=== PATIENT | male | born 1960 ===

== ENCOUNTER 2016-08-09 07:04 | Day surgery (SDC) | payer OTHER ==
[2016-06-26 13:06] VITALS: BMI 19.1
[2016-08-09] MEDS ORDERED: Lactated Ringer's 500 ML IV ONE (07:39)
[2016-08-09 07:44] VITALS: TEMP 96.8
[2016-08-09] MEDS ORDERED: Propofol 10 mg/ml Inj (20 ML) ONE (08:28)
[2016-08-09 09:05] VITALS: BP 118/77; PULSE 72; RESP 14; O2SAT 100
== END 2016-08-09 09:16 | disposition home or self-care (01) ==
LOC: H.ENDO 07:04
PROVIDERS: ATTEND Internal Medicine Gastroenterology
DX: K70.30 Alcoholic cirrhosis of liver without ascites (principal); F10.10 Alcohol abuse, uncomplicated; Z91.19 Patient's noncompliance with other medical treatment and regimen; K74.60 Unspecified cirrhosis of liver; K29.50 Unspecified chronic gastritis without bleeding; I85.10 Secondary esophageal varices without bleeding

== ENCOUNTER 2016-09-11 13:25 | Inpatient (IN) | payer OTHER ==
[2016-09-11 13:25] VITALS: BMI 19.1
[2016-09-11 14:03] LABS: BASO % 0.8 % (0.0-2.0); EOS % 1.3 % (0.0-4.0); HEMATOCRIT 34.8 % (35.0-51.0); LYMPH # 0.2 K/uL (1.0-4.3); LYMPH % 5.8 % (20.0-40.0); MEAN CELL VOLUME 94.8 fl (80.0-94.0); MEAN CORPUSCULAR HGB CONC 33.8 g/dL (33.0-37.0); MONO # 0.5 K/uL (0.0-0.8); MONO % 16.2 % (0.0-10.0); NEUT # 2.6 K/uL (1.8-7.0); NEUT % 75.9 % (50.0-75.0); RED CELL DISTRIBUTION WIDTH 16.3 % (11.5-14.5); WHITE BLOOD COUNT 3.4 K/uL (4.8-10.8)
[2016-09-11 14:10] LABS: ALB/GLOB RATIO 0.9 (1.0-2.1); ALKALINE PHOSPHATASE 129 U/L (38-126); ALT/SGPT 49 U/L (21-72); AST/SGOT 128 U/L (17-59); BILIRUBIN,TOTAL 4.2 mg/dl (0.2-1.3); BLOOD UREA NITROGEN 10 mg/dl (9-20); CALCIUM 9.3 mg/dL (8.4-10.2); CARBON DIOXIDE 19 mmol/L (22-30); CHLORIDE 103 mmol/L (98-107); GFR AFRICAN-AMERICAN > 60; GLUCOSE,RANDOM 101 mg/dL (75-110); LIPASE 416 U/L (23-300); SODIUM 134 mmol/l (132-148); TOTAL PROTEIN 8.6 G/DL (6.3-8.2)
--- NOTE | 2016-09-11 14:44 | ED PDOC ---
HPI: Abdomen Time Seen by Provider: 09/11/16 13:36 Chief Complaint (Nursing): Abdominal Pain Chief Complaint (Provider): Abdominal pain, black stool; states he drank alcohol a few days ago History Per: Patient History/Exam Limitations: no limitations Onset/Duration Of Symptoms: Days Outside of [place] travel?: No Current Symptoms Are (Timing): Still Present Associated Symptoms: Nausea, Loss Of Appetite. denies: Fever, Chills Exacerbating Factors: None Alleviating Factors: None Last Bowel Movement: Today Additional Complaint(s): Pt states he drank a few beers 2 night ago and began having dark stool since this morning. History of GI bleed. Past Medical History Reviewed: Historical Data, Nursing Documentation, Vital Signs Vital Signs: Last Vital Signs Temp 98.4 F 09/11/16 19:02 Pulse 67 09/11/16 19:02 Resp 16 09/11/16 19:02 BP 136/82 09/11/16 19:02 Pulse Ox 95 09/11/16 19:02 - Medical History PMH: Anemia, Anxiety, Depression, Fractures (L ankle sx), Gastritis Denies: HIV, Hypercholesterolemia, Chronic Kidney Disease - Surgical History Surgical History: Endoscopy - Family History Family History: States: Unknown Family Hx - Living Arrangements Living Arrangements: Alone - Social History Current smoker - smoking cessation education provided: Yes Alcohol: Occasional Drugs: Denies - Home Medications Home Medications: Ambulatory Orders Medication Instructions Recorded Polymyxin/Trimethoprim Sulfate 1 drop XX Q6H 10 Days 03/30/14 [Polytrim Ophth Soln] FLUoxetine [Prozac] 1 tab PO DAILY #30 cap 06/27/16 Ferrous Sulfate [Feosol] 1 tab PO BID #30 tab 06/27/16 Propranolol HCl 10 mg pe PO DAILY #30 tablet 06/27/16 Thiamine Mononitrate [Vitamin B-1] 100 mg PO DAILY #30 tablet 06/27/16 - Allergies Allergies/Adverse Reactions: Allergies Allergy/AdvReac Type Severity Reaction Status Date / Time No Known Allergies Allergy Verified 10/20/15 07:46 Review of Systems ROS Statement: Except As Marked, All Systems Reviewed And Found Negative Gastrointestinal: Positive for: Abdominal Pain, Melena Physical Exam - Reviewed Nursing Documentation Reviewed: Yes Vital Signs Reviewed: Yes - Physical Exam Appears: Positive for: Well, Non-toxic, No Acute Distress Head Exam: Positive for: ATRAUMATIC, NORMAL INSPECTION, NORMOCEPHALIC Skin: Positive for: Normal Color, Warm, DRY Eye Exam: Positive for: Normal appearance ENT: Positive for: Normal ENT Inspection Neck: Positive for: Normal, Painless ROM Cardiovascular/Chest: Positive for: Regular Rate, Rhythm Respiratory: Positive for: Normal Breath Sounds. Negative for: Accessory Muscle Use, Respiratory Distress Gastrointestinal/Abdominal: Positive for: Bowel Sounds, Soft, Tenderness ( Epigastric pain ). Negative for: Normal Exam Back: Positive for: Normal Inspection Rectal: Positive for: Normal Exam, Stool Is Heme: ((+)) Extremity: Positive for: Normal ROM Neurologic/Psych: Positive for: Alert, Oriented - Laboratory Results Result Diagrams: 09/11/16 13:50 09/11/16 13:50 - ECG O2 Sat by Pulse Oximetry: 98 Pulse Ox Interpretation: Normal Medical Decision Making Medical Decision Making: Vitals stable, H&H normal Disposition - Clinical Impression Clinical Impression: GI bleed - Patient ED Disposition Is Patient to be Admitted: Yes Counseled Patient/Family Regarding: Studies Performed, Diagnosis - Disposition Disposition Time: 19:30 Condition: GOOD - Pt Status Changed To: Hospital Disposition Of: Observation - Admit Certification Admit to Inpatient:: M/S - POA Present On Arrival: None
[2016-09-11 15:20] LABS: PLATELET COUNT 47 K/uL (130-400)
[2016-09-11 15:56] LABS: RBC URINE 13 /hpf (0-3); URINE BACTERIA RARE (<OCC); URINE BILIRUBIN NEGATIVE (NEGATIVE); URINE BLOOD MODERATE (NEGATIVE); URINE COLOR YELLOW (YELLOW); URINE GLUCOSE (UA) NEG (Normal); URINE KETONE TRACE mg/dL (NEGATIVE); URINE LEUKOCYTE ESTERASE NEG Leu/uL (Negative); URINE PROTEIN NEGATIVE (NEGATIVE); URINE UROBILINOGEN 0.2-1.0 mg/dL (0.2-1.0); WBC URINE < 1 /hpf (0-5)
[2016-09-11 16:47] LABS: EOSINOPHIL 1 % (0-7); NEUTROPHIL 84 % (42-75); TOTAL CELLS COUNTED 100
[2016-09-11 16:48] LABS: LARGE PLATELETS PRESENT
[2016-09-11] MEDS ORDERED: Iohexol 300 100 ML IJ ONE (18:01)
--- NOTE | 2016-09-11 19:17 | CT ---
EXAM: CT Abdomen and Pelvis With Intravenous Contrast CLINICAL HISTORY: 56 years old, male; Pain; Abdominal pain; Other: Rlq; Prior surgery; Surgery date: 6+ months; Surgery type: HX of hernia; Additional info: Elevated lipase, abdominal pain TECHNIQUE: Axial computed tomography images of the abdomen and pelvis with intravenous contrast. This CT exam was performed using one or more of the following dose reduction techniques: automated exposure control, adjustment of the mA and/or kV according to patient size, and/or use of iterative reconstruction technique. Coronal and sagittal reformatted images were created and reviewed. CONTRAST: 90 mL of Prhn801 administered intravenously. EXAM DATE/TIME: 09/11/2016 4:46 PM COMPARISON: CT - ABDOMEN,PELVIS W/WO CONTRAST 05/20/2016 11:25:32 AM FINDINGS: Lower thorax: Heart size is normal. There is a small hiatal hernia. There are paraesophageal varices in the posterior mediastinum. Lung bases are mildly hyperinflated but clear. ABDOMEN: Liver: There is fatty infiltration of the liver.Hepatic contours are nodular. There is prominence of the left and caudate lobes. Gallbladder and bile ducts: unremarkable Pancreas: unremarkable Spleen: Spleen measures approximately 13 cm in length. Adrenals: unremarkable Kidneys and ureters: unremarkable Stomach and bowel: Stomach is empty. Rotation is normal. There are mildly distended small bowel loops in the midabdomen. There is no obstruction. Terminal ileum is unremarkable. Visualized portion of the appendix is unremarkable. Colon is incompletely distended which limits evaluation. There is mild cecal and ascending colon wall thickening Appendix: See stomach and bowel PELVIS: Bladder: unremarkable Reproductive: Seminal vesicles and prostate are unremarkable. ABDOMEN and PELVIS: Intraperitoneal space: There is trace fluid in the right colic gutter. There is no free air Bones/joints: There are degenerative changes in the osseus structures. Soft tissues: unremarkable Vasculature: There are vascular calcifications. There are varices in the upper abdomen and retroperitoneum. There are paraesophageal varices. There continues to be a filling defect/thrombus in the superior mesenteric vein. There is nonocclusive thrombus in the distal splenic and proximal portal vein. There is been decrease in knee amount of thrombus in the main portal vein. Lymph nodes: unremarkable IMPRESSION: Cirrhosis and fatty infiltration of the liver, varices and trace ascites; continued thrombus in the superior mesenteric vein with interval decrease in amount of thrombus in the portal vein; now with small nonocclusive thrombus in the distal splenic vein; mild ileus, no obstruction; possible colitis, no CT findings of appendicitis Additional findings as described above.
--- NOTE | 2016-09-11 20:48 | CP.PCM.HP ---
<Bashir Summers - Last Filed: 09/11/16 21:30> History of Present Illness - History of Present Illness History of Present Illness: 56 yo male with PMHx of gastric and esophageal varices, chronic ETOH abuse, liver cirrhosis, tobacco abuse, depression, and chronic gastritis w/ multiple admissions for UGIB presented to ED for 1 episode of dark tarry stool this morning associated with epigastric discomfort and lightheadedness. Patient states drank 6 beers on Monday. States no alcohol for 2 months prior to that. Patient has hx of previous hospitalization for similar symptoms; has long hx of alcohol abuse. Denies chest pain, dyspnea, headache, blurry vision. Denies cough , runny nose, numbness, tingling. denies recent travel or sick contact. Patient was evaluated in the ER, states lightheadness/epigastric discomfort has resolved , though continues with black tarry stool x 3 since in ED. PMD: [facility] Supervisor Inspection: Dr. Desouza PMHx:Chronic gastritis w/ multiple admissions for UGIB, Liver cirrhosis, gastric and esophageal varices, Chronic ETOH abuse, Tobacco abuse, Depression SHx: Left lower ext ankle surgery; Right inguinal hernia repair Meds: unverified Allergies: none FHx: Father had hx of Colon cancer, etoh abuse, mother had hx of stomach cancer ; both in their 60-70s; brother also had hx of etoh abuse, and of etoh related complications. Sochx: etoh abuse, off and on abstinence; smokes. hx of 30+ pack years, current smoker; denies illicit drug abuse ED Course: Vitals stable. PE notable for epigastric tenderness and hemoccult positive by rectal exam. Protonix 40mg IV H/H 11.7/34.8 CT Abdomen/Pelvis w/ IV contrast IMPRESSION: Cirrhosis and fatty infiltration of the liver, varices and trace ascites; continued thrombus in the superior mesenteric vein with interval decrease in amount of thrombus in the portal vein; now with small nonocclusive thrombus in the distal splenic vein; mild ileus, no obstruction; possible colitis, no CT findings of appendicitis Present on Admission - Present on Admission Any Indicators Present on Admission: No Review of Systems - Review of Systems All systems: reviewed and no additional remarkable complaints except (mentioned in HPI) Past Patient History - Infectious Disease Hx of Infectious Diseases: None - Tetanus Immunizations Tetanus Immunization: Unknown - Past Medical History & Family History Past Medical History?: Yes - Past Social History Alcohol: Occasional Drugs: Denies - CARDIAC Hx Hypercholesterolemia: No - PULMONARY Hx Respiratory Disorders: No - NEUROLOGICAL Hx Neurological Disorder: No - HEENT Hx HEENT Problems: No - RENAL Hx Chronic Kidney Disease: No - ENDOCRINE/METABOLIC Hx Endocrine Disorders: No - HEMATOLOGICAL/ONCOLOGICAL Hx Anemia: Yes Hx Human Immunodeficiency Virus (HIV): No - INTEGUMENTARY Hx Dermatological Problems: No - MUSCULOSKELETAL/RHEUMATOLOGICAL Hx Fractures: Yes (L ankle sx) - GASTROINTESTINAL Hx Gastritis: Yes - GENITOURINARY/GYNECOLOGICAL Hx Genitourinary Disorders: No - PSYCHIATRIC Hx Anxiety: Yes Hx Depression: Yes - SURGICAL HISTORY Hx Surgeries: Yes Hx Herniorrhaphy: Yes Other/Comment: ANKLE SURGERY - ANESTHESIA Hx Anesthesia: Yes Hx Anesthesia Reactions: No Hx Malignant Hyperthermia: No Meds Allergies/Adverse Reactions: Allergies Allergy/AdvReac Type Severity Reaction Status Date / Time No Known Allergies Allergy Verified 10/20/15 07:46 Physical Exam - Constitutional Appears: Well, Non-toxic, No Acute Distress - Head Exam Head Exam: ATRAUMATIC, NORMAL INSPECTION, NORMOCEPHALIC - Eye Exam Eye Exam: EOMI, Normal appearance - ENT Exam ENT Exam: Normal Exam - Neck Exam Neck exam: Positive for: Full Rom, Normal Inspection - Respiratory Exam Respiratory Exam: Clear to Auscultation Bilateral, NORMAL BREATHING PATTERN. absent: Decreased Breath Sounds, Rales, Rhonchi, Wheezes - Cardiovascular Exam Cardiovascular Exam: RRR, +S1, +S2 - GI/Abdominal Exam GI & Abdominal Exam: Normal Bowel Sounds, Soft. absent: Guarding, Rebound, Tenderness - Extremities Exam Extremities exam: Positive for: normal inspection. Negative for: calf tenderness, pedal edema - Neurological Exam Neurological exam: Alert, Oriented x3 - Psychiatric Exam Psychiatric exam: Normal Affect, Normal Mood - Skin Skin Exam: Dry, Intact, Normal Color, Warm Results - Vital Signs Recent Vital Signs: Last Vital Signs Temp 98.4 F 09/11/16 19:02 Pulse 67 09/11/16 19:02 Resp 16 09/11/16 19:02 BP 136/82 09/11/16 19:02 Pulse Ox 98 09/11/16 19:31 - Labs Result Diagrams: 09/11/16 13:50 09/11/16 13:50 Assessment & Plan - Assessment and Plan (Free Text) Assessment: 56 yo male with PMHx of gastric and esophageal varices, chronic ETOH abuse, liver cirrhosis, tobacco abuse, depression, and chronic gastritis w/ multiple admissions for UGIB with melena x 1 day admitted for upper GI bleed. Hemodynamically stable at this time. Plan: 1)Gastrointestinal hemorrhage with melena, likely secondary to esophageal varices and gastritis [secondary to chronic alcohol abuse] -stable -NPO -labs reviewed: H/H ok -Repeat cbc in 6 hrs and AM -GI consulted, Dr Desouza, appreciate recommendations -Started protonix and octreotide IV Drip 2) Alcoholic liver cirrhosis -reviewed ast 128(H)/alt 49 as well as Bilirubin 4.2 -Thrombocytopenia chronic -reviewed hepatitis panel normal limit [2016] -repeat CMP in AM -Unable to record MELD score due to unavailable coag study results 3) Chronic alcohol abuse -CIWAAr score 0 -No signs of withdrawal at this time 4) Depression -hold floxetine till GI recommendations 5) Smoking hx -Consider nicotine patch if elongated stay 6) Prophylactic measures: -DVT: scds [blood thinners, e.g. aspirin, NSAIDs contraindicated given hx of multiple GI bleed] <Annmarie Parra - Last Filed: 09/12/16 11:20> Results - Vital Signs Recent Vital Signs: Last Vital Signs Temp 98.5 F 09/12/16 09:00 Pulse 72 09/12/16 10:26 Resp 18 09/12/16 09:00 BP 121/70 09/12/16 09:00 Pulse Ox 98 09/12/16 09:00 - Labs Result Diagrams: 09/12/16 10:35 09/12/16 10:35 Labs: Laboratory Results - last 24 hr 09/12/16 09/12/16 09/12/16 02:08 05:15 10:35 WBC 2.8 L 2.5 L RBC 3.59 L 3.61 L Hgb 11.5 L 11.6 L Hct 34.2 L 34.7 L MCV 95.3 H 96.1 H MCH 32.2 H 32.2 H MCHC 33.8 33.5 RDW 16.2 H 16.1 H Plt Count 79 L D 48 L D MPV 8.4 Neut % (Auto) 69.8 Lymph % (Auto) 8.1 L [place] % (Auto) 16.6 H Eos % (Auto) 4.5 H Baso % (Auto) 1.0 Neut # 1.8 Lymph # 0.2 L [place] # 0.4 Eos # 0.1 Baso # 0.0 Sodium 133 Potassium 3.8 Chloride 103 Carbon Dioxide 21 L Anion Gap 13 BUN 11 Creatinine 0.5 L Est GFR ( Amer) > 60 Est GFR (Non-Af Amer) > 60 Random Glucose 90 Calcium 8.3 L Total Bilirubin 5.2 H AST 87 H D ALT 46 Alkaline Phosphatase 109 Total Protein 7.8 Albumin 3.5 Globulin 4.3 H Albumin/Globulin Ratio 0.8 L 09/12/16 10:35 WBC RBC Hgb Hct MCV MCH MCHC RDW Plt Count MPV Neut % (Auto) Lymph % (Auto) [place] % (Auto) Eos % (Auto) Baso % (Auto) Neut # Lymph # [place] # Eos # Baso # Sodium 134 Potassium 3.9 Chloride 104 Carbon Dioxide 20 L Anion Gap 14 BUN 11 Creatinine 0.5 L Est GFR ( Amer) > 60 Est GFR (Non-Af Amer) > 60 Random Glucose 101 Calcium 8.4 Total Bilirubin 5.3 H AST 94 H ALT 41 Alkaline Phosphatase 111 Total Protein 7.7 Albumin 3.5 Globulin 4.2 H Albumin/Globulin Ratio 0.8 L Assessment & Plan - Assessment and Plan (Free Text) Assessment: ATTENDING NOTE ATTESTATION PATIENT ADMITTED VIA THE ED. COMPLAINT ABOVE. VITAL SIGNS/LABS STABLE. DISCUSSED WITH RESIDENT. AGREE WITH PLAN.
[2016-09-11] MEDS: Sodium Chloride 0.9% 1,000 ML IV SCH (21:24)
[2016-09-11] MEDS: Pantoprazole 40 MG in Sodium Chloride 0.9% 100 ML IVPB SCH (21:29)
[2016-09-12 02:13] LABS: HEMATOCRIT 34.2 % (35.0-51.0); MEAN CELL VOLUME 95.3 fl (80.0-94.0); MEAN CORPUSCULAR HEMOGLOBIN 32.2 pg (27.0-31.0); MEAN CORPUSCULAR HGB CONC 33.8 g/dL (33.0-37.0); RED CELL DISTRIBUTION WIDTH 16.2 % (11.5-14.5); WHITE BLOOD COUNT 2.8 K/uL (4.8-10.8)
[2016-09-12] MEDS: Pantoprazole 40 MG in Sodium Chloride 0.9% 100 ML IVPB SCH ×5 (02:53→22:18)
[2016-09-12 06:46] LABS: ALB/GLOB RATIO 0.8 (1.0-2.1); ALKALINE PHOSPHATASE 109 U/L (38-126); ALT/SGPT 46 U/L (21-72); AST/SGOT 87 U/L (17-59); BILIRUBIN,TOTAL 5.2 mg/dl (0.2-1.3); BLOOD UREA NITROGEN 11 mg/dl (9-20); CALCIUM 8.3 mg/dL (8.4-10.2); CARBON DIOXIDE 21 mmol/L (22-30); CHLORIDE 103 mmol/L (98-107); GFR AFRICAN-AMERICAN > 60; GLUCOSE,RANDOM 90 mg/dL (75-110); POTASSIUM 3.8 MMOL/L (3.6-5.0); SODIUM 133 mmol/l (132-148); TOTAL PROTEIN 7.8 G/DL (6.3-8.2)
[2016-09-12] MEDS: Sodium Chloride 0.9% 1,000 ML IV SCH ×3 (07:13→22:20)
[2016-09-12 10:43] LABS: EOS # 0.1 K/uL (0.0-0.7); EOS % 4.5 % (0.0-4.0); HEMATOCRIT 34.7 % (35.0-51.0); LYMPH # 0.2 K/uL (1.0-4.3); LYMPH % 8.1 % (20.0-40.0); MEAN CELL VOLUME 96.1 fl (80.0-94.0); MEAN CORPUSCULAR HEMOGLOBIN 32.2 pg (27.0-31.0); MEAN CORPUSCULAR HGB CONC 33.5 g/dL (33.0-37.0); MEAN PLATELET VOLUME 8.4 fl (7.2-11.7); MONO # 0.4 K/uL (0.0-0.8); MONO % 16.6 % (0.0-10.0); NEUT # 1.8 K/uL (1.8-7.0); NEUT % 69.8 % (50.0-75.0); NRBC % 0.1 % (0.0-0.0); RED CELL DISTRIBUTION WIDTH 16.1 % (11.5-14.5); WHITE BLOOD COUNT 2.5 K/uL (4.8-10.8)
[2016-09-12 10:57] LABS: ALB/GLOB RATIO 0.8 (1.0-2.1); ALKALINE PHOSPHATASE 111 U/L (38-126); ALT/SGPT 41 U/L (21-72); AST/SGOT 94 U/L (17-59); BILIRUBIN,TOTAL 5.3 mg/dl (0.2-1.3); BLOOD UREA NITROGEN 11 mg/dl (9-20); CALCIUM 8.4 mg/dL (8.4-10.2); CARBON DIOXIDE 20 mmol/L (22-30); CHLORIDE 104 mmol/L (98-107); GFR AFRICAN-AMERICAN > 60; GLUCOSE,RANDOM 101 mg/dL (75-110); SODIUM 134 mmol/l (132-148); TOTAL PROTEIN 7.7 G/DL (6.3-8.2)
[2016-09-12 10:58] LABS: POTASSIUM 3.9 MMOL/L (3.6-5.0)
--- NOTE | 2016-09-12 11:28 | CP.PCM.CON ---
<Matt Calvin - Last Filed: 09/12/16 16:42> History of Present Illness - History of Present Illness History of Present Illness: PGY4 GI Fellow Consult Note Patient is a 56yo male with PMHx significant for decompensated EtOH cirrhosis with history of esophageal varices, chronic EtOH abuse/dependence (ongoing) who presented to the ED with complaint of melena. Patient admits that he drank 6 beers on Monday. Monday morning he began to have abdominal pain, nausea, dizziness and lightheadedness. This continued in to Monday and he noticed an episode of melena as well which prompted him to come to the ED for evaluation. He had 3-4 more episodes of melena since arrival in the ED. At present, states no BM since he was in the ER. Continues to have mild epigastric discomfort and nausea. PMHx: See HPI PSHx: Left ankle surgery, R inguinal hernia repair FHx: Father - colon cancer; Mother - gastric cancer Social: Chronic EtOH abuse (ongoing), +tobacco use (~30 pack years), denies illicit drug use Endo: Most recent - 08/09/16 - EGD - Grade I esoph. varices, erosive gastropathy 07/2015 - Colonoscopy - diverticulosis, ext/int hemorrhoids Review of Systems - Constitutional Constitutional: Anorexia. absent: Chills, Fever, Weight Loss - EENT Eyes: absent: Change in Vision Nose/Mouth/Throat: absent: Sore Throat - Cardiovascular Cardiovascular: absent: Chest Pain, Dyspnea, Edema - Respiratory Respiratory: absent: Cough, Dyspnea, Excessive Mucous Production - Gastrointestinal Gastrointestinal: Abdominal Pain, Dyspepsia, Melena, Nausea. absent: Constipation, Cramping, Diarrhea, Dysphagia, Heartburn, Hematemesis, Hematochezia, Odynophagia, Vomiting - Genitourinary Genitourinary: absent: Dysuria, Urinary Frequency, Urinary Urgency - Musculoskeletal Musculoskeletal: absent: Back Pain, Neck Pain - Integumentary Integumentary: absent: New Lesions, Rash - Neurological Neurological: absent: Dizziness, Numbness, Focal Weakness - Psychiatric Psychiatric: absent: Anxiety, Depression - Endocrine Endocrine: absent: Polydipsia, Polyphagia, Polyuria - Hematologic/Lymphatic Hematologic: absent: Easy Bleeding, Easy Bruising, Lymphadenopathy Past Patient History - Infectious Disease Hx of Infectious Diseases: None - Tetanus Immunizations Tetanus Immunization: Unknown - Past Medical History & Family History Past Medical History?: Yes - Past Social History Smoking Status: Heavy Smoker > 10 Cigarettes Daily - CARDIAC Hx Cardiac Disorders: Yes (GI prob: Cirrhosis, esophageal varicies) - PULMONARY Hx Respiratory Disorders: No - NEUROLOGICAL Hx Neurological Disorder: No - HEENT Hx HEENT Problems: No - RENAL Hx Chronic Kidney Disease: No - ENDOCRINE/METABOLIC Hx Endocrine Disorders: No - HEMATOLOGICAL/ONCOLOGICAL Hx Blood Disorders: Yes (anemia) Hx AIDS: No Hx Anemia: Yes Hx Cirrhosis: Yes Hx Human Immunodeficiency Virus (HIV): No - INTEGUMENTARY Hx Dermatological Problems: No - MUSCULOSKELETAL/RHEUMATOLOGICAL Hx Musculoskeletal Disorders: Yes (arthritis) Hx Falls: No - GASTROINTESTINAL Hx Gastritis: Yes - GENITOURINARY/GYNECOLOGICAL Hx Genitourinary Disorders: No - PSYCHIATRIC Hx Psychophysiologic Disorder: Yes Hx Depression: Yes Hx Substance Use: No - SURGICAL HISTORY Hx Surgeries: Yes Hx Herniorrhaphy: Yes Other/Comment: ANKLE SURGERY - ANESTHESIA Hx Anesthesia: Yes Hx Anesthesia Reactions: No Hx Malignant Hyperthermia: No Has any member of the family had a problem w/ anesthesia?: No Meds Allergies/Adverse Reactions: Allergies Allergy/AdvReac Type Severity Reaction Status Date / Time No Known Allergies Allergy Verified 10/20/15 07:46 - Medications Medications: Current Medications Sodium Chloride (Sodium Chloride 0.9%) 1,000 mls @ 125 mls/hr IV .Q8H LEROY Last Admin: 09/12/16 07:13 Dose: 125 mls/hr Pantoprazole Sodium 40 mg/ (Sodium Chloride) 100 mls @ 20 mls/hr IVPB Q5H LEROY PRN Reason: 8 MG/HR Last Admin: 09/12/16 07:12 Dose: 20 mls/hr Octreotide Acetate 1,250 mcg/ (Sodium Chloride) 252.5 mls @ 5.05 mls/hr IV .Q24H LEROY; 25 MCG/HR PRN Reason: Protocol Last Admin: 09/11/16 21:24 Dose: 5.05 mls/hr Physical Exam - Constitutional Appears: Non-toxic, No Acute Distress - Eye Exam Eye Exam: EOMI, PERRL - ENT Exam ENT Exam: Mucous Membranes Dry - Respiratory Exam Respiratory Exam: Clear to Auscultation Bilateral. absent: Rales, Rhonchi, Wheezes - Cardiovascular Exam Cardiovascular Exam: RRR, +S1, +S2 - GI/Abdominal Exam GI & Abdominal Exam: Normal Bowel Sounds, Soft, Tenderness (epigastric). absent : Distended, Firm, Guarding, Organomegaly, Rigid - Rectal Exam Rectal Exam: Black Stool. absent: Hemorrhoids - Extremities Exam Extremities exam: Positive for: normal inspection. Negative for: pedal edema - Neurological Exam Neurological exam: Alert, Oriented x3 - Psychiatric Exam Psychiatric exam: Normal Affect, Normal Mood - Skin Skin Exam: Dry, Warm Results - Vital Signs Recent Vital Signs: Last Vital Signs Temp 98.5 F 09/12/16 09:00 Pulse 72 09/12/16 10:26 Resp 18 09/12/16 09:00 BP 121/70 09/12/16 09:00 Pulse Ox 98 09/12/16 09:00 - Labs Result Diagrams: 09/12/16 10:35 09/12/16 10:35 Labs: Laboratory Results - last 24 hr 09/12/16 09/12/16 09/12/16 02:08 05:15 10:35 WBC 2.8 L 2.5 L RBC 3.59 L 3.61 L Hgb 11.5 L 11.6 L Hct 34.2 L 34.7 L MCV 95.3 H 96.1 H MCH 32.2 H 32.2 H MCHC 33.8 33.5 RDW 16.2 H 16.1 H Plt Count 79 L D 48 L D MPV 8.4 Neut % (Auto) 69.8 Lymph % (Auto) 8.1 L [place] % (Auto) 16.6 H Eos % (Auto) 4.5 H Baso % (Auto) 1.0 Neut # 1.8 Lymph # 0.2 L [place] # 0.4 Eos # 0.1 Baso # 0.0 PT INR Sodium 133 Potassium 3.8 Chloride 103 Carbon Dioxide 21 L Anion Gap 13 BUN 11 Creatinine 0.5 L Est GFR ( Amer) > 60 Est GFR (Non-Af Amer) > 60 Random Glucose 90 Calcium 8.3 L Total Bilirubin 5.2 H AST 87 H D ALT 46 Alkaline Phosphatase 109 Total Protein 7.8 Albumin 3.5 Globulin 4.3 H Albumin/Globulin Ratio 0.8 L 09/12/16 09/12/16 10:35 10:35 WBC RBC Hgb Hct MCV MCH MCHC RDW Plt Count MPV Neut % (Auto) Lymph % (Auto) [place] % (Auto) Eos % (Auto) Baso % (Auto) Neut # Lymph # [place] # Eos # Baso # PT 13.8 H INR 1.33 H Sodium 134 Potassium 3.9 Chloride 104 Carbon Dioxide 20 L Anion Gap 14 BUN 11 Creatinine 0.5 L Est GFR ( Amer) > 60 Est GFR (Non-Af Amer) > 60 Random Glucose 101 Calcium 8.4 Total Bilirubin 5.3 H AST 94 H ALT 41 Alkaline Phosphatase 111 Total Protein 7.7 Albumin 3.5 Globulin 4.2 H Albumin/Globulin Ratio 0.8 L Assessment & Plan - Assessment and Plan (Free Text) Assessment: Patient is a 56yo male with PMHx significant for decompensated EtOH cirrhosis with history of esophageal varices, chronic EtOH abuse/dependence (ongoing) who presented to the ED with complaint of melena. -Acute blood loss anemia -Melena -EtOH abuse, recent use -Decompensated EtOH cirrhosis with h/o esophageal varices -Pancytopenia 2/2 bone marrow suppression from EtOH abuse Plan: -Patient has been on protonix and octreotide gtt since admission -Liquid diet last night, has been NPO past midnight last night -Plan for EGD this afternoon *MELD-Na: 20 - Date & Time Date: 09/12/16 Time: 12:42 <Jeevan Desouza MD - Last Filed: 09/12/16 19:47> Meds - Medications Medications: Current Medications Sodium Chloride (Sodium Chloride 0.9%) 1,000 mls @ 125 mls/hr IV .Q8H LEROY Last Admin: 09/12/16 17:17 Dose: 125 mls/hr Pantoprazole Sodium 40 mg/ (Sodium Chloride) 100 mls @ 20 mls/hr IVPB Q5H LEROY PRN Reason: 8 MG/HR Last Admin: 09/12/16 17:18 Dose: 20 mls/hr Octreotide Acetate 1,250 mcg/ (Sodium Chloride) 252.5 mls @ 5.05 mls/hr IV .Q24H LEROY; 25 MCG/HR PRN Reason: Protocol Last Admin: 09/11/16 21:24 Dose: 5.05 mls/hr Results - Vital Signs Recent Vital Signs: Last Vital Signs Temp 98.4 F 09/12/16 19:33 Pulse 68 09/12/16 19:33 Resp 20 09/12/16 19:33 BP 118/70 09/12/16 19:33 Pulse Ox 97 09/12/16 19:33 - Labs Result Diagrams: 09/12/16 10:35 09/12/16 10:35 Labs: Laboratory Results - last 24 hr 09/12/16 09/12/16 09/12/16 02:08 05:15 05:57 WBC 2.8 L RBC 3.59 L Hgb 11.5 L Hct 34.2 L MCV 95.3 H MCH 32.2 H MCHC 33.8 RDW 16.2 H Plt Count 79 L D MPV Neut % (Auto) Lymph % (Auto) [place] % (Auto) Eos % (Auto) Baso % (Auto) Neut # Lymph # [place] # Eos # Baso # PT INR Sodium 133 Potassium 3.8 Chloride 103 Carbon Dioxide 21 L Anion Gap 13 BUN 11 Creatinine 0.5 L Est GFR ( Amer) > 60 Est GFR (Non-Af Amer) > 60 POC Glucose (mg/dL) 87 Random Glucose 90 Calcium 8.3 L Total Bilirubin 5.2 H AST 87 H D ALT 46 Alkaline Phosphatase 109 Total Protein 7.8 Albumin 3.5 Globulin 4.3 H Albumin/Globulin Ratio 0.8 L 09/12/16 09/12/16 09/12/16 10:35 10:35 10:35 WBC 2.5 L RBC 3.61 L Hgb 11.6 L Hct 34.7 L MCV 96.1 H MCH 32.2 H MCHC 33.5 RDW 16.1 H Plt Count 48 L D MPV 8.4 Neut % (Auto) 69.8 Lymph % (Auto) 8.1 L [place] % (Auto) 16.6 H Eos % (Auto) 4.5 H Baso % (Auto) 1.0 Neut # 1.8 Lymph # 0.2 L [place] # 0.4 Eos # 0.1 Baso # 0.0 PT 13.8 H INR 1.33 H Sodium 134 Potassium 3.9 Chloride 104 Carbon Dioxide 20 L Anion Gap 14 BUN 11 Creatinine 0.5 L Est GFR ( Amer) > 60 Est GFR (Non-Af Amer) > 60 POC Glucose (mg/dL) Random Glucose 101 Calcium 8.4 Total Bilirubin 5.3 H AST 94 H ALT 41 Alkaline Phosphatase 111 Total Protein 7.7 Albumin 3.5 Globulin 4.2 H Albumin/Globulin Ratio 0.8 L Attending/Attestation - Attestation I have personally seen and examined this patient.: Yes I have fully participated in the care of the patient.: Yes I have reviewed all pertinent clinical information: Yes Notes (Text): 09/12/16 19:44 Patient seen with GI fellow. This is a 56yo male with PMHx significant for decompensated EtOH cirrhosis with history of esophageal varices, chronic EtOH abuse/dependence (ongoing) who presented to the ED with complaint of melena s/p EGD showing PHG and grade A varices. MELD 20. Last EGD last month with similar findings. Patient continues to drink alcohol daily with case of beer. Discontinue octreotide and PPI drip and start regular low salt diet. Can be discharged with outpatient follow up. Not a transplant candidate due to active alcohol abuse
--- NOTE | 2016-09-12 12:55 | CP.PCM.PN ---
Subjective - Date & Time of Evaluation Date of Evaluation: 09/12/16 Time of Evaluation: 09:45 - Subjective Subjective: 56 y/o M admitted for Upper GI bleeding seen at bedside in not acute distress, denies dizziness, abd pain, palpitations, vision changes, CP or SOB. PAtient is on NPO, was evaluated by GI and is scheduled for EGD later today. Objective - Vital Signs/Intake and Output Vital Signs (last 24 hours): Temp Pulse Resp BP Pulse Ox 98.4 F 59 L 18 128/73 99 09/12/16 12:23 09/12/16 12:23 09/12/16 12:23 09/12/16 12:23 09/12/16 12:23 - Medications Medications: Current Medications Sodium Chloride (Sodium Chloride 0.9%) 1,000 mls @ 125 mls/hr IV .Q8H LEROY Last Admin: 09/12/16 07:13 Dose: 125 mls/hr Pantoprazole Sodium 40 mg/ (Sodium Chloride) 100 mls @ 20 mls/hr IVPB Q5H LEROY PRN Reason: 8 MG/HR Last Admin: 09/12/16 12:40 Dose: 20 mls/hr Octreotide Acetate 1,250 mcg/ (Sodium Chloride) 252.5 mls @ 5.05 mls/hr IV .Q24H LEROY; 25 MCG/HR PRN Reason: Protocol Last Admin: 09/11/16 21:24 Dose: 5.05 mls/hr - Labs Labs: 09/12/16 10:35 09/12/16 10:35 PT 13.8 SECONDS (9.6-11.2) H 09/12/16 10:35 INR 1.33 (0.92-1.08) H 09/12/16 10:35 - Constitutional Appears: Non-toxic, No Acute Distress - Head Exam Head Exam: NORMAL INSPECTION - Eye Exam Eye Exam: PERRL - ENT Exam ENT Exam: Mucous Membranes Moist - Respiratory Exam Respiratory Exam: Clear to Ausculation Bilateral, NORMAL BREATHING PATTERN - Cardiovascular Exam Cardiovascular Exam: REGULAR RHYTHM, +S1, +S2. absent: Gallop - GI/Abdominal Exam GI & Abdominal Exam: Soft, Normal Bowel Sounds. absent: Distended, Tenderness - Extremities Exam Extremities Exam: Normal Capillary Refill. absent: Calf Tenderness, Tenderness - Neurological Exam Neurological Exam: Alert, Awake, Oriented x3 - Psychiatric Exam Psychiatric exam: Normal Affect, Normal Mood Assessment and Plan - Assessment and Plan (Free Text) Assessment: 56 yo male with PMHx of gastric and esophageal varices, chronic ETOH abuse, liver cirrhosis, admitted for melena 1)GI bleeding likely secondary to esophageal varices and gastritis [secondary to chronic alcohol abuse] -stable -NPO -labs reviewed: H/H -GI consulted, Dr Desouza. For EGD today -Cont protonix and octreotide IV Drip 2) Alcoholic liver cirrhosis -Pancytopenia -reviewed ast 94(H)/alt 41 -reviewed hepatitis panel normal limit [2016] -MELD-Na 20 3) Pancytopenia -Most likely due to liver disease -Anemia could be due to blood loss -F/U EGD 4) Smoking hx -Consider nicotine patch if elongated stay 5) Prophylactic measures: -DVT: scds for now
[2016-09-12] MEDS ORDERED: Lactated Ringer's 500 ML IV ONE (12:57)
[2016-09-12] MEDS ORDERED: Propofol 10 mg/ml Inj (20 ML) ONE (14:13)
[2016-09-13] MEDS: Pantoprazole 40 MG in Sodium Chloride 0.9% 100 ML IVPB SCH ×2 (02:40→09:32)
[2016-09-13 04:47] VITALS: TEMP 98.1
[2016-09-13] MEDS: Sodium Chloride 0.9% 1,000 ML IV SCH (06:08)
[2016-09-13 06:20] LABS: HEMATOCRIT 32.4 % (35.0-51.0); MEAN CELL VOLUME 97.5 fl (80.0-94.0); MEAN CORPUSCULAR HEMOGLOBIN 32.2 pg (27.0-31.0); RED CELL DISTRIBUTION WIDTH 16.3 % (11.5-14.5); WHITE BLOOD COUNT 2.8 K/uL (4.8-10.8)
[2016-09-13 06:47] LABS: ALB/GLOB RATIO 0.8 (1.0-2.1); ALKALINE PHOSPHATASE 93 U/L (38-126); ALT/SGPT 44 U/L (21-72); AST/SGOT 93 U/L (17-59); BLOOD UREA NITROGEN 8 mg/dl (9-20); CALCIUM 8.1 mg/dL (8.4-10.2); CARBON DIOXIDE 22 mmol/L (22-30); CHLORIDE 105 mmol/L (98-107); GFR AFRICAN-AMERICAN > 60; GLUCOSE,RANDOM 161 mg/dL (75-110); POTASSIUM 3.5 MMOL/L (3.6-5.0); SODIUM 137 mmol/l (132-148); TOTAL PROTEIN 7.3 G/DL (6.3-8.2)
[2016-09-13 08:04] VITALS: BP 118/72; PULSE 63; RESP 18
[2016-09-13] MEDS ORDERED: Potassium Chloride 20 mEq ER Tab PO ONE (09:00)
--- NOTE | 2016-09-13 09:02 | CP.PCM.DIS ---
Provider - Provider Date of Admission: 09/11/16 19:21 Attending physician: Annmarie Parra MD Consults: GI Dr Desouza Time Spent in preparation of Discharge (in minutes): 35 Diagnosis - Discharge Diagnosis (1) GI bleed Status: Acute Comment: Resolved. EGD no active bleeding (2) Pancytopenia Status: Chronic Comment: Due to liver cirrhosis. Stable (3) Alcohol abuse Status: Chronic (4) Liver cirrhosis, alcoholic Status: Chronic Comment: Stable. Portal hypertension Hospital Course - Lab Results Lab Results: Most Recent Lab Values WBC 2.8 K/uL (4.8-10.8) L 09/13/16 05:15 RBC 3.32 Mil/uL (4.40-5.90) L 09/13/16 05:15 Hgb 10.7 g/dL (12.0-18.0) L 09/13/16 05:15 Hct 32.4 % (35.0-51.0) L 09/13/16 05:15 MCV 97.5 fl (80.0-94.0) H 09/13/16 05:15 MCH 32.2 pg (27.0-31.0) H 09/13/16 05:15 MCHC 33.0 g/dL (33.0-37.0) 09/13/16 05:15 RDW 16.3 % (11.5-14.5) H 09/13/16 05:15 Plt Count 47 K/uL (130-400) L 09/13/16 05:15 MPV 8.4 fl (7.2-11.7) 09/12/16 10:35 Neut % (Auto) 69.8 % (50.0-75.0) 09/12/16 10:35 Lymph % (Auto) 8.1 % (20.0-40.0) L 09/12/16 10:35 [place] % (Auto) 16.6 % (0.0-10.0) H 09/12/16 10:35 Eos % (Auto) 4.5 % (0.0-4.0) H 09/12/16 10:35 Baso % (Auto) 1.0 % (0.0-2.0) 09/12/16 10:35 Neut # 1.8 K/uL (1.8-7.0) 09/12/16 10:35 Lymph # 0.2 K/uL (1.0-4.3) L 09/12/16 10:35 [place] # 0.4 K/uL (0.0-0.8) 09/12/16 10:35 Eos # 0.1 K/uL (0.0-0.7) 09/12/16 10:35 Baso # 0.0 K/uL (0.0-0.2) 09/12/16 10:35 Neutrophils % (Manual) 84 % (42-75) H 09/11/16 13:50 Lymphocytes % (Manual) 5 % (20-50) L 09/11/16 13:50 Monocytes % (Manual) 10 % (0-10) 09/11/16 13:50 Eosinophils % (Manual) 1 % (0-7) 09/11/16 13:50 Platelet Estimate Markedly decreased (NORMAL) L 09/11/16 13:50 Large Platelets Present 09/11/16 13:50 Poikilocytosis (manual Slight 09/11/16 13:50 Anisocytosis (manual) Slight 09/11/16 13:50 Ovalocytes Slight 09/11/16 13:50 PT 13.8 SECONDS (9.6-11.2) H 09/12/16 10:35 INR 1.33 (0.92-1.08) H 09/12/16 10:35 Sodium 137 mmol/l (132-148) 09/13/16 05:15 Potassium 3.5 MMOL/L (3.6-5.0) L 09/13/16 05:15 Chloride 105 mmol/L (98-107) 09/13/16 05:15 Carbon Dioxide 22 mmol/L (22-30) 09/13/16 05:15 Anion Gap 14 (10-20) 09/13/16 05:15 BUN 8 mg/dl (9-20) L 09/13/16 05:15 Creatinine 0.6 mg/dL (0.8-1.5) L 09/13/16 05:15 Est GFR ( Amer) > 60 09/13/16 05:15 Est GFR (Non-Af Amer) > 60 09/13/16 05:15 POC Glucose (mg/dL) 87 mg/dL (65-110) 09/12/16 05:57 Random Glucose 161 mg/dL (75-110) H 09/13/16 05:15 Calcium 8.1 mg/dL (8.4-10.2) L 09/13/16 05:15 Total Bilirubin 4.0 mg/dl (0.2-1.3) H 09/13/16 05:15 AST 93 U/L (17-59) H 09/13/16 05:15 ALT 44 U/L (21-72) 09/13/16 05:15 Alkaline Phosphatase 93 U/L (38-126) 09/13/16 05:15 Total Protein 7.3 G/DL (6.3-8.2) 09/13/16 05:15 Albumin 3.2 g/dL (3.5-5.0) L 09/13/16 05:15 Globulin 4.1 gm/dL (2.2-3.9) H 09/13/16 05:15 Albumin/Globulin Ratio 0.8 (1.0-2.1) L 09/13/16 05:15 Lipase 416 U/L (23-300) H 09/11/16 13:50 Urine Color Yellow (YELLOW) 09/11/16 15:49 Urine Clarity Clear (Clear) 09/11/16 15:49 Urine pH 8.0 (5.0-8.0) 09/11/16 15:49 Ur Specific [place] 1.009 (1.003-1.030) 09/11/16 15:49 Urine Protein Negative mg/dL (NEGATIVE) 09/11/16 15:49 Urine Glucose (UA) Neg mg/dL (Normal) 09/11/16 15:49 Urine Ketones Trace mg/dL (NEGATIVE) 09/11/16 15:49 Urine Blood Moderate (NEGATIVE) 09/11/16 15:49 Urine Nitrate Negative (NEGATIVE) 09/11/16 15:49 Urine Bilirubin Negative (NEGATIVE) 09/11/16 15:49 Urine Urobilinogen 0.2-1.0 mg/dL (0.2-1.0) 09/11/16 15:49 Ur Leukocyte Esterase Neg [place]ron/uL (Negative) 09/11/16 15:49 Urine RBC (Auto) 13 /hpf (0-3) H 09/11/16 15:49 Urine Microscopic WBC < 1 /hpf (0-5) 09/11/16 15:49 Urine Bacteria Rare (<OCC) 09/11/16 15:49 Blood Type O POSITIVE 09/11/16 14:00 Antibody Screen Negative 09/11/16 14:00 Crossmatch IS Only See Detail 09/11/16 14:00 BBK History Checked Patient has bt 09/11/16 14:00 - Hospital Course Hospital Course: 56 y/o M with PMhx of liver cirrhosis, ETOH abuse presented to ED after multiple episodes of melena. He admitted heavy drinking the night before. Patient H&H was stable when admitted to hosp and no new episodes of GI bleeding were reported. He underwent EGD yesterday that showed no active bleeding, esophageal candidiasis, Grade 1 esophageal varices and portal hypertensive gastropathy. He was started on liquid diet last night and tolerated well. Today diet was advance to regular and if cont tolerating patient is being DC home and f/u as outpatient as per GI recs. Discharge meds FLUoxetine [Prozac] 1 tab PO DAILY Ferrous Sulfate [Feosol] 1 tab PO daily Propranolol HCl 10 mg pe PO DAILY Thiamine Mononitrate [Vitamin B-1] 100 mg PO DAILY Pantoprazole 40mg daily Discharge Exam - Head Exam Head Exam: NORMAL INSPECTION - Eye Exam Eye Exam: PERRL - ENT Exam ENT Exam: Mucous Membranes Moist - Respiratory Exam Respiratory Exam: Clear to PA & Lateral, NORMAL BREATHING PATTERN, UNREMARKABLE - Cardiovascular Exam Cardiovascular Exam: REGULAR RHYTHM, +S1, +S2. absent: Gallop - GI/Abdominal Exam GI & Abdominal Exam: Normal Bowel Sounds, Unremarkable. absent: Distended, Tenderness - Extremities Exam Extremities exam: normal capillary refill, pedal pulses present - Neurological Exam Neurological exam: Alert, Normal Gait, Oriented x3 - Psychiatric Exam Psychiatric exam: Normal Affect, Normal Mood - Skin Skin Exam: Normal Color, Warm Discharge Plan - Discharge Medications Prescriptions: Ferrous Gluconate 324 mg PO DAILY #30 tablet Pantoprazole Sodium [Protonix] 40 mg PO DAILY #30 ect - Follow Up Plan Condition: STABLE Disposition: HOME/ ROUTINE Additional Instructions: F/U with PMD and with GI as outpatient. If GI bleeding, dizziness, palpitations or any other concerns return to ED encouraged to stop ETOH
[2016-09-13 10:42] VITALS: O2SAT 98
== END 2016-09-13 11:10 | disposition home or self-care (01) | DRG 202 ==
LOC: H.ER 13:25 → H.ERHOLD 19:21 → H.TEL 21:46
PROVIDERS: ADMIT Emergency Medicine; ATTEND Emergency Medicine
PROC: 0DB28ZX Excision of Middle Esophagus, Via Natural or Artificial Opening Endoscopic, Diagnostic (ICD-10-PCS; 2016-09-12)
PROC: 0DB38ZX Excision of Lower Esophagus, Via Natural or Artificial Opening Endoscopic, Diagnostic (ICD-10-PCS; 2016-09-12)
PROC: 0DB48ZX Excision of Esophagogastric Junction, Via Natural or Artificial Opening Endoscopic, Diagnostic (ICD-10-PCS; 2016-09-12)
PROC: 0DB98ZX Excision of Duodenum, Via Natural or Artificial Opening Endoscopic, Diagnostic (ICD-10-PCS; principal; 2016-09-12 14:30)
DX: K70.30 Alcoholic cirrhosis of liver without ascites (principal); D61.818 Other pancytopenia; K29.20 Alcoholic gastritis without bleeding; I85.10 Secondary esophageal varices without bleeding; K76.6 Portal hypertension; D69.59 Other secondary thrombocytopenia; D62 Acute posthemorrhagic anemia; K92.1 Melena; F10.20 Alcohol dependence, uncomplicated; K31.89 Other diseases of stomach and duodenum; I86.4 Gastric varices; F41.9 Anxiety disorder, unspecified; F32.9 Major depressive disorder, single episode, unspecified; M19.90 Unspecified osteoarthritis, unspecified site; F17.210 Nicotine dependence, cigarettes, uncomplicated

== ENCOUNTER 2016-10-22 09:06 | Observation (INO) | payer OTHER ==
[2016-10-22 09:06] VITALS: BMI 19.1
--- NOTE | 2016-10-22 09:28 | ED PDOC ---
HPI:Nausea, Vomiting, Diarrhea Time Seen by Provider: 10/22/16 09:21 Chief Complaint (Nursing): GI Problem Chief Complaint (Provider): Vomiting History Per: Patient History/Exam Limitations: no limitations Onset/Duration Of Symptoms: Hrs (x2), Intermittent Episodes (x2 episodes) Current Symptoms Are (Timing): Intermittent Episodes Context: Other (Alcohol) Quality Of Discomfort: denies: "Pain" Associated Symptoms: Other (dizziness, SOB, melena). denies: Chest Pain Additional Complaint(s): 56 year old male presents to ED with melena and hematemesis and has a past medical history of GI bleed, HTN, and alcohol abuse. Patient notes x2 episodes of hematemesis in the last 2 hours and admits to drinking excessively yesterday. (+) SOB, and dizziness, (-) chest pain or abdominal pain. Confirms taking Percocet for arm pain. PCP: Clinic Past Medical History Reviewed: Historical Data, Nursing Documentation, Vital Signs Vital Signs: Last Vital Signs Temp 97 F L 10/22/16 09:08 Pulse 83 10/22/16 09:08 Resp 16 10/22/16 09:08 BP 121/78 10/22/16 09:08 Pulse Ox 98 10/22/16 09:08 - Medical History PMH: Anemia, Anxiety, Depression, Fractures (L ankle sx), Gastritis, HTN Denies: HIV, Hypercholesterolemia, Chronic Kidney Disease Other PMH: GI bleed - Surgical History Surgical History: Endoscopy - Family History Family History: States: Unknown Family Hx - Social History Alcohol: > 2 Drinks/Day - Home Medications Home Medications: Ambulatory Orders Medication Instructions Recorded FLUoxetine [Prozac] 1 tab PO DAILY #30 cap 06/27/16 Propranolol HCl 10 mg pe PO DAILY #30 tablet 06/27/16 Thiamine Mononitrate [Vitamin B-1] 100 mg PO DAILY #30 tablet 06/27/16 Ferrous Gluconate 324 mg PO DAILY #30 tablet 09/13/16 Pantoprazole Sodium [Protonix] 40 mg PO DAILY #30 ect 09/13/16 - Allergies Allergies/Adverse Reactions: Allergies Allergy/AdvReac Type Severity Reaction Status Date / Time No Known Allergies Allergy Verified 10/20/15 07:46 Review of Systems ROS Statement: Except As Marked, All Systems Reviewed And Found Negative Cardiovascular: Negative for: Chest Pain Respiratory: Positive for: Shortness of Breath Gastrointestinal: Positive for: Melena, Hematochezia. Negative for: Abdominal Pain Neurological: Positive for: Dizziness Physical Exam - Reviewed Nursing Documentation Reviewed: Yes Vital Signs Reviewed: Yes - Physical Exam Appears: Positive for: Non-toxic, No Acute Distress Head Exam: Positive for: ATRAUMATIC Skin: Positive for: Normal Color, Warm, Dry Eye Exam: Positive for: Normal appearance ENT: Positive for: Normal ENT Inspection Neck: Positive for: Normal Cardiovascular/Chest: Positive for: Regular Rate, Rhythm. Negative for: Murmur Respiratory: Positive for: Normal Breath Sounds. Negative for: Respiratory Distress Gastrointestinal/Abdominal: Positive for: Normal Exam, Soft. Negative for: Tenderness Back: Positive for: Normal Inspection Rectal: Positive for: Rectal Tone Is: (intact: brown) Extremity: Positive for: Normal ROM. Negative for: Deformity Neurologic/Psych: Positive for: Alert, Oriented. Negative for: Motor/Sensory Deficits - Laboratory Results Result Diagrams: 10/22/16 09:45 10/22/16 09:45 Interpretation Of Abn Labs: 91 platelets; etoh - ECG ECG: Positive for: Interpreted By Me, Viewed By Me ECG Rhythm: Positive for: Normal QRS, Sinus Rhythm, Nonspecific Changes O2 Sat by Pulse Oximetry: 98 (RA) Pulse Ox Interpretation: Normal - Progress ED Course And Treament: 1113: Stable. GI bleed and low platelets. Will need admit. 1130: Spoke with [facility] resident Andriy. Will admit. - Critical Care Total Time (In Min): 30 Documented Critical Care: Time excludes all time spent performint seperately billable procedures Medical Decision Making Medical Decision Makin Initial impression: GI bleed Initial plan: * ABO/RH type * T&S * EKG * EtOH serum * Labs * Trop I * PTT/PT * NS IV * Protonix Inj IVPB * Protonic Inj 80mg IVP * Occult Blood, stool * Re-eval Scribe Attestation: Documented by Laila Pozo acting as a scribe for Abdirahman Lopez MD. Scribe Attestation: All medical record entries made by the Scribe were at my direction and personally dictated by me. I have reviewed the chart and agree that the record accurately reflects my personal performance of the history, physical exam, medical decision making, and the department course for this patient. I have also personally directed, reviewed, and agree with the discharge instructions and disposition. Disposition - Clinical Impression Clinical Impression: Thrombocytopenia, Upper GI bleeding - Patient ED Disposition Is Patient to be Admitted: Yes Counseled Patient/Family Regarding: Studies Performed, Diagnosis - Disposition Disposition Time: 11:14 Condition: FAIR - Pt Status Changed To: Hospital Disposition Of: Observation - POA Present On Arrival: None
[2016-10-22] MEDS ORDERED: Sodium Chloride 0.9% 1,000 ML IV STA (09:32)
[2016-10-22] MEDS ORDERED: Pantoprazole 40 MG in Sodium Chloride 0.9% 100 ML IVPB SCH (09:45)
[2016-10-22 10:14] LABS: BASO % 1.7 % (0.0-2.0); EOS # 0.1 K/uL (0.0-0.7); EOS % 4.4 % (0.0-4.0); HEMOGLOBIN 12.4 g/dL (12.0-18.0); LYMPH # 0.3 K/uL (1.0-4.3); MEAN CELL VOLUME 95.2 fl (80.0-94.0); MEAN CORPUSCULAR HEMOGLOBIN 31.7 pg (27.0-31.0); MEAN CORPUSCULAR HGB CONC 33.3 g/dL (33.0-37.0); MEAN PLATELET VOLUME 8.4 fl (7.2-11.7); MONO # 0.5 K/uL (0.0-0.8); MONO % 18.9 % (0.0-10.0); NEUT # 1.6 K/uL (1.8-7.0); NRBC % 0.3 % (0.0-0.0); RBC 3.93 Mil/uL (4.40-5.90); RED CELL DISTRIBUTION WIDTH 16.4 % (11.5-14.5); WHITE BLOOD COUNT 2.5 K/uL (4.8-10.8)
[2016-10-22 10:15] LABS: ALB/GLOB RATIO 0.9 (1.0-2.1); ALBUMIN 3.8 g/dL (3.5-5.0); ALT/SGPT 59 U/L (21-72); AST/SGOT 126 U/L (17-59); BLOOD UREA NITROGEN 12 mg/dl (9-20); CALCIUM 8.8 mg/dL (8.4-10.2); GFR AFRICAN-AMERICAN > 60; GFR NON-AFRICAN AMERICAN > 60
[2016-10-22 10:54] LABS: INR 1.3 (0.9-1.2); PROTHROMBIN TIME 14.5 Seconds (9.8-13.1)
[2016-10-22] MEDS: Sodium Chloride 0.9% 1,000 ML IV SCH (21:35)
[2016-10-23 00:23] LABS: HEMOGLOBIN 12.4 g/dL (12.0-18.0); MEAN CELL VOLUME 96.6 fl (80.0-94.0); MEAN CORPUSCULAR HEMOGLOBIN 31.9 pg (27.0-31.0); MEAN CORPUSCULAR HGB CONC 33.1 g/dL (33.0-37.0); RBC 3.87 Mil/uL (4.40-5.90); RED CELL DISTRIBUTION WIDTH 16.6 % (11.5-14.5); WHITE BLOOD COUNT 3.6 K/uL (4.8-10.8)
--- NOTE | 2016-10-23 07:59 | CP.PCM.CON ---
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 Patient admits that he drank 6 beers on Monday during a fishing trip. He returned home and had some musculoskeletal pains so took a Percocet in the AM yesterday. He had two dark black stool and then became nauseated, vomiting once with dark black emesis with some fresh red blood. Since arrival he has not been nauseated or had any further hematemesis. Continues to have melena, twice more since arrival but claims stool becoming more brown. Denies any dizziness, lightheadedness, weakness, fever, chills, abdominal pain. PMHx: See HPI PSHx: Left ankle surgery, R inguinal hernia repair FHx: Father - colon cancer; Mother - gastric cancer Social: Chronic EtOH abuse (ongoing), +tobacco use (~30 pack years), denies illicit drug use Endo: Most recent - 09/12/16 - EGD - Grade I esoph. varices, portal hypertensive gastropathy 07/2015 - Colonoscopy - diverticulosis, ext/int hemorrhoids Review of Systems - Constitutional Constitutional: absent: Anorexia, Chills, Fever, Weight Loss - EENT Eyes: absent: Change in Vision Nose/Mouth/Throat: absent: Sore Throat - Cardiovascular Cardiovascular: absent: Chest Pain, Dyspnea, Edema - Respiratory Respiratory: absent: Cough, Dyspnea, Excessive Mucous Production - Gastrointestinal Gastrointestinal: Hematemesis, Loose Stools, Melena, Nausea, Vomiting. absent: Abdominal Pain, Bloating, Constipation, Cramping, Diarrhea, Dyspepsia, Dysphagia , Heartburn, Hematochezia - Genitourinary Genitourinary: absent: Dysuria, Urinary Frequency, Urinary Urgency - Musculoskeletal Musculoskeletal: absent: Back Pain, Neck Pain - Integumentary Integumentary: absent: New Lesions, Rash - Neurological Neurological: absent: Dizziness, Numbness, Focal Weakness - Psychiatric Psychiatric: absent: Anxiety, Depression - Endocrine Endocrine: absent: Polydipsia, Polyphagia, Polyuria - Hematologic/Lymphatic Hematologic: absent: Easy Bleeding, Easy Bruising, Lymphadenopathy Past Patient History - Infectious Disease Hx of Infectious Diseases: None - Tetanus Immunizations Tetanus Immunization: Unknown - Past Medical History & Family History Past Medical History?: Yes - Past Social History Alcohol: > 2 Drinks/Day - CARDIAC Hx Hypercholesterolemia: No Hx Hypertension: Yes - PULMONARY Hx Respiratory Disorders: No - NEUROLOGICAL Hx Neurological Disorder: No - HEENT Hx HEENT Problems: No - RENAL Hx Chronic Kidney Disease: No - ENDOCRINE/METABOLIC Hx Endocrine Disorders: No - HEMATOLOGICAL/ONCOLOGICAL Hx Anemia: Yes Hx Human Immunodeficiency Virus (HIV): No - INTEGUMENTARY Hx Dermatological Problems: No - MUSCULOSKELETAL/RHEUMATOLOGICAL Hx Fractures: Yes (L ankle sx) - GASTROINTESTINAL Hx Gastritis: Yes - GENITOURINARY/GYNECOLOGICAL Hx Genitourinary Disorders: No - PSYCHIATRIC Hx Anxiety: Yes Hx Depression: Yes - SURGICAL HISTORY Hx Surgeries: Yes Hx Herniorrhaphy: Yes Other/Comment: ANKLE SURGERY - ANESTHESIA Hx Anesthesia: Yes Hx Anesthesia Reactions: No Hx Malignant Hyperthermia: No Meds Allergies/Adverse Reactions: Allergies Allergy/AdvReac Type Severity Reaction Status Date / Time No Known Allergies Allergy Verified 10/20/15 07:46 - Medications Medications: Current Medications Sodium Chloride (Sodium Chloride 0.9%) 1,000 mls @ 100 mls/hr IV .Q10H [facility] Stop: 10/23/16 21:29 Last Admin: 10/22/16 21:35 Dose: 100 mls/hr Ondansetron HCl (Zofran Inj) 4 mg IVP Q4 PRN PRN Reason: Nausea/Vomiting Pantoprazole Sodium (Protonix Inj) 40 mg IVP BID [facility] Last Admin: 10/22/16 21:35 Dose: 40 mg Physical Exam - Constitutional Appears: Non-toxic, No Acute Distress - Eye Exam Eye Exam: EOMI, PERRL - ENT Exam ENT Exam: Mucous Membranes Moist - Respiratory Exam Respiratory Exam: Clear to Auscultation Bilateral. absent: Rales, Rhonchi, Wheezes - Cardiovascular Exam Cardiovascular Exam: RRR, +S1, +S2 - GI/Abdominal Exam GI & Abdominal Exam: Normal Bowel Sounds, Soft. absent: Distended, Firm, Guarding, Hernia, Organomegaly, Rigid, Tenderness - Rectal Exam Rectal Exam: Black Stool. absent: Bloody Stool - Extremities Exam Extremities exam: Positive for: normal inspection. Negative for: pedal edema - Neurological Exam Neurological exam: Alert, Oriented x3 - Psychiatric Exam Psychiatric exam: Normal Affect, Normal Mood - Skin Skin Exam: Dry, Warm Results - Vital Signs Recent Vital Signs: Last Vital Signs Temp 98.5 F 10/23/16 04:53 Pulse 78 10/23/16 04:53 Resp 20 10/23/16 04:53 BP 118/66 10/23/16 04:53 Pulse Ox 98 10/23/16 04:53 - Labs Result Diagrams: 10/23/16 06:30 10/22/16 09:45 Labs: Laboratory Results - last 24 hr 10/23/16 00:10 WBC 3.6 L RBC 3.87 L Hgb 12.4 Hct 37.4 MCV 96.6 H MCH 31.9 H MCHC 33.1 RDW 16.6 H Plt Count 88 L Assessment & Plan - Assessment and Plan (Free Text) Assessment: Patient is a 56yo male with PMHx significant for decompensated EtOH cirrhosis with history of esophageal varices, chronic EtOH abuse/dependence (ongoing) who presented to the ED with complaint of melena. 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 *MELD-Na: 13 *MDF: 23.5, steroid therapy not indicated - Date & Time Date: 10/23/16 Time: 07:30 <Pedro Mendez - Last Filed: 10/23/16 10:01> Meds - Medications Medications: Current Medications Sodium Chloride (Sodium Chloride 0.9%) 1,000 mls @ 100 mls/hr IV .Q10H LEROY Stop: 10/23/16 21:29 Last Admin: 10/23/16 08:49 Dose: 100 mls/hr Ondansetron HCl (Zofran Inj) 4 mg IVP Q4 PRN PRN Reason: Nausea/Vomiting Pantoprazole Sodium (Protonix Ec Tab) 40 mg PO ACB LEROY Last Admin: 10/23/16 08:51 Dose: 40 mg Results - Vital Signs Recent Vital Signs: Last Vital Signs Temp 98.3 F 10/23/16 08:00 Pulse 72 10/23/16 08:00 Resp 18 10/23/16 08:00 BP 120/70 10/23/16 08:00 Pulse Ox 97 10/23/16 08:00 - Labs Result Diagrams: 10/23/16 06:30 10/22/16 09:45 Labs: Laboratory Results - last 24 hr 10/23/16 10/23/16 00:10 06:30 WBC 3.6 L 3.2 L RBC 3.87 L 3.76 L Hgb 12.4 12.1 Hct 37.4 35.7 MCV 96.6 H 94.9 H MCH 31.9 H 32.1 H MCHC 33.1 33.8 RDW 16.6 H 16.2 H Plt Count 88 L 84 L Attending/Attestation - Attestation I have personally seen and examined this patient.: Yes I have fully participated in the care of the patient.: Yes I have reviewed all pertinent clinical information: Yes Notes (Text): 10/23/16 09:57 56 year old male with h/o Etoh cirrhosis c/b esophageal varices who presented with hematemesis. 1. Alcoholic cirrhosis 2. Esophageal varices 3. Portal hypertensive gastropathy Plan: -patient is hemodynamically stable without any further hematemesis since admission -three consecutive CBCs demonstrate a stable hemoglobin within the normal range above 12 -he has had multiple upper endoscopies, including recently in July and August, which showed small esophageal varices and portal hypertensive gastropathy -he has no other acute complications of liver disease like ascites or encephalopathy -he is still using alcohol -recommend liquid diet and advance as tolerated to regular -reocmmend protonix 40 mg daily -no endoscopy indicated at this time -will sign off
[2016-10-23] MEDS ORDERED: Pantoprazole 40 MG in Sodium Chloride 0.9% 100 ML IVPB SCH (08:15)
[2016-10-23 08:23] LABS: HEMOGLOBIN 12.1 g/dL (12.0-18.0); MEAN CELL VOLUME 94.9 fl (80.0-94.0); MEAN CORPUSCULAR HEMOGLOBIN 32.1 pg (27.0-31.0); MEAN CORPUSCULAR HGB CONC 33.8 g/dL (33.0-37.0); RBC 3.76 Mil/uL (4.40-5.90); RED CELL DISTRIBUTION WIDTH 16.2 % (11.5-14.5); WHITE BLOOD COUNT 3.2 K/uL (4.8-10.8)
[2016-10-23] MEDS: Sodium Chloride 0.9% 1,000 ML IV SCH (08:49)
[2016-10-23] MEDS ORDERED: Pantoprazole 40 mg EC Tab PO SCH (09:00)
[2016-10-23 10:30] LABS: HEMOGLOBIN 11.9 g/dL (12.0-18.0); MEAN CELL VOLUME 96.4 fl (80.0-94.0); MEAN CORPUSCULAR HEMOGLOBIN 32.1 pg (27.0-31.0); MEAN CORPUSCULAR HGB CONC 33.3 g/dL (33.0-37.0); RBC 3.71 Mil/uL (4.40-5.90); RED CELL DISTRIBUTION WIDTH 16.5 % (11.5-14.5); WHITE BLOOD COUNT 2.8 K/uL (4.8-10.8)
[2016-10-23 10:46] LABS: ALB/GLOB RATIO 0.8 (1.0-2.1); ALBUMIN 3.4 g/dL (3.5-5.0); ALT/SGPT 53 U/L (21-72); AST/SGOT 88 U/L (17-59); BLOOD UREA NITROGEN 10 mg/dl (9-20); CALCIUM 8.3 mg/dL (8.4-10.2); GFR AFRICAN-AMERICAN > 60; GFR NON-AFRICAN AMERICAN > 60
--- NOTE | 2016-10-23 15:01 | CP.PCM.DIS ---
Provider - Provider Date of Admission: 10/22/16 11:29 Attending physician: Lazaro Sandhu MD Consults: GI, Dr Mendez Time Spent in preparation of Discharge (in minutes): 30 Diagnosis - Discharge Diagnosis (1) Acute upper GI bleed Status: Resolved Priority: High (2) Thrombocytopenia Status: Chronic (3) Alcohol abuse Status: Chronic Hospital Course - Lab Results Lab Results: Most Recent Lab Values WBC 2.8 K/uL (4.8-10.8) L 10/23/16 09:30 RBC 3.71 Mil/uL (4.40-5.90) L 10/23/16 09:30 Hgb 11.9 g/dL (12.0-18.0) L 10/23/16 09:30 Hct 35.8 % (35.0-51.0) 10/23/16 09:30 MCV 96.4 fl (80.0-94.0) H 10/23/16 09:30 MCH 32.1 pg (27.0-31.0) H 10/23/16 09:30 MCHC 33.3 g/dL (33.0-37.0) 10/23/16 09:30 RDW 16.5 % (11.5-14.5) H 10/23/16 09:30 Plt Count 79 K/uL (130-400) L 10/23/16 09:30 MPV 8.4 fl (7.2-11.7) 10/22/16 09:45 Neut % (Auto) 65.0 % (50.0-75.0) 10/22/16 09:45 Lymph % (Auto) 10.0 % (20.0-40.0) L 10/22/16 09:45 Reynolds % (Auto) 18.9 % (0.0-10.0) H 10/22/16 09:45 Eos % (Auto) 4.4 % (0.0-4.0) H 10/22/16 09:45 Baso % (Auto) 1.7 % (0.0-2.0) 10/22/16 09:45 Neut # 1.6 K/uL (1.8-7.0) L 10/22/16 09:45 Lymph # 0.3 K/uL (1.0-4.3) L 10/22/16 09:45 Reynolds # 0.5 K/uL (0.0-0.8) 10/22/16 09:45 Eos # 0.1 K/uL (0.0-0.7) 10/22/16 09:45 Baso # 0.0 K/uL (0.0-0.2) 10/22/16 09:45 PT 14.5 Seconds (9.8-13.1) H 10/22/16 09:45 INR 1.3 (0.9-1.2) H 10/22/16 09:45 APTT 34.0 Seconds (25.6-37.1) 10/22/16 09:45 Sodium 137 mmol/l (132-148) 10/23/16 09:30 Potassium 3.7 MMOL/L (3.6-5.0) 10/23/16 09:30 Chloride 107 mmol/L (98-107) 10/23/16 09:30 Carbon Dioxide 18 mmol/L (22-30) L 10/23/16 09:30 Anion Gap 16 (10-20) 10/23/16 09:30 BUN 10 mg/dl (9-20) 10/23/16 09:30 Creatinine 0.6 mg/dL (0.8-1.5) L 10/23/16 09:30 Est GFR ( Amer) > 60 10/23/16 09:30 Est GFR (Non-Af Amer) > 60 10/23/16 09:30 Random Glucose 146 mg/dL (75-110) H 10/23/16 09:30 Calcium 8.3 mg/dL (8.4-10.2) L 10/23/16 09:30 Total Bilirubin 4.1 mg/dl (0.2-1.3) H 10/23/16 09:30 AST 88 U/L (17-59) H D 10/23/16 09:30 ALT 53 U/L (21-72) 10/23/16 09:30 Alkaline Phosphatase 108 U/L (38-126) 10/23/16 09:30 Troponin I < 0.0120 ng/mL (0.00-0.120) 10/22/16 09:45 Total Protein 7.6 G/DL (6.3-8.2) 10/23/16 09:30 Albumin 3.4 g/dL (3.5-5.0) L 10/23/16 09:30 Globulin 4.2 gm/dL (2.2-3.9) H 10/23/16 09:30 Albumin/Globulin Ratio 0.8 (1.0-2.1) L 10/23/16 09:30 Stool Occult Blood Positive (NEGATIVE) H 10/22/16 09:45 Alcohol, Quantitative 90 mg/dl (0-10) H 10/22/16 09:45 Blood Type O POSITIVE 10/22/16 09:45 Antibody Screen Negative 10/22/16 09:45 BBK History Checked Patient has bt 10/22/16 09:45 - Hospital Course Hospital Course: 56 y/o M with PMH including HTN, Chronic ETOH abuse, recurrent GI bleed (s/p endoscopy on 09/12/16 revealing grade I esophageal varices) presented to ED with 2 episodes of coffee ground emesis and 1 episode of black stool. Prior to admission, patient had been binge drinking 6 12-ounce cans of beer which may have aggravated his symptoms. During admission patient was monitored closely and GI was consulted. He had no further episodes of emesis and his stool began to normalize. His hgb remained stable and he tolerated advancing of his diet. Patient was cleared for discharge with plan to follow up with GI and [facility]. Discharge Exam - Head Exam Head Exam: ATRAUMATIC - Eye Exam Eye Exam: EOMI, PERRL - ENT Exam ENT Exam: Mucous Membranes Moist, Normal Oropharynx - Respiratory Exam Respiratory Exam: Clear to PA & Lateral, NORMAL BREATHING PATTERN. absent: Rhonchi, Wheezes, Respiratory Distress - Cardiovascular Exam Cardiovascular Exam: REGULAR RHYTHM, RRR, +S1, +S2 - GI/Abdominal Exam GI & Abdominal Exam: Normal Bowel Sounds, Soft. absent: Distended, Guarding, Rebound, Tenderness - Extremities Exam Extremities exam: normal capillary refill Additional comments: No calf tenderness or pedal edema. - Neurological Exam Neurological exam: Alert, Oriented x3 - Psychiatric Exam Psychiatric exam: Normal Affect, Normal Mood - Skin Skin Exam: Dry, Normal Color, Warm Discharge Plan - Follow Up Plan Condition: FAIR Disposition: HOME/ ROUTINE Instructions: Gastrointestinal Bleeding (DC), Thrombocytopenia (DC) Additional Instructions: Follow up with PCP and GI after discharge Patient counselled extensively on avoidance of ETOH and patient understands risks of continued use Resume home medications ER precautions given Referrals: Deo GAONA,MD Jeevan [Medical Doctor] -
[2016-10-23 15:30] VITALS: BP 125/72; PULSE 69; RESP 20; TEMP 99; O2SAT 98
== END 2016-10-23 16:23 | disposition home or self-care (01) ==
LOC: H.ER 09:06 → H.ERHOLD 11:29 → H.TEL 20:41
PROVIDERS: ADMIT Family Medicine Geriatric Medicine; ATTEND Family Medicine Geriatric Medicine
DX: K92.0 Hematemesis (principal); K70.30 Alcoholic cirrhosis of liver without ascites; K76.6 Portal hypertension; I85.00 Esophageal varices without bleeding; F10.20 Alcohol dependence, uncomplicated; K31.89 Other diseases of stomach and duodenum; D69.6 Thrombocytopenia, unspecified; I10 Essential (primary) hypertension; Y90.4 Blood alcohol level of 80-99 mg/100 ml; Z72.0 Tobacco use

== ENCOUNTER 2017-01-04 15:45 | Inpatient (IN) | payer OTHER ==
[2017-01-04 15:45] VITALS: BMI 19.1
[2017-01-04] MEDS ORDERED: Multivitamin (MVI) 10 ML, Thiamine 100 MG, Folic Acid 1 MG in Sodium Chloride 0.9% 1,00... IV ONE ×2 (16:09→18:59)
--- NOTE | 2017-01-04 16:19 | ED PDOC ---
HPI: Chest Pain Time Seen by Provider: 01/04/17 15:51 Chief Complaint (Nursing): Chest Pain Chief Complaint (Provider): chest pain History Per: Patient History/Exam Limitations: intoxication Onset/Duration Of Symptoms: Sudden Onset (30 minutes prior to arrival) Current Symptoms Are (Timing): Still Present Quality: Sharp (LEFT sided) Associated Symptoms: denies: Dyspnea, Syncope Exacerbating Factors: Movement Additional Complaint(s): Sudden onset LEFT sided sp while having shouting argument with his . Admits that he has been drinking today, and has not taken any of his medications for the last 4 days. Also reports black colored stool since this morning, 4 episodes, "sticky" black stool. H/o alcoholism, liver cirrhosis, and GI bleed. PMD [facility] [place] Past Medical History Vital Signs: Last Vital Signs Temp 98.0 F 01/04/17 15:47 Pulse 97 H 01/04/17 15:47 Resp 16 01/04/17 15:47 BP 130/75 01/04/17 15:47 Pulse Ox 99 01/04/17 16:25 - Medical History PMH: Anemia, Anxiety, Depression, Fractures (L ankle sx), Gastritis, HTN Denies: HIV, Hypercholesterolemia, Chronic Kidney Disease - Surgical History Surgical History: Endoscopy - Family History Family History: States: Unknown Family Hx - Home Medications Home Medications: Ambulatory Orders Medication Instructions Recorded FLUoxetine [Prozac] 1 tab PO DAILY #30 cap 06/27/16 Propranolol HCl 10 mg pe PO DAILY #30 tablet 06/27/16 Thiamine Mononitrate [Vitamin B-1] 100 mg PO DAILY #30 tablet 06/27/16 Ferrous Gluconate 324 mg PO DAILY #30 tablet 09/13/16 Pantoprazole Sodium [Protonix] 40 mg PO DAILY #30 ect 09/13/16 Folic Acid 1 mg PO 10/22/16 Spironolactone 25 mg PO DAILY 10/22/16 - Allergies Allergies/Adverse Reactions: Allergies Allergy/AdvReac Type Severity Reaction Status Date / Time No Known Allergies Allergy Verified 10/20/15 07:46 Review of Systems ROS Statement: Except As Marked, All Systems Reviewed And Found Negative (and as per HPI, but may be unreliable due to intoxication) Constitutional: Positive for: Weakness, Malaise Cardiovascular: Positive for: Chest Pain, Light Headedness Gastrointestinal: Positive for: Nausea, Abdominal Pain, Melena Neurological: Positive for: Dizziness Physical Exam - Reviewed Nursing Documentation Reviewed: Yes Vital Signs Reviewed: Yes - Physical Exam Appears: Positive for: In Acute Distress (appears chronically ill) Head Exam: Positive for: ATRAUMATIC, NORMOCEPHALIC Skin: Positive for: Warm, Dry Eye Exam: Positive for: PERRL ENT: Positive for: Pharynx Is (clear), Other (dry muc memb) Neck: Positive for: Painless ROM, Supple Cardiovascular/Chest: Positive for: Regular Rate, Rhythm, Chest Non Tender. Negative for: Murmur Respiratory: Positive for: Normal Breath Sounds. Negative for: Wheezing Gastrointestinal/Abdominal: Positive for: Soft, Tenderness. Negative for: Mass , Distended, Guarding, Rebound Rectal: Positive for: Rectal Tone Is: (normal). Negative for: Hemorrhoids Extremity: Positive for: Normal ROM, Other (poor muscle bulk). Negative for: Deformity Lymphatic: Negative for: Adenopathy Neurologic/Psych: Positive for: Other (slurred speech). Negative for: Motor/ Sensory Deficits - Laboratory Results Result Diagrams: 01/04/17 16:30 01/04/17 17:59 Interpretation Of Abn Labs: Leukopenia, norm trop - ECG ECG: Positive for: Interpreted By Me ECG Rhythm: Positive for: Normal QRS, Normal ST Segment, Sinus Rhythm O2 Sat by Pulse Oximetry: 99 Pulse Ox Interpretation: Normal Medical Decision Making Medical Decision Making: Pt needs hospitalization for chest pain with cardiac risk factors, and possible GI bleed. DODIE Cross FP resident Disposition - Clinical Impression Clinical Impression: Chest pain, GI bleed, Alcohol abuse - Disposition Disposition Time: 18:00 Condition: GUARDED - Pt Status Changed To: Hospital Disposition Of: Observation - POA Present On Arrival: Falls Or Trauma (risk)
[2017-01-04 17:13] LABS: BASO # 0.1 K/uL (0.0-0.2); BASO % 2.2 % (0.0-2.0); EOS # 0.1 K/uL (0.0-0.7); EOS % 3.4 % (0.0-4.0); HEMATOCRIT 36.7 % (35.0-51.0); LYMPH # 0.5 K/uL (1.0-4.3); LYMPH % 17.4 % (20.0-40.0); MEAN CELL VOLUME 95.5 fl (80.0-94.0); MEAN CORPUSCULAR HEMOGLOBIN 31.9 pg (27.0-31.0); MEAN CORPUSCULAR HGB CONC 33.3 g/dL (33.0-37.0); MEAN PLATELET VOLUME 8.1 fl (7.2-11.7); MONO # 0.5 K/uL (0.0-0.8); MONO % 19.7 % (0.0-10.0); NEUT # 1.5 K/uL (1.8-7.0); NEUT % 57.3 % (50.0-75.0); NRBC % 0.3 % (0.0-0.0); RED CELL DISTRIBUTION WIDTH 17.2 % (11.5-14.5); WHITE BLOOD COUNT 2.7 K/uL (4.8-10.8)
[2017-01-04 17:19] LABS: ALB/GLOB RATIO 0.9 (1.0-2.1); ALCOHOL SERUM 287 mg/dl (0-10); ALKALINE PHOSPHATASE 119 U/L (38-126); ALT/SGPT 35 U/L (21-72); AST/SGOT 84 U/L (17-59); BLOOD UREA NITROGEN 8 mg/dl (9-20); CALCIUM 8.9 mg/dL (8.4-10.2); CARBON DIOXIDE 21 mmol/L (22-30); CHLORIDE 110 mmol/L (98-107); GFR AFRICAN-AMERICAN > 60; GLUCOSE,RANDOM 93 mg/dL (75-110); LIPASE 387 U/L (23-300); MAGNESIUM 1.8 MG/DL (1.6-2.3); SODIUM 146 mmol/l (132-148); TOTAL PROTEIN 8.3 G/DL (6.3-8.2)
[2017-01-04 18:04] LABS: PARTIAL THROMBOPLASTIN TIME 37.7 Seconds (25.6-37.1)
--- NOTE | 2017-01-04 19:28 | CP.PCM.HP ---
History of Present Illness - History of Present Illness History of Present Illness: CC/HPI: Pt. seen in the E.D. Pt. here today for evaluation of chest pain. Chest pain began shortly before arrival to the E.D. Pt. states chest pain is left sided, pressure like, non-radiating, and not triggered by exertion. Pt. does state he was in a verbal argument with his when chest pain started. Pt. at this time also states chest pain has resolved. Pt. denies any drug use but does admit to drinking 6 to 8 beers daily for past three days. Pt. also states has not been taking any of his medications for past three days. Furthermore, Pt. goes on to state he had one episode of "black colored" bowel movement this morning. Pt. denies any hemoptysis, hematemesis, or hematochezia. ROS: Pt. denies any headache, fall, injury, trauma, abdominal pain, nausea, vomiting, diarrhea, fever, chills, or limb pain. PMHx: Liver cirrhosis secondary to ETOH abuse, Chronic gastritis, Esophageal varices Grade A, Portal Hypertensive Gastropathy, Portal Hypertension, Depression, Anxiety, Chronic anemia, Hx of Recurrent GI bleeds, Radial Head Fx, Rectal varices PSHx: Left Foot Orthopedic repair of Fx FMHx: Not contributory ScHx: TOB-social, ETOH-6 to 8 beers daily, DRUGS- none Allergies: NKDA Home Meds: Medication Instructions Recorded FLUoxetine [Prozac] 10mg PO DAILY #30 cap 06/27/16 Propranolol HCl 10 mg PO DAILY #30 tablet 06/27/16 Thiamine Mononitrate [Vitamin B-1] 100 mg PO DAILY #30 tablet 06/27/16 Ferrous Gluconate 324 mg PO DAILY #30 tablet 09/13/16 Pantoprazole Sodium [Protonix] 40 mg PO DAILY #30 ect 09/13/16 Folic Acid 1 mg PO 10/22/16 Spironolactone 25 mg PO DAILY 10/22/16 PMD: DR. Kurtz at [facility] E.D. Course 1- ETOH level 2- CMP, CBC, Troponin 3- EKG, CXR 4- Urine Dip 5- FOBT 4- I.V. Fluids Banana Bag x 1 Liter Present on Admission - Present on Admission Any Indicators Present on Admission: No History of DVT/PE: No History of Uncontrolled Diabetes: No Urinary Catheter: No Decubitus Ulcer Present: No Review of Systems - Review of Systems Review of Systems: See HPI Past Patient History - Infectious Disease Hx of Infectious Diseases: None - Tetanus Immunizations Tetanus Immunization: Unknown - Past Medical History & Family History Past Medical History?: Yes - Past Social History Smoking Status: Light Smoker < 10 Cigarettes Daily - CARDIAC Hx Hypercholesterolemia: No Hx Hypertension: Yes - PULMONARY Hx Respiratory Disorders: No - NEUROLOGICAL Hx Neurological Disorder: No - HEENT Hx HEENT Problems: No - RENAL Hx Chronic Kidney Disease: No - ENDOCRINE/METABOLIC Hx Endocrine Disorders: No - HEMATOLOGICAL/ONCOLOGICAL Hx Anemia: Yes Hx Human Immunodeficiency Virus (HIV): No - INTEGUMENTARY Hx Dermatological Problems: No - MUSCULOSKELETAL/RHEUMATOLOGICAL Hx Fractures: Yes (L ankle sx) - GASTROINTESTINAL Hx Gastritis: Yes - GENITOURINARY/GYNECOLOGICAL Hx Genitourinary Disorders: No - PSYCHIATRIC Hx Anxiety: Yes Hx Depression: Yes Hx Substance Use: No - SURGICAL HISTORY Hx Surgeries: Yes Hx Herniorrhaphy: Yes Other/Comment: ANKLE SURGERY - ANESTHESIA Hx Anesthesia: Yes Hx Anesthesia Reactions: No Hx Malignant Hyperthermia: No Meds Allergies/Adverse Reactions: Allergies Allergy/AdvReac Type Severity Reaction Status Date / Time No Known Allergies Allergy Verified 10/20/15 07:46 Physical Exam - Constitutional Appears: Non-toxic, No Acute Distress - Head Exam Head Exam: ATRAUMATIC, NORMOCEPHALIC - Eye Exam Eye Exam: Normal appearance. absent: Scleral icterus - ENT Exam ENT Exam: Mucous Membranes Dry - Neck Exam Neck exam: Positive for: Full Rom - Respiratory Exam Respiratory Exam: Clear to Auscultation Bilateral, NORMAL BREATHING PATTERN - Cardiovascular Exam Cardiovascular Exam: RRR, +S1, +S2 - GI/Abdominal Exam GI & Abdominal Exam: Soft. absent: Tenderness Results - Vital Signs Recent Vital Signs: Last Vital Signs Temp 98.0 F 01/04/17 15:47 Pulse 97 H 01/04/17 15:47 Resp 16 01/04/17 15:47 BP 130/75 01/04/17 15:47 Pulse Ox 99 01/04/17 16:25 - Labs Result Diagrams: 01/04/17 16:30 01/04/17 17:59 Assessment & Plan - Assessment and Plan (Free Text) Assessment: 56 y.o. male admitted for acute chest pain and acute ETOH intoxication Acute chest pain of unclear etiology given patient's multiple co-morbid conditions cardiac causes must be excluded 1- Troponin x 1 negative will trend Troponins 2- EKG no acute changes appreciated 3- CXR no acute pathology noted 4- Will admit to Telemetry Acute ETOH intoxication- 287 CIWA score 0 1- I.V. hydration with Banana bag 2- Librium 25mg Q8 3- Ativan PRN 4- Aspiration and Fall precautions in place 5- NPO Hx of of Melena on admission- given pt. with Alcohol Cirrhosis, Portal HTN, and Esophageal varices Upper GI bleed must be excluded 1- FOBT performed by lab- Negative - Will repeat FOBT 2- H/H stable- 12.2/36.7 3- Hemodynamically stable 4- NPO 5- Protonix 40mg IVP 6- I.V. hydration Lactate ringers @ 250cc/hr after Banana bag 7- Type and Screen ordered 8- Repeat CBC in the a.m. Elevated Lipase- due to acute ETOH intoxication 1- Aggressive I.V. fluid hydration with LR at 250 cc/hr 2- Repeat Lipase 3- NPO Liver Cirrhosis secondary to ETOH abuse 1- MELD score of 25 2- Will resume home medication 3- Resume Spironolactone 25mg Esophageal varieces 1- Resume Spironolactone 25mg 2- Resume Propranolol 10mg DVT prophylaxis 1- SCD 2- Given patient has thrombocytopenia (98) secondary to chronic ETOH abuse Diet 1- NPO for now Depression- No suicide or homocide ideation 1- Resume Prozac 10mg daily
[2017-01-04] MEDS ORDERED: Lactated Ringer's 1,000 ML IV SCH (21:15)
[2017-01-05 07:10] LABS: HEMATOCRIT 34.8 % (35.0-51.0); MEAN CELL VOLUME 95.9 fl (80.0-94.0); MEAN CORPUSCULAR HEMOGLOBIN 31.9 pg (27.0-31.0); MEAN CORPUSCULAR HGB CONC 33.3 g/dL (33.0-37.0); RED CELL DISTRIBUTION WIDTH 17.5 % (11.5-14.5); WHITE BLOOD COUNT 2.3 K/uL (4.8-10.8)
[2017-01-05 07:28] LABS: ALB/GLOB RATIO 0.8 (1.0-2.1); ALKALINE PHOSPHATASE 99 U/L (38-126); ALT/SGPT 33 U/L (21-72); AST/SGOT 73 U/L (17-59); BILIRUBIN,TOTAL 1.9 mg/dl (0.2-1.3); BLOOD UREA NITROGEN 5 mg/dl (9-20); CALCIUM 7.9 mg/dL (8.4-10.2); CARBON DIOXIDE 18 mmol/L (22-30); CHLORIDE 112 mmol/L (98-107); GFR AFRICAN-AMERICAN > 60; GLUCOSE,RANDOM 75 mg/dL (75-110); LIPASE 268 U/L (23-300); POTASSIUM 3.7 MMOL/L (3.6-5.0); SODIUM 144 mmol/l (132-148); TOTAL PROTEIN 7.5 G/DL (6.3-8.2)
--- NOTE | 2017-01-05 08:29 | CARD ---
APPROVED REPORT EKG Measurement Heart [id number] DC [id number] <Conclusion> Normal sinus rhythm Normal ECG
[2017-01-05] MEDS ORDERED: PROPRANOLOL HCL PO SCH (09:00)
[2017-01-05] MEDS ORDERED: THIAMINE MONONITRATE 100 MG PO SCH (09:00)
--- NOTE | 2017-01-05 09:54 | RAD ---
HISTORY: chest pain COMPARISON: 11/30/2015 FINDINGS: LUNGS: No active pulmonary disease. PLEURA: No significant pleural effusion identified, no pneumothorax apparent. CARDIOVASCULAR: Normal. OSSEOUS STRUCTURES: No significant abnormalities. VISUALIZED UPPER ABDOMEN: Normal. OTHER FINDINGS: None. IMPRESSION: No active disease.
--- NOTE | 2017-01-05 15:01 | CP.PCM.PN ---
Subjective - Date & Time of Evaluation Date of Evaluation: 01/05/17 Time of Evaluation: 07:30 - Subjective Subjective: 56 y/o M examined at bedside. Pt reports feeling well, NO chest pain present and NO acute events overnight. Pt denies headache, dizziness, tremors, anxiety, SOB, abdominal pain, urinary complaints, rash or peripheral edema. Objective - Vital Signs/Intake and Output Vital Signs (last 24 hours): Temp Pulse Resp BP Pulse Ox 98.6 F 68 18 129/73 95 01/05/17 11:54 01/05/17 11:54 01/05/17 11:54 01/05/17 11:54 01/05/17 11:54 - Medications Medications: Current Medications Chlordiazepoxide (Librium) 25 mg PO Q6 [facility] Folic Acid (Folic Acid) 1 mg PO DAILY [facility] Last Admin: 01/05/17 09:12 Dose: 1 mg Lorazepam (Ativan) 2 mg IVP Q6 PRN PRN Reason: Agitation Pantoprazole Sodium (Protonix Inj) 40 mg IVP DAILY [facility] Last Admin: 01/05/17 09:12 Dose: 40 mg Propranolol HCl (Inderal) 10 mg PO DAILY [facility] Last Admin: 01/05/17 09:12 Dose: 10 mg Spironolactone (Aldactone) 25 mg PO DAILY [facility] Last Admin: 01/05/17 09:12 Dose: 25 mg Thiamine HCl (Vitamin B1 Tab) 100 mg PO DAILY [facility] Last Admin: 01/05/17 09:12 Dose: 100 mg - Labs Labs: 01/05/17 06:00 01/05/17 06:00 PT 14.0 Seconds (9.8-13.1) H 01/04/17 17:45 INR 1.4 (0.9-1.2) H 01/04/17 17:45 APTT 37.7 Seconds (25.6-37.1) H 01/04/17 17:45 - Constitutional Appears: Well, Non-toxic, No Acute Distress - Head Exam Head Exam: NORMAL INSPECTION - Eye Exam Eye Exam: EOMI, Normal appearance - ENT Exam ENT Exam: Mucous Membranes Moist - Neck Exam Neck Exam: Full ROM - Respiratory Exam Respiratory Exam: Clear to Ausculation Bilateral, NORMAL BREATHING PATTERN - Cardiovascular Exam Cardiovascular Exam: REGULAR RHYTHM, +S1, +S2 - GI/Abdominal Exam GI & Abdominal Exam: Soft, Normal Bowel Sounds. absent: Distended, Guarding, Rigid, Tenderness, Rebound Assessment and Plan - Assessment and Plan (Free Text) Assessment: 56 y.o. male with a PMHx of alcoholic liver disease admitted for acute chest pain and acute ETOH intoxication. Plan: 1. Acute chest pain. - Anxiety related possible due to discussion w/ . - Troponin x 3 negative - EKG and CXR-unremarkable. - no acute pathology noted - f/u pt's symptoms. 2. Acute ETOH intoxication. - Serum Alcohol 287-yesterday. - Pt under evaluation for possible Delirium tremens. - Lipase trending down from 387 (high) to 268 (WNL). - Librium 25mg Q8 - Ativan PRN - Aspiration and Fall precautions in place - Diet advanced to regular diet. - f/u BMP. 3. Hx of of Melena. - FOBT - Negative (yesterday) - H/H stable- 12.2/36.7 - Hemodynamically stable - Diet advanced to regular diet. - Protonix 40mg IVP - f/u repeated FOBT. 4. Liver Cirrhosis secondary to ETOH abuse - MELD score of 13. - resume home medication - Spironolactone 25mg - f/u BMP. 5. Esophageal varices - Resume Spironolactone 25mg - Resume Propranolol 10mg 6. DVT prophylaxis - SCD - Heparin AVOIDED due to thrombocytopenia.
[2017-01-06 06:26] LABS: BLOOD UREA NITROGEN 8 mg/dl (9-20); CALCIUM 8.4 mg/dL (8.4-10.2); CARBON DIOXIDE 23 mmol/L (22-30); CHLORIDE 104 mmol/L (98-107); GFR AFRICAN-AMERICAN > 60; GLUCOSE,RANDOM 85 mg/dL (75-110); POTASSIUM 3.2 MMOL/L (3.6-5.0); SODIUM 137 mmol/l (132-148)
[2017-01-06] MEDS: Potassium CL 10mEq/100ml 100 ML IVPB SCH ×2 (10:13→12:21)
--- NOTE | 2017-01-06 11:40 | CP.PCM.PN ---
Subjective - Date & Time of Evaluation Date of Evaluation: 01/06/17 Time of Evaluation: 08:15 - Subjective Subjective: 56 y/o M examined at bedside. Pt reports feeling well with NO acute overnight event. Pt eating well, with good appetite. Pt reports stools have transitioned from soft, dark brown/black to soft, dark yellow since yesterday. Pt had a vomiting episode today that was attributed right arm pain after IV fluid infusion. Vomit was blood tinged. Pt denies fever, headache, tremors, CP, SOB, abdominal pain or urinary complaints. Objective - Vital Signs/Intake and Output Vital Signs (last 24 hours): Temp Pulse Resp BP Pulse Ox 98.2 F 68 20 106/65 95 01/06/17 08:24 01/06/17 08:42 01/06/17 08:24 01/06/17 08:42 01/06/17 08:24 - Medications Medications: Current Medications Chlordiazepoxide (Librium) 10 mg PO Q8 [facility] Folic Acid (Folic Acid) 1 mg PO DAILY [facility] Last Admin: 01/06/17 08:42 Dose: 1 mg Lorazepam (Ativan) 2 mg IVP Q6 PRN PRN Reason: Agitation Pantoprazole Sodium (Protonix Inj) 40 mg IVP DAILY [facility] Last Admin: 01/06/17 08:43 Dose: 40 mg Propranolol HCl (Inderal) 10 mg PO DAILY [facility] Last Admin: 01/06/17 08:42 Dose: 10 mg Spironolactone (Aldactone) 25 mg PO DAILY [facility] Last Admin: 01/06/17 08:42 Dose: 25 mg Thiamine HCl (Vitamin B1 Tab) 100 mg PO DAILY [facility] Last Admin: 01/06/17 08:43 Dose: 100 mg - Labs Labs: 01/06/17 05:25 PT 14.0 Seconds (9.8-13.1) H 01/04/17 17:45 INR 1.4 (0.9-1.2) H 01/04/17 17:45 APTT 37.7 Seconds (25.6-37.1) H 01/04/17 17:45 - Constitutional Appears: Well, Non-toxic, No Acute Distress - Head Exam Head Exam: NORMAL INSPECTION - Eye Exam Eye Exam: EOMI - ENT Exam ENT Exam: Mucous Membranes Moist - Neck Exam Neck Exam: Full ROM - Respiratory Exam Respiratory Exam: Clear to Ausculation Bilateral, NORMAL BREATHING PATTERN - Cardiovascular Exam Cardiovascular Exam: REGULAR RHYTHM, +S1, +S2 - GI/Abdominal Exam GI & Abdominal Exam: Soft, Normal Bowel Sounds. absent: Distended, Guarding, Tenderness Assessment and Plan - Assessment and Plan (Free Text) Assessment: 56 y.o. male with a PMHx of chronic alcoholic liver disease admitted for acute chest pain and acute ETOH intoxication. Plan: 1. Acute ETOH intoxication. - Serum Alcohol 287-2 days ago at ER. - Pt had 1 blood tinged emesis episode. Will evaluate progression. - Pt under evaluation for possible Delirium tremens. - Librium will taper down, from 25mg Q8H to 10mg Q8H. - Lipase trend down from 387 (high) to 268 (WNL). - Ativan PRN - Aspiration and Fall precautions in place - Pt tolerating PO regular diet. - f/u CBC, BMP and bilirubin studies. 2. Hypokalemia - K+ 3.2 LOW today. - Potassium Chloride 10mEq/100mL IVP given-2 bags. - f/u BMP. 3. Hx of of Melena. Acute Melena ruled out. - Bowel movement are dark yellow in color now. - FOBT - Negative (on 01/04/17) - H/H stable- 11.6/36.8 - Hemodynamically stable - Tolerating PO regular diet. - Protonix 40mg IVP - f/u repeated FOBT. 4. Acute chest pain on 01/04/17 at ER. - Anxiety related possible due to discussion w/ . - Troponin x 3 negative - EKG and CXR-unremarkable. - no acute pathology noted - f/u pt's symptoms. 5. Liver Cirrhosis secondary to ETOH abuse - MELD score of 13. - CBC's with pancytopenia due to chronic alcoholism. - resume home medication - Spironolactone 25mg - f/u CBC and BMP. 6. Esophageal varices - Spironolactone 25mg - Propranolol 10mg 7. DVT prophylaxis - SCD - Heparin AVOIDED due to thrombocytopenia.
--- NOTE | 2017-01-06 12:10 | PQF GENQUE ---
Dr. Worrell, 2 (two) queries as follows: (1) GI Bleeding ruled in or GI Bleeding ruled out? (2) If GI Bleeding is ruled in: etiology if known or please document etiology unknown H and P: Hx of of Melena on admission- given pt. with Alcohol Cirrhosis, Portal HTN, and Esophageal varices Upper GI bleed must be excluded 1- FOBT performed by lab- Negative - Will repeat FOBT 2- H/H stable- 12.2/36.7 3- Hemodynamically stable 4- NPO 5- Protonix 40mg IVP 6- I.V. hydration Lactate ringers @ 250cc/hr after Banana bag 7- Type and Screen ordered 8- Repeat CBC in the a.m. 01/05 Progress note:: Hx of of Melena. - FOBT - Negative (yesterday) - H/H stable - 12.2/36.7 - Hemodynamically stable - Diet advanced to regular diet. - Protonix 40mg IVP - f/u repeated FOBT. This form is a permanent part of the medical record Clarification of your documentation is requested to better reflect the severity of illness and intensity of treatment of your patient. Indicators present [] Specify: [] [] Specify: [] [] Specify: [] [] Specify: [] Location in the medical record that reflects the above clinical findings: [] Treatment Provided: [] PHYSICIAN'S RESPONSE Based on your medical judgment of the clinical indicators outlined above please clarify the following: [] Practitioner response [] If unable to determine, please check the box, sign and date. Present On Admission (POA) Indicator: [] Present at the time of admission [] Not present at the time of admission [] Clinically Undetermined In responding to this query, please exercise your independent professional judgment. The fact that a question is asked does not imply that any particular answer is desired or expected. Thank you for your clarification on this documentation. If you have any questions please call. * Thank you, Juliette Manzo RN BSN ext. #[phone]: Paola [email or web address]
[2017-01-06 15:01] LABS: HEMATOCRIT 37.6 % (35.0-51.0); MEAN CELL VOLUME 96.1 fl (80.0-94.0); MEAN CORPUSCULAR HGB CONC 33.3 g/dL (33.0-37.0); RED CELL DISTRIBUTION WIDTH 17.7 % (11.5-14.5)
[2017-01-06 15:22] LABS: BILIRUBIN,TOTAL 2.9 mg/dl (0.2-1.3); BLOOD UREA NITROGEN 8 mg/dl (9-20); CALCIUM 8.9 mg/dL (8.4-10.2); CARBON DIOXIDE 21 mmol/L (22-30); CHLORIDE 106 mmol/L (98-107); GFR AFRICAN-AMERICAN > 60; GLUCOSE,RANDOM 90 mg/dL (75-110); POTASSIUM 4.2 MMOL/L (3.6-5.0); SODIUM 137 mmol/l (132-148)
[2017-01-07] VITALS: RESP 20
[2017-01-07 08:15] VITALS: O2SAT 95
[2017-01-07 11:50] VITALS: BP 101/68; PULSE 64; TEMP 97.8
--- NOTE | 2017-01-07 14:27 | CP.PCM.DIS ---
Provider - Provider Date of Admission: 01/05/17 16:01 Attending physician: Tiffanie Worrell MD Time Spent in preparation of Discharge (in minutes): 20 Diagnosis - Discharge Diagnosis (1) Hypokalemia Status: Acute (2) Alcohol abuse Status: Chronic (3) Liver cirrhosis, alcoholic Status: Chronic Hospital Course - Lab Results Lab Results: Most Recent Lab Values WBC 3.0 K/uL (4.8-10.8) L 01/06/17 14:54 RBC 3.91 Mil/uL (4.40-5.90) L 01/06/17 14:54 Hgb 12.5 g/dL (12.0-18.0) 01/06/17 14:54 Hct 37.6 % (35.0-51.0) 01/06/17 14:54 MCV 96.1 fl (80.0-94.0) H 01/06/17 14:54 MCH 32.0 pg (27.0-31.0) H 01/06/17 14:54 MCHC 33.3 g/dL (33.0-37.0) 01/06/17 14:54 RDW 17.7 % (11.5-14.5) H 01/06/17 14:54 Plt Count 87 K/uL (130-400) L 01/06/17 14:54 MPV 8.1 fl (7.2-11.7) 01/04/17 16:30 Neut % (Auto) 57.3 % (50.0-75.0) 01/04/17 16:30 Lymph % (Auto) 17.4 % (20.0-40.0) L 01/04/17 16:30 [place] % (Auto) 19.7 % (0.0-10.0) H 01/04/17 16:30 Eos % (Auto) 3.4 % (0.0-4.0) 01/04/17 16:30 Baso % (Auto) 2.2 % (0.0-2.0) H 01/04/17 16:30 Neut # 1.5 K/uL (1.8-7.0) L 01/04/17 16:30 Lymph # 0.5 K/uL (1.0-4.3) L 01/04/17 16:30 [place] # 0.5 K/uL (0.0-0.8) 01/04/17 16:30 Eos # 0.1 K/uL (0.0-0.7) 01/04/17 16:30 Baso # 0.1 K/uL (0.0-0.2) 01/04/17 16:30 PT 14.0 Seconds (9.8-13.1) H 01/04/17 17:45 INR 1.4 (0.9-1.2) H 01/04/17 17:45 APTT 37.7 Seconds (25.6-37.1) H 01/04/17 17:45 Sodium 137 mmol/l (132-148) 01/06/17 14:54 Potassium 4.2 MMOL/L (3.6-5.0) 01/06/17 14:54 Chloride 106 mmol/L (98-107) 01/06/17 14:54 Carbon Dioxide 21 mmol/L (22-30) L 01/06/17 14:54 Anion Gap 14 (10-20) 01/06/17 14:54 BUN 8 mg/dl (9-20) L 01/06/17 14:54 Creatinine 0.6 mg/dL (0.8-1.5) L 01/06/17 14:54 Est GFR ( Amer) > 60 01/06/17 14:54 Est GFR (Non-Af Amer) > 60 01/06/17 14:54 POC Glucose (mg/dL) 88 mg/dL (65-110) 01/04/17 17:01 Random Glucose 90 mg/dL (75-110) 01/06/17 14:54 Lactic Acid 1.9 MMOL/L (0.7-2.1) 01/05/17 10:23 Calcium 8.9 mg/dL (8.4-10.2) 01/06/17 14:54 Phosphorus 3.0 mg/dl (2.5-4.5) 01/04/17 17:59 Magnesium 1.8 MG/DL (1.6-2.3) 01/04/17 17:59 Total Bilirubin 2.9 mg/dl (0.2-1.3) H 01/06/17 14:54 Direct Bilirubin 0.9 mg/ml (0.0-0.4) H 01/06/17 14:54 AST 73 U/L (17-59) H 01/05/17 06:00 ALT 33 U/L (21-72) 01/05/17 06:00 Alkaline Phosphatase 99 U/L (38-126) 01/05/17 06:00 Ammonia 17 umo/L (16-60) D 01/04/17 17:30 Troponin I < 0.0120 ng/mL (0.00-0.120) 01/05/17 09:05 Total Protein 7.5 G/DL (6.3-8.2) 01/05/17 06:00 Albumin 3.3 g/dL (3.5-5.0) L 01/05/17 06:00 Globulin 4.2 gm/dL (2.2-3.9) H 01/05/17 06:00 Albumin/Globulin Ratio 0.8 (1.0-2.1) L 01/05/17 06:00 Lipase 268 U/L (23-300) 01/05/17 06:00 Stool Occult Blood Negative (NEGATIVE) 01/06/17 14:54 Alcohol, Quantitative 287 mg/dl (0-10) H 01/04/17 17:59 Blood Type O POSITIVE 01/04/17 16:30 Antibody Screen Negative 01/04/17 16:30 BBK History Checked Patient has bt 01/04/17 16:30 - Hospital Course Hospital Course: 56yo M with PMHx Liver cirrhosis secondary to ETOH abuse, Chronic gastritis, Esophageal varices Grade A, Portal Hypertensive Gastropathy, Portal Hypertension , Depression, Anxiety, Chronic anemia, Hx of Recurrent GI bleeds, Radial Head Fx , Rectal varices admitted for acute alcohol intoxication. EtOH 287, pt placed on librium/ativan for EtOH withdrawal. Last CIWA score 0. Pt had IV K+ for hypokalemia and had 1x vomiting which resolved. Pt discharged with librium 10mg IBD x3 days, follow up with PCP and get referral for GI outpatient FU. Has not followed with GI outpt for cirrchosis or varices. Will c/w home meds. Discharge Exam - Head Exam Head Exam: ATRAUMATIC, NORMAL INSPECTION - Eye Exam Eye Exam: EOMI, Normal appearance - ENT Exam ENT Exam: Mucous Membranes Moist - Neck Exam Neck exam: Full Rom, Normal Inspection - Respiratory Exam Respiratory Exam: Clear to PA & Lateral, NORMAL BREATHING PATTERN - Cardiovascular Exam Cardiovascular Exam: REGULAR RHYTHM. absent: Systolic Murmur - GI/Abdominal Exam GI & Abdominal Exam: Normal Bowel Sounds, Soft - Extremities Exam Extremities exam: full ROM, normal inspection - Back Exam Back exam: NORMAL INSPECTION - Neurological Exam Neurological exam: Alert, Oriented x3 Additional comments: no tremor. gait WNL, no imbalance - Skin Skin Exam: Dry, Warm Discharge Plan - Discharge Medications Prescriptions: chlordiazePOXIDE [Chlordiazepoxide HCl] 10 mg PO BID #6 cap - Follow Up Plan Condition: GUARDED Disposition: HOME/ ROUTINE Instructions: Alcohol Intoxication (DC) Additional Instructions: Will need to follow up with clinic and will need referral for GI Referrals: [facility] [place] [Outside]
== END 2017-01-07 14:30 | disposition home or self-care (01) | DRG 750 ==
LOC: H.ER 15:45 → H.ERHOLD 18:16 → H.TEL 01-05 01:58 → OBSVTOIN 01-05 16:01
PROVIDERS: ADMIT Family Medicine Geriatric Medicine; ATTEND Family Medicine Geriatric Medicine
DX: F10.220 Alcohol dependence with intoxication, uncomplicated (principal); K70.30 Alcoholic cirrhosis of liver without ascites; E87.6 Hypokalemia; D69.59 Other secondary thrombocytopenia; F10.230 Alcohol dependence with withdrawal, uncomplicated; I85.10 Secondary esophageal varices without bleeding; K76.6 Portal hypertension; F32.9 Major depressive disorder, single episode, unspecified; K31.89 Other diseases of stomach and duodenum; K29.50 Unspecified chronic gastritis without bleeding; F41.9 Anxiety disorder, unspecified; D64.9 Anemia, unspecified; R07.9 Chest pain, unspecified; Y90.8 Blood alcohol level of 240 mg/100 ml or more

== ENCOUNTER 2017-02-21 12:24 | Inpatient (IN) | payer OTHER ==
[2017-02-21 12:25] VITALS: BMI 19.1
[2017-02-21] MEDS ORDERED: Sodium Chloride 0.9% 1,000 ML IV STA ×3 (12:42→16:48)
--- NOTE | 2017-02-21 13:23 | ED PDOC ---
HPI: Abdomen Time Seen by Provider: 02/21/17 12:41 Chief Complaint (Nursing): GI Problem Chief Complaint (Provider): vomiting blood, dark stools History Per: Patient History/Exam Limitations: no limitations Onset/Duration Of Symptoms: Days (1) Outside of [place] travel?: No Current Symptoms Are (Timing): Intermittent Episodes Context: Other (etoh) Severity: Moderate Location Of Pain/Discomfort: Epigastric Quality Of Discomfort: Burning Associated Symptoms: Vomiting, Loss Of Appetite. denies: Fever, Chills, Urinary Symptoms Exacerbating Factors: Other (etoh) Alleviating Factors: None Last Bowel Movement: Today Additional History Per: Prior Records Additional Complaint(s): 56yo male hx etoh cirrhosis/ varicies/ gastritis in past now represents with 3 episodes of gross hematemesis associated with black stools and dizziness. C/o mild epigastric pain. Denies syncope, fever, chest pain or SOB. Admits to drinking etoh last night. Past Medical History Reviewed: Historical Data, Nursing Documentation, Vital Signs Vital Signs: Last Vital Signs Temp 97 F L 02/21/17 12:27 Pulse 90 02/21/17 12:27 Resp 18 02/21/17 12:27 BP 140/91 H 02/21/17 12:27 Pulse Ox 98 02/21/17 16:40 - Medical History PMH: Anemia, Anxiety, Depression, Fractures (L ankle sx), Gastritis, HTN Denies: HIV, Hypercholesterolemia, Chronic Kidney Disease - Surgical History Surgical History: Endoscopy - Family History Family History: States: Unknown Family Hx - Home Medications Home Medications: Ambulatory Orders Medication Instructions Recorded FLUoxetine [Prozac] 1 tab PO DAILY #30 cap 06/27/16 Propranolol HCl 10 mg pe PO DAILY #30 tablet 06/27/16 Thiamine Mononitrate [Vitamin B-1] 100 mg PO DAILY #30 tablet 06/27/16 Ferrous Gluconate 324 mg PO DAILY #30 tablet 09/13/16 Pantoprazole Sodium [Protonix] 40 mg PO DAILY #30 ect 09/13/16 Folic Acid 1 mg PO 10/22/16 Spironolactone 25 mg PO DAILY 10/22/16 chlordiazePOXIDE [Chlordiazepoxide 10 mg PO BID #6 cap 01/07/17 HCl] - Allergies Allergies/Adverse Reactions: Allergies Allergy/AdvReac Type Severity Reaction Status Date / Time No Known Allergies Allergy Verified 02/21/17 12:27 Review of Systems ROS Statement: Except As Marked, All Systems Reviewed And Found Negative Constitutional: Negative for: Fever, Sweats ENT: Negative for: Ear Pain Cardiovascular: Negative for: Chest Pain, Palpitations Respiratory: Negative for: Cough, Shortness of Breath Gastrointestinal: Positive for: Nausea, Vomiting, Abdominal Pain, Melena, Hematemesis Skin: Negative for: Rash, Lesions Neurological: Negative for: Weakness, Numbness Psych: Negative for: Anxiety Physical Exam - Reviewed Nursing Documentation Reviewed: Yes Vital Signs Reviewed: Yes - Physical Exam Appears: Positive for: Well, Non-toxic, No Acute Distress Head Exam: Positive for: ATRAUMATIC, NORMAL INSPECTION, NORMOCEPHALIC Skin: Positive for: Normal Color, Warm, Pallor (mild). Negative for: Diaphoresis, Jaundice, Mottled Eye Exam: Positive for: EOMI, Normal appearance, PERRL ENT: Positive for: Normal ENT Inspection Neck: Positive for: Normal, Painless ROM Cardiovascular/Chest: Positive for: Regular Rate, Rhythm Respiratory: Positive for: CNT, Normal Breath Sounds Gastrointestinal/Abdominal: Positive for: Bowel Sounds, Soft, Tenderness (mild epigastric tenderness). Negative for: Guarding Back: Positive for: Normal Inspection Extremity: Positive for: Normal ROM Neurologic/Psych: Positive for: Alert, Oriented. Negative for: Motor/Sensory Deficits - Laboratory Results Result Diagrams: 02/21/17 13:30 02/21/17 13:30 - ECG ECG: Positive for: Interpreted By Me ECG Rhythm: Positive for: Sinus Rhythm, ST/T Changes Interpretation Of ECG: similar to EKG from 11/07 but +changes from 01/08 O2 Sat by Pulse Oximetry: 98 Pulse Ox Interpretation: Normal Medical Decision Making Medical Decision Making: workup for acute GI bleed initiated given hx varicies, etoh abuse, prior GI bleed. Home meds reviewed include propranolol/ PPI/ spironolactone/ folate. Unclear compliance. labs reviewed, Hgb 10.2, slightly lower than prior; Plt 80 Per lab guiac + etoh 26 Tbili 2.7 Lipase normal Mixer Foam Rubber normal CXR no acute infiltrate on my review Protonix and zofran, 2L IVF initiated Admit to service tele. d/w Dr Deo GUADARRAMA, recommends starting octreotide drip given prior hx varicies. Dosing confirmed w pharmacy. 425p- patient had episode gross hematemesis. Protonix dripped ordered. Dr Desouza repaged, crossmatch 2unit PRBC, no NGT for now. Disposition - Clinical Impression Clinical Impression: Alcohol abuse, Upper GI bleeding - Patient ED Disposition Is Patient to be Admitted: Yes Counseled Patient/Family Regarding: Studies Performed, Diagnosis, Need For Followup - Disposition Disposition Time: 13:55 Condition: FAIR - Pt Status Changed To: Hospital Disposition Of: Observation - POA Present On Arrival: None
[2017-02-21 13:52] LABS: BASO % 1.3 % (0.0-2.0); EOS % 1.2 % (0.0-4.0); HEMATOCRIT 32.1 % (35.0-51.0); LYMPH # 0.3 K/uL (1.0-4.3); LYMPH % 9.7 % (20.0-40.0); MEAN CELL VOLUME 91.6 fl (80.0-94.0); MEAN CORPUSCULAR HEMOGLOBIN 30.4 pg (27.0-31.0); MEAN CORPUSCULAR HGB CONC 33.2 g/dL (33.0-37.0); MEAN PLATELET VOLUME 8.5 fl (7.2-11.7); MONO # 0.5 K/uL (0.0-0.8); MONO % 17.8 % (0.0-10.0); NEUT # 2.2 K/uL (1.8-7.0); NRBC % 0.2 % (0.0-0.0); PLATELET COUNT 80 K/uL (130-400); WHITE BLOOD COUNT 3.1 K/uL (4.8-10.8)
[2017-02-21 13:53] LABS: ALB/GLOB RATIO 0.8 (1.0-2.1); ALCOHOL SERUM 26 mg/dl (0-10); ALKALINE PHOSPHATASE 145 U/L (38-126); ALT/SGPT 49 U/L (21-72); AST/SGOT 115 U/L (17-59); BILIRUBIN,TOTAL 2.7 mg/dl (0.2-1.3); BLOOD UREA NITROGEN 12 mg/dl (9-20); CALCIUM 8.7 mg/dL (8.4-10.2); CARBON DIOXIDE 20 mmol/L (22-30); CHLORIDE 106 mmol/L (98-107); GFR AFRICAN-AMERICAN > 60; GLUCOSE,RANDOM 110 mg/dL (75-110); LIPASE 193 U/L (23-300); POTASSIUM 3.7 MMOL/L (3.6-5.0); SODIUM 140 mmol/l (132-148); TOTAL PROTEIN 8.1 G/DL (6.3-8.2)
[2017-02-21 14:17] LABS: PARTIAL THROMBOPLASTIN TIME 37.7 Seconds (25.6-37.1)
--- NOTE | 2017-02-21 14:45 | CP.PCM.HP ---
History of Present Illness - History of Present Illness History of Present Illness: 56 y/o male with PMHx of chronic gastritis, Liver cirrhosis, non-bleeding gastric and esophageal varices, chronic EtOH abuse, tobacco abuse, depression presents to ED complaining of three bloody vomiting episode accompanied by dark stools this morning. Patient states that he has been admitted to the hospital multiple times for similar situation. Patient reports that he was fine yesterday and reported of having 3-4 beers last night. Patient states that he was fine until this morning when he woke up early feeling nauseous and had to vomit. Patient states that each times he had blood in his vomit. Patient also reports that he had 3 bowel movements this morning and each time he had dark colored stools. Patient states that he has been feeling little short of breath and his heart has been racing since the morning. Patient reports of having chills since the morning. Patient denies of any recent fever, chest pain, or headache. Patient denies of any other complains at this time. PMHx:Chronic gastritis w/ multiple admissions for UGIB, Liver cirrhosis, gastric and esophageal varices, Chronic ETOH abuse, Tobacco abuse, Depression PSHx: Left lower ext ankle surgery; Right inguinal hernia repair Allergies: N.K.D.A SHx: EtOH abuse, off and on abstinence; smokes 8-10 cigarettes a day x 30+ pack years, current smoker; denies illicit drug abuse FHx: Father had hx of Colon cancer, EtOH abuse, mother had hx of stomach cancer ; both in their 60-70s; brother also had hx of EtOH abuse, and of EtOH related complications. Present on Admission - Present on Admission Any Indicators Present on Admission: No Review of Systems - Constitutional Constitutional: As Per HPI Past Patient History - Infectious Disease Hx of Infectious Diseases: None - Tetanus Immunizations Tetanus Immunization: Unknown - Past Medical History & Family History Past Medical History?: Yes - Past Social History Smoking Status: Light Smoker < 10 Cigarettes Daily Cigar Use: Yes Drugs: Denies - CARDIAC Hx Hypercholesterolemia: No Hx Hypertension: Yes - PULMONARY Hx Respiratory Disorders: No - NEUROLOGICAL Hx Neurological Disorder: No - HEENT Hx HEENT Problems: No - RENAL Hx Chronic Kidney Disease: No - ENDOCRINE/METABOLIC Hx Endocrine Disorders: No - HEMATOLOGICAL/ONCOLOGICAL Hx Anemia: Yes Hx Cirrhosis: Yes Hx Human Immunodeficiency Virus (HIV): No - INTEGUMENTARY Hx Dermatological Problems: No - MUSCULOSKELETAL/RHEUMATOLOGICAL Hx Fractures: Yes (L ankle sx) - GASTROINTESTINAL Hx Gastritis: Yes Hx Nausea: Yes Hx Vomiting: Yes - GENITOURINARY/GYNECOLOGICAL Hx Genitourinary Disorders: No - PSYCHIATRIC Hx Anxiety: Yes Hx Depression: Yes Hx Substance Use: Yes - SURGICAL HISTORY Hx Surgeries: Yes Hx Herniorrhaphy: Yes Other/Comment: ANKLE SURGERY - ANESTHESIA Hx Anesthesia: Yes Hx Anesthesia Reactions: No Hx Malignant Hyperthermia: No Meds Allergies/Adverse Reactions: Allergies Allergy/AdvReac Type Severity Reaction Status Date / Time No Known Allergies Allergy Verified 02/21/17 12:27 Physical Exam - Constitutional Appears: Well, Non-toxic, No Acute Distress - Head Exam Head Exam: ATRAUMATIC - Eye Exam Eye Exam: Normal appearance - ENT Exam ENT Exam: Mucous Membranes Moist - Neck Exam Neck exam: Positive for: Full Rom, Normal Inspection - Respiratory Exam Respiratory Exam: Clear to Auscultation Bilateral, NORMAL BREATHING PATTERN. absent: Rales, Rhonchi, Wheezes, Stridor - Cardiovascular Exam Cardiovascular Exam: Tachycardia, REGULAR RHYTHM, +S1, +S2. absent: Diastolic murmur, Irregular Rhythm, Systolic Murmur - GI/Abdominal Exam GI & Abdominal Exam: Normal Bowel Sounds, Soft, Tenderness Additional comments: tenderness present on palpation in epigastric region - Rectal Exam Rectal Exam: Deferred - Extremities Exam Extremities exam: Positive for: full ROM, normal capillary refill, normal inspection, pedal pulses present. Negative for: calf tenderness, joint swelling , pedal edema, tenderness - Back Exam Back exam: FULL ROM, NORMAL INSPECTION. absent: tenderness, vertebral tenderness - Neurological Exam Neurological exam: Alert, Oriented x3 - Psychiatric Exam Psychiatric exam: Normal Affect, Normal Mood - Skin Skin Exam: Dry, Intact, Normal Color, Warm Results - Vital Signs Recent Vital Signs: Last Vital Signs Temp 97 F L 02/21/17 12:27 Pulse 90 02/21/17 12:27 Resp 18 02/21/17 12:27 BP 140/91 H 02/21/17 12:27 Pulse Ox 98 02/21/17 13:31 - Labs Result Diagrams: 02/21/17 13:30 02/21/17 13:30 Labs: Laboratory Results - last 24 hr 02/21/17 02/21/17 02/21/17 13:30 13:30 13:30 WBC 3.1 L RBC 3.51 L Hgb 10.7 L Hct 32.1 L MCV 91.6 D MCH 30.4 MCHC 33.2 RDW 17.0 H Plt Count 80 L MPV 8.5 Neut % (Auto) 70.0 Lymph % (Auto) 9.7 L [place] % (Auto) 17.8 H Eos % (Auto) 1.2 Baso % (Auto) 1.3 Neut # 2.2 Lymph # 0.3 L [place] # 0.5 Eos # 0.0 Baso # 0.0 PT 16.6 H INR 1.1 APTT 37.7 H Sodium 140 Potassium 3.7 Chloride 106 Carbon Dioxide 20 L Anion Gap 18 BUN 12 Creatinine 0.5 L Est GFR ( Amer) > 60 Est GFR (Non-Af Amer) > 60 Random Glucose 110 Calcium 8.7 Total Bilirubin 2.7 H AST 115 H D ALT 49 Alkaline Phosphatase 145 H D Total Protein 8.1 Albumin 3.6 Globulin 4.4 H Albumin/Globulin Ratio 0.8 L Lipase 193 Alcohol, Quantitative 26 H Assessment & Plan - Assessment and Plan (Free Text) Assessment: 56 y/o male with PMHx of chronic gastritis, Liver cirrhosis, non-bleeding gastric and esophageal varices, chronic EtOH abuse, tobacco abuse, depression admitted for UGIB Plan: 1). Gastrointestinal hemorrhage with melena, secondary to esophageal varices and gastritis - secondary to chronic EtOH abuse - Keep NPO - Labs reviewed: H&H ok CBC am ordered - Zofran prn for nausea, vomiting - Started protonix 40 mg PO QD - c/w spironolactone and propranolol - Endoscopy (08/08) Impression: Grade 1 esophageal varices. Chronic gastritis. Normal duodenal bulb and 2nd part of the duodenum. - GI consult Dr. Desouza, input appreciated 2). Chronic Anemia - Reviewed labs - c/w ferrous gluconate PO QD - F/u CBC in am 3). Chronic EtOH abuse - CIW AAr Score: 7 - Librium 50 mg PO Q8 - c/w folic acid, thiamine 4). Alcoholic liver cirrhosis - Reviewed AST/ALT: 115/49 elevated - Hepatitis panel reviewed (10/07): normal - Repeat hepatitis panel 5). Depression - c/w floxetine 30 mg PO 6). DVT PPx - SCDs - Blood thinners contraindicated with GI bleed 7). Smoking Hx - Nicotin patch 14 mg/day - Date & Time Date: 02/21/17 Time: 15:59
--- NOTE | 2017-02-21 14:49 | RAD ---
HISTORY: Shortness of breath COMPARISON: No prior. FINDINGS: LUNGS: The lungs are well inflated and clear. PLEURA: No significant pleural effusion identified, no pneumothorax apparent. CARDIOVASCULAR: Normal. OSSEOUS STRUCTURES: No significant abnormalities. VISUALIZED UPPER ABDOMEN: Normal. OTHER FINDINGS: None. IMPRESSION: No active pulmonary disease.
[2017-02-21] MEDS ORDERED: Octreotide 500 mcg/ml Inj IV STA (14:54)
[2017-02-21 15:02] LABS: NEUTROPHIL 68 % (42-75); NUCLEATED RED BLOOD CELL 1 % (0-0); TOTAL CELLS COUNTED 100
[2017-02-21] MEDS ORDERED: PROPRANOLOL HCL PO SCH (16:15)
[2017-02-21] MEDS ORDERED: THIAMINE MONONITRATE 100 MG PO SCH (16:15)
[2017-02-21] MEDS ORDERED: FERROUS GLUCONATE 324 MG PO SCH (16:15)
[2017-02-21] MEDS: Pantoprazole 40 MG in Sodium Chloride 0.9% 100 ML IVPB SCH ×2 (17:54→21:39)
--- NOTE | 2017-02-21 17:58 | CP.PCM.CON ---
<Jenny Purcell - Last Filed: 02/21/17 18:50> History of Present Illness - History of Present Illness History of Present Illness: GI Fellow PGY4 Consult Note This is a 56 y/o male with PMHx of chronic gastritis, Liver cirrhosis, non- bleeding gastric and esophageal varices, chronic EtOH abuse, tobacco abuse, depression who presents to ED complaining of three bloody vomiting episode accompanied by dark stools this morning. Patient reports that he was fine yesterday and had 3-4 beers last night. He woke up early feeling nauseous and had to vomit and noticed bright red blood in emesis. He had dark colored stools. Patient states he felt short of breath and palpitations. Patient denies of any recent fever, chest pain, or headache. Patient was witnessed to have hematemesis and melena in the ER. Endoscopy (08/08) Impression: Grade 1 esophageal varices. Chronic gastritis. Normal duodenal bulb and 2nd part of the duodenum. In December Hgb 11.6-12.5 and today is 10.7, hemodynamically stable at this time. Last drink was yesterday. On rectal exam brown stool no melena or hematochezia. ROS: A 12pt ROS was negative except as above PMHx:As stated in HPI PSHx: Left lower ext ankle surgery; Right inguinal hernia repair SHx: EtOH abuse; smokes 8-10 cigarettes a day x 30+ pack years, denies illicit drug abuse FHx: Father had hx of Colon cancer, EtOH abuse, mother had hx of stomach cancer ; brother also had hx of EtOH abuse, and of EtOH related complications Past Patient History - Infectious Disease Hx of Infectious Diseases: None - Tetanus Immunizations Tetanus Immunization: Unknown - Past Medical History & Family History Past Medical History?: Yes - Past Social History Smoking Status: Light Smoker < 10 Cigarettes Daily Cigar Use: Yes Drugs: Denies - CARDIAC Hx Hypercholesterolemia: No Hx Hypertension: Yes - PULMONARY Hx Respiratory Disorders: No - NEUROLOGICAL Hx Neurological Disorder: No - HEENT Hx HEENT Problems: No - RENAL Hx Chronic Kidney Disease: No - ENDOCRINE/METABOLIC Hx Endocrine Disorders: No - HEMATOLOGICAL/ONCOLOGICAL Hx Anemia: Yes Hx Human Immunodeficiency Virus (HIV): No - INTEGUMENTARY Hx Dermatological Problems: No - MUSCULOSKELETAL/RHEUMATOLOGICAL Hx Fractures: Yes (L ankle sx) - GASTROINTESTINAL Hx Gastritis: Yes - GENITOURINARY/GYNECOLOGICAL Hx Genitourinary Disorders: No - PSYCHIATRIC Hx Anxiety: Yes Hx Depression: Yes - SURGICAL HISTORY Hx Surgeries: Yes Hx Herniorrhaphy: Yes Other/Comment: ANKLE SURGERY - ANESTHESIA Hx Anesthesia: Yes Hx Anesthesia Reactions: No Hx Malignant Hyperthermia: No Meds Allergies/Adverse Reactions: Allergies Allergy/AdvReac Type Severity Reaction Status Date / Time No Known Allergies Allergy Verified 02/21/17 12:27 - Medications Medications: Current Medications Chlordiazepoxide (Librium) 50 mg PO Q8 [facility] Ferrous Gluconate (Fergon) 324 mg PO DAILY [facility] Fluoxetine HCl (Prozac) 10 mg PO DAILY [facility] Folic Acid (Folic Acid) 1 mg PO DAILY [facility] Octreotide Acetate 1,250 mcg/ (Sodium Chloride) 252.5 mls @ 5.05 mls/hr IV .Q24H [facility]; 25 MCG/HR PRN Reason: Protocol Last Admin: 02/21/17 16:22 Dose: 5.05 mls/hr Ceftriaxone Sodium (Rocephin Iv 1 Gm Duplex) 50 mls @ 50 mls/hr IVPB DAILY [facility] PRN Reason: Protocol Pantoprazole Sodium 40 mg/ (Sodium Chloride) 100 mls @ 20 mls/hr IVPB Q5H [facility] PRN Reason: 8 MG/HR Sodium Chloride (Sodium Chloride 0.9%) 1,000 mls @ 110 mls/hr IV .Q9H6M [facility] Stop: 02/22/17 16:29 Sodium Chloride (Sodium Chloride 0.9%) 1,000 mls @ 150 mls/hr IV .Q6H40M [facility] Stop: 02/21/17 23:27 Nicotine (Nicoderm Cq) 1 patch TD DAILY [facility] Ondansetron HCl (Zofran Tab) 4 mg PO Q6 PRN PRN Reason: Nausea/Vomiting Propranolol HCl (Inderal) 10 mg PO DAILY [facility] Spironolactone (Aldactone) 25 mg PO BID [facility] Thiamine HCl (Vitamin B1 Tab) 100 mg PO DAILY [facility] Physical Exam - Constitutional Appears: Non-toxic, No Acute Distress, Cachectic - Head Exam Head Exam: ATRAUMATIC, NORMAL INSPECTION, NORMOCEPHALIC - Eye Exam Eye Exam: EOMI, Normal appearance, PERRL Pupil Exam: PERRL - ENT Exam ENT Exam: Mucous Membranes Moist, Normal Exam - Neck Exam Neck exam: Positive for: Normal Inspection - Respiratory Exam Respiratory Exam: Clear to Auscultation Bilateral, NORMAL BREATHING PATTERN - Cardiovascular Exam Cardiovascular Exam: RRR, +S1, +S2 - GI/Abdominal Exam GI & Abdominal Exam: Normal Bowel Sounds. absent: Distended, Organomegaly, Tenderness - Rectal Exam Rectal Exam: NORMAL INSPECTION Additional comments: brown stool - Extremities Exam Extremities exam: Positive for: full ROM, normal inspection. Negative for: pedal edema - Back Exam Back exam: NORMAL INSPECTION - Neurological Exam Neurological exam: Alert, Oriented x3 - Psychiatric Exam Psychiatric exam: Normal Affect, Normal Mood - Skin Skin Exam: Dry, Intact, Normal Color, Warm Results - Vital Signs Recent Vital Signs: Last Vital Signs Temp 97 F L 02/21/17 12:27 Pulse 90 02/21/17 12:27 Resp 18 02/21/17 12:27 BP 140/91 H 02/21/17 12:27 Pulse Ox 98 02/21/17 17:00 - Labs Result Diagrams: 02/21/17 13:30 02/21/17 13:30 Labs: Laboratory Results - last 24 hr 02/21/17 02/21/17 02/21/17 13:30 13:30 13:30 WBC 3.1 L RBC 3.51 L Hgb 10.7 L Hct 32.1 L MCV 91.6 D MCH 30.4 MCHC 33.2 RDW 17.0 H Plt Count 80 L MPV 8.5 Neut % (Auto) 70.0 Lymph % (Auto) 9.7 L Norton % (Auto) 17.8 H Eos % (Auto) 1.2 Baso % (Auto) 1.3 Neut # 2.2 Lymph # 0.3 L Norton # 0.5 Eos # 0.0 Baso # 0.0 Neutrophils % (Manual) 68 Lymphocytes % (Manual) 11 L Monocytes % (Manual) 21 H Nucleated RBC % 1 H Platelet Estimate Decreased L Hypochromasia (manual) Slight Anisocytosis (manual) Slight PT 16.6 H INR 1.1 APTT 37.7 H Sodium 140 Potassium 3.7 Chloride 106 Carbon Dioxide 20 L Anion Gap 18 BUN 12 Creatinine 0.5 L Est GFR ( Amer) > 60 Est GFR (Non-Af Amer) > 60 Random Glucose 110 Calcium 8.7 Total Bilirubin 2.7 H AST 115 H D ALT 49 Alkaline Phosphatase 145 H D Troponin I Total Protein 8.1 Albumin 3.6 Globulin 4.4 H Albumin/Globulin Ratio 0.8 L Lipase 193 Alcohol, Quantitative 26 H 02/21/17 14:06 WBC RBC Hgb Hct MCV MCH MCHC RDW Plt Count MPV Neut % (Auto) Lymph % (Auto) Norton % (Auto) Eos % (Auto) Baso % (Auto) Neut # Lymph # Norton # Eos # Baso # Neutrophils % (Manual) Lymphocytes % (Manual) Monocytes % (Manual) Nucleated RBC % Platelet Estimate Hypochromasia (manual) Anisocytosis (manual) PT INR APTT Sodium Potassium Chloride Carbon Dioxide Anion Gap BUN Creatinine Est GFR ( Amer) Est GFR (Non-Af Amer) Random Glucose Calcium Total Bilirubin AST ALT Alkaline Phosphatase Troponin I < 0.0120 Total Protein Albumin Globulin Albumin/Globulin Ratio Lipase Alcohol, Quantitative Assessment & Plan - Assessment and Plan (Free Text) Assessment: This is a 56yM with hx of cirhosis and alcohol abus epresenting with hematemesis and melena for one day. 1. Upper GI Bleed 2. Anemia 3. Cirrhosis 4. Etoh abuse 5. Hx of gastritis and esophageal varices 6. Transaminitis Plan: -Continue supportive care -Ordered IV Octreotide drip -Ordered IV PPI Drip -NPO -Monitor LFTs, likely from chronic ETOH -Continue IV Rocephin 1G Daily -Contine propanolol, aldactone -Monitor H/H and transfuse if Hgb<7 or hemodynamically unstable -Concern about variceal bleed so avoid aggressive blood transfusion -Rectal exam negative for melena or hematochezia no active hematemesis -Will plan for EGD tomorrow am 02/22/17 <Jeevan Desouza MD - Last Filed: 02/22/17 10:41> Meds - Medications Medications: Current Medications Chlordiazepoxide (Librium) 50 mg PO Q8 [facility] Last Admin: 02/22/17 09:00 Dose: Not Given Ferrous Gluconate (Fergon) 324 mg PO DAILY [facility] Last Admin: 02/22/17 09:00 Dose: Not Given Fluoxetine HCl (Prozac) 10 mg PO DAILY [facility] Last Admin: 02/22/17 09:00 Dose: Not Given Folic Acid (Folic Acid) 1 mg PO DAILY [facility] Last Admin: 02/22/17 09:00 Dose: Not Given Octreotide Acetate 1,250 mcg/ (Sodium Chloride) 252.5 mls @ 5.05 mls/hr IV .Q24H [facility]; 25 MCG/HR PRN Reason: Protocol Last Admin: 02/21/17 16:22 Dose: 5.05 mls/hr Ceftriaxone Sodium (Rocephin Iv 1 Gm Duplex) 50 mls @ 50 mls/hr IVPB DAILY [facility] PRN Reason: Protocol Last Admin: 02/22/17 10:24 Dose: 50 mls/hr Sodium Chloride (Sodium Chloride 0.9%) 1,000 mls @ 110 mls/hr IV .Q9H6M [facility] Stop: 02/22/17 16:29 Last Admin: 02/22/17 02:43 Dose: 110 mls/hr Nicotine (Nicoderm Cq) 1 patch TD DAILY [facility] Last Admin: 02/22/17 09:56 Dose: 1 patch Ondansetron HCl (Zofran Tab) 4 mg PO Q6 PRN PRN Reason: Nausea/Vomiting Pantoprazole Sodium (Protonix Inj) 40 mg IVP DAILY [facility] Propranolol HCl (Inderal) 10 mg PO DAILY [facility] Last Admin: 02/22/17 09:00 Dose: Not Given Spironolactone (Aldactone) 25 mg PO BID [facility] Last Admin: 02/22/17 09:00 Dose: Not Given Thiamine HCl (Vitamin B1 Tab) 100 mg PO DAILY [facility] Last Admin: 02/22/17 09:00 Dose: Not Given Results - Vital Signs Recent Vital Signs: Last Vital Signs Temp 97.3 F L 02/22/17 09:50 Pulse 68 02/22/17 09:50 Resp 20 02/22/17 09:50 BP 96/63 L 02/22/17 09:50 Pulse Ox 96 02/22/17 09:50 - Labs Result Diagrams: 02/22/17 05:15 02/22/17 05:15 Labs: Laboratory Results - last 24 hr 02/21/17 02/21/17 02/21/17 13:30 13:30 13:30 WBC 3.1 L RBC 3.51 L Hgb 10.7 L Hct 32.1 L MCV 91.6 D MCH 30.4 MCHC 33.2 RDW 17.0 H Plt Count 80 L MPV 8.5 Neut % (Auto) 70.0 Lymph % (Auto) 9.7 L Norton % (Auto) 17.8 H Eos % (Auto) 1.2 Baso % (Auto) 1.3 Neut # 2.2 Lymph # 0.3 L Norton # 0.5 Eos # 0.0 Baso # 0.0 Neutrophils % (Manual) 68 Lymphocytes % (Manual) 11 L Monocytes % (Manual) 21 H Nucleated RBC % 1 H Platelet Estimate Decreased L Hypochromasia (manual) Slight Anisocytosis (manual) Slight PT 16.6 H INR 1.1 APTT 37.7 H Sodium 140 Potassium 3.7 Chloride 106 Carbon Dioxide 20 L Anion Gap 18 BUN 12 Creatinine 0.5 L Est GFR ( Amer) > 60 Est GFR (Non-Af Amer) > 60 Random Glucose 110 Calcium 8.7 Total Bilirubin 2.7 H AST 115 H D ALT 49 Alkaline Phosphatase 145 H D Troponin I Total Protein 8.1 Albumin 3.6 Globulin 4.4 H Albumin/Globulin Ratio 0.8 L Lipase 193 Alcohol, Quantitative 26 H Blood Type Antibody Screen Crossmatch BBK History Checked 02/21/17 02/21/17 02/21/17 14:06 17:57 20:48 WBC 3.9 L RBC 3.08 L Hgb 9.4 L Hct 28.7 L MCV 93.1 MCH 30.6 MCHC 32.9 L RDW 17.5 H Plt Count 63 L MPV Neut % (Auto) Lymph % (Auto) Norton % (Auto) Eos % (Auto) Baso % (Auto) Neut # Lymph # Norton # Eos # Baso # Neutrophils % (Manual) Lymphocytes % (Manual) Monocytes % (Manual) Nucleated RBC % Platelet Estimate Hypochromasia (manual) Anisocytosis (manual) PT INR APTT Sodium Potassium Chloride Carbon Dioxide Anion Gap BUN Creatinine Est GFR ( Amer) Est GFR (Non-Af Amer) Random Glucose Calcium Total Bilirubin AST ALT Alkaline Phosphatase Troponin I < 0.0120 Total Protein Albumin Globulin Albumin/Globulin Ratio Lipase Alcohol, Quantitative Blood Type O POSITIVE Antibody Screen Negative Crossmatch See Detail BBK History Checked Patient has bt 02/22/17 02/22/17 05:15 05:15 WBC 2.3 L RBC 2.71 L Hgb 8.2 L Hct 25.2 L MCV 93.0 MCH 30.3 MCHC 32.6 L RDW 17.4 H Plt Count 47 L MPV Neut % (Auto) Lymph % (Auto) Norton % (Auto) Eos % (Auto) Baso % (Auto) Neut # Lymph # Norton # Eos # Baso # Neutrophils % (Manual) Lymphocytes % (Manual) Monocytes % (Manual) Nucleated RBC % Platelet Estimate Hypochromasia (manual) Anisocytosis (manual) PT INR APTT Sodium 141 Potassium 3.7 Chloride 110 H Carbon Dioxide 22 Anion Gap 13 BUN 14 Creatinine 0.6 L Est GFR ( Amer) > 60 Est GFR (Non-Af Amer) > 60 Random Glucose 93 Calcium 7.5 L Total Bilirubin AST ALT Alkaline Phosphatase Troponin I Total Protein Albumin Globulin Albumin/Globulin Ratio Lipase Alcohol, Quantitative Blood Type Antibody Screen Crossmatch BBK History Checked Attending/Attestation - Attestation I have personally seen and examined this patient.: Yes I have fully participated in the care of the patient.: Yes I have reviewed all pertinent clinical information: Yes Notes (Text): 02/22/17 10:37 Late entry- Patient was seen last night in with GI fellow. This is a 56 yr old M with history of alcohol cirrhosis and with current alcohol abuse admitted with complain of hematemesis and melena for one day. Last EGD showed grade A varices not banded. His cirrhosis is complicated by portal HTN and thrombocytopenia. Will start octreotide gtt and plan on doing EGD in am. Will need antibiotics to complete total of 7 day course. Monitor Hb/Hct. Monitor daily cbc, LFT and INR. NPO. Keep Hct above 21. Will follow closely with you
[2017-02-21 20:57] LABS: HEMATOCRIT 28.7 % (35.0-51.0); MEAN CELL VOLUME 93.1 fl (80.0-94.0); MEAN CORPUSCULAR HEMOGLOBIN 30.6 pg (27.0-31.0); MEAN CORPUSCULAR HGB CONC 32.9 g/dL (33.0-37.0); RED CELL DISTRIBUTION WIDTH 17.5 % (11.5-14.5); WHITE BLOOD COUNT 3.9 K/uL (4.8-10.8)
[2017-02-21] MEDS: cefTRIAXone IV 1 gm in Dextros 50 ML IVPB SCH (21:34)
[2017-02-21] MEDS: Sodium Chloride 0.9% 1,000 ML IV SCH (21:37)
[2017-02-21] MEDS ORDERED: Influenza Vaccine 18yr & older 0.5 ML/45 MCG SYR IM ONE (21:46)
[2017-02-22] MEDS: Pantoprazole 40 MG in Sodium Chloride 0.9% 100 ML IVPB SCH ×2 (02:42→09:53)
[2017-02-22] MEDS: Sodium Chloride 0.9% 1,000 ML IV SCH ×2 (02:43→12:56)
[2017-02-22 05:54] LABS: HEMATOCRIT 25.2 % (35.0-51.0); MEAN CORPUSCULAR HEMOGLOBIN 30.3 pg (27.0-31.0); MEAN CORPUSCULAR HGB CONC 32.6 g/dL (33.0-37.0); RED CELL DISTRIBUTION WIDTH 17.4 % (11.5-14.5); WHITE BLOOD COUNT 2.3 K/uL (4.8-10.8)
[2017-02-22 06:06] LABS: BLOOD UREA NITROGEN 14 mg/dl (9-20); CALCIUM 7.5 mg/dL (8.4-10.2); CARBON DIOXIDE 22 mmol/L (22-30); CHLORIDE 110 mmol/L (98-107); GFR AFRICAN-AMERICAN > 60; GLUCOSE,RANDOM 93 mg/dL (75-110); POTASSIUM 3.7 MMOL/L (3.6-5.0); SODIUM 141 mmol/l (132-148)
[2017-02-22] MEDS ORDERED: Sodium Chloride 0.9% 1,000 ML IV ONE ×2 (08:15→08:20)
[2017-02-22] MEDS ORDERED: Midazolam 2 MG/2 ML VIAL ONE (08:25)
[2017-02-22] MEDS ORDERED: Propofol 10 mg/ml Inj (20 ML) ONE (08:26)
--- NOTE | 2017-02-22 08:44 | CP.PCM.PN ---
Subjective - Date & Time of Evaluation Date of Evaluation: 02/22/17 Time of Evaluation: 08:31 - Subjective Subjective: Family Medicine Progress note- Dr. Worrell 56 y/o male with PMHx of chronic gastritis, Liver cirrhosis, non-bleeding gastric and esophageal varices, chronic EtOH abuse, tobacco abuse, depression seen at bedside for upper GI bleed. Patient reports having no episodes of vomiting or bowel movements since on floors. Reports having an a bowel movement while was in the ED yesterday that was dark in color and soft. Patient reports having chills last night. Denies fever, nausea, sob, chest pains. Patient denies dizziness. Patient voided once without incident. Patient is seen being picked up by transport to get a EGD at the time of the visit. Objective - Vital Signs/Intake and Output Vital Signs (last 24 hours): Temp Pulse Resp BP Pulse Ox 97.3 F L 71 11 L 108/74 97 02/22/17 08:25 02/22/17 08:25 02/22/17 08:25 02/22/17 08:25 02/22/17 08:25 Intake and Output: 02/22/17 02/22/17 06:59 18:59 Intake Total 1685 Output Total 1800 Balance -115 - Medications Medications: Current Medications Chlordiazepoxide (Librium) 50 mg PO Q8 [facility] Last Admin: 02/22/17 00:57 Dose: Not Given Ferrous Gluconate (Fergon) 324 mg PO DAILY [facility] Fluoxetine HCl (Prozac) 10 mg PO DAILY [facility] Last Admin: 02/21/17 21:29 Dose: 10 mg Folic Acid (Folic Acid) 1 mg PO DAILY [facility] Last Admin: 02/21/17 21:29 Dose: 1 mg Octreotide Acetate 1,250 mcg/ (Sodium Chloride) 252.5 mls @ 5.05 mls/hr IV .Q24H [facility]; 25 MCG/HR PRN Reason: Protocol Last Admin: 02/21/17 16:22 Dose: 5.05 mls/hr Ceftriaxone Sodium (Rocephin Iv 1 Gm Duplex) 50 mls @ 50 mls/hr IVPB DAILY [facility] PRN Reason: Protocol Last Admin: 02/21/17 21:34 Dose: 50 mls/hr Pantoprazole Sodium 40 mg/ (Sodium Chloride) 100 mls @ 20 mls/hr IVPB Q5H [facility] PRN Reason: 8 MG/HR Last Admin: 02/22/17 02:42 Dose: 20 mls/hr Sodium Chloride (Sodium Chloride 0.9%) 1,000 mls @ 110 mls/hr IV .Q9H6M [facility] Stop: 02/22/17 16:29 Last Admin: 02/22/17 02:43 Dose: 110 mls/hr Nicotine (Nicoderm Cq) 1 patch TD DAILY [facility] Last Admin: 02/21/17 21:29 Dose: 1 patch Ondansetron HCl (Zofran Tab) 4 mg PO Q6 PRN PRN Reason: Nausea/Vomiting Propranolol HCl (Inderal) 10 mg PO DAILY [facility] Spironolactone (Aldactone) 25 mg PO BID [facility] Last Admin: 02/21/17 21:28 Dose: 25 mg Thiamine HCl (Vitamin B1 Tab) 100 mg PO DAILY [facility] - Labs Labs: 02/22/17 05:15 02/22/17 05:15 PT 16.6 Seconds (9.8-13.1) H 02/21/17 13:30 INR 1.1 (0.9-1.2) 02/21/17 13:30 APTT 37.7 Seconds (25.6-37.1) H 02/21/17 13:30 - Constitutional Appears: Well, Toxic, No Acute Distress - Head Exam Head Exam: ATRAUMATIC - Eye Exam Eye Exam: Normal appearance - ENT Exam ENT Exam: Mucous Membranes Moist - Neck Exam Neck Exam: Full ROM, Normal Inspection - Respiratory Exam Respiratory Exam: Clear to Ausculation Bilateral, NORMAL BREATHING PATTERN - Cardiovascular Exam Cardiovascular Exam: REGULAR RHYTHM - GI/Abdominal Exam GI & Abdominal Exam: Soft, Tenderness Additional comments: Pain with palpation of the right upper quadrant and the lower quadrant - Rectal Exam Rectal Exam: Deferred - Extremities Exam Additional comments: No calf pain elicited with calf squeeze and palpation bilaterally. - Neurological Exam Neurological Exam: Alert, Awake - Psychiatric Exam Psychiatric exam: Normal Affect, Normal Mood - Skin Skin Exam: Dry, Intact, Normal Color, Warm Assessment and Plan - Assessment and Plan (Free Text) Assessment: 56 year old male with PMHx of chronic gastritis, Liver cirrhosis, non-bleeding gastric and esophageal varices, chronic EtOH abuse, tobacco abuse, depression seen at bedside for UGIB and melana Plan: 1). Gastrointestinal hemorrhage with melena, secondary to esophageal varices and gastritis - secondary to chronic EtOH abuse - Labs reviewed: H/H: 8.2/25.2, trending down - Will continue to monitor H/H, per GI, will transfuse if Hgb <7 or hemodynamically unstable - Zofran prn for nausea, vomiting - c/w protonix 40 mg PO QD - c/w spironolactone and propranolol - Endoscopy (08/08) Impression: Grade 1 esophageal varices. Chronic gastritis. Normal duodenal bulb and 2nd part of the duodenum. - GI, Dr. Desouza on board. EGD today- awaiting results - Continue IV Rocephin 1G Daily per GI 2). Chronic Anemia - Reviewed labs - c/w ferrous gluconate PO QD - F/u CBC in am 3). Chronic EtOH abuse - CIW AAr Score: 7 - Librium 50 mg PO Q8 - c/w folic acid, thiamine 4). Alcoholic liver cirrhosis - Reviewed AST/ALT: 115/49 elevated - Hepatitis panel reviewed (10/07): normal - Repeat hepatitis panel 5). Depression - c/w fluoxetine 10mg PO 6). DVT PPx - SCDs - Blood thinners contraindicated with GI bleed 7). Smoking Hx - c/w Nicotin patch 14 mg/day
[2017-02-22] MEDS ORDERED: Pantoprazole 40 mg EC Tab PO SCH (09:00)
[2017-02-22] MEDS: cefTRIAXone IV 1 gm in Dextros 50 ML IVPB SCH (10:24)
--- NOTE | 2017-02-22 12:59 | CARD ---
APPROVED REPORT EKG Measurement Heart [id number] <Conclusion> Normal sinus rhythm ST & T wave abnormality, consider anterior ischemia Prolonged QT Abnormal ECG
[2017-02-23 00:02] VITALS: RESP 18
[2017-02-23] MEDS ORDERED: Sodium Chloride 0.9% 1,000 ML IV SCH (00:15)
[2017-02-23 06:03] LABS: BASO % 1.3 % (0.0-2.0); EOS # 0.1 K/uL (0.0-0.7); HEMATOCRIT 24.4 % (35.0-51.0); LYMPH # 0.2 K/uL (1.0-4.3); LYMPH % 9.3 % (20.0-40.0); MEAN CELL VOLUME 92.6 fl (80.0-94.0); MEAN CORPUSCULAR HEMOGLOBIN 30.5 pg (27.0-31.0); MEAN CORPUSCULAR HGB CONC 32.9 g/dL (33.0-37.0); MEAN PLATELET VOLUME 8.4 fl (7.2-11.7); MONO # 0.4 K/uL (0.0-0.8); MONO % 19.2 % (0.0-10.0); NEUT # 1.4 K/uL (1.8-7.0); NEUT % 66.2 % (50.0-75.0); NRBC % 0.2 % (0.0-0.0); RED CELL DISTRIBUTION WIDTH 17.8 % (11.5-14.5); WHITE BLOOD COUNT 2.1 K/uL (4.8-10.8)
[2017-02-23 06:12] LABS: ALB/GLOB RATIO 0.7 (1.0-2.1); ALKALINE PHOSPHATASE 108 U/L (38-126); ALT/SGPT 40 U/L (21-72); AST/SGOT 70 U/L (17-59); BILIRUBIN,TOTAL 2.8 mg/dl (0.2-1.3); BLOOD UREA NITROGEN 9 mg/dl (9-20); CALCIUM 7.3 mg/dL (8.4-10.2); CARBON DIOXIDE 23 mmol/L (22-30); CHLORIDE 104 mmol/L (98-107); GFR AFRICAN-AMERICAN > 60; GLUCOSE,RANDOM 97 mg/dL (75-110); POTASSIUM 3.2 MMOL/L (3.6-5.0); SODIUM 137 mmol/l (132-148); TOTAL PROTEIN 6.5 G/DL (6.3-8.2)
--- NOTE | 2017-02-23 07:38 | CP.PCM.PN ---
Subjective - Date & Time of Evaluation Date of Evaluation: 02/23/17 Time of Evaluation: 07:38 - Subjective Subjective: Family Medicine Progress note- Dr. Worrell 56 y/o male with PMHx of chronic gastritis, liver cirrhosis, non-bleeding gastric and esophageal varices, chronic EtOH abuse, tobacco abuse, and depression seen at bedside 1 s/p esophagogastroduodenoscopy by Dr Desouza. Patient is seen resting comfortably in bed, AA0x3, and in NAD. Patient reports that he is in no pain. He reports feeling better today compared to yesterday. Reports sleeping all day yesterday since the EGD procedure. Since the procedure , he has only drank orange juice. Currently on liquid diet. He hasn't eaten this morning yet. Reports feeling hungry. Able walk to the bathroom to void without any problems. He denies n/v/sob/cp or f. Denies trembles. Objective - Vital Signs/Intake and Output Vital Signs (last 24 hours): Temp Pulse Resp BP Pulse Ox 98.5 F 82 18 108/67 95 02/23/17 05:20 02/23/17 05:20 02/23/17 05:20 02/23/17 05:20 02/23/17 05:20 Intake and Output: 02/23/17 02/23/17 06:59 18:59 Intake Total 1000 Output Total 900 Balance 100 - Medications Medications: Current Medications Chlordiazepoxide (Librium) 50 mg PO Q8 [facility] Last Admin: 02/23/17 00:50 Dose: 50 mg Ferrous Gluconate (Fergon) 324 mg PO DAILY [facility] Last Admin: 02/22/17 09:00 Dose: Not Given Fluoxetine HCl (Prozac) 10 mg PO DAILY [facility] Last Admin: 02/22/17 09:00 Dose: Not Given Folic Acid (Folic Acid) 1 mg PO DAILY [facility] Last Admin: 02/22/17 09:00 Dose: Not Given Octreotide Acetate 1,250 mcg/ (Sodium Chloride) 252.5 mls @ 5.05 mls/hr IV .Q24H [facility]; 25 MCG/HR PRN Reason: Protocol Last Admin: 02/22/17 16:39 Dose: 5.05 mls/hr Ceftriaxone Sodium (Rocephin Iv 1 Gm Duplex) 50 mls @ 50 mls/hr IVPB DAILY [facility] PRN Reason: Protocol Last Admin: 02/22/17 10:24 Dose: 50 mls/hr Sodium Chloride (Sodium Chloride 0.9%) 1,000 mls @ 100 mls/hr IV .Q10H [facility] Stop: 02/24/17 00:15 Last Admin: 02/23/17 00:51 Dose: 100 mls/hr Nicotine (Nicoderm Cq) 1 patch TD DAILY [facility] Last Admin: 02/22/17 09:56 Dose: 1 patch Ondansetron HCl (Zofran Tab) 4 mg PO Q6 PRN PRN Reason: Nausea/Vomiting Pantoprazole Sodium (Protonix Inj) 40 mg IVP DAILY [facility] Propranolol HCl (Inderal) 10 mg PO DAILY [facility] Spironolactone (Aldactone) 25 mg PO BID [facility] Last Admin: 02/22/17 16:40 Dose: 25 mg Thiamine HCl (Vitamin B1 Tab) 100 mg PO DAILY [facility] Last Admin: 02/22/17 09:00 Dose: Not Given - Labs Labs: 02/23/17 05:30 02/23/17 05:30 PT 16.6 Seconds (9.8-13.1) H 02/21/17 13:30 INR 1.1 (0.9-1.2) 02/21/17 13:30 APTT 37.7 Seconds (25.6-37.1) H 02/21/17 13:30 - Constitutional Appears: Well, Non-toxic, No Acute Distress - Head Exam Head Exam: ATRAUMATIC, NORMAL INSPECTION - Eye Exam Eye Exam: Normal appearance - ENT Exam ENT Exam: Mucous Membranes Moist - Neck Exam Neck Exam: Full ROM - Respiratory Exam Respiratory Exam: Clear to Ausculation Bilateral, NORMAL BREATHING PATTERN - Cardiovascular Exam Cardiovascular Exam: REGULAR RHYTHM - GI/Abdominal Exam GI & Abdominal Exam: Soft, Tenderness Additional comments: Pain elicited with palpation of the right lower and upper quadrant. - Extremities Exam Additional comments: No pain elicited upon palpation with calf - Neurological Exam Neurological Exam: Alert, Awake, Oriented x3 - Psychiatric Exam Psychiatric exam: Normal Affect, Normal Mood - Skin Skin Exam: Normal Color Assessment and Plan - Assessment and Plan (Free Text) Assessment: 56 year old male with PMHx of chronic gastritis, Liver cirrhosis, non-bleeding gastric and esophageal varices, chronic EtOH abuse, tobacco abuse, depression seen at bedside for UGIB and melana Plan: 1). Gastrointestinal hemorrhage with melena, secondary to esophageal varices and gastritis - secondary to chronic EtOH abuse - Labs reviewed: H/H: 8.0/24.4 (8.2/25.2 on 02/22/17) - H/H stable - New H/H ordered- awaiting results. Per GI, will transfuse if Hgb <7 or hemodynamically unstable - Zofran prn for nausea, vomiting - Discontinued IV Octreotide drip - c/w protonix 40 mg PO QD - c/w spironolactone and propranolol - Endoscopy (08/08) Impression: Grade 1 esophageal varices. Chronic gastritis. Normal duodenal bulb and 2nd part of the duodenum. - Endoscopy performed yesterday (02/22/17)- Findings "Grade II varices were found in the middle third of the esophagus and in the lower third of the esophagus 37 cm from the incisors. These had stigmata of recent bleeding. The varices had red abdulaziz signs. Four bands were successful placed with complete eradication, resulting in deflation of varices. There was no bleeding at the end of the procedure." - S/P 1 unit of platelet after endoscopy. - Educated on alcohol cessation; advised on AAA - Continue IV Rocephin 1G Daily; Per GI can change to Cipro 500 mg BID PO prior to discharge for total of 7 days - Tolerate liquid diet well. Will advance to Regular low sodium diet - Scheduled appointment with [facility] with Dr. Kurtz on 03/03/17 at 1:20PM - Will give pt Rx CBC, BMP prior to discharged. To be obtain day prior to [facility] appointment. - Will make an appointment with GI. - MELD score=11 2). Chronic Anemia - Reviewed labs - c/w ferrous gluconate PO QD - Will give Rx ferrous sulfate prior discharge 3). Chronic EtOH abuse - CIW AAr Score: 7 - Librium 50 mg PO Q8 - c/w folic acid, thiamine 4). Alcoholic liver cirrhosis - Reviewed AST/ALT: 70/40 today (115/49 elevated on 02/21/17) - Hepatitis panel reviewed (10/07): normal - Hepatitis panel reviewed (02/22/17): normal 5). Depression - c/w Fluoxetine 10mg PO 6). DVT PPx - SCDs - Anticoagulation contraindicated with GI bleed 7). Smoking Hx - c/w Nicotin patch 14 mg/day 8) Hypokalemia - Potassium 3.2 today (02/23/17) - Given Potassium chloride 20meq PO once
--- NOTE | 2017-02-23 08:06 | CP.PCM.PN ---
<Jenny Purcell - Last Filed: 02/23/17 12:50> Subjective - Date & Time of Evaluation Date of Evaluation: 02/23/17 Time of Evaluation: 07:15 - Subjective Subjective: GI Fellow PGY4 Progress Note Pt seen and evaluated at bedside, pt doing well with no complaints of hematemesis or hematochezia/melena. Tolerating clears will like to eat. Denies chest pain, vomiting or nausea. ROS: A 12pt ROS was negative except above. Objective - Vital Signs/Intake and Output Vital Signs (last 24 hours): Temp Pulse Resp BP Pulse Ox 98.5 F 82 18 108/67 95 02/23/17 05:20 02/23/17 05:20 02/23/17 05:20 02/23/17 05:20 02/23/17 05:20 Intake and Output: 02/23/17 02/23/17 06:59 18:59 Intake Total 1000 Output Total 900 Balance 100 - Medications Medications: Current Medications Chlordiazepoxide (Librium) 50 mg PO Q8 [facility] Last Admin: 02/23/17 00:50 Dose: 50 mg Ferrous Gluconate (Fergon) 324 mg PO DAILY [facility] Last Admin: 02/22/17 09:00 Dose: Not Given Fluoxetine HCl (Prozac) 10 mg PO DAILY [facility] Last Admin: 02/22/17 09:00 Dose: Not Given Folic Acid (Folic Acid) 1 mg PO DAILY [facility] Last Admin: 02/22/17 09:00 Dose: Not Given Octreotide Acetate 1,250 mcg/ (Sodium Chloride) 252.5 mls @ 5.05 mls/hr IV .Q24H [facility]; 25 MCG/HR PRN Reason: Protocol Last Admin: 02/22/17 16:39 Dose: 5.05 mls/hr Ceftriaxone Sodium (Rocephin Iv 1 Gm Duplex) 50 mls @ 50 mls/hr IVPB DAILY [facility] PRN Reason: Protocol Last Admin: 02/22/17 10:24 Dose: 50 mls/hr Sodium Chloride (Sodium Chloride 0.9%) 1,000 mls @ 100 mls/hr IV .Q10H [facility] Stop: 02/24/17 00:15 Last Admin: 02/23/17 00:51 Dose: 100 mls/hr Nicotine (Nicoderm Cq) 1 patch TD DAILY [facility] Last Admin: 02/22/17 09:56 Dose: 1 patch Ondansetron HCl (Zofran Tab) 4 mg PO Q6 PRN PRN Reason: Nausea/Vomiting Pantoprazole Sodium (Protonix Inj) 40 mg IVP DAILY [facility] Propranolol HCl (Inderal) 10 mg PO DAILY [facility] Spironolactone (Aldactone) 25 mg PO BID [facility] Last Admin: 02/22/17 16:40 Dose: 25 mg Thiamine HCl (Vitamin B1 Tab) 100 mg PO DAILY [facility] Last Admin: 02/22/17 09:00 Dose: Not Given - Labs Labs: 02/23/17 05:30 02/23/17 05:30 PT 16.6 Seconds (9.8-13.1) H 02/21/17 13:30 INR 1.1 (0.9-1.2) 02/21/17 13:30 APTT 37.7 Seconds (25.6-37.1) H 02/21/17 13:30 - Constitutional Appears: Non-toxic, No Acute Distress, Cachectic - Head Exam Head Exam: ATRAUMATIC, NORMAL INSPECTION, NORMOCEPHALIC - Eye Exam Eye Exam: EOMI, Normal appearance, PERRL - ENT Exam ENT Exam: Mucous Membranes Moist, Normal Exam - Neck Exam Neck Exam: Full ROM, Normal Inspection - Respiratory Exam Respiratory Exam: Clear to Ausculation Bilateral, NORMAL BREATHING PATTERN - Cardiovascular Exam Cardiovascular Exam: REGULAR RHYTHM, RRR, +S1, +S2 - GI/Abdominal Exam GI & Abdominal Exam: Soft, Normal Bowel Sounds. absent: Tenderness, Organomegaly - Rectal Exam Rectal Exam: Deferred - Extremities Exam Extremities Exam: Full ROM, Normal Inspection. absent: Pedal Edema - Back Exam Back Exam: NORMAL INSPECTION - Neurological Exam Neurological Exam: Alert, Awake, Oriented x3 - Psychiatric Exam Psychiatric exam: Normal Affect, Normal Mood - Skin Skin Exam: Dry, Intact, Normal Color, Warm Assessment and Plan - Assessment and Plan (Free Text) Assessment: This is a 56yM with hx of cirhosis and alcohol abuse presenting with hematemesis and melena for one day. 1. Upper GI Bleed 2. Anemia 3. Cirrhosis 4. Etoh abuse 5. Hx of gastritis and esophageal varices 6. Transaminitis Plan: -Continue supportive care -Can discontinue IV Octreotide drip today, its been 72hrs -Can change to po PPI daily -Clear liquid diet advance to regular low sodium diet today -s/p EGD with variceal banding and red jose armando sign -H/H stable at this time -s/p1U platelets -Continue IV Rocephin 1G Daily, can change to cipro 500mg bid po prior to discharge for total 7 days -Continue propanolol, aldactone -Alcohol cessation advised -Will continue to follow closely <Jeevan Desouza MD - Last Filed: 02/23/17 15:21> Objective - Vital Signs/Intake and Output Vital Signs (last 24 hours): Temp Pulse Resp BP Pulse Ox 98.2 F 53 L 18 149/82 98 02/23/17 11:49 02/23/17 11:49 02/23/17 11:49 02/23/17 11:49 02/23/17 11:49 Intake and Output: 02/23/17 02/23/17 06:59 18:59 Intake Total 1000 Output Total 900 Balance 100 - Medications Medications: Current Medications Chlordiazepoxide (Librium) 50 mg PO Q8 [facility] Last Admin: 02/23/17 08:28 Dose: 50 mg Ferrous Gluconate (Fergon) 324 mg PO DAILY [facility] Last Admin: 02/23/17 08:26 Dose: 324 mg Fluoxetine HCl (Prozac) 10 mg PO DAILY [facility] Last Admin: 02/23/17 08:26 Dose: 10 mg Folic Acid (Folic Acid) 1 mg PO DAILY [facility] Last Admin: 02/23/17 08:26 Dose: 1 mg Ceftriaxone Sodium (Rocephin Iv 1 Gm Duplex) 50 mls @ 50 mls/hr IVPB DAILY [facility] PRN Reason: Protocol Last Admin: 02/23/17 08:24 Dose: 50 mls/hr Nicotine (Nicoderm Cq) 1 patch TD DAILY [facility] Last Admin: 02/23/17 08:25 Dose: 1 patch Ondansetron HCl (Zofran Tab) 4 mg PO Q6 PRN PRN Reason: Nausea/Vomiting Pantoprazole Sodium (Protonix Ec Tab) 40 mg PO DAILY [facility] Propranolol HCl (Inderal) 10 mg PO DAILY [facility] Last Admin: 02/23/17 08:25 Dose: 10 mg Spironolactone (Aldactone) 25 mg PO BID [facility] Last Admin: 02/23/17 08:25 Dose: 25 mg Thiamine HCl (Vitamin B1 Tab) 100 mg PO DAILY [facility] Last Admin: 02/23/17 08:26 Dose: 100 mg - Labs Labs: 02/23/17 12:20 02/23/17 05:30 PT 16.6 Seconds (9.8-13.1) H 02/21/17 13:30 INR 1.1 (0.9-1.2) 02/21/17 13:30 APTT 37.7 Seconds (25.6-37.1) H 02/21/17 13:30 Attending/Attestation - Attestation I have personally seen and examined this patient.: Yes I have fully participated in the care of the patient.: Yes I have reviewed all pertinent clinical information, including history, physical exam and plan: Yes Notes (Text): 02/23/17 15:18 Patient seen with GI fellow. This is a 56 yr old M with history of cirrhosis and alcohol abuse presenting with hematemesis and melena for one day in setting of active alcohol abuse. s/p urgent EGD revealing Grade B varices in mid and distal esophagus s/p 4 bands. Continue antibiotics to complete 7 day course and start B lucero. Alcohol cessation. Low salt diet. s/p 1 unit platelets.
[2017-02-23] MEDS: cefTRIAXone IV 1 gm in Dextros 50 ML IVPB SCH (08:24)
[2017-02-23 08:27] VITALS: O2SAT 98
[2017-02-23] MEDS ORDERED: Potassium Chloride 20 mEq/15 ml LIQ UD PO ONE (09:51)
[2017-02-23 11:50] VITALS: BP 149/82; PULSE 53; TEMP 98.2
[2017-02-23 12:54] LABS: HEMATOCRIT 24.9 % (35.0-51.0)
--- NOTE | 2017-02-23 13:24 | CP.PCM.DIS ---
Provider - Provider Date of Admission: 02/22/17 15:18 Attending physician: Tiffanie Worrell MD Time Spent in preparation of Discharge (in minutes): 30 Diagnosis - Discharge Diagnosis (1) Chronic anemia Status: Chronic (2) Gastrointestinal hemorrhage with melena Status: Resolved (3) Liver cirrhosis, alcoholic Status: Chronic Hospital Course - Lab Results Lab Results: Most Recent Lab Values WBC 2.1 K/uL (4.8-10.8) L 02/23/17 05:30 RBC 2.63 Mil/uL (4.40-5.90) L 02/23/17 05:30 Hgb 8.1 g/dL (12.0-18.0) L 02/23/17 12:20 Hct 24.9 % (35.0-51.0) L 02/23/17 12:20 MCV 92.6 fl (80.0-94.0) 02/23/17 05:30 MCH 30.5 pg (27.0-31.0) 02/23/17 05:30 MCHC 32.9 g/dL (33.0-37.0) L 02/23/17 05:30 RDW 17.8 % (11.5-14.5) H 02/23/17 05:30 Plt Count 54 K/uL (130-400) L 02/23/17 05:30 MPV 8.4 fl (7.2-11.7) 02/23/17 05:30 Neut % (Auto) 66.2 % (50.0-75.0) 02/23/17 05:30 Lymph % (Auto) 9.3 % (20.0-40.0) L 02/23/17 05:30 [place] % (Auto) 19.2 % (0.0-10.0) H 02/23/17 05:30 Eos % (Auto) 4.0 % (0.0-4.0) 02/23/17 05:30 Baso % (Auto) 1.3 % (0.0-2.0) 02/23/17 05:30 Neut # 1.4 K/uL (1.8-7.0) L 02/23/17 05:30 Lymph # 0.2 K/uL (1.0-4.3) L 02/23/17 05:30 [place] # 0.4 K/uL (0.0-0.8) 02/23/17 05:30 Eos # 0.1 K/uL (0.0-0.7) 02/23/17 05:30 Baso # 0.0 K/uL (0.0-0.2) 02/23/17 05:30 Neutrophils % (Manual) 68 % (42-75) 02/21/17 13:30 Lymphocytes % (Manual) 11 % (20-50) L 02/21/17 13:30 Monocytes % (Manual) 21 % (0-10) H 02/21/17 13:30 Nucleated RBC % 1 % (0-0) H 02/21/17 13:30 Platelet Estimate Decreased (NORMAL) L 02/21/17 13:30 Hypochromasia (manual) Slight 02/21/17 13:30 Anisocytosis (manual) Slight 02/21/17 13:30 PT 16.6 Seconds (9.8-13.1) H 02/21/17 13:30 INR 1.1 (0.9-1.2) 02/21/17 13:30 APTT 37.7 Seconds (25.6-37.1) H 02/21/17 13:30 Sodium 137 mmol/l (132-148) 02/23/17 05:30 Potassium 3.2 MMOL/L (3.6-5.0) L 02/23/17 05:30 Chloride 104 mmol/L (98-107) 02/23/17 05:30 Carbon Dioxide 23 mmol/L (22-30) 02/23/17 05:30 Anion Gap 13 (10-20) 02/23/17 05:30 BUN 9 mg/dl (9-20) 02/23/17 05:30 Creatinine 0.6 mg/dL (0.8-1.5) L 02/23/17 05:30 Est GFR ( Amer) > 60 02/23/17 05:30 Est GFR (Non-Af Amer) > 60 02/23/17 05:30 POC Glucose (mg/dL) 100 mg/dL (65-110) 02/21/17 13:27 Random Glucose 97 mg/dL (75-110) 02/23/17 05:30 Calcium 7.3 mg/dL (8.4-10.2) L 02/23/17 05:30 Total Bilirubin 2.8 mg/dl (0.2-1.3) H 02/23/17 05:30 AST 70 U/L (17-59) H D 02/23/17 05:30 ALT 40 U/L (21-72) 02/23/17 05:30 Alkaline Phosphatase 108 U/L (38-126) 02/23/17 05:30 Ammonia 72 umo/L (16-60) H D 02/23/17 05:40 Troponin I < 0.0120 ng/mL (0.00-0.120) 02/21/17 14:06 Total Protein 6.5 G/DL (6.3-8.2) 02/23/17 05:30 Albumin 2.6 g/dL (3.5-5.0) L D 02/23/17 05:30 Globulin 3.8 gm/dL (2.2-3.9) 02/23/17 05:30 Albumin/Globulin Ratio 0.7 (1.0-2.1) L 02/23/17 05:30 Lipase 193 U/L (23-300) 02/21/17 13:30 Alpha Fetoprotein 3.4 IU/mL (0.0-7.22) 02/23/17 05:40 Stool Occult Blood Positive (NEGATIVE) H 02/21/17 13:50 Alcohol, Quantitative 26 mg/dl (0-10) H 02/21/17 13:30 Hepatitis A IgM Ab Negative (NEGATIVE) 02/22/17 05:15 Hep Bs Antigen Negative (NEGATIVE) 02/22/17 05:15 Hep B Core IgM Ab Negative (NEGATIVE) 02/22/17 05:15 Hepatitis C Antibody Negative (NEGATIVE) 02/22/17 05:15 Blood Type O POSITIVE 02/21/17 17:57 Antibody Screen Negative 02/21/17 17:57 Crossmatch See Detail 02/21/17 17:57 BBK History Checked Patient has bt 02/21/17 17:57 - Hospital Course Hospital Course: Family Medicine Discharge Note -Dr. Worrell 56 y/o male with PMHx of chronic gastritis, Liver cirrhosis, non-bleeding gastric and esophageal varices, chronic EtOH abuse, tobacco abuse, depression admitted for upper GI bleed. During admission, patient underwent EGD, where Grade II varices found in middle third of esophagus and lower third esophagus, stigmata of recent bleeding. Four bands were placed with no bleeding at the end of procedure with improvement of symptoms. No other cause of bleeding noted during hospital stay. Decision made to be discharge home and will followup in [facility] clinic. Will followup with GI Dr. Desouza Discharge Exam - Head Exam Head Exam: ATRAUMATIC, NORMAL INSPECTION - Eye Exam Eye Exam: Normal appearance - ENT Exam ENT Exam: Mucous Membranes Moist - Neck Exam Neck exam: Full Rom - Respiratory Exam Respiratory Exam: NORMAL BREATHING PATTERN - Cardiovascular Exam Cardiovascular Exam: REGULAR RHYTHM - GI/Abdominal Exam GI & Abdominal Exam: Soft, Tenderness Additional comments: Pain elicited with palpation of right lower and upper quadrant, which has decreased - Extremities Exam Extremities exam: normal capillary refill, normal inspection Additional comments: No pain with palpation or squeeze of calves bilaterally. - Neurological Exam Neurological exam: Alert, Oriented x3 - Psychiatric Exam Psychiatric exam: Normal Affect, Normal Mood - Skin Skin Exam: Intact, Normal Color, Warm Discharge Plan - Follow Up Plan Condition: FAIR Disposition: HOME/ ROUTINE Instructions: Gastrointestinal Bleeding (DC), Cirrhosis (DC) Additional Instructions: Provider - Provider Date of Admission: 02/22/17 15:18 Attending physician: Tiffanie Worrell MD Time Spent in preparation of Discharge (in minutes): 30 Diagnosis - Discharge Diagnosis (1) Chronic anemia Status: Chronic (2) Gastrointestinal hemorrhage with melena Status: Resolved (3) Liver cirrhosis, alcoholic Status: Chronic Hospital Course - Lab Results Lab Results: Most Recent Lab Values WBC 2.1 K/uL (4.8-10.8) L 02/23/17 05:30 RBC 2.63 Mil/uL (4.40-5.90) L 02/23/17 05:30 Hgb 8.1 g/dL (12.0-18.0) L 02/23/17 12:20 Hct 24.9 % (35.0-51.0) L 02/23/17 12:20 MCV 92.6 fl (80.0-94.0) 02/23/17 05:30 MCH 30.5 pg (27.0-31.0) 02/23/17 05:30 MCHC 32.9 g/dL (33.0-37.0) L 02/23/17 05:30 RDW 17.8 % (11.5-14.5) H 02/23/17 05:30 Plt Count 54 K/uL (130-400) L 02/23/17 05:30 MPV 8.4 fl (7.2-11.7) 02/23/17 05:30 Neut % (Auto) 66.2 % (50.0-75.0) 02/23/17 05:30 Lymph % (Auto) 9.3 % (20.0-40.0) L 02/23/17 05:30 [place] % (Auto) 19.2 % (0.0-10.0) H 02/23/17 05:30 Eos % (Auto) 4.0 % (0.0-4.0) 02/23/17 05:30 Baso % (Auto) 1.3 % (0.0-2.0) 02/23/17 05:30 Neut # 1.4 K/uL (1.8-7.0) L 02/23/17 05:30 Lymph # 0.2 K/uL (1.0-4.3) L 02/23/17 05:30 [place] # 0.4 K/uL (0.0-0.8) 02/23/17 05:30 Eos # 0.1 K/uL (0.0-0.7) 02/23/17 05:30 Baso # 0.0 K/uL (0.0-0.2) 02/23/17 05:30 Neutrophils % (Manual) 68 % (42-75) 02/21/17 13:30 Lymphocytes % (Manual) 11 % (20-50) L 02/21/17 13:30 Monocytes % (Manual) 21 % (0-10) H 02/21/17 13:30 Nucleated RBC % 1 % (0-0) H 02/21/17 13:30 Platelet Estimate Decreased (NORMAL) L 02/21/17 13:30 Hypochromasia (manual) Slight 02/21/17 13:30 Anisocytosis (manual) Slight 02/21/17 13:30 PT 16.6 Seconds (9.8-13.1) H 02/21/17 13:30 INR 1.1 (0.9-1.2) 02/21/17 13:30 APTT 37.7 Seconds (25.6-37.1) H 02/21/17 13:30 Sodium 137 mmol/l (132-148) 02/23/17 05:30 Potassium 3.2 MMOL/L (3.6-5.0) L 02/23/17 05:30 Chloride 104 mmol/L (98-107) 02/23/17 05:30 Carbon Dioxide 23 mmol/L (22-30) 02/23/17 05:30 Anion Gap 13 (10-20) 02/23/17 05:30 BUN 9 mg/dl (9-20) 02/23/17 05:30 Creatinine 0.6 mg/dL (0.8-1.5) L 02/23/17 05:30 Est GFR ( Amer) > 60 02/23/17 05:30 Est GFR (Non-Af Amer) > 60 02/23/17 05:30 POC Glucose (mg/dL) 100 mg/dL (65-110) 02/21/17 13:27 Random Glucose 97 mg/dL (75-110) 02/23/17 05:30 Calcium 7.3 mg/dL (8.4-10.2) L 02/23/17 05:30 Total Bilirubin 2.8 mg/dl (0.2-1.3) H 02/23/17 05:30 AST 70 U/L (17-59) H D 02/23/17 05:30 ALT 40 U/L (21-72) 02/23/17 05:30 Alkaline Phosphatase 108 U/L (38-126) 02/23/17 05:30 Ammonia 72 umo/L (16-60) H D 02/23/17 05:40 Troponin I < 0.0120 ng/mL (0.00-0.120) 02/21/17 14:06 Total Protein 6.5 G/DL (6.3-8.2) 02/23/17 05:30 Albumin 2.6 g/dL (3.5-5.0) L D 02/23/17 05:30 Globulin 3.8 gm/dL (2.2-3.9) 02/23/17 05:30 Albumin/Globulin Ratio 0.7 (1.0-2.1) L 02/23/17 05:30 Lipase 193 U/L (23-300) 02/21/17 13:30 Alpha Fetoprotein 3.4 IU/mL (0.0-7.22) 02/23/17 05:40 Stool Occult Blood Positive (NEGATIVE) H 02/21/17 13:50 Alcohol, Quantitative 26 mg/dl (0-10) H 02/21/17 13:30 Hepatitis A IgM Ab Negative (NEGATIVE) 02/22/17 05:15 Hep Bs Antigen Negative (NEGATIVE) 02/22/17 05:15 Hep B Core IgM Ab Negative (NEGATIVE) 02/22/17 05:15 Hepatitis C Antibody Negative (NEGATIVE) 02/22/17 05:15 Blood Type O POSITIVE 02/21/17 17:57 Antibody Screen Negative 02/21/17 17:57 Crossmatch See Detail 02/21/17 17:57 BBK History Checked Patient has bt 02/21/17 17:57 - Hospital Course Hospital Course: Family Medicine Discharge Note -Dr. Worrell 56 y/o male with PMHx of chronic gastritis, Liver cirrhosis, non-bleeding gastric and esophageal varices, chronic EtOH abuse, tobacco abuse, depression admitted for upper GI bleed. During admission, patient underwent EGD, where Grade II varices found in middle third of esophagus and lower third esophagus, stigmata of recent bleeding. Four bands were placed with no bleeding at the end of procedure with improvement of symptoms. No other cause of bleeding noted during hospital stay. Decision made to be discharge home and will followup in [facility] clinic. Will followup with GI Dr. Desouza Discharge Exam - Head Exam Head Exam: ATRAUMATIC, NORMAL INSPECTION - Eye Exam Eye Exam: Normal appearance - ENT Exam ENT Exam: Mucous Membranes Moist - Neck Exam Neck exam: Full Rom - Respiratory Exam Respiratory Exam: NORMAL BREATHING PATTERN - Cardiovascular Exam Cardiovascular Exam: REGULAR RHYTHM - GI/Abdominal Exam GI & Abdominal Exam: Soft, Tenderness Additional comments: Pain elicited with palpation of right lower and upper quadrant, which has decreased - Extremities Exam Extremities exam: normal capillary refill, normal inspection Additional comments: No pain with palpation or squeeze of calves bilaterally. - Neurological Exam Neurological exam: Alert, Oriented x3 - Psychiatric Exam Psychiatric exam: Normal Affect, Normal Mood - Skin Skin Exam: Intact, Normal Color, Warm Discharge Plan - Follow Up Plan Condition: FAIR Disposition: HOME/ ROUTINE Instructions: Gastrointestinal Bleeding (DC), Cirrhosis (DC) Followup in [facility] 03/03/17 at 1:20PM with Dr. Kurtz Follow up with Dr. Desouza. Office will call pt for an appointment. Rx CBC and BMP to be done prior to [facility] appt w/ Dr. Kurtz Rx Ferrous Sulfate 325 mg Tab PO BID Medication reconsolidated. Meds List: Ferrous Sulfate 325 mg Tab PO BID Fluoxetine 10mg Cap 1 tab PO daily Thiamine Mononitrate 100 mg tab PO daily Pantoprazole Sodium 40 mg tab PO daily Folic Acid 1mg tab PO daily Spironolactone 25mg tab PO BID Propranolol 10mg PO BID
[2017-02-24] MEDS ORDERED: Pantoprazole 40 mg EC Tab PO SCH (09:00)
== END 2017-02-23 15:15 | disposition home or self-care (01) | DRG 170 ==
LOC: H.ER 12:24 → H.ERHOLD 14:00 → H.TEL 18:14 → OBSVTOIN 02-22 15:18
PROVIDERS: ADMIT Family Medicine Geriatric Medicine; ATTEND Family Medicine Geriatric Medicine
PROC: 3E0234Z Introduction of Serum, Toxoid and Vaccine into Muscle, Percutaneous Approach (ICD-10-PCS; 2017-02-22)
PROC: 06L38CZ Occlusion of Esophageal Vein with Extraluminal Device, Via Natural or Artificial Opening Endoscopic (ICD-10-PCS; principal; 2017-02-22 08:00)
DX: K92.0 Hematemesis (principal); K70.30 Alcoholic cirrhosis of liver without ascites; D69.6 Thrombocytopenia, unspecified; E87.6 Hypokalemia; I85.00 Esophageal varices without bleeding; I86.4 Gastric varices; K92.1 Melena; K76.6 Portal hypertension; D64.9 Anemia, unspecified; K29.50 Unspecified chronic gastritis without bleeding; F10.10 Alcohol abuse, uncomplicated; I10 Essential (primary) hypertension; Y90.1 Blood alcohol level of 20-39 mg/100 ml; F41.9 Anxiety disorder, unspecified; F32.9 Major depressive disorder, single episode, unspecified; Z23 Encounter for immunization; F17.210 Nicotine dependence, cigarettes, uncomplicated

== ENCOUNTER 2017-05-01 23:25 | Inpatient (IN) | payer OTHER ==
[2017-05-01 23:27] VITALS: BMI 19.1
[2017-05-02] MEDS ORDERED: Sodium Chloride 0.9% 1,000 ML IV STA ×2 (00:43→05:11)
[2017-05-02 01:09] LABS: BASO # 0.1 K/uL (0.0-0.2); BASO % 1.3 % (0.0-2.0); EOS # 0.3 K/uL (0.0-0.7); EOS % 6.1 % (0.0-4.0); HEMOGLOBIN 11.6 g/dL (12.0-18.0); LYMPH # 0.5 K/uL (1.0-4.3); LYMPH % 9.4 % (20.0-40.0); MEAN CELL VOLUME 87.8 fl (80.0-94.0); MEAN CORPUSCULAR HEMOGLOBIN 27.6 pg (27.0-31.0); MEAN CORPUSCULAR HGB CONC 31.4 g/dL (33.0-37.0); MEAN PLATELET VOLUME 8.5 fl (7.2-11.7); MONO % 17.8 % (0.0-10.0); NEUT # 3.6 K/uL (1.8-7.0); NEUT % 65.4 % (50.0-75.0); NRBC % 0.1 % (0.0-0.0); PLATELET COUNT 140 K/uL (130-400); RBC 4.19 Mil/uL (4.40-5.90); RED CELL DISTRIBUTION WIDTH 20.3 % (11.5-14.5); WHITE BLOOD COUNT 5.5 K/uL (4.8-10.8)
[2017-05-02 01:20] LABS: ALBUMIN 3.6 g/dL (3.5-5.0); ALT/SGPT 34 U/L (21-72); AST/SGOT 60 U/L (17-59); BLOOD UREA NITROGEN 14 mg/dl (9-20); CALCIUM 9.4 mg/dL (8.4-10.2); GFR AFRICAN-AMERICAN > 60; GFR NON-AFRICAN AMERICAN > 60
--- NOTE | 2017-05-02 01:20 | ED PDOC ---
HPI: Abdomen Time Seen by Provider: 05/01/17 23:25 Chief Complaint (Nursing): Abdominal Pain Chief Complaint (Provider): Abdominal Pain History Per: Patient History/Exam Limitations: no limitations Onset/Duration Of Symptoms: Days (x 1) Current Symptoms Are (Timing): Still Present Associated Symptoms: Vomiting, Diarrhea Additional Complaint(s): David Spicer is a 56 year old with a past medical history of chronic anemia, gastritis, GI bleeds, liver cirrhosis secondary to alcoholism, and depression, who presents complaining of abdominal pain for 1 day. Patient states he drank alcohol last night at 8PM. Today he developed abdominal pain and vomiting, with coffee-ground emesis. Also reports diarrhea all day, which has become darker in color. Denies any associated fever or chills. Independent Video Producer: Dr. Desouza Past Medical History Reviewed: Historical Data, Nursing Documentation, Vital Signs Vital Signs: Last Vital Signs Temp 98.4 F 05/03/17 00:07 Pulse 73 05/03/17 00:07 Resp 16 05/03/17 00:07 BP 118/70 05/03/17 00:07 Pulse Ox 95 05/03/17 04:15 - Medical History PMH: Anemia, Anxiety, Depression, Fractures (L ankle sx), Gastritis, HTN Denies: HIV, Hypercholesterolemia, Chronic Kidney Disease Other PMH: GI bleeds, liver cirrhosis secondary to alcoholism - Surgical History Surgical History: Endoscopy Other surgeries: Leg surgery - Family History Family History: States: Unknown Family Hx - Social History Current smoker - smoking cessation education provided: Yes Alcohol: > 2 Drinks/Day Drugs: Denies - Home Medications Home Medications: Ambulatory Orders Medication Instructions Recorded FLUoxetine [Prozac] 1 tab PO DAILY #30 cap 06/27/16 Thiamine Mononitrate [Vitamin B-1] 100 mg PO DAILY #30 tablet 06/27/16 Pantoprazole Sodium [Protonix] 40 mg PO DAILY #30 ect 09/13/16 Folic Acid 1 mg PO DAILY 10/22/16 Ferrous Sulfate [Feosol] 325 mg PO BID 02/21/17 Propranolol [Inderal] 10 mg PO BID 02/21/17 Spironolactone [Aldactone] 25 mg PO BID 02/21/17 Ciprofloxacin [Cipro] 500 mg PO Q12H #10 tab 02/23/17 - Allergies Allergies/Adverse Reactions: Allergies Allergy/AdvReac Type Severity Reaction Status Date / Time No Known Allergies Allergy Verified 02/21/17 12:27 Review of Systems ROS Statement: Except As Marked, All Systems Reviewed And Found Negative Constitutional: Negative for: Fever, Chills Gastrointestinal: Positive for: Vomiting (w/ coffee ground emesis), Abdominal Pain, Diarrhea, Melena Physical Exam - Reviewed Nursing Documentation Reviewed: Yes Vital Signs Reviewed: Yes - Physical Exam Appears: Positive for: Non-toxic (but appears cachectic and thin, actively vomiting in the ER) Head Exam: Positive for: ATRAUMATIC, NORMAL INSPECTION, NORMOCEPHALIC Skin: Positive for: Normal Color, Warm, Dry Eye Exam: Positive for: EOMI, Normal appearance, PERRL Neck: Positive for: Normal, Painless ROM Cardiovascular/Chest: Positive for: Regular Rate, Rhythm. Negative for: Murmur Respiratory: Positive for: Normal Breath Sounds. Negative for: Accessory Muscle Use, Respiratory Distress Gastrointestinal/Abdominal: Positive for: Normal Exam, Soft, Other (coffee ground emesis noted). Negative for: Tenderness, Guarding, Rebound Back: Positive for: Normal Inspection. Negative for: Vertebral Tenderness Extremity: Positive for: Normal ROM. Negative for: Pedal Edema, Deformity Neurologic/Psych: Positive for: Alert, Oriented (x3) - Laboratory Results Result Diagrams: 05/02/17 08:15 05/02/17 08:15 - ECG O2 Sat by Pulse Oximetry: 95 (RA) Pulse Ox Interpretation: Normal Medical Decision Making Medical Decision Making: Initial Impression: Vomiting and diarrhea, r/o GI bleed Time: 00:43 Initial Plan: --Blood type and screen --CMP --CBC w/ differential --PTT --Prothrombin time --Urine culture --Urinalysis --NS IV 1000 ml at 999 mls/hr --Pepcid 20 mg IV --Protonix 40 mg IV --Zofran 4 mg IV --Reevaluation Time: 4:17 Family practice resident paged. Patient will be admitted inpatient for GI bleed, under the service of Dr. Preston Peacock. Scribe Attestation: Documented by Rosalva Crawley, acting as a scribe for Eliel Whelan MD Provider Scribe Attestation: All medical record entries made by the Scribe were at my direction and personally dictated by me. I have reviewed the chart and agree that the record accurately reflects my personal performance of the history, physical exam, medical decision making, and the department course for this patient. I have also personally directed, reviewed, and agree with the discharge instructions and disposition. Disposition - Clinical Impression Clinical Impression: Abdominal discomfort, Gastrointestinal hemorrhage - Patient ED Disposition Is Patient to be Admitted: Yes - Disposition Disposition: Transfer of Care (admitted) Disposition Time: 04:00 Condition: STABLE - Pt Status Changed To: Hospital Disposition Of: Inpatient - Admit Certification Admit to Inpatient:: After my assessment, the patient will require hospitalization for at least two midnights. This is because of the severity of symptoms shown, intensity of services needed, and/or the medical risk in this patient being treated as an outpatient.
[2017-05-02 01:22] LABS: INR 1.4 (0.9-1.2); PARTIAL THROMBOPLASTIN TIME 34.5 Seconds (25.6-37.1); PROTHROMBIN TIME 15.5 Seconds (9.8-13.1)
[2017-05-02 01:24] LABS: ALB/GLOB RATIO 0.7 (1.0-2.1)
[2017-05-02 02:12] LABS: SQUAMOUS EPITHIAL < 1 /hpf (0-5); URINE BACTERIA RARE (<OCC); URINE BILIRUBIN NEGATIVE (NEGATIVE); URINE BLOOD MODERATE (NEGATIVE); URINE CLARITY SLIGHTY-CLOUDY (Clear); URINE COLOR YELLOW (YELLOW); URINE GLUCOSE (UA) NEG (Normal); URINE HYALINE CAST 0-2 /hpf (0-2); URINE LEUKOCYTE ESTERASE NEG Leu/uL (Negative); URINE NITRATE NEGATIVE (NEGATIVE); URINE PROTEIN 30 mg/dL (NEGATIVE); URINE UROBILINOGEN 0.2-1.0 mg/dL (0.2-1.0)
[2017-05-02 02:37] LABS: BANDS 1 % (0-2); TOTAL CELLS COUNTED 100
[2017-05-02 02:38] LABS: BASOPHIL 0 % (0-2); EOSINOPHIL 2 % (0-7); LYMPHOCYTE 9 % (20-50); MONOCYTE 12 % (0-10); NEUTROPHIL 66 % (42-75)
[2017-05-02 02:39] LABS: PLATELET ESTIMATE NORMAL (NORMAL)
--- NOTE | 2017-05-02 05:06 | CP.PCM.HP ---
History of Present Illness - History of Present Illness History of Present Illness: CC: Abdominal pain HPI: 56 y/o man with pmh of chronic gastritis, liver cirrhosis, non-bleeding gastric and esophageal varices, chronic EtOH abuse, tobacco abuse, and depression presents to ED complaining abdominal pain. Patient reports epigastric pain that started 2-3 days ago while he was carrying groceries, but pain was worse this morning. The pain is burning and pressure-like in nature, localized, and intermittent. Pain is worsened when trying to take anything PO. Patient reports nausea and x1 episode of coffee ground emesis upon arrival to the ED. Patient also reports >10 episodes of watery, black, diarrhea. Patient reports that he is not supposed to consume alcohol but did so last night at 20: 00 due to shakes. Patient also reports drinking >6 beers on . Patient states that he has been admitted to the hospital multiple times for similar situation. Patient denies of any recent fever, headache, chest pain, or dysuria. ED course: vitals: 70 bpm, 84/62 mm Hg, resp 16, O2 95% RA Blood type and screen: O positive CMP: 138/3.6, 105/20, 14/0.6, glucose 94, AST 60, ALT 34, alk phos 119, T. bili 2.1 CBC w/ differential: 5.5>11.6/36.8<140 PTT: 34.5 Prothrombin time: 15.5 INR: 1.4 Urine culture: pending Urinalysis: yellow, moderate blood, neg glucose, ketones, nitrate, leukocyte esterase NS IV 1000 ml at 999 mls/hr Pepcid 20 mg IV Protonix 40 mg IV Zofran 4 mg IV Allergies: N.K.D.A PMHx: Chronic gastritis w/ multiple admissions for UGIB, Liver cirrhosis, gastric and esophageal varices, Chronic ETOH abuse, Tobacco abuse, Depression PMD: [facility] meds: iron sulfate 325 mg PO BID, prozac 10 mg PO daily, folic acid 1 mg PO daily, protonix 40 mg PO daily, propranolol 10 mg PO BID, spironolactone 25 mg pO BID, thiamine 100 mg PO daily PSHx: Left lower ext ankle surgery; Right inguinal hernia repair 2014 Fam: Father had hx of Colon cancer, EtOH abuse, mother had hx of stomach cancer ; both in their 60-70s; brother also had hx of EtOH abuse, and of EtOH related complications. SOC: EtOH abuse, off and on abstinence; smokes 8-10 cigarettes a day x 30+ pack years, current smoker; denies illicit drug abuse ROS: 12 points assessed and negative unless otherwise reported in HPI Present on Admission - Present on Admission Any Indicators Present on Admission: No History of DVT/PE: No History of Uncontrolled Diabetes: No Urinary Catheter: No Decubitus Ulcer Present: No Review of Systems - Review of Systems All systems: reviewed and no additional remarkable complaints except - Constitutional Constitutional: absent: Chills, Fever, Headache - EENT Eyes: absent: Change in Vision - Cardiovascular Cardiovascular: absent: Chest Pain, Dyspnea, Palpitations, Pedal Edema - Respiratory Respiratory: absent: Dyspnea, Hemoptysis, Wheezing - Gastrointestinal Gastrointestinal: Abdominal Pain, Coffee Ground Emesis, Diarrhea, Heartburn, Nausea, Vomiting - Genitourinary Genitourinary: absent: Dysuria - Integumentary Integumentary: absent: Rash - Neurological Neurological: absent: Dizziness, Headaches Past Patient History - Infectious Disease Hx of Infectious Diseases: None - Tetanus Immunizations Tetanus Immunization: Unknown - Past Medical History & Family History Past Medical History?: Yes - Past Social History Alcohol: > 2 Drinks/Day Drugs: Denies - CARDIAC Hx Hypercholesterolemia: No Hx Hypertension: Yes - PULMONARY Hx Respiratory Disorders: No - NEUROLOGICAL Hx Neurological Disorder: No - HEENT Hx HEENT Problems: No - RENAL Hx Chronic Kidney Disease: No - ENDOCRINE/METABOLIC Hx Endocrine Disorders: No - HEMATOLOGICAL/ONCOLOGICAL Hx Anemia: Yes Hx Human Immunodeficiency Virus (HIV): No - INTEGUMENTARY Hx Dermatological Problems: No - MUSCULOSKELETAL/RHEUMATOLOGICAL Hx Fractures: Yes (L ankle sx) - GASTROINTESTINAL Hx Gastritis: Yes - GENITOURINARY/GYNECOLOGICAL Hx Genitourinary Disorders: No - PSYCHIATRIC Hx Anxiety: Yes Hx Depression: Yes - SURGICAL HISTORY Hx Surgeries: Yes Hx Herniorrhaphy: Yes Other/Comment: ANKLE SURGERY - ANESTHESIA Hx Anesthesia: Yes Hx Anesthesia Reactions: No Hx Malignant Hyperthermia: No Meds Allergies/Adverse Reactions: Allergies Allergy/AdvReac Type Severity Reaction Status Date / Time No Known Allergies Allergy Verified 02/21/17 12:27 Physical Exam - Constitutional Appears: No Acute Distress, Cachectic - Head Exam Head Exam: ATRAUMATIC, NORMAL INSPECTION, NORMOCEPHALIC - Eye Exam Eye Exam: Normal appearance - ENT Exam ENT Exam: Mucous Membranes Dry - Neck Exam Neck exam: Positive for: Full Rom, Normal Inspection. Negative for: Tenderness - Respiratory Exam Respiratory Exam: Clear to Auscultation Bilateral, NORMAL BREATHING PATTERN. absent: Rales, Rhonchi, Wheezes, Respiratory Distress - Cardiovascular Exam Cardiovascular Exam: REGULAR RHYTHM. absent: Tachycardia - GI/Abdominal Exam GI & Abdominal Exam: Normal Bowel Sounds, Organomegaly (liver palpable ), Soft, Tenderness (epigastric tenderness). absent: Distended, Mass, Rebound, Rigid - Extremities Exam Extremities exam: Positive for: normal inspection. Negative for: calf tenderness, pedal edema, tenderness - Back Exam Back exam: NORMAL INSPECTION. absent: CVA tenderness (L), CVA tenderness (R) - Neurological Exam Neurological exam: Alert, Oriented x3 - Skin Skin Exam: Dry, Intact, Normal Color Results - Vital Signs Recent Vital Signs: Last Vital Signs Temp Pulse 70 05/02/17 00:06 Resp 16 05/02/17 00:06 BP 84/62 L 05/02/17 00:06 Pulse Ox 95 05/02/17 04:22 - Labs Result Diagrams: 05/02/17 00:55 05/02/17 00:55 Labs: Laboratory Results - last 24 hr 05/02/17 05/02/17 05/02/17 00:47 00:55 00:55 WBC 5.5 RBC 4.19 L Hgb 11.6 L D Hct 36.8 MCV 87.8 D MCH 27.6 MCHC 31.4 L RDW 20.3 H Plt Count 140 MPV 8.5 Neut % (Auto) 65.4 Lymph % (Auto) 9.4 L [place] % (Auto) 17.8 H Eos % (Auto) 6.1 H Baso % (Auto) 1.3 Neut # 3.6 Lymph # 0.5 L [place] # 1.0 H Eos # 0.3 Baso # 0.1 Neutrophils % (Manual) 66 Band Neutrophils % 1 Lymphocytes % (Manual) 9 L Monocytes % (Manual) 12 H Eosinophils % (Manual) 2 Basophils % (Manual) 0 Platelet Estimate Normal PT INR APTT Sodium 138 Potassium 3.6 Chloride 105 Carbon Dioxide 20 L Anion Gap 17 BUN 14 Creatinine 0.6 L Est GFR ( Amer) > 60 Est GFR (Non-Af Amer) > 60 Random Glucose 94 Calcium 9.4 Total Bilirubin 2.1 H AST 60 H ALT 34 Alkaline Phosphatase 119 Total Protein 8.3 H Albumin 3.6 Globulin 4.8 H Albumin/Globulin Ratio 0.7 L Urine Color Urine Clarity Urine pH Ur Specific [place] Urine Protein Urine Glucose (UA) Urine Ketones Urine Blood Urine Nitrate Urine Bilirubin Urine Urobilinogen Ur Leukocyte Esterase Urine RBC (Auto) Urine Microscopic WBC Ur Squamous Epith Cells Urine Bacteria Hyaline Casts Alcohol, Quantitative Blood Type O POSITIVE Antibody Screen Negative BBK History Checked Patient has bt 05/02/17 05/02/17 05/02/17 00:55 01:35 04:20 WBC RBC Hgb Hct MCV MCH MCHC RDW Plt Count MPV Neut % (Auto) Lymph % (Auto) [place] % (Auto) Eos % (Auto) Baso % (Auto) Neut # Lymph # [place] # Eos # Baso # Neutrophils % (Manual) Band Neutrophils % Lymphocytes % (Manual) Monocytes % (Manual) Eosinophils % (Manual) Basophils % (Manual) Platelet Estimate PT 15.5 H INR 1.4 H APTT 34.5 Sodium Potassium Chloride Carbon Dioxide Anion Gap BUN Creatinine Est GFR ( Amer) Est GFR (Non-Af Amer) Random Glucose Calcium Total Bilirubin AST ALT Alkaline Phosphatase Total Protein Albumin Globulin Albumin/Globulin Ratio Urine Color Yellow Urine Clarity Slighty-cloudy Urine pH 7.0 Ur Specific [place] 1.017 Urine Protein 30 Urine Glucose (UA) Neg Urine Ketones Negative Urine Blood Moderate Urine Nitrate Negative Urine Bilirubin Negative Urine Urobilinogen 0.2-1.0 Ur Leukocyte Esterase Neg Urine RBC (Auto) 24 H Urine Microscopic WBC 1 Ur Squamous Epith Cells < 1 Urine Bacteria Rare Hyaline Casts 0-2 Alcohol, Quantitative < 10 Blood Type Antibody Screen BBK History Checked Assessment & Plan - Assessment and Plan (Free Text) Assessment: 56 y/o man with pmh of chronic gastritis, liver cirrhosis, non-bleeding gastric and esophageal varices, chronic EtOH abuse, tobacco abuse, and depression presents to ED complaining of abdominal pain. Plan: Epigastric pain - 2/2 chronic gastritis and upper GI bleed - keep NPO - protonix 40 mg IV daily - zofran 4 mg IV Q6h prn - IVF NS @ 125 mL/hr Gastrointestinal hemorrhage with melena, secondary to esophageal varices and gastritis - secondary to chronic EtOH abuse - Keep NPO - H/H: 11.6/36.8 - Zofran prn for nausea, vomiting - protonix 40 mg IV daily - Endoscopy (02/22/2017) Impression: Grade 2 esophageal varices, completely eradicated, portal hypertensive gastropathy, duodenal erosions w/o bleeding - GI consulted, Dr. Desouza, contacted by ED Chronic Anemia - Reviewed previous labs Chronic EtOH abuse - drank despite counseling abstinence - alcohol level 05/02/2017: <10 Alcoholic liver cirrhosis - AST/ALT: 60/34 - SBP prophylaxis, ceftriaxone 1 gm IV daily - Hep A, B, C negative Depression - on fluoxetine 10 mg PO daily Prophylactic measures - SCDs - Blood thinners contraindicated with GI bleed
[2017-05-02] MEDS ORDERED: Chlorhexidine Gluconate 1 APPL/PKT TP ONE (07:03)
--- NOTE | 2017-05-02 07:46 | CP.PCM.CON ---
<Karlie Motta - Last Filed: 05/02/17 08:18> History of Present Illness - History of Present Illness History of Present Illness: PGY4 Initial Consult Note David Spicer is a 56 y/o male with PMHx of chronic gastritis, Liver cirrhosis, non-bleeding gastric and esophageal varices, chronic EtOH abuse, tobacco abuse, depression who presents to ED complaining of dark watery stools x6 and abd pain. Pt reports again starting to drink ETOH on New years. He reports drinking >6 beers. He notes that yesterday he again had 3-4 beers and a few glasses of egg nog. Then he proceeded to have chills and diaphoresis. he reports 6-7 watery BM with black fecal matter. He also had some abd pain at this tie. He states that it was located in the epigastric area, but rated it a 5 out of 10. Upon arrival to the ER, he supposedly had x1 episode of coffee-ground emesis. He was given IV protonix in the ER. His initial vitals and hgb were stable and at baseline. Overnight he no longer had any episodes of emesis or diarrhea. Patient denies of any recent fever, chest pain, or headache. He was admitted in Nov for upper GI bleed, s/p x4 esophageal bands. Denies any recent travel or abx use. NPO since yesterday. ROS: A 12pt ROS was negative except as above PMHx:As stated in HPI PSHx: Left lower ext ankle surgery; Right inguinal hernia repair SHx: EtOH abuse; smokes 8-10 cigarettes a day x 30+ pack years, denies illicit drug abuse FHx: Father had hx of Colon cancer, EtOH abuse, mother had hx of stomach cancer ; brother also had hx of EtOH abuse, and of EtOH related complications Endoscopy Hx: GD 02/2017: grade 2 varices with red whale sign s/p x4 esophageal variceal bands, Endoscopy (08/08) Impression: Grade 1 esophageal varices. Chronic gastritis. Normal duodenal bulb and 2nd part of the duodenum. Past Patient History - Infectious Disease Hx of Infectious Diseases: None - Tetanus Immunizations Tetanus Immunization: Unknown - Past Medical History & Family History Past Medical History?: Yes - Past Social History Alcohol: > 2 Drinks/Day Drugs: Denies - CARDIAC Hx Hypercholesterolemia: No Hx Hypertension: Yes - PULMONARY Hx Respiratory Disorders: No - NEUROLOGICAL Hx Neurological Disorder: No - HEENT Hx HEENT Problems: No - RENAL Hx Chronic Kidney Disease: No - ENDOCRINE/METABOLIC Hx Endocrine Disorders: No - HEMATOLOGICAL/ONCOLOGICAL Hx Anemia: Yes Hx Human Immunodeficiency Virus (HIV): No - INTEGUMENTARY Hx Dermatological Problems: No - MUSCULOSKELETAL/RHEUMATOLOGICAL Hx Fractures: Yes (L ankle sx) - GASTROINTESTINAL Hx Gastritis: Yes - GENITOURINARY/GYNECOLOGICAL Hx Genitourinary Disorders: No - PSYCHIATRIC Hx Anxiety: Yes Hx Depression: Yes - SURGICAL HISTORY Hx Surgeries: Yes Hx Herniorrhaphy: Yes Other/Comment: ANKLE SURGERY - ANESTHESIA Hx Anesthesia: Yes Hx Anesthesia Reactions: No Hx Malignant Hyperthermia: No Meds Allergies/Adverse Reactions: Allergies Allergy/AdvReac Type Severity Reaction Status Date / Time No Known Allergies Allergy Verified 02/21/17 12:27 - Medications Medications: Current Medications Ceftriaxone Sodium 1 gm/ (Sodium Chloride) 100 mls @ 100 mls/hr IVPB DAILY LEROY PRN Reason: Protocol Ondansetron HCl (Zofran Inj) 4 mg IVP Q6 PRN PRN Reason: Nausea/Vomiting Pantoprazole Sodium (Protonix Inj) 40 mg IVP DAILY LEROY Physical Exam - Constitutional Appears: Well, No Acute Distress - Head Exam Head Exam: ATRAUMATIC, NORMOCEPHALIC - Eye Exam Eye Exam: Normal appearance - ENT Exam ENT Exam: Mucous Membranes Moist - Neck Exam Neck exam: Positive for: Normal Inspection - Respiratory Exam Respiratory Exam: Clear to Auscultation Bilateral, NORMAL BREATHING PATTERN. absent: Rales, Rhonchi, Wheezes, Respiratory Distress - Cardiovascular Exam Cardiovascular Exam: REGULAR RHYTHM, +S1, +S2 - GI/Abdominal Exam GI & Abdominal Exam: Normal Bowel Sounds, Soft. absent: Guarding, Organomegaly , Rebound, Rigid, Tenderness - Extremities Exam Extremities exam: Negative for: joint swelling - Neurological Exam Neurological exam: Alert, Oriented x3 - Psychiatric Exam Psychiatric exam: Normal Affect, Normal Mood - Skin Skin Exam: Dry, Intact, Normal Color, Warm Results - Vital Signs Recent Vital Signs: Last Vital Signs Temp 98.1 F 05/02/17 07:06 Pulse 64 05/02/17 07:06 Resp 18 05/02/17 07:06 BP 102/56 L 05/02/17 07:06 Pulse Ox 98 05/02/17 07:06 - Labs Result Diagrams: 05/02/17 00:55 05/02/17 00:55 Labs: Laboratory Results - last 24 hr 05/02/17 05/02/17 05/02/17 00:47 00:55 00:55 WBC 5.5 RBC 4.19 L Hgb 11.6 L D Hct 36.8 MCV 87.8 D MCH 27.6 MCHC 31.4 L RDW 20.3 H Plt Count 140 MPV 8.5 Neut % (Auto) 65.4 Lymph % (Auto) 9.4 L [place] % (Auto) 17.8 H Eos % (Auto) 6.1 H Baso % (Auto) 1.3 Neut # 3.6 Lymph # 0.5 L [place] # 1.0 H Eos # 0.3 Baso # 0.1 Neutrophils % (Manual) 66 Band Neutrophils % 1 Lymphocytes % (Manual) 9 L Monocytes % (Manual) 12 H Eosinophils % (Manual) 2 Basophils % (Manual) 0 Platelet Estimate Normal PT INR APTT Sodium 138 Potassium 3.6 Chloride 105 Carbon Dioxide 20 L Anion Gap 17 BUN 14 Creatinine 0.6 L Est GFR ( Amer) > 60 Est GFR (Non-Af Amer) > 60 Random Glucose 94 Calcium 9.4 Total Bilirubin 2.1 H AST 60 H ALT 34 Alkaline Phosphatase 119 Total Protein 8.3 H Albumin 3.6 Globulin 4.8 H Albumin/Globulin Ratio 0.7 L Urine Color Urine Clarity Urine pH Ur Specific [place] Urine Protein Urine Glucose (UA) Urine Ketones Urine Blood Urine Nitrate Urine Bilirubin Urine Urobilinogen Ur Leukocyte Esterase Urine RBC (Auto) Urine Microscopic WBC Ur Squamous Epith Cells Urine Bacteria Hyaline Casts Alcohol, Quantitative Blood Type O POSITIVE Antibody Screen Negative BBK History Checked Patient has bt 05/02/17 05/02/17 05/02/17 00:55 01:35 04:20 WBC RBC Hgb Hct MCV MCH MCHC RDW Plt Count MPV Neut % (Auto) Lymph % (Auto) [place] % (Auto) Eos % (Auto) Baso % (Auto) Neut # Lymph # [place] # Eos # Baso # Neutrophils % (Manual) Band Neutrophils % Lymphocytes % (Manual) Monocytes % (Manual) Eosinophils % (Manual) Basophils % (Manual) Platelet Estimate PT 15.5 H INR 1.4 H APTT 34.5 Sodium Potassium Chloride Carbon Dioxide Anion Gap BUN Creatinine Est GFR ( Amer) Est GFR (Non-Af Amer) Random Glucose Calcium Total Bilirubin AST ALT Alkaline Phosphatase Total Protein Albumin Globulin Albumin/Globulin Ratio Urine Color Yellow Urine Clarity Slighty-cloudy Urine pH 7.0 Ur Specific [place] 1.017 Urine Protein 30 Urine Glucose (UA) Neg Urine Ketones Negative Urine Blood Moderate Urine Nitrate Negative Urine Bilirubin Negative Urine Urobilinogen 0.2-1.0 Ur Leukocyte Esterase Neg Urine RBC (Auto) 24 H Urine Microscopic WBC 1 Ur Squamous Epith Cells < 1 Urine Bacteria Rare Hyaline Casts 0-2 Alcohol, Quantitative < 10 Blood Type Antibody Screen BBK History Checked Assessment & Plan - Assessment and Plan (Free Text) Assessment: This is a 56yM with hx of cirhosis and alcohol abus epresenting with supposed coffee-ground emesis and melena. 1. Coffee-ground emesis 2. Melena? 3. Cirrhosis 4. Etoh abuse 5. Hx of gastritis and esophageal varices 6. Transaminitis Plan: -Continue supportive care -continue protonix 40mg IV -NPO -Monitor LFTs, likely from chronic ETOH -Continue IV Rocephin 1G Daily -will restart propanolol -Monitor H/H and transfuse if Hgb<7 or hemodynamically unstable -Will take for EGD today -Rectal exam negative for melena or hematochezia no active hematemesis D/W Dr. Desouza <Deo GAONA,[facility] - Last Filed: 05/02/17 14:13> Meds - Medications Medications: Current Medications Ceftriaxone Sodium 1 gm/ (Sodium Chloride) 100 mls @ 100 mls/hr IVPB DAILY LEROY PRN Reason: Protocol Last Admin: 05/02/17 11:35 Dose: 100 mls/hr Sodium Chloride (Sodium Chloride 0.9%) 1,000 mls @ 100 mls/hr IV .Q10H [facility] Stop: 05/03/17 07:53 Last Admin: 05/02/17 11:34 Dose: 100 mls/hr Ondansetron HCl (Zofran Inj) 4 mg IVP Q6 PRN PRN Reason: Nausea/Vomiting Pantoprazole Sodium (Protonix Inj) 40 mg IVP DAILY [facility] Last Admin: 05/02/17 11:36 Dose: 40 mg Results - Vital Signs Recent Vital Signs: Last Vital Signs Temp 97.9 F 05/02/17 13:57 Pulse 64 05/02/17 13:57 Resp 13 05/02/17 13:57 BP 96/59 L 05/02/17 13:57 Pulse Ox 96 05/02/17 13:57 - Labs Result Diagrams: 05/02/17 08:15 05/02/17 08:15 Labs: Laboratory Results - last 24 hr 05/02/17 05/02/17 05/02/17 00:47 00:55 00:55 WBC 5.5 RBC 4.19 L Hgb 11.6 L D Hct 36.8 MCV 87.8 D MCH 27.6 MCHC 31.4 L RDW 20.3 H Plt Count 140 MPV 8.5 Neut % (Auto) 65.4 Lymph % (Auto) 9.4 L [place] % (Auto) 17.8 H Eos % (Auto) 6.1 H Baso % (Auto) 1.3 Neut # 3.6 Lymph # 0.5 L [place] # 1.0 H Eos # 0.3 Baso # 0.1 Neutrophils % (Manual) 66 Band Neutrophils % 1 Lymphocytes % (Manual) 9 L Monocytes % (Manual) 12 H Eosinophils % (Manual) 2 Basophils % (Manual) 0 Platelet Estimate Normal PT INR APTT Sodium 138 Potassium 3.6 Chloride 105 Carbon Dioxide 20 L Anion Gap 17 BUN 14 Creatinine 0.6 L Est GFR ( Amer) > 60 Est GFR (Non-Af Amer) > 60 Random Glucose 94 Calcium 9.4 Total Bilirubin 2.1 H AST 60 H ALT 34 Alkaline Phosphatase 119 Total Protein 8.3 H Albumin 3.6 Globulin 4.8 H Albumin/Globulin Ratio 0.7 L Urine Color Urine Clarity Urine pH Ur Specific [place] Urine Protein Urine Glucose (UA) Urine Ketones Urine Blood Urine Nitrate Urine Bilirubin Urine Urobilinogen Ur Leukocyte Esterase Urine RBC (Auto) Urine Microscopic WBC Ur Squamous Epith Cells Urine Bacteria Hyaline Casts Alcohol, Quantitative Blood Type O POSITIVE Antibody Screen Negative Crossmatch See Detail BBK History Checked Patient has bt 05/02/17 05/02/17 05/02/17 00:55 01:35 04:20 WBC RBC Hgb Hct MCV MCH MCHC RDW Plt Count MPV Neut % (Auto) Lymph % (Auto) [place] % (Auto) Eos % (Auto) Baso % (Auto) Neut # Lymph # [place] # Eos # Baso # Neutrophils % (Manual) Band Neutrophils % Lymphocytes % (Manual) Monocytes % (Manual) Eosinophils % (Manual) Basophils % (Manual) Platelet Estimate PT 15.5 H INR 1.4 H APTT 34.5 Sodium Potassium Chloride Carbon Dioxide Anion Gap BUN Creatinine Est GFR ( Amer) Est GFR (Non-Af Amer) Random Glucose Calcium Total Bilirubin AST ALT Alkaline Phosphatase Total Protein Albumin Globulin Albumin/Globulin Ratio Urine Color Yellow Urine Clarity Slighty-cloudy Urine pH 7.0 Ur Specific [place] 1.017 Urine Protein 30 Urine Glucose (UA) Neg Urine Ketones Negative Urine Blood Moderate Urine Nitrate Negative Urine Bilirubin Negative Urine Urobilinogen 0.2-1.0 Ur Leukocyte Esterase Neg Urine RBC (Auto) 24 H Urine Microscopic WBC 1 Ur Squamous Epith Cells < 1 Urine Bacteria Rare Hyaline Casts 0-2 Alcohol, Quantitative < 10 Blood Type Antibody Screen Crossmatch BBK History Checked 05/02/17 05/02/17 05/02/17 08:15 08:15 08:15 WBC 3.6 L RBC 3.48 L Hgb 9.8 L Hct 30.3 L MCV 87.1 MCH 28.1 MCHC 32.3 L RDW 20.2 H Plt Count 99 L D MPV Neut % (Auto) Lymph % (Auto) [place] % (Auto) Eos % (Auto) Baso % (Auto) Neut # Lymph # [place] # Eos # Baso # Neutrophils % (Manual) Band Neutrophils % Lymphocytes % (Manual) Monocytes % (Manual) Eosinophils % (Manual) Basophils % (Manual) Platelet Estimate PT 16.0 H INR 1.4 H APTT 38.3 H Sodium 138 Potassium 3.7 Chloride 111 H Carbon Dioxide 18 L Anion Gap 13 BUN 12 Creatinine 0.6 L Est GFR ( Amer) > 60 Est GFR (Non-Af Amer) > 60 Random Glucose 83 Calcium 8.3 L Total Bilirubin 2.1 H AST 48 ALT 39 Alkaline Phosphatase 90 Total Protein 6.9 Albumin 2.7 L D Globulin 4.2 H Albumin/Globulin Ratio 0.6 L Urine Color Urine Clarity Urine pH Ur Specific [place] Urine Protein Urine Glucose (UA) Urine Ketones Urine Blood Urine Nitrate Urine Bilirubin Urine Urobilinogen Ur Leukocyte Esterase Urine RBC (Auto) Urine Microscopic WBC Ur Squamous Epith Cells Urine Bacteria Hyaline Casts Alcohol, Quantitative Blood Type Antibody Screen Crossmatch BBK History Checked Attending/Attestation - Attestation I have personally seen and examined this patient.: Yes I have fully participated in the care of the patient.: Yes I have reviewed all pertinent clinical information: Yes Notes (Text): 05/02/17 14:02 Patient seen with GI fellow. This is a 56 yr old M with history of cirrhosis and alcohol abuse presenting with hematemesis and melena for one day in setting of active alcohol abuse. Last EGD in 03/10 revealed Grade B varices in mid and distal esophagus s/p 4 bands. Will keep on Iv antibiotics and plan for urgent EGd today. Continue antibiotics to complete 7 day course and start B lucero. Alcohol cessation. H/Hct q 12 hours. Platelets and INR adequate for EGD. No product transfusion required. NPO.
[2017-05-02 08:42] LABS: HEMOGLOBIN 9.8 g/dL (12.0-18.0); MEAN CELL VOLUME 87.1 fl (80.0-94.0); MEAN CORPUSCULAR HEMOGLOBIN 28.1 pg (27.0-31.0); MEAN CORPUSCULAR HGB CONC 32.3 g/dL (33.0-37.0); RBC 3.48 Mil/uL (4.40-5.90); RED CELL DISTRIBUTION WIDTH 20.2 % (11.5-14.5); WHITE BLOOD COUNT 3.6 K/uL (4.8-10.8)
[2017-05-02 08:54] LABS: ALB/GLOB RATIO 0.6 (1.0-2.1); ALBUMIN 2.7 g/dL (3.5-5.0); AST/SGOT 48 U/L (17-59); BLOOD UREA NITROGEN 12 mg/dl (9-20); CALCIUM 8.3 mg/dL (8.4-10.2); GFR AFRICAN-AMERICAN > 60; GFR NON-AFRICAN AMERICAN > 60
[2017-05-02 08:55] LABS: ALT/SGPT 39 U/L (21-72); INR 1.4 (0.9-1.2); PARTIAL THROMBOPLASTIN TIME 38.3 Seconds (25.6-37.1)
[2017-05-02] MEDS: Sodium Chloride 0.9% 1,000 ML IV SCH (11:34)
[2017-05-02] MEDS ORDERED: Lactated Ringer's 1,000 ML IV ONE (13:56)
[2017-05-02] MEDS ORDERED: Etomidate 20 mg/10ml Inj IV ONE (14:31)
[2017-05-02] MEDS ORDERED: Propofol 10 mg/ml Inj (20 ML) ONE (14:31)
[2017-05-03] MEDS: Sodium Chloride 0.9% 1,000 ML IV SCH (04:30)
[2017-05-03 05:26] VITALS: RESP 18
[2017-05-03 05:52] LABS: HEMOGLOBIN 10.2 g/dL (12.0-18.0); MEAN CELL VOLUME 88.4 fl (80.0-94.0); MEAN CORPUSCULAR HEMOGLOBIN 27.8 pg (27.0-31.0); MEAN CORPUSCULAR HGB CONC 31.5 g/dL (33.0-37.0); RBC 3.66 Mil/uL (4.40-5.90); RED CELL DISTRIBUTION WIDTH 20.2 % (11.5-14.5); WHITE BLOOD COUNT 3.7 K/uL (4.8-10.8)
[2017-05-03 06:14] LABS: ALB/GLOB RATIO 0.7 (1.0-2.1); ALBUMIN 2.9 g/dL (3.5-5.0); ALT/SGPT 35 U/L (21-72); AST/SGOT 48 U/L (17-59); BLOOD UREA NITROGEN 11 mg/dl (9-20); CALCIUM 8.3 mg/dL (8.4-10.2); GFR AFRICAN-AMERICAN > 60; GFR NON-AFRICAN AMERICAN > 60
[2017-05-03 06:46] LABS: INR 1.4 (0.9-1.2); PROTHROMBIN TIME 15.5 Seconds (9.8-13.1)
--- NOTE | 2017-05-03 09:17 | CP.PCM.DIS ---
Provider - Provider Date of Admission: 05/02/17 04:18 Attending physician: Tiffanie Worrell MD Time Spent in preparation of Discharge (in minutes): 20 Hospital Course - Lab Results Lab Results: Most Recent Lab Values WBC 3.7 K/uL (4.8-10.8) L 05/03/17 04:15 RBC 3.66 Mil/uL (4.40-5.90) L 05/03/17 04:15 Hgb 10.2 g/dL (12.0-18.0) L 05/03/17 04:15 Hct 32.3 % (35.0-51.0) L 05/03/17 04:15 MCV 88.4 fl (80.0-94.0) 05/03/17 04:15 MCH 27.8 pg (27.0-31.0) 05/03/17 04:15 MCHC 31.5 g/dL (33.0-37.0) L 05/03/17 04:15 RDW 20.2 % (11.5-14.5) H 05/03/17 04:15 Plt Count 109 K/uL (130-400) L 05/03/17 04:15 MPV 8.5 fl (7.2-11.7) 05/02/17 00:55 Neut % (Auto) 65.4 % (50.0-75.0) 05/02/17 00:55 Lymph % (Auto) 9.4 % (20.0-40.0) L 05/02/17 00:55 [place] % (Auto) 17.8 % (0.0-10.0) H 05/02/17 00:55 Eos % (Auto) 6.1 % (0.0-4.0) H 05/02/17 00:55 Baso % (Auto) 1.3 % (0.0-2.0) 05/02/17 00:55 Neut # 3.6 K/uL (1.8-7.0) 05/02/17 00:55 Lymph # 0.5 K/uL (1.0-4.3) L 05/02/17 00:55 [place] # 1.0 K/uL (0.0-0.8) H 05/02/17 00:55 Eos # 0.3 K/uL (0.0-0.7) 05/02/17 00:55 Baso # 0.1 K/uL (0.0-0.2) 05/02/17 00:55 Neutrophils % (Manual) 66 % (42-75) 05/02/17 00:55 Band Neutrophils % 1 % (0-2) 05/02/17 00:55 Lymphocytes % (Manual) 9 % (20-50) L 05/02/17 00:55 Monocytes % (Manual) 12 % (0-10) H 05/02/17 00:55 Eosinophils % (Manual) 2 % (0-7) 05/02/17 00:55 Basophils % (Manual) 0 % (0-2) 05/02/17 00:55 Platelet Estimate Normal (NORMAL) 05/02/17 00:55 PT 15.5 Seconds (9.8-13.1) H 05/03/17 04:15 INR 1.4 (0.9-1.2) H 05/03/17 04:15 APTT 35.0 Seconds (25.6-37.1) 05/03/17 04:15 Sodium 141 mmol/l (132-148) 05/03/17 04:15 Potassium 4.0 MMOL/L (3.6-5.0) 05/03/17 04:15 Chloride 110 mmol/L (98-107) H 05/03/17 04:15 Carbon Dioxide 22 mmol/L (22-30) 05/03/17 04:15 Anion Gap 13 (10-20) 05/03/17 04:15 BUN 11 mg/dl (9-20) 05/03/17 04:15 Creatinine 0.7 mg/dl (0.8-1.5) L 05/03/17 04:15 Est GFR ( Amer) > 60 05/03/17 04:15 Est GFR (Non-Af Amer) > 60 05/03/17 04:15 Random Glucose 88 mg/dL (75-110) 05/03/17 04:15 Calcium 8.3 mg/dL (8.4-10.2) L 05/03/17 04:15 Total Bilirubin 1.5 mg/dl (0.2-1.3) H 05/03/17 04:15 AST 48 U/L (17-59) 05/03/17 04:15 ALT 35 U/L (21-72) 05/03/17 04:15 Alkaline Phosphatase 102 U/L (38-126) 05/03/17 04:15 Ammonia 63 umo/L (16-60) H 05/03/17 04:15 Total Protein 7.2 G/DL (6.3-8.2) 05/03/17 04:15 Albumin 2.9 g/dL (3.5-5.0) L 05/03/17 04:15 Globulin 4.3 gm/dL (2.2-3.9) H 05/03/17 04:15 Albumin/Globulin Ratio 0.7 (1.0-2.1) L 05/03/17 04:15 Urine Color Yellow (YELLOW) 05/02/17 01:35 Urine Clarity Slighty-cloudy (Clear) 05/02/17 01:35 Urine pH 7.0 (5.0-8.0) 05/02/17 01:35 Ur Specific [place] 1.017 (1.003-1.030) 05/02/17 01:35 Urine Protein 30 mg/dL (NEGATIVE) 05/02/17 01:35 Urine Glucose (UA) Neg mg/dL (Normal) 05/02/17 01:35 Urine Ketones Negative mg/dL (NEGATIVE) 05/02/17 01:35 Urine Blood Moderate (NEGATIVE) 05/02/17 01:35 Urine Nitrate Negative (NEGATIVE) 05/02/17 01:35 Urine Bilirubin Negative (NEGATIVE) 05/02/17 01:35 Urine Urobilinogen 0.2-1.0 mg/dL (0.2-1.0) 05/02/17 01:35 Ur Leukocyte Esterase Neg Aron/uL (Negative) 05/02/17 01:35 Urine RBC (Auto) 24 /hpf (0-3) H 05/02/17 01:35 Urine Microscopic WBC 1 /hpf (0-5) 05/02/17 01:35 Ur Squamous Epith Cells < 1 /hpf (0-5) 05/02/17 01:35 Urine Bacteria Rare (<OCC) 05/02/17 01:35 Hyaline Casts 0-2 /hpf (0-2) 05/02/17 01:35 Alcohol, Quantitative < 10 mg/dl (0-10) 05/02/17 04:20 Blood Type O POSITIVE 05/02/17 00:47 Antibody Screen Negative 05/02/17 00:47 Crossmatch See Detail 05/02/17 00:47 BBK History Checked Patient has bt 05/02/17 00:47 - Hospital Course Hospital Course: 56 YO Male with PMH of chronic gastritis, liver cirrhosis, non-bleeding gastric and esophageal varices x4 banding, chronic EtOH abuse, tobacco abuse, and depression is admitted to [facility] for GI bleeding. GI was consulted, EGD was done, sig for grade A esophititis, grade I esophageal varices. Pt is currently hemodynamically stable, afebrile and tolerating PO diet. Will d/c home with rx ciprofloxacin 500mg BID x 7 days, d/c propranolol due to bradycardia and hypotension, follow up in [facility] 05/10/17 @ 9:[address] Gardner and with Dr. Desouza on 05/05/16. Discharge Exam - Head Exam Head Exam: ATRAUMATIC, NORMAL INSPECTION, NORMOCEPHALIC - Eye Exam Eye Exam: EOMI, Normal appearance - ENT Exam ENT Exam: Mucous Membranes Moist - Neck Exam Neck exam: Full Rom - Respiratory Exam Respiratory Exam: Clear to PA & Lateral, NORMAL BREATHING PATTERN - Cardiovascular Exam Cardiovascular Exam: +S1, +S2. absent: Systolic Murmur - Extremities Exam Extremities exam: full ROM, normal inspection - Back Exam Back exam: NORMAL INSPECTION - Neurological Exam Neurological exam: Alert, Oriented x3 - Psychiatric Exam Psychiatric exam: Normal Affect, Normal Mood - Skin Skin Exam: Dry, Intact, Normal Color, Warm Discharge Plan - Discharge Medications Prescriptions: Ciprofloxacin [Cipro] 500 mg PO Q12H 7 Days #14 tab - Follow Up Plan Condition: STABLE Disposition: HOME/ ROUTINE Patient education suggested?: Yes Instructions: Gastrointestinal Bleeding (DC) Additional Instructions: Follow up in [facility] 05/10/17 @ 9:[address] Gardner Follow up with Dr. Desouza on 05/05/16 Continue ciprofloxacin 500mg BID x 7 days Referrals: Deo GAONA,MD Jeevan [Medical Doctor] -
--- NOTE | 2017-05-03 11:12 | CP.PCM.PN ---
<Karlie Motta - Last Filed: 05/03/17 11:12> Subjective - Date & Time of Evaluation Date of Evaluation: 05/03/17 Time of Evaluation: 09:30 - Subjective Subjective: PGY4 GI follow-up Pt seen and examined bedside Denies any abd pain tolerating diet No BM in a few days Denies any nausea and vomiting ROS: 10 point ROS conducted, neg other than above Objective - Vital Signs/Intake and Output Vital Signs (last 24 hours): Temp Pulse Resp BP Pulse Ox 98.4 F 70 18 103/52 L 96 05/03/17 07:43 05/03/17 09:00 05/03/17 07:43 05/03/17 07:43 05/03/17 07:43 - Medications Medications: Current Medications Ceftriaxone Sodium 1 gm/ (Sodium Chloride) 100 mls @ 100 mls/hr IVPB DAILY [facility] PRN Reason: Protocol Last Admin: 05/03/17 10:18 Dose: 100 mls/hr Ondansetron HCl (Zofran Inj) 4 mg IVP Q6 PRN PRN Reason: Nausea/Vomiting Pantoprazole Sodium (Protonix Inj) 40 mg IVP DAILY [facility] Last Admin: 05/03/17 08:43 Dose: 40 mg - Labs Labs: 05/03/17 04:15 05/03/17 04:15 PT 15.5 Seconds (9.8-13.1) H 05/03/17 04:15 INR 1.4 (0.9-1.2) H 05/03/17 04:15 APTT 35.0 Seconds (25.6-37.1) 05/03/17 04:15 - Constitutional Appears: Well, No Acute Distress - Head Exam Head Exam: ATRAUMATIC, NORMOCEPHALIC - Eye Exam Eye Exam: Normal appearance - ENT Exam ENT Exam: Mucous Membranes Moist - Respiratory Exam Respiratory Exam: Clear to Ausculation Bilateral, NORMAL BREATHING PATTERN. absent: Rales, Rhonchi, Wheezes, Respiratory Distress - Cardiovascular Exam Cardiovascular Exam: REGULAR RHYTHM, +S1, +S2 - GI/Abdominal Exam GI & Abdominal Exam: Soft, Normal Bowel Sounds. absent: Guarding, Rigid, Tenderness - Rectal Exam Rectal Exam: NORMAL INSPECTION - Extremities Exam Extremities Exam: absent: Joint Swelling, Pedal Edema - Neurological Exam Neurological Exam: Alert, Awake, Oriented x3 - Psychiatric Exam Psychiatric exam: Normal Affect, Normal Mood - Skin Skin Exam: Dry, Intact, Normal Color, Warm Assessment and Plan - Assessment and Plan (Free Text) Assessment: This is a 56yM with hx of cirhosis and alcohol abus epresenting with supposed coffee-ground emesis and melena. POD #1 EGD, gastritis, no evidence of bleeding ; Grade 1 varices, Grade A distal esophagus Cirrhosis Etoh abuse Hx of gastritis and esophageal varices Transaminitis Plan: -Continue supportive care -tolerating diet -can be discharged from GI standpoint -restart BB -Monitor H/H and transfuse if Hgb<7 or hemodynamically unstable -avoid alcohol -f/u Dr. Desouza as an oupt D/W Dr. Desouza <Pedro Mendez - Last Filed: 05/03/17 12:45> Objective - Vital Signs/Intake and Output Vital Signs (last 24 hours): Temp Pulse Resp BP Pulse Ox 98.0 F 73 18 98/47 L 97 05/03/17 12:00 05/03/17 12:00 05/03/17 12:00 05/03/17 12:00 05/03/17 12:00 - Labs Labs: 05/03/17 04:15 05/03/17 04:15 PT 15.5 Seconds (9.8-13.1) H 05/03/17 04:15 INR 1.4 (0.9-1.2) H 05/03/17 04:15 APTT 35.0 Seconds (25.6-37.1) 05/03/17 04:15 Attending/Attestation - Attestation I have personally seen and examined this patient.: Yes I have fully participated in the care of the patient.: Yes I have reviewed all pertinent clinical information, including history, physical exam and plan: Yes Notes (Text): 05/03/17 12:43 56 year old male with h/o Alcohol cirrhosis admitted with coffee ground emesis, found to have G1 varices and esophagitis. 1. Alcoholic cirrhosis 2. Esophageal varices 3. Erosive esophagitis Plan: -no bleeding, hgb stable -s/p egd yesterday, erosive esophagitis noted -etoh abstinence advised -propranolol for prophylaxis of variceal bleeding -continue ppi for espohagitis -ok for discharge -diet as tolerated -follow up [facility] outpatient
[2017-05-03 12:10] VITALS: BP 98/47; PULSE 73; TEMP 98; O2SAT 97
== END 2017-05-03 12:26 | disposition home or self-care (01) | DRG 202 ==
LOC: H.ER 23:25 → H.ERHOLD 05-02 04:17 → UNDOADMIN 05-02 04:17 → H.ERHOLD 05-02 04:18 → H.TEL 05-02 07:00
PROVIDERS: ADMIT Family Medicine Geriatric Medicine; ATTEND Family Medicine Geriatric Medicine
PROC: 0DJ08ZZ Inspection of Upper Intestinal Tract, Via Natural or Artificial Opening Endoscopic (ICD-10-PCS; principal; 2017-05-02 17:45)
DX: K70.30 Alcoholic cirrhosis of liver without ascites (principal); I95.9 Hypotension, unspecified; K20.9 Esophagitis, unspecified; I85.10 Secondary esophageal varices without bleeding; D64.9 Anemia, unspecified; K29.50 Unspecified chronic gastritis without bleeding; I10 Essential (primary) hypertension; F32.9 Major depressive disorder, single episode, unspecified; F41.9 Anxiety disorder, unspecified; F17.210 Nicotine dependence, cigarettes, uncomplicated; R74.0 Nonspecific elevation of levels of transaminase and lactic acid dehydrogenase [LDH]; R00.1 Bradycardia, unspecified; I86.4 Gastric varices

== ENCOUNTER 2017-05-29 20:26 | Observation (INO) | payer OTHER ==
[2017-05-29 20:26] VITALS: BMI 19.1
[2017-05-29] MEDS ORDERED: Sodium Chloride 0.9% 1,000 ML IV STA (21:43)
--- NOTE | 2017-05-29 21:57 | ED PDOC ---
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 Reports that he was already on his way to ED because of black colored stool. Patient started drinking yesterday because of super bowl and continued drinking today. Also complains of abdominal pain and swelling. Denies fever, chills or any further medical complaints. Past Medical History Reviewed: Historical Data, Nursing Documentation, Vital Signs Vital Signs: Last Vital Signs Temp 99.2 F 05/30/17 08:00 Pulse 80 05/30/17 11:04 Resp 18 05/30/17 08:00 BP 118/70 05/30/17 11:04 Pulse Ox 98 05/30/17 08:00 - Medical History PMH: Anemia, Anxiety, Depression, Fractures (L ankle sx), Gastritis, HTN Denies: HIV, Hypercholesterolemia, Chronic Kidney Disease - Surgical History Surgical History: Endoscopy - Family History Family History: States: Unknown Family Hx - Social History Current smoker - smoking cessation education provided: Yes (light smoker < 10 cigarettes daily) Alcohol: Social Drugs: Denies - Home Medications Home Medications: Ambulatory Orders Medication Instructions Recorded Thiamine Mononitrate [Vitamin B-1] 100 mg PO DAILY #30 tablet 06/27/16 Folic Acid 1 mg PO DAILY 10/22/16 Ferrous Sulfate [Feosol] 325 mg PO BID 02/21/17 Spironolactone [Aldactone] 25 mg PO BID 02/21/17 Albuterol HFA [Ventolin HFA 90 1 inh INH Q8 PRN 05/29/17 mcg/actuation (8 g)] Lansoprazole [Prevacid] 15 mg PO DAILY 05/29/17 Propranolol HCl [Propranolol HCl] 10 mg PO BID 05/29/17 - Allergies Allergies/Adverse Reactions: Allergies Allergy/AdvReac Type Severity Reaction Status Date / Time No Known Allergies Allergy Verified 05/29/17 21:38 Review of Systems ROS Statement: Except As Marked, All Systems Reviewed And Found Negative (As per HPI, otherwise negative) Constitutional: Negative for: Fever, Chills Gastrointestinal: Positive for: Vomiting (Patient is vomiting blood), Melena Physical Exam - Reviewed Nursing Documentation Reviewed: Yes Vital Signs Reviewed: Yes - Physical Exam Appears: Positive for: Uncomfortable, In Acute Distress Head Exam: Positive for: ATRAUMATIC, NORMOCEPHALIC Skin: Positive for: Warm, Dry, Pallor Eye Exam: Positive for: EOMI, PERRL ENT: Positive for: Pharynx Is (clear), Other (tacky mucus membranes) Neck: Positive for: Painless ROM, Supple Cardiovascular/Chest: Positive for: Regular Rate, Rhythm, Chest Non Tender. Negative for: Murmur Respiratory: Positive for: Normal Breath Sounds. Negative for: Respiratory Distress Gastrointestinal/Abdominal: Positive for: Soft, Tenderness (epigastric). Negative for: Mass, Distended, Guarding Back: Positive for: Normal Inspection. 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 Negative for: Deformity Lymphatic: Negative for: Adenopathy Neurologic/Psych: Positive for: Alert. Negative for: Motor/Sensory Deficits - Laboratory Results Result Diagrams: 05/29/17 22:10 05/29/17 22:10 - ECG ECG Rhythm: Positive for: Normal ST Segment, Sinus Rhythm O2 Sat by Pulse Oximetry: 96 (RA) Pulse Ox Interpretation: Normal - Critical Care Total Time (In Min): 30 Documented Critical Care: Time excludes all time spent performint seperately billable procedures Medical Decision Making Medical Decision Making: Time: 21:44 Initial Impression: GI Bleed Plan: Type and screen EKG Alcohol serum Ammonia CMP Drug Screen, urine Lactic acid, plasma Lipase Magnesium Phosphorous Urine dipstick CBC w/ differential Partial thromboplastin time Prothrombin time Chest x-ray Sodium chloride 1L IV Ondansetron 8mg IV Pantoprazole 40mg IVP IV insertion (saline lock) Labs demonstrate mild anemia and hyperammonemia. Needs hospitalization for GI bleed with known esophageal varices and liver cirrhosis. DODIE Polanco FP resident Discussed case with GI fellow who recommends IV infusion of Protonix and Octreotide. Scribe Attestation: Documented by Celena Motta acting as a scribe for Terrie Kc MD. Scribe Attestation: All medical record entries made by the Scribe were at my direction and personally dictated by me. I have reviewed the chart and agree that the record accurately reflects my personal performance of the history, physical exam, medical decision making, and the department course for this patient. I have also personally directed, reviewed, and agree with the discharge instructions and disposition. Disposition - Clinical Impression Clinical Impression: GI bleed, Anemia, Liver cirrhosis, alcoholic, Alcohol abuse Counseled Patient/Family Regarding: Studies Performed, Diagnosis - Disposition Disposition Time: 22:30 Condition: GUARDED - Pt Status Changed To: Hospital Disposition Of: Inpatient - Admit Certification Admit to Inpatient:: After my assessment, the patient will require hospitalization for at least two midnights. This is because of the severity of symptoms shown, intensity of services needed, and/or the medical risk in this patient being treated as an outpatient. - POA Present On Arrival: None
[2017-05-29 22:22] LABS: BASO % 1.5 % (0.0-2.0); EOS # 0.3 K/uL (0.0-0.7); EOS % 7.8 % (0.0-4.0); HEMOGLOBIN 11.2 g/dL (12.0-18.0); LYMPH # 0.4 K/uL (1.0-4.3); LYMPH % 13.7 % (20.0-40.0); MEAN CELL VOLUME 89.1 fl (80.0-94.0); MEAN CORPUSCULAR HEMOGLOBIN 29.7 pg (27.0-31.0); MEAN CORPUSCULAR HGB CONC 33.3 g/dL (33.0-37.0); MEAN PLATELET VOLUME 8.2 fl (7.2-11.7); MONO # 0.6 K/uL (0.0-0.8); MONO % 18.5 % (0.0-10.0); NEUT # 1.9 K/uL (1.8-7.0); NEUT % 58.5 % (50.0-75.0); NRBC % 0.1 % (0.0-0.0); RBC 3.79 Mil/uL (4.40-5.90); RED CELL DISTRIBUTION WIDTH 20.2 % (11.5-14.5); WHITE BLOOD COUNT 3.2 K/uL (4.8-10.8)
[2017-05-29 22:32] LABS: ALB/GLOB RATIO 0.7 (1.0-2.1); ALBUMIN 3.2 g/dL (3.5-5.0); ALT/SGPT 36 U/L (21-72); AST/SGOT 62 U/L (17-59); BLOOD UREA NITROGEN 13 mg/dl (9-20); CALCIUM 8.7 mg/dL (8.4-10.2); GFR AFRICAN-AMERICAN > 60; GFR NON-AFRICAN AMERICAN > 60; LIPASE 293 U/L (23-300); MAGNESIUM 1.6 MG/DL (1.6-2.3)
[2017-05-29 22:46] LABS: INR 1.3 (0.9-1.2); PARTIAL THROMBOPLASTIN TIME 36.8 Seconds (25.6-37.1)
[2017-05-29] MEDS ORDERED: Potassium CL 10 MEQ/50 ML 50 ML IVPB ONE (22:54)
[2017-05-29] MEDS ORDERED: Potassium CL 10 MEQ/50 ML 50 ML ONE (23:42)
[2017-05-30] MEDS: Pantoprazole 40 MG in Sodium Chloride 0.9% 100 ML IVPB SCH ×2 (01:02→04:20)
--- NOTE | 2017-05-30 01:03 | CP.PCM.HP ---
History of Present Illness - History of Present Illness History of Present Illness: 56 yo ,m, PMhx/o chronic gastritis, liver cirrhosis, non-bleeding gastric and esophageal varices, chronic EtOH abuse, tobacco abuse, and depression presents to ED c/o 2 black stool BM today in the morning associated with 1 bloddy vomiting small amount prior to come to ED. He reports that he started drinking beer yesterday because of super bowl and continued drinking today but stopped after he saw black stool. He denies abdominal pain, fever, chest pain, SOB, nausea. PMD: [facility] last seen 05/10/17 Dr Gardner Allergies: N.K.D.A PMHx: Chronic gastritis w/ multiple admissions for UGIB, Liver cirrhosis, gastric and esophageal varices, Chronic ETOH abuse, Tobacco abuse, Depression PMD: [facility] meds: iron sulfate 325 mg PO BID, prozac 10 mg PO daily, folic acid 1 mg PO daily, protonix 40 mg PO daily, spironolactone 25 mg pO BID, thiamine 100 mg PO daily PSHx: Left lower ext ankle surgery; Right inguinal hernia repair 2014 Fam: Father had hx of Colon cancer, EtOH abuse, mother had hx of stomach cancer ; both in their 60-70s; brother also had hx of EtOH abuse, and of EtOH related complications. SOC: EtOH abuse, off and on abstinence; smokes 8-10 cigarettes a day x 30+ pack years, current smoker; denies illicit drug abuse Ed Course VS: Normal Labs: CBC: 3.2>11.2<133 CMP: K 3.3 AST: 62 Ammonia: 89. FOBT:Positive, ETOH: 116 Imaging: CXR: normal. pendong final report Meds: NS 1 l, Protonix, Octreotide, KCL 10meq x2, Present on Admission - Present on Admission Any Indicators Present on Admission: No History of DVT/PE: No History of Uncontrolled Diabetes: No Review of Systems - Cardiovascular Cardiovascular: As Per HPI - Respiratory Respiratory: As Per HPI - Gastrointestinal Gastrointestinal: Melena, Vomiting - Musculoskeletal Musculoskeletal: As Per HPI - Neurological Neurological: As Per HPI Past Patient History - Infectious Disease Hx of Infectious Diseases: None - Tetanus Immunizations Tetanus Immunization: Unknown - Past Medical History & Family History Past Medical History?: Yes - Past Social History Alcohol: Social Drugs: Denies - CARDIAC Hx Hypercholesterolemia: No Hx Hypertension: Yes - PULMONARY Hx Respiratory Disorders: No - NEUROLOGICAL Hx Neurological Disorder: No - HEENT Hx HEENT Problems: No - RENAL Hx Chronic Kidney Disease: No - ENDOCRINE/METABOLIC Hx Endocrine Disorders: No - HEMATOLOGICAL/ONCOLOGICAL Hx Anemia: Yes Hx Human Immunodeficiency Virus (HIV): No - INTEGUMENTARY Hx Dermatological Problems: No - MUSCULOSKELETAL/RHEUMATOLOGICAL Hx Fractures: Yes (L ankle sx) - GASTROINTESTINAL Hx Gastritis: Yes - GENITOURINARY/GYNECOLOGICAL Hx Genitourinary Disorders: No - PSYCHIATRIC Hx Anxiety: Yes Hx Depression: Yes - SURGICAL HISTORY Hx Surgeries: Yes Hx Herniorrhaphy: Yes Other/Comment: ANKLE SURGERY - ANESTHESIA Hx Anesthesia: Yes Hx Anesthesia Reactions: No Hx Malignant Hyperthermia: No Meds Allergies/Adverse Reactions: Allergies Allergy/AdvReac Type Severity Reaction Status Date / Time No Known Allergies Allergy Verified 05/29/17 21:38 Physical Exam - Constitutional Appears: No Acute Distress - Head Exam Head Exam: ATRAUMATIC, NORMOCEPHALIC - ENT Exam ENT Exam: Mucous Membranes Moist - Neck Exam Neck exam: Positive for: Normal Inspection - Respiratory Exam Respiratory Exam: Clear to Auscultation Bilateral. absent: Rales, Rhonchi, Wheezes - Cardiovascular Exam Cardiovascular Exam: REGULAR RHYTHM, +S1, +S2 - GI/Abdominal Exam GI & Abdominal Exam: Normal Bowel Sounds, Soft. absent: Guarding, Tenderness - Extremities Exam Extremities exam: Positive for: normal inspection. Negative for: pedal edema - Neurological Exam Neurological exam: Alert, Oriented x3 - Psychiatric Exam Psychiatric exam: Normal Affect, Normal Mood - Skin Skin Exam: Intact Results - Vital Signs Recent Vital Signs: Last Vital Signs Temp 98.8 F 05/30/17 00:58 Pulse 89 05/30/17 00:58 Resp 16 05/30/17 00:58 BP 111/70 05/30/17 00:58 Pulse Ox 94 L 05/30/17 00:58 - Labs Result Diagrams: 05/29/17 22:10 05/29/17 22:10 Labs: Laboratory Results - last 24 hr 05/29/17 05/29/17 05/29/17 21:44 22:10 22:10 WBC RBC Hgb Hct MCV MCH MCHC RDW Plt Count MPV Neut % (Auto) Lymph % (Auto) [place] % (Auto) Eos % (Auto) Baso % (Auto) Neut # (Auto) Lymph # (Auto) [place] # (Auto) Eos # (Auto) Baso # (Auto) PT INR APTT Sodium 142 Potassium 3.3 L Chloride 108 H Carbon Dioxide 22 Anion Gap 15 BUN 13 Creatinine 0.5 L Est GFR ( Amer) > 60 Est GFR (Non-Af Amer) > 60 Random Glucose 90 Lactic Acid Calcium 8.7 Phosphorus 2.9 Magnesium 1.6 Total Bilirubin 1.4 H AST 62 H D ALT 36 Alkaline Phosphatase 95 Ammonia 89 H* D Total Protein 7.7 Albumin 3.2 L Globulin 4.4 H Albumin/Globulin Ratio 0.7 L Lipase 293 Stool Occult Blood Alcohol, Quantitative 116 H Blood Type O POSITIVE Antibody Screen Negative BBK History Checked Patient has bt 05/29/17 05/29/17 05/29/17 22:10 22:10 22:10 WBC 3.2 L RBC 3.79 L Hgb 11.2 L Hct 33.7 L MCV 89.1 MCH 29.7 MCHC 33.3 RDW 20.2 H Plt Count 133 MPV 8.2 Neut % (Auto) 58.5 Lymph % (Auto) 13.7 L [place] % (Auto) 18.5 H Eos % (Auto) 7.8 H Baso % (Auto) 1.5 Neut # (Auto) 1.9 Lymph # (Auto) 0.4 L [place] # (Auto) 0.6 Eos # (Auto) 0.3 Baso # (Auto) 0.0 PT 15.0 H INR 1.3 H APTT 36.8 Sodium Potassium Chloride Carbon Dioxide Anion Gap BUN Creatinine Est GFR ( Amer) Est GFR (Non-Af Amer) Random Glucose Lactic Acid 2.1 Calcium Phosphorus Magnesium Total Bilirubin AST ALT Alkaline Phosphatase Ammonia Total Protein Albumin Globulin Albumin/Globulin Ratio Lipase Stool Occult Blood Alcohol, Quantitative Blood Type Antibody Screen BBK History Checked 05/29/17 22:46 WBC RBC Hgb Hct MCV MCH MCHC RDW Plt Count MPV Neut % (Auto) Lymph % (Auto) [place] % (Auto) Eos % (Auto) Baso % (Auto) Neut # (Auto) Lymph # (Auto) [place] # (Auto) Eos # (Auto) Baso # (Auto) PT INR APTT Sodium Potassium Chloride Carbon Dioxide Anion Gap BUN Creatinine Est GFR ( Amer) Est GFR (Non-Af Amer) Random Glucose Lactic Acid Calcium Phosphorus Magnesium Total Bilirubin AST ALT Alkaline Phosphatase Ammonia Total Protein Albumin Globulin Albumin/Globulin Ratio Lipase Stool Occult Blood Positive H Alcohol, Quantitative Blood Type Antibody Screen BBK History Checked Assessment & Plan - Assessment and Plan (Free Text) Plan: 56 yo ,m, PMhx/o chronic gastritis, liver cirrhosis, non-bleeding gastric and esophageal varices, chronic EtOH abuse, tobacco abuse, and depression admitted for upper GI bleeding assessment/Plan 1) Upper GI bleeding -secondary to gastric and esophageal varices bleeding or alcoholic gastritis - Endoscopy (02/22/2017) Impression: Grade 2 esophageal varices, completely eradicated, portal hypertensive gastropathy, duodenal erosions w/o bleeding -NPO -s/P NS 1 l Ed -Fluids 110 ml/h NS -Protonix, Octreotide -GI Consult suggested: GI fellow consulted by ED attending who recommends IV infusion of Protonix and Octreotide.will see patient in the morning 2) Liver cirrhosis -secondary to ETOH abuse - SBP prophylaxis, ceftriaxone 1 gm IV daily - Hep A, B, C negative 3) ETOH abuse -restarted drinking 4) DVT Prophylaxis -SCD
[2017-05-30] MEDS ORDERED: Sodium Chloride 0.9% 1,000 ML IV SCH (01:15)
[2017-05-30 06:05] LABS: BARBITURATES, UR NEGATIVE (NEGATIVE); BENZODIAZEPINES, UR NEGATIVE (NEGATIVE); OPIATES, UR NEGATIVE (NEGATIVE); PHENCYCLIDINE, UR NEGATIVE (NEGATIVE)
[2017-05-30 08:58] VITALS: BP 118/70; PULSE 80; TEMP 99.2
--- NOTE | 2017-05-30 08:59 | CP.PCM.PN ---
Subjective - Date & Time of Evaluation Date of Evaluation: 05/30/17 Time of Evaluation: 08:05 Objective - Vital Signs/Intake and Output Vital Signs (last 24 hours): Temp Pulse Resp BP Pulse Ox 98.2 F 87 18 122/75 96 05/30/17 05:20 05/30/17 05:20 05/30/17 05:20 05/30/17 05:20 05/30/17 05:20 - Medications Medications: Current Medications Acetaminophen (Tylenol 325mg Tab) 650 mg PO Q6 PRN PRN Reason: Pain, moderate (4-7) Pantoprazole Sodium 40 mg/ (Sodium Chloride) 100 mls @ 20 mls/hr IVPB Q5H LEROY PRN Reason: 8 MG/HR Last Admin: 05/30/17 04:20 Dose: 20 mls/hr Octreotide Acetate 1,250 mcg/ (Sodium Chloride) 252.5 mls @ 10.1 mls/hr IV .Q24H LEROY; 50 MCG/HR PRN Reason: Protocol Last Admin: 05/30/17 00:01 Dose: 10.1 mls/hr Sodium Chloride (Sodium Chloride 0.9%) 1,000 mls @ 110 mls/hr IV .Q9H6M LEROY Last Admin: 05/30/17 02:00 Dose: 110 mls/hr Ceftriaxone Sodium 1 gm/ (Sodium Chloride) 100 mls @ 100 mls/hr IVPB DAILY LEROY PRN Reason: Protocol - Labs Labs: 05/29/17 22:10 05/29/17 22:10 PT 15.0 Seconds (9.8-13.1) H 05/29/17 22:10 INR 1.3 (0.9-1.2) H 05/29/17 22:10 APTT 36.8 Seconds (25.6-37.1) 05/29/17 22:10
--- NOTE | 2017-05-30 11:25 | RAD ---
HISTORY: GI bleed COMPARISON: 02/21/2017 FINDINGS: LUNGS: No active pulmonary disease. PLEURA: No significant pleural effusion identified, no pneumothorax apparent. CARDIOVASCULAR: No radiographic findings to suggest acute or significant cardiovascular disease. OSSEOUS STRUCTURES: No significant abnormalities. VISUALIZED UPPER ABDOMEN: Normal. OTHER FINDINGS: None. IMPRESSION: No active disease. No significant interval change compared to the prior examination(s).
--- NOTE | 2017-05-30 13:09 | CP.PCM.CON ---
History of Present Illness - History of Present Illness History of Present Illness: 56 yr old M with PMH of chronic gastritis, liver cirrhosis, non-bleeding gastric and esophageal varices, chronic EtOH abuse, tobacco abuse, and depression presents to ED c/o 2 black stool BM today in the morning associated with 1 bloddy vomiting small amount prior to come to ED. He reports that he started drinking beer yesterday because of super bowl and continued drinking today but stopped after he saw black stool. He denies abdominal pain, fever, chest pain, SOB, nausea. Past Patient History - Infectious Disease Hx of Infectious Diseases: None - Tetanus Immunizations Tetanus Immunization: Unknown - Past Medical History & Family History Past Medical History?: Yes - Past Social History Alcohol: Social Drugs: Denies - CARDIAC Hx Hypercholesterolemia: No Hx Hypertension: Yes - PULMONARY Hx Respiratory Disorders: No - NEUROLOGICAL Hx Neurological Disorder: No - HEENT Hx HEENT Problems: No - RENAL Hx Chronic Kidney Disease: No - ENDOCRINE/METABOLIC Hx Endocrine Disorders: No - HEMATOLOGICAL/ONCOLOGICAL Hx Anemia: Yes Hx Human Immunodeficiency Virus (HIV): No - INTEGUMENTARY Hx Dermatological Problems: No - MUSCULOSKELETAL/RHEUMATOLOGICAL Hx Fractures: Yes (L ankle sx) - GASTROINTESTINAL Hx Gastritis: Yes - GENITOURINARY/GYNECOLOGICAL Hx Genitourinary Disorders: No - PSYCHIATRIC Hx Anxiety: Yes Hx Depression: Yes - SURGICAL HISTORY Hx Surgeries: Yes Hx Herniorrhaphy: Yes Other/Comment: ANKLE SURGERY - ANESTHESIA Hx Anesthesia: Yes Hx Anesthesia Reactions: No Hx Malignant Hyperthermia: No Meds Allergies/Adverse Reactions: Allergies Allergy/AdvReac Type Severity Reaction Status Date / Time No Known Allergies Allergy Verified 05/29/17 21:38 - Medications Medications: Current Medications Acetaminophen (Tylenol 325mg Tab) 650 mg PO Q6 PRN PRN Reason: Pain, moderate (4-7) Ferrous Sulfate (Feosol) 325 mg PO BID [facility] Last Admin: 05/30/17 11:04 Dose: 325 mg Folic Acid (Folic Acid) 1 mg PO DAILY [facility] Last Admin: 05/30/17 11:04 Dose: 1 mg Propranolol HCl (Inderal) 10 mg PO BID@0900,2100 [facility] Last Admin: 05/30/17 11:04 Dose: 10 mg Thiamine HCl (Vitamin B1 Tab) 100 mg PO DAILY [facility] Last Admin: 05/30/17 11:04 Dose: 100 mg Physical Exam - Respiratory Exam Respiratory Exam: Clear to Auscultation Bilateral, NORMAL BREATHING PATTERN - Cardiovascular Exam Cardiovascular Exam: REGULAR RHYTHM, RRR, +S1, +S2 - GI/Abdominal Exam GI & Abdominal Exam: Normal Bowel Sounds, Soft - Neurological Exam Neurological exam: Alert, Oriented x3 - Psychiatric Exam Psychiatric exam: Normal Affect, Normal Mood Results - Vital Signs Recent Vital Signs: Last Vital Signs Temp 99.2 F 05/30/17 08:00 Pulse 80 05/30/17 11:04 Resp 18 05/30/17 08:00 BP 118/70 05/30/17 11:04 Pulse Ox 98 05/30/17 08:00 - Labs Result Diagrams: 05/29/17 22:10 05/29/17 22:10 Labs: Laboratory Results - last 24 hr 05/29/17 05/29/17 05/29/17 21:44 22:10 22:10 WBC RBC Hgb Hct MCV MCH MCHC RDW Plt Count MPV Neut % (Auto) Lymph % (Auto) [place] % (Auto) Eos % (Auto) Baso % (Auto) Neut # (Auto) Lymph # (Auto) [place] # (Auto) Eos # (Auto) Baso # (Auto) PT INR APTT Sodium 142 Potassium 3.3 L Chloride 108 H Carbon Dioxide 22 Anion Gap 15 BUN 13 Creatinine 0.5 L Est GFR ( Amer) > 60 Est GFR (Non-Af Amer) > 60 Random Glucose 90 Lactic Acid Calcium 8.7 Phosphorus 2.9 Magnesium 1.6 Total Bilirubin 1.4 H AST 62 H D ALT 36 Alkaline Phosphatase 95 Ammonia 89 H* D Total Protein 7.7 Albumin 3.2 L Globulin 4.4 H Albumin/Globulin Ratio 0.7 L Lipase 293 Stool Occult Blood Urine Opiates Screen Urine Methadone Screen Ur Barbiturates Screen Ur Phencyclidine Scrn Ur Amphetamines Screen U Benzodiazepines Scrn U Oth Cocaine Metabols U Cannabinoids Screen Alcohol, Quantitative 116 H Blood Type O POSITIVE Antibody Screen Negative BBK History Checked Patient has bt 05/29/17 05/29/17 05/29/17 22:10 22:10 22:10 WBC 3.2 L RBC 3.79 L Hgb 11.2 L Hct 33.7 L MCV 89.1 MCH 29.7 MCHC 33.3 RDW 20.2 H Plt Count 133 MPV 8.2 Neut % (Auto) 58.5 Lymph % (Auto) 13.7 L [place] % (Auto) 18.5 H Eos % (Auto) 7.8 H Baso % (Auto) 1.5 Neut # (Auto) 1.9 Lymph # (Auto) 0.4 L [place] # (Auto) 0.6 Eos # (Auto) 0.3 Baso # (Auto) 0.0 PT 15.0 H INR 1.3 H APTT 36.8 Sodium Potassium Chloride Carbon Dioxide Anion Gap BUN Creatinine Est GFR ( Amer) Est GFR (Non-Af Amer) Random Glucose Lactic Acid 2.1 Calcium Phosphorus Magnesium Total Bilirubin AST ALT Alkaline Phosphatase Ammonia Total Protein Albumin Globulin Albumin/Globulin Ratio Lipase Stool Occult Blood Urine Opiates Screen Urine Methadone Screen Ur Barbiturates Screen Ur Phencyclidine Scrn Ur Amphetamines Screen U Benzodiazepines Scrn U Oth Cocaine Metabols U Cannabinoids Screen Alcohol, Quantitative Blood Type Antibody Screen BBK History Checked 05/29/17 05/30/17 22:46 02:47 WBC RBC Hgb Hct MCV MCH MCHC RDW Plt Count MPV Neut % (Auto) Lymph % (Auto) [place] % (Auto) Eos % (Auto) Baso % (Auto) Neut # (Auto) Lymph # (Auto) [place] # (Auto) Eos # (Auto) Baso # (Auto) PT INR APTT Sodium Potassium Chloride Carbon Dioxide Anion Gap BUN Creatinine Est GFR ( Amer) Est GFR (Non-Af Amer) Random Glucose Lactic Acid Calcium Phosphorus Magnesium Total Bilirubin AST ALT Alkaline Phosphatase Ammonia Total Protein Albumin Globulin Albumin/Globulin Ratio Lipase Stool Occult Blood Positive H Urine Opiates Screen Negative Urine Methadone Screen Negative Ur Barbiturates Screen Negative Ur Phencyclidine Scrn Negative Ur Amphetamines Screen Negative U Benzodiazepines Scrn Negative U Oth Cocaine Metabols Negative U Cannabinoids Screen Negative Alcohol, Quantitative Blood Type Antibody Screen BBK History Checked Assessment & Plan - Assessment and Plan (Free Text) Assessment: This is a 56 year old male with h/o Alcohol cirrhosis admitted with alleged history of black stool on iron supplement with last EGD in Apr 2017 found to have G1 varices and esophagitis. He is still abusing alcohol without detox. He has not kept outpatient appointments. Dark stool likely due to iron supplement. My rectal exam this morning showed brown stool. Hemodynamically stable. Hb better than baseline. Can get regular diet and discharged to home. Alcohol cessation counselling done. Continue PPI for esophagitis and B lucero for EV prophylaxis. Discussed with primary team
[2017-05-30 13:16] VITALS: O2SAT 96
--- NOTE | 2017-05-30 13:33 | CP.PCM.DIS ---
Provider - Provider Date of Admission: 05/29/17 22:55 Attending physician: Tiffanie Worrell MD Time Spent in preparation of Discharge (in minutes): 15 Diagnosis - Discharge Diagnosis (1) GI bleed Status: Resolved Hospital Course - Lab Results Lab Results: Most Recent Lab Values WBC 3.2 K/uL (4.8-10.8) L 05/29/17 22:10 RBC 3.79 Mil/uL (4.40-5.90) L 05/29/17 22:10 Hgb 11.2 g/dL (12.0-18.0) L 05/29/17 22:10 Hct 33.7 % (35.0-51.0) L 05/29/17 22:10 MCV 89.1 fl (80.0-94.0) 05/29/17 22:10 MCH 29.7 pg (27.0-31.0) 05/29/17 22:10 MCHC 33.3 g/dL (33.0-37.0) 05/29/17 22:10 RDW 20.2 % (11.5-14.5) H 05/29/17 22:10 Plt Count 133 K/uL (130-400) 05/29/17 22:10 MPV 8.2 fl (7.2-11.7) 05/29/17 22:10 Neut % (Auto) 58.5 % (50.0-75.0) 05/29/17 22:10 Lymph % (Auto) 13.7 % (20.0-40.0) L 05/29/17 22:10 [place] % (Auto) 18.5 % (0.0-10.0) H 05/29/17 22:10 Eos % (Auto) 7.8 % (0.0-4.0) H 05/29/17 22:10 Baso % (Auto) 1.5 % (0.0-2.0) 05/29/17 22:10 Neut # (Auto) 1.9 K/uL (1.8-7.0) 05/29/17 22:10 Lymph # (Auto) 0.4 K/uL (1.0-4.3) L 05/29/17 22:10 [place] # (Auto) 0.6 K/uL (0.0-0.8) 05/29/17 22:10 Eos # (Auto) 0.3 K/uL (0.0-0.7) 05/29/17 22:10 Baso # (Auto) 0.0 K/uL (0.0-0.2) 05/29/17 22:10 PT 15.0 Seconds (9.8-13.1) H 05/29/17 22:10 INR 1.3 (0.9-1.2) H 05/29/17 22:10 APTT 36.8 Seconds (25.6-37.1) 05/29/17 22:10 Sodium 142 mmol/l (132-148) 05/29/17 22:10 Potassium 3.3 MMOL/L (3.6-5.0) L 05/29/17 22:10 Chloride 108 mmol/L (98-107) H 05/29/17 22:10 Carbon Dioxide 22 mmol/L (22-30) 05/29/17 22:10 Anion Gap 15 (10-20) 05/29/17 22:10 BUN 13 mg/dl (9-20) 05/29/17 22:10 Creatinine 0.5 mg/dl (0.8-1.5) L 05/29/17 22:10 Est GFR ( Amer) > 60 05/29/17 22:10 Est GFR (Non-Af Amer) > 60 05/29/17 22:10 Random Glucose 90 mg/dL (75-110) 05/29/17 22:10 Lactic Acid 2.1 MMOL/L (0.7-2.1) 05/29/17 22:10 Calcium 8.7 mg/dL (8.4-10.2) 05/29/17 22:10 Phosphorus 2.9 mg/dl (2.5-4.5) 05/29/17 22:10 Magnesium 1.6 MG/DL (1.6-2.3) 05/29/17 22:10 Total Bilirubin 1.4 mg/dl (0.2-1.3) H 05/29/17 22:10 AST 62 U/L (17-59) H D 05/29/17 22:10 ALT 36 U/L (21-72) 05/29/17 22:10 Alkaline Phosphatase 95 U/L (38-126) 05/29/17 22:10 Ammonia 89 umo/L (16-60) H* D 05/29/17 22:10 Total Protein 7.7 G/DL (6.3-8.2) 05/29/17 22:10 Albumin 3.2 g/dL (3.5-5.0) L 05/29/17 22:10 Globulin 4.4 gm/dL (2.2-3.9) H 05/29/17 22:10 Albumin/Globulin Ratio 0.7 (1.0-2.1) L 05/29/17 22:10 Lipase 293 U/L (23-300) 05/29/17 22:10 Stool Occult Blood Positive (NEGATIVE) H 05/29/17 22:46 Urine Opiates Screen Negative (NEGATIVE) 05/30/17 02:47 Urine Methadone Screen Negative (NEGATIVE) 05/30/17 02:47 Ur Barbiturates Screen Negative (NEGATIVE) 05/30/17 02:47 Ur Phencyclidine Scrn Negative (NEGATIVE) 05/30/17 02:47 Ur Amphetamines Screen Negative (NEGATIVE) 05/30/17 02:47 U Benzodiazepines Scrn Negative (NEGATIVE) 05/30/17 02:47 U Oth Cocaine Metabols Negative (NEGATIVE) 05/30/17 02:47 U Cannabinoids Screen Negative (NEGATIVE) 05/30/17 02:47 Alcohol, Quantitative 116 mg/dl (0-10) H 05/29/17 22:10 Blood Type O POSITIVE 05/29/17 21:44 Antibody Screen Negative 05/29/17 21:44 BBK History Checked Patient has bt 05/29/17 21:44 - Hospital Course Hospital Course: The patient 56 y/o man w/ pmh of chronic gastritis, liver cirrhosis, non- bleeding gastric and esophageal varices, chronic EtOH abuse, tobacco abuse, and depression presents to ED c/o 2 black stool BM today in the morning associated with 1 bloody vomiting small amount prior to come to ED. The patient had vitals signs WNL, CBC showing chronic anemia, CMP showing hypokalemia, ammonia 89, ETOH 116, CXR WNL, EKG shows no acute changes. Patient given IVF NS 1L, IV protonix, IV Octroetide, IV KCl 10 meq x2. Patient was seen and examined later in the morning. Patient reports no nausea or vomiting. Patient was seen by GI consult, had rectal exam that showed normal brown stool w/ no blood. Patient given meal for PO challenge and tolerated. Patient counseled for alcohol cessation. Patient has been seen, examined, and deemed medically fit for discharge home. Patient to follow up w/ PMD. Discharge Exam - Head Exam Head Exam: ATRAUMATIC, NORMAL INSPECTION, NORMOCEPHALIC - Eye Exam Eye Exam: Normal appearance - ENT Exam ENT Exam: Mucous Membranes Moist - Respiratory Exam Respiratory Exam: Clear to PA & Lateral. absent: Decreased Breath Sounds, Rales , Rhonchi, Wheezes, Respiratory Distress - Cardiovascular Exam Cardiovascular Exam: REGULAR RHYTHM. absent: Tachycardia - GI/Abdominal Exam GI & Abdominal Exam: Normal Bowel Sounds, Soft. absent: Distended, Guarding, Rebound, Tenderness - Extremities Exam Extremities exam: normal inspection - Neurological Exam Neurological exam: Alert, Oriented x3 - Skin Skin Exam: Dry, Intact, Warm Discharge Plan - Follow Up Plan Condition: STABLE Disposition: HOME/ ROUTINE Patient education suggested?: Yes Instructions: Gastrointestinal Bleeding (DC), Gastrointestinal Bleeding (GEN), Rectal Bleeding (DC), Rectal Bleeding (GEN) Referrals: [facility] [Outside]
[2017-05-30 13:39] VITALS: RESP 15
--- NOTE | 2017-05-30 17:08 | CARD ---
APPROVED REPORT EKG Measurement Heart [id number] <Conclusion> Normal sinus rhythm Possible Left atrial enlargement Low voltage QRS Prolonged QT Abnormal ECG
== END 2017-05-30 16:04 | disposition home or self-care (01) ==
LOC: H.ER 20:26 → H.ERHOLD 22:55 → H.TEL 05-30 01:46
PROVIDERS: ADMIT Family Medicine Geriatric Medicine; ATTEND Family Medicine Geriatric Medicine
DX: K92.2 Gastrointestinal hemorrhage, unspecified (principal); K70.30 Alcoholic cirrhosis of liver without ascites; K76.6 Portal hypertension; F32.9 Major depressive disorder, single episode, unspecified; F41.9 Anxiety disorder, unspecified; I10 Essential (primary) hypertension; F17.210 Nicotine dependence, cigarettes, uncomplicated; E72.20 Disorder of urea cycle metabolism, unspecified; K20.9 Esophagitis, unspecified; K29.50 Unspecified chronic gastritis without bleeding; I86.4 Gastric varices; I85.00 Esophageal varices without bleeding; E87.6 Hypokalemia; F10.10 Alcohol abuse, uncomplicated; K31.89 Other diseases of stomach and duodenum; K26.9 Duodenal ulcer, unspecified as acute or chronic, without hemorrhage or perforation; D64.9 Anemia, unspecified
CPT/HCPCS: 71045; 80053; 80320; 80324; 80345; 80346; 80349; 80353; 80358; 80361; 82140; 83605; 83690; 83735; 83992; 84100; 85025; 85610; 85730; 86850; 86900; 93005; 96361; 96365; 96366; 96368; 96375; 96376; 99284; C9113; G0328; G0378; J2354; J2405; J3480; J7040

== ENCOUNTER 2017-06-26 01:58 | Emergency (ER) | payer OTHER ==
[2017-06-26 01:58] VITALS: BMI 19.1
[2017-06-26 02:12] VITALS: BP 115/68; PULSE 98; RESP 16; TEMP 97.6; O2SAT 96
[2017-06-26] MEDS ORDERED: Sodium Chloride 0.9% 1,000 ML IV STA (02:31)
[2017-06-26 03:27] LABS: BASO % 0.4 % (0.0-2.0); EOS % 0.2 % (0.0-4.0); HEMOGLOBIN 10.3 g/dL (12.0-18.0); LYMPH # 0.3 K/uL (1.0-4.3); LYMPH % 6.1 % (20.0-40.0); MEAN CELL VOLUME 92.4 fl (80.0-94.0); MEAN CORPUSCULAR HEMOGLOBIN 31.3 pg (27.0-31.0); MEAN CORPUSCULAR HGB CONC 33.9 g/dL (33.0-37.0); MEAN PLATELET VOLUME 8.3 fl (7.2-11.7); MONO % 20.1 % (0.0-10.0); NEUT # 3.7 K/uL (1.8-7.0); NEUT % 73.2 % (50.0-75.0); NRBC % 0.2 % (0.0-0.0); PLATELET COUNT 99 K/uL (130-400); RED CELL DISTRIBUTION WIDTH 18.6 % (11.5-14.5)
[2017-06-26 03:42] LABS: ALB/GLOB RATIO 0.8 (1.0-2.1); ALBUMIN 3.3 g/dL (3.5-5.0); ALT/SGPT 31 U/L (21-72); AST/SGOT 61 U/L (17-59); BLOOD UREA NITROGEN 14 mg/dl (9-20); CALCIUM 8.9 mg/dL (8.4-10.2); GFR AFRICAN-AMERICAN > 60; GFR NON-AFRICAN AMERICAN > 60; LIPASE 104 U/L (23-300)
--- NOTE | 2017-06-26 04:19 | ED PDOC ---
HPI: Abdomen Time Seen by Provider: 06/26/17 02:16 Chief Complaint (Nursing): Abdominal Pain Chief Complaint (Provider): Abdominal Pain History Per: Patient History/Exam Limitations: no limitations Onset/Duration Of Symptoms: Days (x1) Current Symptoms Are (Timing): Still Present Location Of Pain/Discomfort: Epigastric Associated Symptoms: Vomiting. denies: Fever, Chills, Diarrhea, Constipation, Urinary Symptoms Additional Complaint(s): 56 year old male presents to ED with complaints of abdominal pain x1 day and has a past medical history of EtOH abuse, cirrhosis, GI bleed, and chronic gastritis. Describes pain as burning and localizes it to the epigastric region. (+) vomiting x5-6 episodes (non-bloody, non-bilious). (-) fever, chills, urinary symptoms, diarrhea, or constipation. Patient notes dark stools but reports he takes iron supplements. PCP: [facility] Past Medical History Reviewed: Historical Data, Nursing Documentation, Vital Signs Vital Signs: Last Vital Signs Temp 97.6 F 06/26/17 02:08 Pulse 98 H 06/26/17 02:08 Resp 16 06/26/17 02:08 BP 115/68 06/26/17 02:08 Pulse Ox 96 06/26/17 05:55 - Medical History PMH: Anemia, Anxiety, Depression, Fractures (L ankle sx), Gastritis, HTN Denies: HIV, Hypercholesterolemia, Chronic Kidney Disease - Surgical History Surgical History: Endoscopy - Family History Family History: States: Unknown Family Hx - Social History Alcohol: > 2 Drinks/Day - Home Medications Home Medications: Ambulatory Orders Medication Instructions Recorded Thiamine Mononitrate [Vitamin B-1] 100 mg PO DAILY #30 tablet 06/27/16 Folic Acid 1 mg PO DAILY 10/22/16 Ferrous Sulfate [Feosol] 325 mg PO BID 02/21/17 Spironolactone [Aldactone] 25 mg PO BID 02/21/17 Albuterol HFA [Ventolin HFA 90 1 inh INH Q8 PRN 05/29/17 mcg/actuation (8 g)] Lansoprazole [Prevacid] 15 mg PO DAILY 05/29/17 Propranolol HCl 10 mg PO BID 05/29/17 Lansoprazole [Prevacid 24Hr] 15 mg PO DAILY #30 capsule. 06/26/17 - Allergies Allergies/Adverse Reactions: Allergies Allergy/AdvReac Type Severity Reaction Status Date / Time No Known Allergies Allergy Verified 05/29/17 21:38 Review of Systems ROS Statement: Except As Marked, All Systems Reviewed And Found Negative Constitutional: Negative for: Fever, Chills Gastrointestinal: Positive for: Vomiting, Abdominal Pain, Melena. Negative for : Diarrhea, Constipation Genitourinary Male: Negative for: Dysuria, Frequency, Incontinence, Hematuria Physical Exam - Reviewed Nursing Documentation Reviewed: Yes Vital Signs Reviewed: Yes - Physical Exam Appears: Positive for: Non-toxic, No Acute Distress Skin: Positive for: Normal Color, Warm, DRY Eye Exam: Positive for: Normal appearance, EOMI ENT: Positive for: Normal ENT Inspection Neck: Positive for: Normal Cardiovascular/Chest: Positive for: Regular Rate, Rhythm. Negative for: Murmur Respiratory: Positive for: Normal Breath Sounds. Negative for: Respiratory Distress Gastrointestinal/Abdominal: Positive for: Soft, Tenderness (epigastric TTP). Negative for: Normal Exam Extremity: Positive for: Normal ROM. Negative for: Deformity Neurologic/Psych: Positive for: Alert, Oriented. Negative for: Motor/Sensory Deficits - Laboratory Results Result Diagrams: 06/26/17 03:15 06/26/17 03:15 - ECG O2 Sat by Pulse Oximetry: 96 (RA) Pulse Ox Interpretation: Normal Medical Decision Making Medical Decision Makin Initial impression: alcoholic gastritis Initial plan: * EtOH Serum * Labs * UDrug screen * Labs * NS IV * Protonix Inj 40mg IVP * Zofran Inj 4mg IVP * UA * Re-eval 0553 Upon re-evaluation patient is feeling much better and is able to tolerate PO. Patient will be discharged home. Return precautions discussed with patient. Advised to stop drinking alcohol. Scribe Attestation: Documented by Laila Pozo acting as a scribe for Maciej Bhagat MD. DO Scribe Attestation: All medical record entries made by the Scribe were at my direction and personally dictated by me. I have reviewed the chart and agree that the record accurately reflects my personal performance of the history, physical exam, medical decision making, and the department course for this patient. I have also personally directed, reviewed, and agree with the discharge instructions and disposition. Disposition - Clinical Impression Clinical Impression: Alcohol abuse, Alcoholic gastritis - Disposition Referrals: Elidia Urbina MD [Primary Care Provider] - Disposition: Routine/Home Disposition Time: 05:53 Condition: STABLE Prescriptions: Lansoprazole [Prevacid 24Hr] 15 mg PO DAILY #30 capsule. Instructions: Gastritis, Alcohol Abuse and Alcoholism (DC) Forms: [facility] (Finnish)
[2017-06-26 05:01] LABS: BANDS 3 % (0-2); BASOPHIL 3 % (0-2); LYMPHOCYTE 8 % (20-50); MONOCYTE 14 % (0-10); NEUTROPHIL 72 % (42-75); TOTAL CELLS COUNTED 100
[2017-06-26 05:02] LABS: PLATELET ESTIMATE DECREASED (NORMAL)
[2017-06-26 05:03] LABS: ANISOCYTOSIS SLIGHT; HYPOCHROMIC SLIGHT
== END 2017-06-26 06:57 | disposition home or self-care (01) ==
LOC: H.ER 01:58
DX: K29.20 Alcoholic gastritis without bleeding (principal); F10.10 Alcohol abuse, uncomplicated; Y90.4 Blood alcohol level of 80-99 mg/100 ml
CPT/HCPCS: 80053; 80320; 83690; 85025; 96374; 96375; 99282; C9113; J2405; J7040

== ENCOUNTER 2017-08-16 20:31 | Inpatient (IN) | payer OTHER ==
[2017-08-16 20:31] VITALS: BMI 19.1
[2017-08-16] MEDS ORDERED: Sodium Chloride 0.9% 1,000 ML IV STA (20:57)
--- NOTE | 2017-08-16 21:17 | ED PDOC ---
HPI: Abdomen Time Seen by Provider: 08/16/17 20:46 Chief Complaint (Nursing): GI Problem Chief Complaint (Provider): Vomiting blood History Per: Patient History/Exam Limitations: no limitations Additional Complaint(s): Pt states he drank 2 beers today and then had one episode of bloody vomiting and one episode of black stool, associated with epigastric pain. Denies fever, CP, SOB, dysuria, hematuria. Past Medical History Reviewed: Nursing Documentation, Vital Signs Vital Signs: Last Vital Signs Temp 97.8 F 08/21/17 07:43 Pulse 69 08/21/17 08:28 Resp 19 08/21/17 07:43 BP 114/74 08/21/17 08:28 Pulse Ox 100 08/22/17 12:07 - Medical History PMH: Anemia, Anxiety, Depression, Fractures (L ankle sx), Gastritis, HTN Denies: HIV, Hypercholesterolemia, Chronic Kidney Disease - Surgical History Surgical History: Endoscopy - Family History Family History: States: Unknown Family Hx - Home Medications Home Medications: Ambulatory Orders Medication Instructions Recorded Spironolactone [Aldactone] 25 mg PO DAILY 08/16/17 Carvedilol [Coreg] 3.125 mg PO Q12 #60 tab 08/21/17 Ciprofloxacin [Cipro] 500 mg PO BID #6 tab 08/21/17 FLUoxetine [Prozac] 10 mg PO DAILY #30 cap 08/21/17 Ferrous Sulfate [Feosol] 325 mg PO DAILY #30 tab 08/21/17 Metronidazole [Flagyl] 500 mg PO BID 7 Days #14 tablet 08/21/17 Mv-Min/Folic/Vit K/Lycop/Coq10 1 cap PO DAILY #30 capsule 08/21/17 [Daily Multivitamin Capsule] Temazepam [Restoril] 30 mg PO HS #30 capsule 08/21/17 Thiamine HCl [B-1] 100 mg PO DAILY #30 tablet 08/21/17 - Allergies Allergies/Adverse Reactions: Allergies Allergy/AdvReac Type Severity Reaction Status Date / Time No Known Allergies Allergy Verified 05/29/17 21:38 Review of Systems Constitutional: Negative for: Fever, Chills Cardiovascular: Negative for: Chest Pain, Palpitations Respiratory: Negative for: Cough, Shortness of Breath Gastrointestinal: Positive for: Nausea, Vomiting, Abdominal Pain, Melena, Hematemesis. Negative for: Diarrhea Genitourinary Male: Negative for: Dysuria, Hematuria Skin: Negative for: Rash, Lesions Neurological: Negative for: Headache, Dizziness Physical Exam - Reviewed Nursing Documentation Reviewed: Yes Vital Signs Reviewed: Yes - Physical Exam Appears: Positive for: Well, No Acute Distress Skin: Positive for: Normal Color, Warm, Dry Eye Exam: Positive for: Normal appearance, EOMI, PERRL Cardiovascular/Chest: Positive for: Regular Rate, Rhythm Respiratory: Positive for: Normal Breath Sounds Gastrointestinal/Abdominal: Positive for: Bowel Sounds, Soft, Tenderness ( Epigastric). Negative for: Guarding, Rebound Rectal: Positive for: Stool Is Heme: (Pending). Negative for: Black Stool, Blood Streaked Stool, Tenderness Extremity: Positive for: Normal ROM Neurologic/Psych: Positive for: Alert, Oriented - Laboratory Results Result Diagrams: 08/21/17 05:50 08/21/17 05:50 - ECG O2 Sat by Pulse Oximetry: 100 Pulse Ox Interpretation: Normal Medical Decision Making Medical Decision Makin yo male with hematemesis and black stool s/p alcohol use. - labs - EKG - CXR - Protonix - IVF - Zofran 22:[address] Pang (GI fellow). Disposition - Clinical Impression Clinical Impression: GI bleed - Patient ED Disposition Is Patient to be Admitted: Yes - Disposition Disposition Time: 22:57 Condition: STABLE - Pt Status Changed To: Hospital Disposition Of: Inpatient - Admit Certification Admit to Inpatient:: After my assessment, the patient will require hospitalization for at least two midnights. This is because of the severity of symptoms shown, intensity of services needed, and/or the medical risk in this patient being treated as an outpatient. - POA Present On Arrival: None
[2017-08-16 21:29] LABS: ALB/GLOB RATIO 0.7 (1.0-2.1); ALBUMIN 3.1 g/dL (3.5-5.0); CALCIUM 8.3 mg/dL (8.4-10.2); GFR AFRICAN-AMERICAN > 60; GFR NON-AFRICAN AMERICAN > 60
[2017-08-16 21:34] LABS: ALT/SGPT 48 U/L (21-72); AST/SGOT 133 U/L (17-59); BLOOD UREA NITROGEN 11 mg/dl (9-20)
[2017-08-16 21:35] LABS: BASO % 1.8 % (0.0-2.0); EOS # 0.1 K/uL (0.0-0.7); EOS % 4.7 % (0.0-4.0); HEMOGLOBIN 8.9 g/dL (12.0-18.0); LYMPH # 0.4 K/uL (1.0-4.3); LYMPH % 13.9 % (20.0-40.0); MEAN CELL VOLUME 84.2 fl (80.0-94.0); MEAN CORPUSCULAR HEMOGLOBIN 26.8 pg (27.0-31.0); MEAN CORPUSCULAR HGB CONC 31.8 g/dL (33.0-37.0); MEAN PLATELET VOLUME 8.4 fl (7.2-11.7); MONO # 0.5 K/uL (0.0-0.8); MONO % 18.5 % (0.0-10.0); NEUT # 1.6 K/uL (1.8-7.0); NEUT % 61.1 % (50.0-75.0); NRBC % 0.2 % (0.0-0.0); RBC 3.33 Mil/uL (4.40-5.90); RED CELL DISTRIBUTION WIDTH 18.5 % (11.5-14.5); WHITE BLOOD COUNT 2.6 K/uL (4.8-10.8)
[2017-08-16 21:50] LABS: INR 1.5 (0.9-1.2); PROTHROMBIN TIME 16.8 Seconds (9.8-13.1)
[2017-08-16] MEDS ORDERED: Multivitamin (MVI) 10 ML, Thiamine 100 MG, Folic Acid 1 MG in Sodium Chloride 0.9% 1,00... IV ONE (22:30)
[2017-08-16] MEDS ORDERED: Sodium Chloride 0.9% 1,000 ML IV SCH (23:45)
--- NOTE | 2017-08-17 | CP.PCM.HP ---
Addendum entered and electronically signed by Gerber Whipple MD 08/17/17 11:45: Pt seen and examined at bedside this AM. Reports recent hematochezia. H/H: at 14:00 GI: Binh: MELD 16, protonix, octreotide, rocephin, H/H, NPO, LFT, Thiamine and Folate; EGD planned for tomorrow 08/18/2017 Transfer to M/S. Consider BB for future: nonbleeding varices. Original Note: History of Present Illness - History of Present Illness History of Present Illness: 57 yo ,m, PMhx/o chronic gastritis, liver cirrhosis, non-bleeding gastric and esophageal varices, chronic EtOH abuse, tobacco abuse, and depression presents to ED c/o epigastric abdominal pain started at noon 12 pm after he drunk 2 beers , intermittent, not radiated, associated with nausea, 2 bloody vomiting ( last vomiting in Ed) and 1 episode of melena. He denies using drugs , fever, chest pain, SOB, cough, diarrhea, dysuria, rash, abd trauma, fall. Patient reports feeling with lightheadedness for several days. On evaluation in ED patient AAO x 3, asymptomatic but noticed with low BP: 99/64 , manual 100/60, no tachycardia, afebrile. Iv fluids given. Last BP before transfer to telemetry 102/60 by nurse PMD: [facility] last seen 05/10/17 Dr Gardner Allergies: N.K.D.A PMHx: Chronic gastritis w/ multiple admissions for UGIB, Liver cirrhosis, gastric and esophageal varices, Chronic ETOH abuse, Tobacco abuse, Depression meds: By ECW. folic acid 1 mg PO daily, protonix 40 mg PO daily, spironolactone 25 mg pO BID, PSHx: Left lower ext ankle surgery; Right inguinal hernia repair 2014 Fam: Father had hx of Colon cancer, EtOH abuse, mother had hx of stomach cancer ; both in their 60-70s; brother also had hx of EtOH abuse, and of EtOH related complications. SOC: EtOH abuse, off and on abstinence; smokes 8-10 cigarettes a day x 30+ pack years, current smoker; denies illicit drug abuse ED Course VS: normal except BP: 94/56 PE: Abd: TD to palpation epigastrium, no guarding, no rebound td. Labs: CBC: 2.6>8.9<80 INR: 1.5 CMP: Goran 1.8 AST: 133 ALT: 48 albumin: 3/1 Guaiac:positive ETOH: 207 Imaging: EKG: NSR. T wave neg V1-V3 asymetric same like EKG .asymptomatic Meds: Banana Bag. IF fluids 2 L, Pantoprazol 40 mg IV , Zofran 4m IV Case discussed with Dr. Pang (GI fellow). Present on Admission - Present on Admission Any Indicators Present on Admission: No History of DVT/PE: No History of Uncontrolled Diabetes: No Urinary Catheter: No Decubitus Ulcer Present: No Review of Systems - Review of Systems All systems: reviewed and no additional remarkable complaints except - Cardiovascular Cardiovascular: As Per HPI - Respiratory Respiratory: As Per HPI - Gastrointestinal Gastrointestinal: Heartburn, Hematemesis, Melena, Vomiting Past Patient History - Infectious Disease Hx of Infectious Diseases: None - Tetanus Immunizations Tetanus Immunization: Unknown - Past Medical History & Family History Past Medical History?: Yes - Past Social History Smoking Status: Light Smoker < 10 Cigarettes Daily - CARDIAC Hx Hypercholesterolemia: No Hx Hypertension: Yes - PULMONARY Hx Respiratory Disorders: No - NEUROLOGICAL Hx Neurological Disorder: No - HEENT Hx HEENT Problems: No - RENAL Hx Chronic Kidney Disease: No - ENDOCRINE/METABOLIC Hx Endocrine Disorders: No - HEMATOLOGICAL/ONCOLOGICAL Hx Anemia: Yes Hx Human Immunodeficiency Virus (HIV): No - INTEGUMENTARY Hx Dermatological Problems: No - MUSCULOSKELETAL/RHEUMATOLOGICAL Hx Fractures: Yes (L ankle sx) - GASTROINTESTINAL Hx Gastritis: Yes - GENITOURINARY/GYNECOLOGICAL Hx Genitourinary Disorders: No - PSYCHIATRIC Hx Anxiety: Yes Hx Depression: Yes - SURGICAL HISTORY Hx Surgeries: Yes Hx Herniorrhaphy: Yes Other/Comment: ANKLE SURGERY - ANESTHESIA Hx Anesthesia: Yes Hx Anesthesia Reactions: No Hx Malignant Hyperthermia: No Meds Allergies/Adverse Reactions: Allergies Allergy/AdvReac Type Severity Reaction Status Date / Time No Known Allergies Allergy Verified 05/29/17 21:38 Results - Vital Signs Recent Vital Signs: Last Vital Signs Temp 98.5 F 08/16/17 20:37 Pulse 86 08/16/17 23:27 Resp 18 08/16/17 23:27 BP 99/64 L 08/16/17 23:27 Pulse Ox 99 08/16/17 23:27 - Labs Result Diagrams: 08/16/17 21:09 08/16/17 21:09 Labs: Laboratory Results - last 24 hr 08/16/17 08/16/17 08/16/17 21:09 21:09 21:09 WBC 2.6 L RBC 3.33 L Hgb 8.9 L Hct 28.0 L MCV 84.2 D MCH 26.8 L MCHC 31.8 L RDW 18.5 H Plt Count 80 L MPV 8.4 Neut % (Auto) 61.1 Lymph % (Auto) 13.9 L Jack % (Auto) 18.5 H Eos % (Auto) 4.7 H Baso % (Auto) 1.8 Neut # (Auto) 1.6 L Lymph # (Auto) 0.4 L Jack # (Auto) 0.5 Eos # (Auto) 0.1 Baso # (Auto) 0.0 PT INR APTT Sodium 144 Potassium 4.6 Chloride 110 H Carbon Dioxide 18 L Anion Gap 21 H BUN 11 Creatinine 0.5 L Est GFR ( Amer) > 60 Est GFR (Non-Af Amer) > 60 Random Glucose 109 Calcium 8.3 L Total Bilirubin 1.8 H AST 133 H D ALT 48 Alkaline Phosphatase 97 Total Protein 7.6 Albumin 3.1 L Globulin 4.5 H Albumin/Globulin Ratio 0.7 L Stool Occult Blood Positive H Alcohol, Quantitative 207 H Blood Type Antibody Screen BBK History Checked 08/16/17 08/16/17 21:09 21:09 WBC RBC Hgb Hct MCV MCH MCHC RDW Plt Count MPV Neut % (Auto) Lymph % (Auto) Jack % (Auto) Eos % (Auto) Baso % (Auto) Neut # (Auto) Lymph # (Auto) Jack # (Auto) Eos # (Auto) Baso # (Auto) PT 16.8 H INR 1.5 H APTT 37.0 Sodium Potassium Chloride Carbon Dioxide Anion Gap BUN Creatinine Est GFR ( Amer) Est GFR (Non-Af Amer) Random Glucose Calcium Total Bilirubin AST ALT Alkaline Phosphatase Total Protein Albumin Globulin Albumin/Globulin Ratio Stool Occult Blood Alcohol, Quantitative Blood Type O POSITIVE Antibody Screen Negative BBK History Checked Patient has bt Assessment & Plan - Assessment and Plan (Free Text) Plan: 56 yo ,m, PMhx/o chronic gastritis, liver cirrhosis, non-bleeding gastric and esophageal varices, chronic EtOH abuse, tobacco abuse, and depression admitted for upper GI bleeding Assessment/Plan 1) Upper GI bleeding -secondary to gastric or esophageal varices -hematemesis seen in Ed - Endoscopy (02/22/2017) Impression: Grade 2 esophageal varices, completely eradicated, portal hypertensive gastropathy, duodenal erosions w/o bleeding -NPO -s/P NS 2 l Ed -Fluids 105 ml/h NS -s/p Protonix ED -protonix drip -hold aldactone due to hypotension -GI Consult suggested: Case discussed with Dr. Pang (GI fellow). 2) Liver cirrhosis -secondary to ETOH abuse -bil1.8 , albumin low - consider SBP prophylaxis - Hep A, B, C negative 3) Pancytopenia -chronic -Secondary to alcoholic liver cirrhosis and hypersplenism -f/u cbc 4) Hypotension May be secondary to GI bleeding, but not tachycardic, no AMS -baseline Low BP -IV fluids 2 l -f/u vitals 5) ETOH abuse -restarted drinking 6) DVT Prophylaxis -SCD
[2017-08-17] MEDS: Pantoprazole 40 MG in Sodium Chloride 0.9% 100 ML IVPB SCH ×4 (01:30→18:08)
[2017-08-17] MEDS: Sodium Chloride 0.9% 1,000 ML IV SCH ×2 (01:46→14:35)
[2017-08-17 06:40] LABS: BASO % 1.3 % (0.0-2.0); EOS # 0.1 K/uL (0.0-0.7); EOS % 1.6 % (0.0-4.0); HEMOGLOBIN 7.8 g/dL (12.0-18.0); LYMPH # 0.4 K/uL (1.0-4.3); LYMPH % 12.5 % (20.0-40.0); MEAN CELL VOLUME 84.6 fl (80.0-94.0); MEAN CORPUSCULAR HEMOGLOBIN 26.4 pg (27.0-31.0); MEAN CORPUSCULAR HGB CONC 31.2 g/dL (33.0-37.0); MEAN PLATELET VOLUME 8.4 fl (7.2-11.7); MONO # 0.8 K/uL (0.0-0.8); MONO % 24.3 % (0.0-10.0); NEUT # 1.9 K/uL (1.8-7.0); NEUT % 60.3 % (50.0-75.0); NRBC % 0.5 % (0.0-0.0); PLATELET COUNT 44 K/uL (130-400); RBC 2.96 Mil/uL (4.40-5.90); RED CELL DISTRIBUTION WIDTH 18.4 % (11.5-14.5); WHITE BLOOD COUNT 3.2 K/uL (4.8-10.8)
[2017-08-17 07:20] LABS: INR 1.7 (0.9-1.2); PROTHROMBIN TIME 18.9 Seconds (9.8-13.1)
[2017-08-17 07:21] LABS: PARTIAL THROMBOPLASTIN TIME 38.6 Seconds (25.6-37.1)
[2017-08-17 07:41] LABS: ALB/GLOB RATIO 0.6 (1.0-2.1); ALBUMIN 2.6 g/dL (3.5-5.0); ALT/SGPT 51 U/L (21-72); AST/SGOT 163 U/L (17-59); BLOOD UREA NITROGEN 12 mg/dl (9-20); CALCIUM 7.5 mg/dL (8.4-10.2); GFR AFRICAN-AMERICAN > 60; GFR NON-AFRICAN AMERICAN > 60
[2017-08-17 07:54] LABS: URINE BILIRUBIN NEGATIVE (NEGATIVE); URINE BLOOD SMALL (NEGATIVE); URINE CLARITY CLEAR (Clear); URINE COLOR YELLOW (YELLOW); URINE GLUCOSE (UA) NEG (Normal); URINE LEUKOCYTE ESTERASE NEG Leu/uL (Negative); URINE PROTEIN NEGATIVE (NEGATIVE)
--- NOTE | 2017-08-17 09:52 | CARD ---
APPROVED REPORT EKG Measurement Heart [id number] <Conclusion> Normal sinus rhythm T wave abnormality, consider anterior ischemia Abnormal ECG
[2017-08-17 10:24] LABS: ANISOCYTOSIS SLIGHT; BANDS 2 % (0-2); LYMPHOCYTE 10 % (20-50); MONOCYTE 14 % (0-10); NEUTROPHIL 74 % (42-75); PLATELET ESTIMATE DECREASED (NORMAL); TOTAL CELLS COUNTED 100
[2017-08-17 10:25] LABS: HYPOCHROMIC MODERATE; OVALOCYTES SLIGHT; SCHISTOCYTES SLIGHT; TARGET CELLS SLIGHT; TEARDROP CELLS SLIGHT
--- NOTE | 2017-08-17 10:28 | CP.PCM.CON ---
<Jenny Purcell - Last Filed: 08/17/17 14:24> History of Present Illness - History of Present Illness History of Present Illness: GI Fellow PGY4 Consult Note This is a 57 y/o male with PMHx of chronic gastritis, alcoholic liver cirrhosis , gastric and esophageal varices, chronic EtOH abuse, tobacco abuse, depression who presents to ED complaining of hematemesis. Pt reports again starting to drink ETOH yesterday and drank >4 beers. Per the ER attending pt had one episode of hematemesis but was hemodynamically stable and it resolved after anti -emetic therapy. On evaluation pt reports having black stools overnight with reported 4 BM till this am, GI service was not called about melanotic stool overnight and this am. Pt is also supposed to be on NSBB for Esophageal varices but is noncompliant with his medications and does not recall taking it. Pt's initial Hgb was 8.9 but dropped to 7.9 this morning with melanotic stool on exam but no more hematemesis. Patient denies any chest pain, SOB, dizziness, palapations, or diaphoresis. Pt was started on PPI drip and admitted to telemetry. ROS: A 12pt ROS was negative except as above PMHx:As stated in HPI PSHx: Left lower ext ankle surgery; Right inguinal hernia repair SHx: EtOH abuse; smokes 8-10 cigarettes a day x 30+ pack years, denies illicit drug abuse FHx: Father had hx of Colon cancer, EtOH abuse, mother had hx of stomach cancer ; brother also had hx of EtOH abuse, and of EtOH related complications Endoscopy Hx: EGD 04/2017 with Grade I varices, EGD 02/2017: grade 2 varices with red whale sign s/p x4 esophageal variceal bands, Endoscopy (08/08) Impression: Grade 1 esophageal varices. Chronic gastritis. Normal duodenal bulb and 2nd part of the duodenum. Past Patient History - Infectious Disease Hx of Infectious Diseases: None - Tetanus Immunizations Tetanus Immunization: Unknown - Past Medical History & Family History Past Medical History?: Yes - Past Social History Smoking Status: Light Smoker < 10 Cigarettes Daily - CARDIAC Hx Hypercholesterolemia: No Hx Hypertension: Yes - PULMONARY Hx Respiratory Disorders: No - NEUROLOGICAL Hx Neurological Disorder: No - HEENT Hx HEENT Problems: No - RENAL Hx Chronic Kidney Disease: No - ENDOCRINE/METABOLIC Hx Endocrine Disorders: No - HEMATOLOGICAL/ONCOLOGICAL Hx Anemia: Yes Hx Human Immunodeficiency Virus (HIV): No - INTEGUMENTARY Hx Dermatological Problems: No - MUSCULOSKELETAL/RHEUMATOLOGICAL Hx Fractures: Yes (L ankle sx) - GASTROINTESTINAL Hx Gastritis: Yes - GENITOURINARY/GYNECOLOGICAL Hx Genitourinary Disorders: No - PSYCHIATRIC Hx Anxiety: Yes Hx Depression: Yes - SURGICAL HISTORY Hx Surgeries: Yes Hx Herniorrhaphy: Yes Other/Comment: ANKLE SURGERY - ANESTHESIA Hx Anesthesia: Yes Hx Anesthesia Reactions: No Hx Malignant Hyperthermia: No Meds Allergies/Adverse Reactions: Allergies Allergy/AdvReac Type Severity Reaction Status Date / Time No Known Allergies Allergy Verified 05/29/17 21:38 - Medications Medications: Current Medications Sodium Chloride (Sodium Chloride 0.9%) 1,000 mls @ 1,000 mls/hr IV .Q1H LEROY Stop: 08/17/17 23:44 Last Admin: 08/16/17 23:58 Dose: 1,000 mls/hr Pantoprazole Sodium 40 mg/ (Sodium Chloride) 100 mls @ 20 mls/hr IVPB Q5H LEROY PRN Reason: 8 MG/HR Last Admin: 08/17/17 08:49 Dose: 20 mls/hr Sodium Chloride (Sodium Chloride 0.9%) 1,000 mls @ 105 mls/hr IV .Q9H32M LEROY Stop: 08/18/17 01:15 Last Admin: 08/17/17 01:46 Dose: 105 mls/hr Octreotide Acetate 1,250 mcg/ (Sodium Chloride) 252.5 mls @ 10.1 mls/hr IV .Q24H LEROY; 50 MCG/HR PRN Reason: Protocol Ceftriaxone Sodium 1 gm/ (Sodium Chloride) 100 mls @ 100 mls/hr IVPB DAILY LEROY PRN Reason: Protocol Morphine Sulfate (Morphine) 2 mg IVP Q6 PRN PRN Reason: Pain, moderate (4-7) Ondansetron HCl (Zofran Inj) 4 mg IVP Q6 PRN PRN Reason: Nausea/Vomiting Thiamine HCl (Vitamin B1 Inj) 100 mg IM DAILY LEROY Physical Exam - Constitutional Appears: Non-toxic, No Acute Distress - Head Exam Head Exam: NORMOCEPHALIC - Eye Exam Eye Exam: EOMI, Normal appearance Pupil Exam: PERRL - ENT Exam ENT Exam: Mucous Membranes Dry - Neck Exam Neck exam: Positive for: Full Rom - Respiratory Exam Respiratory Exam: Clear to Auscultation Bilateral, NORMAL BREATHING PATTERN - Cardiovascular Exam Cardiovascular Exam: REGULAR RHYTHM, RRR, +S1, +S2 - GI/Abdominal Exam GI & Abdominal Exam: Normal Bowel Sounds, Soft. absent: Distended, Guarding, Organomegaly, Tenderness - Rectal Exam Rectal Exam: Black Stool - Extremities Exam Extremities exam: Positive for: full ROM, normal inspection - Back Exam Back exam: NORMAL INSPECTION - Neurological Exam Neurological exam: Alert, Oriented x3 - Psychiatric Exam Psychiatric exam: Normal Affect, Normal Mood - Skin Skin Exam: Dry, Intact, Normal Color, Warm Results - Vital Signs Recent Vital Signs: Last Vital Signs Temp 98.4 F 08/17/17 08:06 Pulse 76 08/17/17 08:21 Resp 18 08/17/17 08:06 BP 101/60 08/17/17 08:06 Pulse Ox 97 08/17/17 08:06 - Labs Result Diagrams: 08/17/17 06:10 08/17/17 06:10 Labs: Laboratory Results - last 24 hr 08/16/17 08/16/17 08/16/17 21:09 21:09 21:09 WBC 2.6 L RBC 3.33 L Hgb 8.9 L Hct 28.0 L MCV 84.2 D MCH 26.8 L MCHC 31.8 L RDW 18.5 H Plt Count 80 L MPV 8.4 Neut % (Auto) 61.1 Lymph % (Auto) 13.9 L [place] % (Auto) 18.5 H Eos % (Auto) 4.7 H Baso % (Auto) 1.8 Neut # (Auto) 1.6 L Lymph # (Auto) 0.4 L [place] # (Auto) 0.5 Eos # (Auto) 0.1 Baso # (Auto) 0.0 PT INR APTT Sodium 144 Potassium 4.6 Chloride 110 H Carbon Dioxide 18 L Anion Gap 21 H BUN 11 Creatinine 0.5 L Est GFR ( Amer) > 60 Est GFR (Non-Af Amer) > 60 Random Glucose 109 Calcium 8.3 L Total Bilirubin 1.8 H AST 133 H D ALT 48 Alkaline Phosphatase 97 Ammonia Total Protein 7.6 Albumin 3.1 L Globulin 4.5 H Albumin/Globulin Ratio 0.7 L Urine Color Urine Clarity Urine pH Ur Specific [place] Urine Protein Urine Glucose (UA) Urine Ketones Urine Blood Urine Nitrate Urine Bilirubin Urine Urobilinogen Ur Leukocyte Esterase Urine RBC (Auto) Urine Microscopic WBC Stool Occult Blood Positive H Alcohol, Quantitative 207 H Blood Type Antibody Screen BBK History Checked 08/16/17 08/16/17 08/17/17 21:09 21:09 06:10 WBC 3.2 L RBC 2.96 L Hgb 7.8 L Hct 25.0 L MCV 84.6 MCH 26.4 L MCHC 31.2 L RDW 18.4 H Plt Count 44 L D MPV 8.4 Neut % (Auto) 60.3 Lymph % (Auto) 12.5 L [place] % (Auto) 24.3 H Eos % (Auto) 1.6 Baso % (Auto) 1.3 Neut # (Auto) 1.9 Lymph # (Auto) 0.4 L [place] # (Auto) 0.8 Eos # (Auto) 0.1 Baso # (Auto) 0.0 PT 16.8 H INR 1.5 H APTT 37.0 Sodium Potassium Chloride Carbon Dioxide Anion Gap BUN Creatinine Est GFR ( Amer) Est GFR (Non-Af Amer) Random Glucose Calcium Total Bilirubin AST ALT Alkaline Phosphatase Ammonia Total Protein Albumin Globulin Albumin/Globulin Ratio Urine Color Urine Clarity Urine pH Ur Specific [place] Urine Protein Urine Glucose (UA) Urine Ketones Urine Blood Urine Nitrate Urine Bilirubin Urine Urobilinogen Ur Leukocyte Esterase Urine RBC (Auto) Urine Microscopic WBC Stool Occult Blood Alcohol, Quantitative Blood Type O POSITIVE Antibody Screen Negative BBK History Checked Patient has bt 08/17/17 08/17/17 08/17/17 06:10 06:10 07:20 WBC RBC Hgb Hct MCV MCH MCHC RDW Plt Count MPV Neut % (Auto) Lymph % (Auto) [place] % (Auto) Eos % (Auto) Baso % (Auto) Neut # (Auto) Lymph # (Auto) [place] # (Auto) Eos # (Auto) Baso # (Auto) PT 18.9 H INR 1.7 H APTT 38.6 H Sodium 143 Potassium 4.2 Chloride 112 H Carbon Dioxide 17 L Anion Gap 18 BUN 12 Creatinine 0.5 L Est GFR ( Amer) > 60 Est GFR (Non-Af Amer) > 60 Random Glucose 79 Calcium 7.5 L Total Bilirubin 2.6 H AST 163 H D ALT 51 Alkaline Phosphatase 103 Ammonia 80 H Total Protein 6.6 Albumin 2.6 L Globulin 4.0 H Albumin/Globulin Ratio 0.6 L Urine Color Urine Clarity Urine pH Ur Specific [place] Urine Protein Urine Glucose (UA) Urine Ketones Urine Blood Urine Nitrate Urine Bilirubin Urine Urobilinogen Ur Leukocyte Esterase Urine RBC (Auto) Urine Microscopic WBC Stool Occult Blood Alcohol, Quantitative Blood Type Antibody Screen BBK History Checked 08/17/17 07:39 WBC RBC Hgb Hct MCV MCH MCHC RDW Plt Count MPV Neut % (Auto) Lymph % (Auto) [place] % (Auto) Eos % (Auto) Baso % (Auto) Neut # (Auto) Lymph # (Auto) [place] # (Auto) Eos # (Auto) Baso # (Auto) PT INR APTT Sodium Potassium Chloride Carbon Dioxide Anion Gap BUN Creatinine Est GFR ( Amer) Est GFR (Non-Af Amer) Random Glucose Calcium Total Bilirubin AST ALT Alkaline Phosphatase Ammonia Total Protein Albumin Globulin Albumin/Globulin Ratio Urine Color Yellow Urine Clarity Clear Urine pH 6.0 Ur Specific [place] 1.012 Urine Protein Negative Urine Glucose (UA) Neg Urine Ketones Negative Urine Blood Small Urine Nitrate Negative Urine Bilirubin Negative Urine Urobilinogen 4.0 Ur Leukocyte Esterase Neg Urine RBC (Auto) 1 Urine Microscopic WBC 1 Stool Occult Blood Alcohol, Quantitative Blood Type Antibody Screen BBK History Checked Assessment & Plan - Assessment and Plan (Free Text) Assessment: This is a 57yM presenting with complaints of hematemesis. 1. Upper GI bleed with melena ddx: variceal bleed, PUD, nathaniel camilo tear 2. Cirrhosis 3. Alcohol abuse 4. Thrombocytopenia 5. Hx of esophageal varices Plan: -MELD 16 -Continue supportive care for GI bleed with appropriate resuscitation -Continue Protonix drip -Order stat IV Octreotide 50mcg bolus, followed by IV Octreotide drip for possible varcieal bleed as pt is noncompliant with NSBB -Order IV Rocephin 1G Daily for GI bleed in a cirrhotic patient for infection ppx -Monitor H/H and transfuse if Hgb<7 or hemodynamically unstable, avoid increasing portal hypertention with transfusion, can worsen possible variceal bleed -NPO -Monitor LFTs, AST>ALT from alcohol abuse -Monitor for alcohol withdrawal -Start thiamine and folate -Will take for EGD tomorrow at 10am -Will continue to follow pt closely <Pedro Mendez - Last Filed: 08/17/17 19:25> Meds - Medications Medications: Current Medications Folic Acid (Folic Acid) 1 mg PO DAILY [facility] Last Admin: 08/17/17 14:06 Dose: Not Given Sodium Chloride (Sodium Chloride 0.9%) 1,000 mls @ 1,000 mls/hr IV .Q1H LEROY Stop: 08/17/17 23:44 Last Admin: 08/16/17 23:58 Dose: 1,000 mls/hr Pantoprazole Sodium 40 mg/ (Sodium Chloride) 100 mls @ 20 mls/hr IVPB Q5H LEROY PRN Reason: 8 MG/HR Last Admin: 08/17/17 18:08 Dose: 20 mls/hr Sodium Chloride (Sodium Chloride 0.9%) 1,000 mls @ 105 mls/hr IV .Q9H32M LEROY Stop: 08/18/17 01:15 Last Admin: 08/17/17 14:35 Dose: 105 mls/hr Octreotide Acetate 1,250 mcg/ (Sodium Chloride) 252.5 mls @ 10.1 mls/hr IV .Q24H LEROY; 50 MCG/HR PRN Reason: Protocol Last Admin: 08/17/17 10:55 Dose: 10.1 mls/hr Ceftriaxone Sodium 1 gm/ (Sodium Chloride) 100 mls @ 100 mls/hr IVPB DAILY LEROY PRN Reason: Protocol Last Admin: 08/17/17 11:03 Dose: 100 mls/hr Morphine Sulfate (Morphine) 2 mg IVP Q6 PRN PRN Reason: Pain, moderate (4-7) Ondansetron HCl (Zofran Inj) 4 mg IVP Q6 PRN PRN Reason: Nausea/Vomiting Thiamine HCl (Vitamin B1 Inj) 100 mg IM DAILY [facility] [place] Last Admin: 08/17/17 10:57 Dose: 100 mg Results - Vital Signs Recent Vital Signs: Last Vital Signs Temp 98.1 F 08/17/17 16:27 Pulse 80 08/17/17 17:00 Resp 18 08/17/17 16:27 BP 116/65 08/17/17 16:27 Pulse Ox 95 08/17/17 16:27 - Labs Result Diagrams: 08/17/17 14:00 08/17/17 06:10 Labs: Laboratory Results - last 24 hr 08/16/17 08/16/17 08/16/17 21:09 21:09 21:09 WBC 2.6 L RBC 3.33 L Hgb 8.9 L Hct 28.0 L MCV 84.2 D MCH 26.8 L MCHC 31.8 L RDW 18.5 H Plt Count 80 L MPV 8.4 Neut % (Auto) 61.1 Lymph % (Auto) 13.9 L [place] % (Auto) 18.5 H Eos % (Auto) 4.7 H Baso % (Auto) 1.8 Neut # (Auto) 1.6 L Lymph # (Auto) 0.4 L [place] # (Auto) 0.5 Eos # (Auto) 0.1 Baso # (Auto) 0.0 Neutrophils % (Manual) Band Neutrophils % Lymphocytes % (Manual) Monocytes % (Manual) Platelet Estimate Hypochromasia (manual) Anisocytosis (manual) Target Cells Tear Drop Cells Ovalocytes Schistocytes PT INR APTT Sodium 144 Potassium 4.6 Chloride 110 H Carbon Dioxide 18 L Anion Gap 21 H BUN 11 Creatinine 0.5 L Est GFR ( Amer) > 60 Est GFR (Non-Af Amer) > 60 Random Glucose 109 Calcium 8.3 L Total Bilirubin 1.8 H AST 133 H D ALT 48 Alkaline Phosphatase 97 Ammonia Total Protein 7.6 Albumin 3.1 L Globulin 4.5 H Albumin/Globulin Ratio 0.7 L Urine Color Urine Clarity Urine pH Ur Specific [place] Urine Protein Urine Glucose (UA) Urine Ketones Urine Blood Urine Nitrate Urine Bilirubin Urine Urobilinogen Ur Leukocyte Esterase Urine RBC (Auto) Urine Microscopic WBC Stool Occult Blood Positive H Alcohol, Quantitative 207 H Blood Type Antibody Screen BBK History Checked 08/16/17 08/16/17 08/17/17 21:09 21:09 06:10 WBC 3.2 L RBC 2.96 L Hgb 7.8 L Hct 25.0 L MCV 84.6 MCH 26.4 L MCHC 31.2 L RDW 18.4 H Plt Count 44 L D MPV 8.4 Neut % (Auto) 60.3 Lymph % (Auto) 12.5 L [place] % (Auto) 24.3 H Eos % (Auto) 1.6 Baso % (Auto) 1.3 Neut # (Auto) 1.9 Lymph # (Auto) 0.4 L [place] # (Auto) 0.8 Eos # (Auto) 0.1 Baso # (Auto) 0.0 Neutrophils % (Manual) 74 Band Neutrophils % 2 Lymphocytes % (Manual) 10 L Monocytes % (Manual) 14 H Platelet Estimate Decreased L Hypochromasia (manual) Moderate Anisocytosis (manual) Slight Target Cells Slight Tear Drop Cells Slight Ovalocytes Slight Schistocytes Slight PT 16.8 H INR 1.5 H APTT 37.0 Sodium Potassium Chloride Carbon Dioxide Anion Gap BUN Creatinine Est GFR ( Amer) Est GFR (Non-Af Amer) Random Glucose Calcium Total Bilirubin AST ALT Alkaline Phosphatase Ammonia Total Protein Albumin Globulin Albumin/Globulin Ratio Urine Color Urine Clarity Urine pH Ur Specific [place] Urine Protein Urine Glucose (UA) Urine Ketones Urine Blood Urine Nitrate Urine Bilirubin Urine Urobilinogen Ur Leukocyte Esterase Urine RBC (Auto) Urine Microscopic WBC Stool Occult Blood Alcohol, Quantitative Blood Type O POSITIVE Antibody Screen Negative BBK History Checked Patient has bt 08/17/17 08/17/17 08/17/17 06:10 06:10 07:20 WBC RBC Hgb Hct MCV MCH MCHC RDW Plt Count MPV Neut % (Auto) Lymph % (Auto) [place] % (Auto) Eos % (Auto) Baso % (Auto) Neut # (Auto) Lymph # (Auto) [place] # (Auto) Eos # (Auto) Baso # (Auto) Neutrophils % (Manual) Band Neutrophils % Lymphocytes % (Manual) Monocytes % (Manual) Platelet Estimate Hypochromasia (manual) Anisocytosis (manual) Target Cells Tear Drop Cells Ovalocytes Schistocytes PT 18.9 H INR 1.7 H APTT 38.6 H Sodium 143 Potassium 4.2 Chloride 112 H Carbon Dioxide 17 L Anion Gap 18 BUN 12 Creatinine 0.5 L Est GFR ( Amer) > 60 Est GFR (Non-Af Amer) > 60 Random Glucose 79 Calcium 7.5 L Total Bilirubin 2.6 H AST 163 H D ALT 51 Alkaline Phosphatase 103 Ammonia 80 H Total Protein 6.6 Albumin 2.6 L Globulin 4.0 H Albumin/Globulin Ratio 0.6 L Urine Color Urine Clarity Urine pH Ur Specific [place] Urine Protein Urine Glucose (UA) Urine Ketones Urine Blood Urine Nitrate Urine Bilirubin Urine Urobilinogen Ur Leukocyte Esterase Urine RBC (Auto) Urine Microscopic WBC Stool Occult Blood Alcohol, Quantitative Blood Type Antibody Screen BBK History Checked 08/17/17 08/17/17 07:39 14:00 WBC RBC Hgb 8.1 L Hct 25.8 L MCV MCH MCHC RDW Plt Count MPV Neut % (Auto) Lymph % (Auto) [place] % (Auto) Eos % (Auto) Baso % (Auto) Neut # (Auto) Lymph # (Auto) [place] # (Auto) Eos # (Auto) Baso # (Auto) Neutrophils % (Manual) Band Neutrophils % Lymphocytes % (Manual) Monocytes % (Manual) Platelet Estimate Hypochromasia (manual) Anisocytosis (manual) Target Cells Tear Drop Cells Ovalocytes Schistocytes PT INR APTT Sodium Potassium Chloride Carbon Dioxide Anion Gap BUN Creatinine Est GFR ( Amer) Est GFR (Non-Af Amer) Random Glucose Calcium Total Bilirubin AST ALT Alkaline Phosphatase Ammonia Total Protein Albumin Globulin Albumin/Globulin Ratio Urine Color Yellow Urine Clarity Clear Urine pH 6.0 Ur Specific [place] 1.012 Urine Protein Negative Urine Glucose (UA) Neg Urine Ketones Negative Urine Blood Small Urine Nitrate Negative Urine Bilirubin Negative Urine Urobilinogen 4.0 Ur Leukocyte Esterase Neg Urine RBC (Auto) 1 Urine Microscopic WBC 1 Stool Occult Blood Alcohol, Quantitative Blood Type Antibody Screen BBK History Checked Attending/Attestation - Attestation I have personally seen and examined this patient.: Yes I have fully participated in the care of the patient.: Yes I have reviewed all pertinent clinical information: Yes Notes (Text): 08/17/17 19:25 57 year old male with h/o etoh abuse, cirrhosis, and varices admitted with GI bleeding. Plan for EGD tomorrow. NPO after Mn. PPI and Octreotide infusion. Empiric abx for sbp prophylaxis. Etoh cessation advised.
--- NOTE | 2017-08-17 10:47 | RAD ---
HISTORY: Abd pain COMPARISON: 05/29/2017 FINDINGS: LUNGS: No active pulmonary disease. PLEURA: No significant pleural effusion identified, no pneumothorax apparent. CARDIOVASCULAR: Normal. OSSEOUS STRUCTURES: Inferior thoracic spondylosis VISUALIZED UPPER ABDOMEN: Normal. OTHER FINDINGS: None. IMPRESSION: No active disease. No interval pathology noted
[2017-08-17] MEDS: Thiamine 100 mg/ml Inj IM SCH (10:57)
[2017-08-17 14:16] LABS: HEMOGLOBIN 8.1 g/dL (12.0-18.0)
[2017-08-18] MEDS: Pantoprazole 40 MG in Sodium Chloride 0.9% 100 ML IVPB SCH ×3 (01:34→13:03)
[2017-08-18] MEDS: Sodium Chloride 0.9% 1,000 ML IV SCH (01:35)
[2017-08-18 06:28] LABS: BASO % 1.5 % (0.0-2.0); EOS # 0.1 K/uL (0.0-0.7); EOS % 4.4 % (0.0-4.0); HEMOGLOBIN 7.3 g/dL (12.0-18.0); LYMPH # 0.4 K/uL (1.0-4.3); LYMPH % 14.4 % (20.0-40.0); MEAN CELL VOLUME 85.9 fl (80.0-94.0); MEAN CORPUSCULAR HEMOGLOBIN 26.7 pg (27.0-31.0); MEAN PLATELET VOLUME 9.5 fl (7.2-11.7); MONO # 0.5 K/uL (0.0-0.8); NEUT # 1.6 K/uL (1.8-7.0); NEUT % 61.7 % (50.0-75.0); NRBC % 0.3 % (0.0-0.0); RBC 2.75 Mil/uL (4.40-5.90); RED CELL DISTRIBUTION WIDTH 18.6 % (11.5-14.5); WHITE BLOOD COUNT 2.6 K/uL (4.8-10.8)
[2017-08-18 06:42] LABS: ALBUMIN 2.6 g/dL (3.5-5.0); BLOOD UREA NITROGEN 14 mg/dl (9-20); CALCIUM 7.7 mg/dL (8.4-10.2); GFR AFRICAN-AMERICAN > 60; GFR NON-AFRICAN AMERICAN > 60
[2017-08-18 06:43] LABS: ALB/GLOB RATIO 0.7 (1.0-2.1); ALT/SGPT 54 U/L (21-72); AST/SGOT 142 U/L (17-59)
[2017-08-18 07:16] LABS: INR 1.6 (0.9-1.2); PROTHROMBIN TIME 17.8 Seconds (9.8-13.1)
[2017-08-18] MEDS: Thiamine 100 mg/ml Inj IM SCH (09:07)
--- NOTE | 2017-08-18 09:31 | CP.PCM.PN ---
Subjective - Date & Time of Evaluation Date of Evaluation: 08/18/17 Time of Evaluation: 08:20 - Subjective Subjective: Pt seen and examined at bedside. Reports slight dizziness with quick rising from bed. Pt denies diffuse BRBPR. Denies abdominal pain, n/v, cp/sob Objective - Vital Signs/Intake and Output Vital Signs (last 24 hours): Temp Pulse Resp BP Pulse Ox 98.1 F 76 18 120/68 97 08/18/17 07:38 08/18/17 07:38 08/18/17 07:38 08/18/17 07:38 08/18/17 07:38 - Medications Medications: Current Medications Folic Acid (Folic Acid) 1 mg PO DAILY [facility] Last Admin: 08/17/17 14:06 Dose: Not Given Pantoprazole Sodium 40 mg/ (Sodium Chloride) 100 mls @ 20 mls/hr IVPB Q5H [facility] PRN Reason: 8 MG/HR Last Admin: 08/18/17 06:53 Dose: 20 mls/hr Octreotide Acetate 1,250 mcg/ (Sodium Chloride) 252.5 mls @ 10.1 mls/hr IV .Q24H [facility]; 50 MCG/HR PRN Reason: Protocol Last Admin: 08/17/17 10:55 Dose: 10.1 mls/hr Morphine Sulfate (Morphine) 2 mg IVP Q6 PRN PRN Reason: Pain, moderate (4-7) Ondansetron HCl (Zofran Inj) 4 mg IVP Q6 PRN PRN Reason: Nausea/Vomiting Thiamine HCl (Vitamin B1 Inj) 100 mg IM DAILY [facility] Last Admin: 08/18/17 09:07 Dose: 100 mg - Labs Labs: 08/18/17 06:00 08/18/17 06:00 PT 17.8 Seconds (9.8-13.1) H 08/18/17 06:00 INR 1.6 (0.9-1.2) H 08/18/17 06:00 APTT 38.6 Seconds (25.6-37.1) H 08/17/17 06:10 - Constitutional Appears: No Acute Distress - Eye Exam Eye Exam: EOMI - Neck Exam Neck Exam: Full ROM - Cardiovascular Exam Cardiovascular Exam: +S1, +S2 - GI/Abdominal Exam GI & Abdominal Exam: Soft, Normal Bowel Sounds. absent: Tenderness - Neurological Exam Neurological Exam: Alert, Awake, CN II-XII Intact Assessment and Plan - Assessment and Plan (Free Text) Plan: 56 yo ,m, PMhx/o chronic gastritis, liver cirrhosis, non-bleeding gastric and esophageal varices, chronic EtOH abuse, tobacco abuse, and depression admitted for upper GI bleeding Assessment/Plan Upper GI bleeding -secondary to gastric or esophageal varices -hematemesis seen in Ed -Endoscopy (02/22/2017) Impression: Grade 2 esophageal varices, completely eradicated, portal hypertensive gastropathy, duodenal erosions w/o bleeding -NPO -S/P NS 2 l Ed -Protonix -hold aldactone due to hypotension -GI Consult suggested: Case discussed with Dr. Pang (GI fellow).: MELD 16, protonix, octreotide, rocephin, H/H, NPO, LFT, Thiamine and Folate; EGD planned for today -Consider fluids/diet 2/2 EGD/liver cirrhosis -f/u H/H: 7.3/23.6 Anemia: -H/H: 7.3 /23.6 - type and screen: consider transfusion, however, previously improved. Liver cirrhosis - secondary to ETOH abuse - bili 2.8, albumin: 2.6 - plt 40 - SBP prophylaxis: Ceftriaxone (day 3) - Hep A, B, C negative - f/u lft, bili, plt Pancytopenia -chronic -plt 40 -Secondary to alcoholic liver cirrhosis and hypersplenism -f/u cbc Hypotension -May be secondary to GI bleeding, but not tachycardic, no AMS -baseline Low BP -IV fluids 2 L -f/u vitals ETOH abuse -restarted drinking DVT Prophylaxis -SCD -CI to Lovenox: plt: 40;
[2017-08-18] MEDS ORDERED: Propofol 10 mg/ml Inj (20 ML) ONE (10:10)
[2017-08-18] MEDS ORDERED: Etomidate 20 mg/10ml Inj IV ONE (10:10)
[2017-08-18] MEDS ORDERED: Sodium Chloride 0.9% 500 ML IV ONE (10:31)
[2017-08-18 16:18] LABS: HEMOGLOBIN 7.5 g/dL (12.0-18.0)
--- NOTE | 2017-08-19 09:07 | CP.PCM.PN ---
<Jenny Purcell - Last Filed: 08/19/17 11:00> Subjective - Date & Time of Evaluation Date of Evaluation: 08/19/17 Time of Evaluation: 07:30 - Subjective Subjective: GI Fellow PGY4 Progress Note Pt seen and evaluated at bedside, pt doing well with no complaints of abdominal or chest pain, tolerating liquid diet. Reports BM is slowly turning brown and less black. No further hematemesis. ROS: A 12pt ROS was negative except as above Objective - Vital Signs/Intake and Output Vital Signs (last 24 hours): Temp Pulse Resp BP Pulse Ox 99.1 F 80 20 114/68 94 L 08/19/17 08:34 08/19/17 08:34 08/19/17 08:34 08/19/17 08:34 08/19/17 08:34 - Medications Medications: Current Medications Carvedilol (Coreg) 3.125 mg PO Q12 [facility] Last Admin: 08/18/17 21:05 Dose: 3.125 mg Folic Acid (Folic Acid) 1 mg PO DAILY [facility] Last Admin: 08/18/17 17:38 Dose: 1 mg Octreotide Acetate 1,250 mcg/ (Sodium Chloride) 252.5 mls @ 10.1 mls/hr IV .Q24H [facility]; 50 MCG/HR PRN Reason: Protocol Last Admin: 08/18/17 13:14 Dose: 10.1 mls/hr Ceftriaxone Sodium 1 gm/ (Sodium Chloride) 100 mls @ 100 mls/hr IVPB DAILY [facility] PRN Reason: Protocol Morphine Sulfate (Morphine) 2 mg IVP Q6 PRN PRN Reason: Pain, moderate (4-7) Ondansetron HCl (Zofran Inj) 4 mg IVP Q6 PRN PRN Reason: Nausea/Vomiting Pantoprazole Sodium (Protonix Inj) 40 mg IVP DAILY [facility] Thiamine HCl (Vitamin B1 Inj) 100 mg IM DAILY [facility] Last Admin: 08/18/17 09:07 Dose: 100 mg - Labs Labs: 08/18/17 15:31 08/18/17 06:00 PT 17.8 Seconds (9.8-13.1) H 08/18/17 06:00 INR 1.6 (0.9-1.2) H 08/18/17 06:00 APTT 38.6 Seconds (25.6-37.1) H 08/17/17 06:10 - Constitutional Appears: Non-toxic, No Acute Distress - Head Exam Head Exam: ATRAUMATIC, NORMAL INSPECTION, NORMOCEPHALIC - Eye Exam Eye Exam: EOMI, Normal appearance, PERRL Pupil Exam: PERRL - ENT Exam ENT Exam: Mucous Membranes Moist - Neck Exam Neck Exam: Full ROM - Respiratory Exam Respiratory Exam: Clear to Ausculation Bilateral, NORMAL BREATHING PATTERN - Cardiovascular Exam Cardiovascular Exam: REGULAR RHYTHM, +S1, +S2 - GI/Abdominal Exam GI & Abdominal Exam: Soft, Normal Bowel Sounds. absent: Distended, Tenderness, Organomegaly - Rectal Exam Rectal Exam: Deferred - Back Exam Back Exam: NORMAL INSPECTION - Neurological Exam Neurological Exam: Alert, Awake, Oriented x3 - Psychiatric Exam Psychiatric exam: Normal Affect, Normal Mood - Skin Skin Exam: Dry, Intact, Normal Color, Warm Assessment and Plan - Assessment and Plan (Free Text) Assessment: This is a 57yM presenting with complaints of hematemesis. 1. Upper GI bleed s/p EGD with esophageal varices with banding 2. Cirrhosis 3. Alcohol abuse 4. Thrombocytopenia Plan: -MELD 16 on admission -Continue supportive care -s/p EGD for anemia with large varcies in lower esophagous, stigmata of recent bleeding with red jose armando sign, s/p 5 band ligation -Start Coreg 3.125 mg bid for esophageal varices, discussed with patient about importance of taking this medication -Continue IV Rocephin 1G Daily for GI bleed in a cirrhotic patient for infection ppx, can change to po ciprofloxacin 500 bid upon discharge to complete total 7 days -IV Octreotide Day 3/, octretide causes decrease in portal pressure -Change to PPI daily since no PUD -Monitor H/H and transfuse if Hgb<7 or hemodynamically unstable, avoid increasing portal hypertention with transfusion, can worsen possible variceal bleed -Clear liquid diet, will advance to full liquids today, and when tolerates can advance to soft diet tomorrow -Monitor LFTs, AST>ALT from alcohol abuse -Monitor for alcohol withdrawal -Continue thiamine and folate -Will continue to follow pt closely <Kurt Henson - Last Filed: 08/19/17 11:06> Objective - Vital Signs/Intake and Output Vital Signs (last 24 hours): Temp Pulse Resp BP Pulse Ox 99.1 F 71 20 110/70 94 L 08/19/17 08:34 08/19/17 09:43 08/19/17 08:34 08/19/17 09:43 08/19/17 08:34 - Medications Medications: Current Medications Carvedilol (Coreg) 3.125 mg PO Q12 [facility] Last Admin: 08/19/17 09:43 Dose: 3.125 mg Folic Acid (Folic Acid) 1 mg PO DAILY [facility] Last Admin: 08/19/17 09:43 Dose: 1 mg Octreotide Acetate 1,250 mcg/ (Sodium Chloride) 252.5 mls @ 10.1 mls/hr IV .Q24H [facility]; 50 MCG/HR PRN Reason: Protocol Last Admin: 08/18/17 13:14 Dose: 10.1 mls/hr Ceftriaxone Sodium 1 gm/ (Sodium Chloride) 100 mls @ 100 mls/hr IVPB DAILY [facility] PRN Reason: Protocol Morphine Sulfate (Morphine) 2 mg IVP Q6 PRN PRN Reason: Pain, moderate (4-7) Ondansetron HCl (Zofran Inj) 4 mg IVP Q6 PRN PRN Reason: Nausea/Vomiting Pantoprazole Sodium (Protonix Inj) 40 mg IVP DAILY [facility] Last Admin: 08/19/17 09:41 Dose: 40 mg Thiamine HCl (Vitamin B1 Inj) 100 mg IM DAILY [facility] Last Admin: 08/19/17 09:41 Dose: 100 mg - Labs Labs: 08/18/17 15:31 08/18/17 06:00 PT 17.8 Seconds (9.8-13.1) H 08/18/17 06:00 INR 1.6 (0.9-1.2) H 08/18/17 06:00 APTT 38.6 Seconds (25.6-37.1) H 08/17/17 06:10 Attending/Attestation - Attestation I have personally seen and examined this patient.: Yes I have fully participated in the care of the patient.: Yes I have reviewed all pertinent clinical information, including history, physical exam and plan: Yes Notes (Text): 08/19/17 11:04 I have seen and examined patient with GI fellow. No acute events overnight, he is seen resting in bed comfortably. No bowel movements overnight or today thus far. He denies abdominal pain, nausea, vomiting, fever/chills. Tolerating PO liquids without difficulty. Review of vitals from today are normal. ETOH decompensated cirrhosis Hematemesis, s/p EGD and variceal band ligation yesterday - Full liquid diet as tolerated - H/H stable, continue to monitor - Continue with IV PPI and octreotide infusions - Continue with antibiotic therapy to complete 5 day course - Continue with B-lucero therapy for variceal prophylaxis, monitor HR - ETOH cessation counseling - Will continue to monitor patient clinical course
[2017-08-19] MEDS: Thiamine 100 mg/ml Inj IM SCH (09:41)
[2017-08-19 11:30] LABS: HEMOGLOBIN 7.2 g/dL (12.0-18.0); MEAN CELL VOLUME 85.2 fl (80.0-94.0); MEAN CORPUSCULAR HGB CONC 30.5 g/dL (33.0-37.0); RBC 2.79 Mil/uL (4.40-5.90); RED CELL DISTRIBUTION WIDTH 19.2 % (11.5-14.5); WHITE BLOOD COUNT 3.7 K/uL (4.8-10.8)
[2017-08-19 11:48] LABS: ALB/GLOB RATIO 0.6 (1.0-2.1); ALBUMIN 2.4 g/dL (3.5-5.0); ALT/SGPT 56 U/L (21-72); AST/SGOT 106 U/L (17-59); BLOOD UREA NITROGEN 10 mg/dl (9-20); CALCIUM 7.6 mg/dL (8.4-10.2); GFR AFRICAN-AMERICAN > 60; GFR NON-AFRICAN AMERICAN > 60
--- NOTE | 2017-08-19 13:59 | CP.PCM.PN ---
Subjective - Date & Time of Evaluation Date of Evaluation: 08/19/17 Time of Evaluation: 10:15 - Subjective Subjective: Pt. seen at bedside. Overnight events reviewed. No complaints at this time. Nor reports of melena or hematemeis. Objective - Vital Signs/Intake and Output Vital Signs (last 24 hours): Temp Pulse Resp BP Pulse Ox 99.1 F 71 20 110/70 94 L 08/19/17 08:34 08/19/17 09:43 08/19/17 08:34 08/19/17 09:43 08/19/17 08:34 - Medications Medications: Current Medications Carvedilol (Coreg) 3.125 mg PO Q12 [facility] Last Admin: 08/19/17 09:43 Dose: 3.125 mg Folic Acid (Folic Acid) 1 mg PO DAILY [facility] Last Admin: 08/19/17 09:43 Dose: 1 mg Octreotide Acetate 1,250 mcg/ (Sodium Chloride) 252.5 mls @ 10.1 mls/hr IV .Q24H [facility]; 50 MCG/HR PRN Reason: Protocol Last Admin: 08/19/17 13:03 Dose: 10.1 mls/hr Ceftriaxone Sodium 1 gm/ (Sodium Chloride) 100 mls @ 100 mls/hr IVPB DAILY [facility] PRN Reason: Protocol Last Admin: 08/19/17 11:07 Dose: 100 mls/hr Morphine Sulfate (Morphine) 2 mg IVP Q6 PRN PRN Reason: Pain, moderate (4-7) Ondansetron HCl (Zofran Inj) 4 mg IVP Q6 PRN PRN Reason: Nausea/Vomiting Pantoprazole Sodium (Protonix Inj) 40 mg IVP DAILY [facility] Last Admin: 08/19/17 09:41 Dose: 40 mg Thiamine HCl (Vitamin B1 Inj) 100 mg IM DAILY [facility] Last Admin: 08/19/17 09:41 Dose: 100 mg - Labs Labs: 08/19/17 11:00 08/19/17 11:00 PT 17.8 Seconds (9.8-13.1) H 08/18/17 06:00 INR 1.6 (0.9-1.2) H 08/18/17 06:00 APTT 38.6 Seconds (25.6-37.1) H 08/17/17 06:10 Assessment and Plan - Assessment and Plan (Free Text) Assessment: 57 y.o. male with hx of liver cirrhosis secondary to ETOH abuse, esophageal varices, and pancytopenia admitted for acute upper GI bleeding now resolved s/p Esophageal banding post-procedure day #1 today Upper GI bleed due to esophageal varices- post-procedure day #1 1- Case discussed with GI fellow Dr. Purcell 2- c/w PPI 40mg IV daily 3- c/w Octreotide day #3 today for a total of #5 days 4- Trend H/H - H/H today 7.2/737.7 5- Coreg 3.125 BID for Esophageal varices 6- Rocephin 1gram for SBP prophylaxis Panycytopenia- Platelets 43 today 1- Secondary to ETOH abuse 2- Repeat CBC in a.m. 3- Will discuss plans for ETOH cessation DVT prophylaxis 1- SCD 2- Encourage ambulation Code status 1- Full Code
[2017-08-19] MEDS ORDERED: Potassium Chloride 20 mEq ER Tab PO ONE (18:06)
[2017-08-19] MEDS: POLYETHYLENE GLYCOL 3350 17 GM/Dose PACKET PO SCH (18:51)
[2017-08-20 07:36] LABS: HEMOGLOBIN 7.6 g/dL (12.0-18.0); MEAN CORPUSCULAR HEMOGLOBIN 26.2 pg (27.0-31.0); MEAN CORPUSCULAR HGB CONC 30.8 g/dL (33.0-37.0); RBC 2.9 Mil/uL (4.40-5.90); RED CELL DISTRIBUTION WIDTH 18.9 % (11.5-14.5); WHITE BLOOD COUNT 3.6 K/uL (4.8-10.8)
[2017-08-20 07:48] LABS: INR 1.7 (0.9-1.2); PROTHROMBIN TIME 18.9 Seconds (9.8-13.1)
--- NOTE | 2017-08-20 08:04 | CP.PCM.PN ---
Addendum entered and electronically signed by Jenny Purcell DO 08/20/17 08:26: Physical Exam Gen: AAOx3, NAD HEENT: NCAT, PERRLA, EOMI Cardio: RRR, S1 and S2, no M/R/G Pulm: CTAB, no wheezing, rhonci Abd: Soft, Nontender, nondistended, BSx4 Ext: No LE edema, full ROM Psyc: Normal mood and affect Neuro: CN 2-12 intact Skin: No lesions, no bruises, dry and intact, normal color Original Note: <Jenny Purcell - Last Filed: 08/20/17 08:22> Subjective - Date & Time of Evaluation Date of Evaluation: 08/20/17 Time of Evaluation: 07:15 - Subjective Subjective: GI Fellow PGY4 Progress Note Pt seen and evaluated at bedside, pt doing well with no complaints of abdominal or chest pain, tolerating full liquid diet. Reports BM is dark brown and needed a laxative to have a BM yesterday. No further hematemesis. ROS: A 12pt ROS was negative except as above Objective - Vital Signs/Intake and Output Vital Signs (last 24 hours): Temp Pulse Resp BP Pulse Ox 97.8 F 61 18 111/76 95 08/20/17 07:51 08/20/17 07:51 08/20/17 07:51 08/20/17 07:51 08/20/17 07:51 - Medications Medications: Current Medications Carvedilol (Coreg) 3.125 mg PO Q12 [facility] Last Admin: 08/19/17 21:35 Dose: Not Given Docusate Sodium (Colace) 100 mg PO BID [facility] Last Admin: 08/19/17 17:28 Dose: 100 mg Folic Acid (Folic Acid) 1 mg PO DAILY [facility] Last Admin: 08/19/17 09:43 Dose: 1 mg Octreotide Acetate 1,250 mcg/ (Sodium Chloride) 252.5 mls @ 10.1 mls/hr IV .Q24H [facility]; 50 MCG/HR PRN Reason: Protocol Last Admin: 08/19/17 13:03 Dose: 10.1 mls/hr Ceftriaxone Sodium 1 gm/ (Sodium Chloride) 100 mls @ 100 mls/hr IVPB DAILY [facility] PRN Reason: Protocol Last Admin: 04/28/18 11:07 Dose: 100 mls/hr Morphine Sulfate (Morphine) 2 mg IVP Q6 PRN PRN Reason: Pain, moderate (4-7) Ondansetron HCl (Zofran Inj) 4 mg IVP Q6 PRN PRN Reason: Nausea/Vomiting Pantoprazole Sodium (Protonix Inj) 40 mg IVP DAILY [facility] Last Admin: 08/19/17 09:41 Dose: 40 mg Polyethylene Glycol (Miralax) 17 gm PO DAILY [facility] Last Admin: 08/19/17 18:51 Dose: 17 gm Thiamine HCl (Vitamin B1 Inj) 100 mg IM DAILY [facility] Last Admin: 08/19/17 09:41 Dose: 100 mg - Labs Labs: 08/20/17 06:40 08/19/17 11:00 PT 18.9 Seconds (9.8-13.1) H 08/20/17 06:40 INR 1.7 (0.9-1.2) H 08/20/17 06:40 APTT 38.6 Seconds (25.6-37.1) H 08/17/17 06:10 Assessment and Plan - Assessment and Plan (Free Text) Assessment: This is a 57yM presenting with complaints of hematemesis. 1. Upper GI bleed s/p EGD with esophageal varices with banding 2. Cirrhosis 3. Alcohol abuse 4. Pancytopenia Plan: -MELD 16 on admission, labs pending to calculate MELD for today -Continue supportive care -s/p EGD for anemia with large varcies in lower esophagous, stigmata of recent bleeding with red jose armando sign, s/p 5 band ligation -Continue Coreg 3.125 mg bid for esophageal varices, hold if SBP<90 and HR<60 -Continue IV Rocephin 1G Daily for GI bleed in a cirrhotic patient for infection ppx, can change to po ciprofloxacin 500 bid upon discharge to complete total 7 days of abx -IV Octreotide Day 4/5, octretide causes decrease in portal pressure -Change to PPI daily since no PUD -Monitor H/H, Hgb stable at 7.6 -Advance to soft diet -Monitor LFTs, TB, AST>ALT from alcohol abuse -Pancytopenia from chronic alcohol abuse and bone marrow suppression -Continue thiamine and folate -Will continue to follow pt closely <Kurt Henson - Last Filed: 08/20/17 11:18> Objective - Vital Signs/Intake and Output Vital Signs (last 24 hours): Temp Pulse Resp BP Pulse Ox 97.8 F 61 18 111/76 95 08/20/17 09:00 08/20/17 09:00 08/20/17 09:00 08/20/17 09:00 08/20/17 09:00 - Medications Medications: Current Medications Carvedilol (Coreg) 3.125 mg PO Q12 [facility] Last Admin: 08/20/17 08:22 Dose: 3.125 mg Docusate Sodium (Colace) 100 mg PO BID [facility] Last Admin: 08/20/17 08:21 Dose: 100 mg Folic Acid (Folic Acid) 1 mg PO DAILY [facility] Last Admin: 08/20/17 08:22 Dose: 1 mg Ceftriaxone Sodium 1 gm/ (Sodium Chloride) 100 mls @ 100 mls/hr IVPB DAILY [facility] PRN Reason: Protocol Last Admin: 08/20/17 08:23 Dose: 100 mls/hr Octreotide Acetate 1,250 mcg/ (Sodium Chloride) 252.5 mls @ 10.1 mls/hr IV .Q24H [facility]; 50 MCG/HR PRN Reason: Protocol Morphine Sulfate (Morphine) 2 mg IVP Q6 PRN PRN Reason: Pain, moderate (4-7) Ondansetron HCl (Zofran Inj) 4 mg IVP Q6 PRN PRN Reason: Nausea/Vomiting Pantoprazole Sodium (Protonix Inj) 40 mg IVP DAILY [facility] Last Admin: 08/20/17 08:23 Dose: 40 mg Polyethylene Glycol (Miralax) 17 gm PO DAILY [facility] Last Admin: 08/20/17 08:23 Dose: 17 gm Thiamine HCl (Vitamin B1 Inj) 100 mg IM DAILY [facility] Last Admin: 08/20/17 08:24 Dose: 100 mg - Labs Labs: 08/20/17 06:40 08/20/17 08:40 PT 18.9 Seconds (9.8-13.1) H 08/20/17 06:40 INR 1.7 (0.9-1.2) H 08/20/17 06:40 APTT 38.6 Seconds (25.6-37.1) H 08/17/17 06:10 Attending/Attestation - Attestation I have personally seen and examined this patient.: Yes I have fully participated in the care of the patient.: Yes I have reviewed all pertinent clinical information, including history, physical exam and plan: Yes Notes (Text): 08/20/17 11:14 I have seen and examined patient with GI fellow. No acute events overnight, he denies abdominal pain, nausea, vomiting, fever/chills. Tolerating PO liquids without difficulty. He had one soft brown/black bowel movement this morning. Review of vitals from today are normal. ETOH decompensated cirrhosis Hematemesis s/p EGD with variceal band ligation - Advance diet to soft, low sodium as tolerated - Continue with PPI therapy - Continue with antibiotic therapy to complete 5 day course - Continue with octreotide for additional 24 hours - H/H stable, continue to monitor and avoid excessive PRBC transfusion - Continue with b-lucero therapy for variceal prophylaxis - ETOH cessation counseling - No further planned GI intervention, will sign off case. Patient would benefit from additional outpatient follow up and repeat EGD within 2 months for variceal surveillance. Please reconsult as necessary, thank you.
[2017-08-20] MEDS: POLYETHYLENE GLYCOL 3350 17 GM/Dose PACKET PO SCH (08:23)
[2017-08-20] MEDS: Thiamine 100 mg/ml Inj IM SCH (08:24)
[2017-08-20 10:01] LABS: ALB/GLOB RATIO 0.6 (1.0-2.1); ALBUMIN 2.5 g/dL (3.5-5.0); ALT/SGPT 54 U/L (21-72); AST/SGOT 106 U/L (17-59); BLOOD UREA NITROGEN 7 mg/dl (9-20); CALCIUM 7.6 mg/dL (8.4-10.2); GFR AFRICAN-AMERICAN > 60; GFR NON-AFRICAN AMERICAN > 60
--- NOTE | 2017-08-20 12:32 | CP.PCM.PN ---
Subjective - Date & Time of Evaluation Date of Evaluation: 08/20/17 Time of Evaluation: 08:45 - Subjective Subjective: Pt seen and examined at bedside. Reports feces increasing in brown color. Denies significant overnight events. Request advance in diet. No n/v. Objective - Vital Signs/Intake and Output Vital Signs (last 24 hours): Temp Pulse Resp BP Pulse Ox 97.8 F 61 18 111/76 95 08/20/17 09:00 08/20/17 09:00 08/20/17 09:00 08/20/17 09:00 08/20/17 09:00 - Medications Medications: Current Medications Carvedilol (Coreg) 3.125 mg PO Q12 [facility] Last Admin: 08/20/17 08:22 Dose: 3.125 mg Docusate Sodium (Colace) 100 mg PO BID [facility] Last Admin: 08/20/17 08:21 Dose: 100 mg Folic Acid (Folic Acid) 1 mg PO DAILY [facility] Last Admin: 08/20/17 08:22 Dose: 1 mg Ceftriaxone Sodium 1 gm/ (Sodium Chloride) 100 mls @ 100 mls/hr IVPB DAILY [facility] PRN Reason: Protocol Last Admin: 08/20/17 08:23 Dose: 100 mls/hr Octreotide Acetate 1,250 mcg/ (Sodium Chloride) 252.5 mls @ 10.1 mls/hr IV .Q24H [facility]; 50 MCG/HR PRN Reason: Protocol Morphine Sulfate (Morphine) 2 mg IVP Q6 PRN PRN Reason: Pain, moderate (4-7) Ondansetron HCl (Zofran Inj) 4 mg IVP Q6 PRN PRN Reason: Nausea/Vomiting Pantoprazole Sodium (Protonix Inj) 40 mg IVP DAILY [facility] Last Admin: 08/20/17 08:23 Dose: 40 mg Polyethylene Glycol (Miralax) 17 gm PO DAILY [facility] Last Admin: 08/20/17 08:23 Dose: 17 gm Thiamine HCl (Vitamin B1 Inj) 100 mg IM DAILY [facility] Last Admin: 08/20/17 08:24 Dose: 100 mg - Labs Labs: 08/20/17 06:40 08/20/17 08:40 PT 18.9 Seconds (9.8-13.1) H 08/20/17 06:40 INR 1.7 (0.9-1.2) H 08/20/17 06:40 APTT 38.6 Seconds (25.6-37.1) H 08/17/17 06:10 - Constitutional Appears: Well, No Acute Distress - Eye Exam Eye Exam: EOMI - Neck Exam Neck Exam: Full ROM - Respiratory Exam Respiratory Exam: Clear to Ausculation Bilateral. absent: Wheezes - Cardiovascular Exam Cardiovascular Exam: +S1, +S2 - GI/Abdominal Exam GI & Abdominal Exam: Soft, Normal Bowel Sounds. absent: Tenderness - Neurological Exam Neurological Exam: Alert, Awake, Oriented x3 - Psychiatric Exam Psychiatric exam: Normal Affect, Normal Mood Assessment and Plan - Assessment and Plan (Free Text) Plan: 57 y.o. male with hx of liver cirrhosis secondary to ETOH abuse, esophageal varices, and pancytopenia admitted for acute upper GI bleeding now resolved s/p Esophageal banding post-procedure day #2 today Upper GI bleed due to esophageal varices- post-procedure day #2 - Case discussed with GI fellow Dr. Purcell; Dr. Henson: recommendations appreciated - c/w PPI 40mg IV daily, considering PO - c/w Octreotide day #4 today for a total of #5 days - Trend H/H - H/H today 7.6/24.6 - Coreg 3.125 BID for Esophageal varices: BP/Pulse parameters in place - Rocephin 1gram for SBP prophylaxis 2/2 cirrhosis and esophageal varices - Diet advanced: hepatic Panycytopenia- Platelets 55 today; improving - Secondary to ETOH abuse - Discussed plans for ETOH cessation: will contact Bernie and discussed AA Elevated total bilirubin - Total bili: 3.4 - continue to monitor DVT prophylaxis - SCD - Encourage ambulation Code status - Full Code Discharge planning -in progress. Considering tomorrow
[2017-08-20] MEDS: Potassium Chloride 20 mEq ER Tab PO SCH (21:00)
[2017-08-21 00:22] VITALS: RESP 19
[2017-08-21 06:25] LABS: BASO % 1.3 % (0.0-2.0); EOS # 0.2 K/uL (0.0-0.7); EOS % 5.1 % (0.0-4.0); HEMOGLOBIN 8.1 g/dL (12.0-18.0); LYMPH # 0.3 K/uL (1.0-4.3); LYMPH % 8.6 % (20.0-40.0); MEAN CELL VOLUME 85.3 fl (80.0-94.0); MEAN CORPUSCULAR HEMOGLOBIN 26.8 pg (27.0-31.0); MEAN CORPUSCULAR HGB CONC 31.4 g/dL (33.0-37.0); MEAN PLATELET VOLUME 8.9 fl (7.2-11.7); MONO # 0.7 K/uL (0.0-0.8); MONO % 21.8 % (0.0-10.0); NEUT # 2.1 K/uL (1.8-7.0); NEUT % 63.2 % (50.0-75.0); NRBC % 0.1 % (0.0-0.0); PLATELET COUNT 65 K/uL (130-400); RBC 3.03 Mil/uL (4.40-5.90); RED CELL DISTRIBUTION WIDTH 19.9 % (11.5-14.5); WHITE BLOOD COUNT 3.3 K/uL (4.8-10.8)
[2017-08-21 06:36] LABS: ALB/GLOB RATIO 0.6 (1.0-2.1); ALBUMIN 2.4 g/dL (3.5-5.0); ALT/SGPT 56 U/L (21-72); AST/SGOT 97 U/L (17-59); BLOOD UREA NITROGEN 6 mg/dl (9-20); CALCIUM 7.7 mg/dL (8.4-10.2); GFR AFRICAN-AMERICAN > 60; GFR NON-AFRICAN AMERICAN > 60
--- NOTE | 2017-08-21 07:26 | CP.PCM.DIS ---
Provider - Provider Date of Admission: 08/16/17 22:57 Attending physician: Tiffanie Worrell MD Time Spent in preparation of Discharge (in minutes): 20 Diagnosis - Discharge Diagnosis (1) Abdominal discomfort Status: Acute (2) Alcohol abuse Status: Acute (3) GI bleed Status: Acute Hospital Course - Lab Results Lab Results: Most Recent Lab Values WBC 3.3 K/uL (4.8-10.8) L 08/21/17 05:50 RBC 3.03 Mil/uL (4.40-5.90) L 08/21/17 05:50 Hgb 8.1 g/dL (12.0-18.0) L 08/21/17 05:50 Hct 25.8 % (35.0-51.0) L 08/21/17 05:50 MCV 85.3 fl (80.0-94.0) 08/21/17 05:50 MCH 26.8 pg (27.0-31.0) L 08/21/17 05:50 MCHC 31.4 g/dL (33.0-37.0) L 08/21/17 05:50 RDW 19.9 % (11.5-14.5) H 08/21/17 05:50 Plt Count 65 K/uL (130-400) L 08/21/17 05:50 MPV 8.9 fl (7.2-11.7) 08/21/17 05:50 Neut % (Auto) 63.2 % (50.0-75.0) 08/21/17 05:50 Lymph % (Auto) 8.6 % (20.0-40.0) L 08/21/17 05:50 [place] % (Auto) 21.8 % (0.0-10.0) H 08/21/17 05:50 Eos % (Auto) 5.1 % (0.0-4.0) H 08/21/17 05:50 Baso % (Auto) 1.3 % (0.0-2.0) 08/21/17 05:50 Neut # (Auto) 2.1 K/uL (1.8-7.0) 08/21/17 05:50 Lymph # (Auto) 0.3 K/uL (1.0-4.3) L 08/21/17 05:50 [place] # (Auto) 0.7 K/uL (0.0-0.8) 08/21/17 05:50 Eos # (Auto) 0.2 K/uL (0.0-0.7) 08/21/17 05:50 Baso # (Auto) 0.0 K/uL (0.0-0.2) 08/21/17 05:50 Neutrophils % (Manual) 74 % (42-75) 08/17/17 06:10 Band Neutrophils % 2 % (0-2) 08/17/17 06:10 Lymphocytes % (Manual) 10 % (20-50) L 08/17/17 06:10 Monocytes % (Manual) 14 % (0-10) H 08/17/17 06:10 Platelet Estimate Decreased (NORMAL) L 08/17/17 06:10 Hypochromasia (manual) Moderate 08/17/17 06:10 Anisocytosis (manual) Slight 08/17/17 06:10 Target Cells Slight 08/17/17 06:10 Tear Drop Cells Slight 08/17/17 06:10 Ovalocytes Slight 08/17/17 06:10 Schistocytes Slight 08/17/17 06:10 PT 18.9 Seconds (9.8-13.1) H 08/20/17 06:40 INR 1.7 (0.9-1.2) H 08/20/17 06:40 APTT 38.6 Seconds (25.6-37.1) H 08/17/17 06:10 Sodium 136 mmol/l (132-148) 08/21/17 05:50 Potassium 3.8 MMOL/L (3.6-5.0) 08/21/17 05:50 Chloride 102 mmol/L (98-107) 08/21/17 05:50 Carbon Dioxide 24 mmol/L (22-30) 08/21/17 05:50 Anion Gap 14 (10-20) 08/21/17 05:50 BUN 6 mg/dl (9-20) L 08/21/17 05:50 Creatinine 0.5 mg/dl (0.8-1.5) L 08/21/17 05:50 Est GFR ( Amer) > 60 08/21/17 05:50 Est GFR (Non-Af Amer) > 60 08/21/17 05:50 Random Glucose 106 mg/dL (75-110) 08/21/17 05:50 Calcium 7.7 mg/dL (8.4-10.2) L 08/21/17 05:50 Total Bilirubin 2.9 mg/dl (0.2-1.3) H 08/21/17 05:50 AST 97 U/L (17-59) H 08/21/17 05:50 ALT 56 U/L (21-72) 08/21/17 05:50 Alkaline Phosphatase 101 U/L (38-126) 08/21/17 05:50 Ammonia 80 umo/L (16-60) H 08/17/17 07:20 Total Protein 6.4 G/DL (6.3-8.2) 08/21/17 05:50 Albumin 2.4 g/dL (3.5-5.0) L 08/21/17 05:50 Globulin 4.0 gm/dL (2.2-3.9) H 08/21/17 05:50 Albumin/Globulin Ratio 0.6 (1.0-2.1) L 08/21/17 05:50 Urine Color Yellow (YELLOW) 08/17/17 07:39 Urine Clarity Clear (Clear) 08/17/17 07:39 Urine pH 6.0 (5.0-8.0) 08/17/17 07:39 Ur Specific [place] 1.012 (1.003-1.030) 08/17/17 07:39 Urine Protein Negative mg/dL (NEGATIVE) 08/17/17 07:39 Urine Glucose (UA) Neg mg/dL (Normal) 08/17/17 07:39 Urine Ketones Negative mg/dL (NEGATIVE) 08/17/17 07:39 Urine Blood Small (NEGATIVE) 08/17/17 07:39 Urine Nitrate Negative (NEGATIVE) 08/17/17 07:39 Urine Bilirubin Negative (NEGATIVE) 08/17/17 07:39 Urine Urobilinogen 4.0 mg/dL (0.2-1.0) 08/17/17 07:39 Ur Leukocyte Esterase Neg Aron/uL (Negative) 08/17/17 07:39 Urine RBC (Auto) 1 /hpf (0-3) 08/17/17 07:39 Urine Microscopic WBC 1 /hpf (0-5) 08/17/17 07:39 Stool Occult Blood Positive (NEGATIVE) H 08/16/17 21:09 Alcohol, Quantitative 207 mg/dl (0-10) H 08/16/17 21:09 Blood Type O POSITIVE 08/16/17 21:09 Antibody Screen Negative 08/16/17 21:09 Crossmatch See Detail 08/16/17 21:09 BBK History Checked Patient has bt 08/16/17 21:09 - Hospital Course Hospital Course: 57 y.o. male with hx of liver cirrhosis secondary to ETOH abuse, esophageal varices, and pancytopenia admitted for acute upper GI bleeding now resolved s/p Esophageal banding; stable: s/p octreotide, ppi, rocephin; H/H stable. D/c home with cipro 500 bid X3 days; Flagyl 500 mg bid 7Days, and coreg 3.125 BID. ( please monitor pulse) Discharge Exam - Head Exam Head Exam: ATRAUMATIC, NORMAL INSPECTION, NORMOCEPHALIC Discharge Plan - Discharge Medications Prescriptions: Carvedilol [Coreg] 3.125 mg PO Q12 #60 tab Ciprofloxacin [Cipro] 500 mg PO BID #6 tab Ferrous Sulfate [Feosol] 325 mg PO DAILY #30 tab FLUoxetine [Prozac] 10 mg PO DAILY #30 cap Metronidazole [Flagyl] 500 mg PO BID 7 Days #14 tablet Mv-Min/Folic/Vit K/Lycop/Coq10 [Daily Multivitamin Capsule] 1 cap PO DAILY #30 capsule Temazepam [Restoril] 30 mg PO HS #30 capsule Thiamine HCl [B-1] 100 mg PO DAILY #30 tablet - Follow Up Plan Condition: STABLE Disposition: HOME/ ROUTINE Instructions: Alcohol Abuse and Alcoholism (DC), Gastrointestinal Bleeding (DC) , Depression (DC) Additional Instructions: follow up with PMD 1 week Referrals: [facility] [Outside]
[2017-08-21 07:43] VITALS: BP 114/74; PULSE 69; TEMP 97.8
[2017-08-21] MEDS: Potassium Chloride 20 mEq ER Tab PO SCH (08:20)
[2017-08-21] MEDS: POLYETHYLENE GLYCOL 3350 17 GM/Dose PACKET PO SCH (08:20)
[2017-08-21] MEDS: Thiamine 100 mg/ml Inj IM SCH (08:21)
[2017-08-21] MEDS ORDERED: Pantoprazole 40 mg EC Tab PO SCH (09:00)
[2017-08-21 09:26] LABS: ANISOCYTOSIS SLIGHT; BASOPHIL 2 % (0-2); EOSINOPHIL 6 % (0-7); GIANT PLATELETS PRESENT; HYPOCHROMIC MODERATE; LYMPHOCYTE 6 % (20-50); MONOCYTE 11 % (0-10); NEUTROPHIL 75 % (42-75); OVALOCYTES SLIGHT; PLATELET ESTIMATE DECREASED (NORMAL); POLYCHROMIC SLIGHT; SCHISTOCYTES SLIGHT; TEARDROP CELLS SLIGHT; TOTAL CELLS COUNTED 100
[2017-08-21 09:27] LABS: LARGE PLATELETS PRESENT
[2017-08-22 12:07] VITALS: O2SAT 100
== END 2017-08-21 15:25 | disposition home or self-care (01) | DRG 468 ==
LOC: H.ER 20:31 → MERGE 22:57 → UNMERGE 22:57 → H.ERHOLD 22:57 → H.TEL 08-17 01:08 → H.MEDSURG1 08-18 22:15
PROVIDERS: ADMIT Family Medicine Geriatric Medicine; ATTEND Family Medicine Geriatric Medicine
PROC: 06L38CZ Occlusion of Esophageal Vein with Extraluminal Device, Via Natural or Artificial Opening Endoscopic (ICD-10-PCS; principal; 2017-08-18 10:00)
DX: K70.30 Alcoholic cirrhosis of liver without ascites (principal); D61.818 Other pancytopenia; I85.11 Secondary esophageal varices with bleeding; E87.6 Hypokalemia; K29.50 Unspecified chronic gastritis without bleeding; F32.9 Major depressive disorder, single episode, unspecified; F41.9 Anxiety disorder, unspecified; I10 Essential (primary) hypertension; F10.10 Alcohol abuse, uncomplicated; Y90.7 Blood alcohol level of 200-239 mg/100 ml; D73.1 Hypersplenism; K76.6 Portal hypertension; K31.89 Other diseases of stomach and duodenum; I95.9 Hypotension, unspecified; Z72.0 Tobacco use; K26.9 Duodenal ulcer, unspecified as acute or chronic, without hemorrhage or perforation; I86.4 Gastric varices

== ENCOUNTER 2017-08-27 17:42 | Observation (INO) | payer OTHER ==
[2017-08-27 17:42] VITALS: BMI 19.1
--- NOTE | 2017-08-27 18:47 | ED PDOC ---
HPI: Abdomen Time Seen by Provider: 08/27/17 18:06 Chief Complaint (Nursing): Abdominal Pain Chief Complaint (Provider): Abdominal pain History Per: Patient History/Exam Limitations: no limitations Onset/Duration Of Symptoms: Days (2) Current Symptoms Are (Timing): Still Present Location Of Pain/Discomfort: Diffuse Quality Of Discomfort: "Pain" Associated Symptoms: Vomiting, Diarrhea Additional History Per: Patient Additional Complaint(s): 57yo male with history of liver cirrhosis, GI bleed, gastritis and anemia presents to the ED complaining of abdominal pain and distention for the past 2 days. patient states the pain is similar to his prior episodes and was associated with non-bloody, non-bilious vomiting today. Patient states he thought he had constipation so he took medication, after which he had an episode of non-blood vomiting. Patient states the distention and abdominal pain persists, prompting his visit today. He denies any fever, chills and offers no other medical complaints. PMD: [facility] Past Medical History Reviewed: Historical Data, Nursing Documentation, Vital Signs Vital Signs: Last Vital Signs Temp 98.1 F 08/28/17 07:52 Pulse 77 08/28/17 07:52 Resp 18 08/28/17 07:52 BP 103/68 08/28/17 07:52 Pulse Ox 97 08/28/17 07:52 - Medical History PMH: Anemia, Anxiety, Depression, Fractures (L ankle sx), Gastritis, HTN Denies: HIV, Hypercholesterolemia, Chronic Kidney Disease - Surgical History Surgical History: Endoscopy - Family History Family History: States: No Known Family Hx, Unknown Family Hx - Social History Current smoker - smoking cessation education provided: No - Home Medications Home Medications: Ambulatory Orders Medication Instructions Recorded Spironolactone [Aldactone] 25 mg PO DAILY 08/16/17 Carvedilol [Coreg] 3.125 mg PO Q12 #60 tab 08/21/17 Ciprofloxacin [Cipro] 500 mg PO BID #6 tab 08/21/17 FLUoxetine [Prozac] 10 mg PO DAILY #30 cap 08/21/17 Ferrous Sulfate [Feosol] 325 mg PO DAILY #30 tab 08/21/17 Metronidazole [Flagyl] 500 mg PO BID 7 Days #14 tablet 08/21/17 Mv-Min/Folic/Vit K/Lycop/Coq10 1 cap PO DAILY #30 capsule 08/21/17 [Daily Multivitamin Capsule] Thiamine HCl [B-1] 100 mg PO DAILY #30 tablet 08/21/17 Esomeprazole Magnesium [Nexium] 40 mg PO DAILY 08/27/17 Folic Acid 1 mg PO DAILY 08/27/17 - Allergies Allergies/Adverse Reactions: Allergies Allergy/AdvReac Type Severity Reaction Status Date / Time No Known Allergies Allergy Verified 08/27/17 17:47 Review of Systems ROS Statement: Except As Marked, All Systems Reviewed And Found Negative Constitutional: Negative for: Fever, Chills Gastrointestinal: Positive for: Vomiting, Abdominal Pain, Diarrhea, Other ( abdominal distention) Physical Exam - Reviewed Nursing Documentation Reviewed: Yes Vital Signs Reviewed: Yes - Physical Exam Appears: Positive for: Non-toxic, Uncomfortable (mild painful distress). Negative for: Well (cachectic appearing) Head Exam: Positive for: ATRAUMATIC, NORMAL INSPECTION, NORMOCEPHALIC Skin: Positive for: Warm, Dry Eye Exam: Positive for: Normal appearance, PERRL ENT: Positive for: Pharynx Is (normal), TM Is/Are (clear), Other (tacky mucus membranes). Negative for: Pharyngeal Erythema Neck: Positive for: Normal, Supple Cardiovascular/Chest: Positive for: Regular Rate, Rhythm. Negative for: Murmur Respiratory: Positive for: Normal Breath Sounds. Negative for: Respiratory Distress Gastrointestinal/Abdominal: Positive for: Bowel Sounds (hyperactive), Soft, Distended (moderate distention, tympanic to percussion). Negative for: Mass, Guarding, Rebound Back: Positive for: Normal Inspection. Negative for: Decreased ROM Extremity: Positive for: Normal ROM, Other (poor muscle bulk). Negative for: Deformity Neurologic/Psych: Positive for: Alert, Oriented. Negative for: Motor/Sensory Deficits - Laboratory Results Result Diagrams: 08/27/17 19:11 08/28/17 06:00 - ECG O2 Sat by Pulse Oximetry: 97 (RA) Pulse Ox Interpretation: Normal Medical Decision Making Medical Decision Making: Impression: Abdominal distention and pain Differential: SBO, constipation, ascites, cirrhosis Plan: -- Labs -- XR Abdomen -- Occult blood, stool Time: 1940 CT Abdomen and Pelvis ordered. Labs demonstrate leukopenia, anemia and hypokalemia. Also, hepatic function derangements present but similar to previous. Time:2128 CT Abdomen and Pelvis FINDINGS: Lung bases: Minimal atelectasis/scarring. Mediastinum: Small hiatal hernia. ABDOMEN: Liver: Lobulated contour. Fatty infiltration. Gallbladder and bile ducts: No calcified stones. No ductal dilation. Pancreas: Mild heterogeneity of pancreas. No ductal dilation. Spleen: No splenomegaly. Adrenals: No mass. Kidneys and ureters: Too small to characterize lesion within LEFT kidney. No hydronephrosis. Stomach and bowel: Few scattered diverticula within colon. Segmental areas of mild mural thickening vs underdistention of large bowel. No obstruction. PELVIS: Appendix: No definite findings to suggest acute appendicitis. Bladder: Unremarkable. Reproductive: Unremarkable as visualized. ABDOMEN and PELVIS: Intraperitoneal space: Large amount of free fluid within abdomen and pelvis. No free air. Bones/joints: Degenerative changes of spine. No acute fracture. Soft tissues: Tiny umbilical hernia containing fat and fluid. Tiny RIGHT inguinal hernia containing fluid. Small LEFT inguinal hernia containing fluid. Vasculature: Partial thrombosis of main portal vein/portal confluence. Mild atherosclerotic disease. No aneurysm. Paraesophageal/upper abdominal/retroperitoneal varices. Lymph nodes: No pathologically enlarged lymph nodes. IMPRESSION: 1. Cirrhosis with portal hypertension and large ascites. 2. Partial thrombosis of portal vein. 3. Possible pancreatitis. Correlate with amylase/lipase levels. 4. Mild colitis vs underdistention versus portal colopathy. Clinical correlation is needed. 5. Incidental/non-acute findings are described above. Pt needs hospitalization for severe ascites, possible pancreatitis, possible colitis. DODIE GONZALEZ resident. Scribe Attestation: Documented by Clary Ba acting as a scribe for Terrie Kc MD Provider Attestation: All medical record entries made by the Scribe were at my direction and personally dictated by me. I have reviewed the chart and agree that the record accurately reflects my personal performance of the history, physical exam, medical decision making, and the department course for this patient. I have also personally directed, reviewed, and agree with the discharge instructions and disposition. Disposition - Clinical Impression Clinical Impression: Abdominal pain, Anemia, Liver cirrhosis, Ascites Counseled Patient/Family Regarding: Studies Performed, Diagnosis - Disposition Disposition Time: 21:00 Condition: FAIR - Pt Status Changed To: Hospital Disposition Of: Inpatient - Admit Certification Admit to Inpatient:: After my assessment, the patient will require hospitalization for at least two midnights. This is because of the severity of symptoms shown, intensity of services needed, and/or the medical risk in this patient being treated as an outpatient. - POA Present On Arrival: Deep Vein Thrombosis / PE (portal venous thrombosis)
[2017-08-27 19:17] LABS: BASO # 0.1 K/uL (0.0-0.2); BASO % 1.3 % (0.0-2.0); EOS # 0.2 K/uL (0.0-0.7); EOS % 4.1 % (0.0-4.0); HEMOGLOBIN 9.1 g/dL (12.0-18.0); LYMPH # 0.4 K/uL (1.0-4.3); LYMPH % 9.6 % (20.0-40.0); MEAN CELL VOLUME 84.6 fl (80.0-94.0); MEAN CORPUSCULAR HEMOGLOBIN 26.2 pg (27.0-31.0); MEAN PLATELET VOLUME 8.6 fl (7.2-11.7); MONO # 1.1 K/uL (0.0-0.8); NEUT # 2.8 K/uL (1.8-7.0); PLATELET COUNT 203 K/uL (130-400); RBC 3.48 Mil/uL (4.40-5.90); RED CELL DISTRIBUTION WIDTH 22.2 % (11.5-14.5); WHITE BLOOD COUNT 4.6 K/uL (4.8-10.8)
[2017-08-27 19:27] LABS: INR 1.8 (0.9-1.2); PARTIAL THROMBOPLASTIN TIME 38.4 Seconds (25.6-37.1); PROTHROMBIN TIME 19.6 Seconds (9.8-13.1)
[2017-08-27 19:29] LABS: ALB/GLOB RATIO 0.6 (1.0-2.1); ALT/SGPT 43 U/L (21-72); AST/SGOT 69 U/L (17-59); BLOOD UREA NITROGEN 4 mg/dl (9-20); CALCIUM 8.3 mg/dL (8.4-10.2); GFR AFRICAN-AMERICAN > 60; GFR NON-AFRICAN AMERICAN > 60; LIPASE 206 U/L (23-300)
[2017-08-27] MEDS ORDERED: Sodium Chloride 0.9% 100 ML ONE (19:53)
[2017-08-27] MEDS ORDERED: Iohexol 300 100 ML IJ ONE (19:53)
[2017-08-27 20:23] LABS: BANDS 1 % (0-2); BASOPHIL 3 % (0-2); BLASTS 2 % (0-0); EOSINOPHIL 3 % (0-7); LYMPHOCYTE 1 % (20-50); METAMYELOCYTE 4 % (0-0); MONOCYTE 11 % (0-10); REACTIVE LYMPHOCYTES 2 % (0-0); TOTAL CELLS COUNTED 100
[2017-08-27 20:26] LABS: ANISOCYTOSIS SLIGHT; HYPOCHROMIC SLIGHT; POIKILOCYTOSIS SLIGHT
[2017-08-27 20:27] LABS: OVALOCYTES SLIGHT; POLYCHROMIC SLIGHT; TARGET CELLS SLIGHT
[2017-08-27 20:28] LABS: ACANTHOCYTES SLIGHT; STOMATOCYTES SLIGHT
[2017-08-27 20:29] LABS: TEARDROP CELLS SLIGHT
[2017-08-27 20:30] LABS: PLATELET ESTIMATE NORMAL (NORMAL); SMUDGE CELLS PRESENT
[2017-08-27 20:31] LABS: NEUTROPHIL 73 % (42-75)
--- NOTE | 2017-08-27 21:18 | CT ---
EXAM: CT Abdomen and Pelvis With Intravenous Contrast CLINICAL HISTORY: 57 years old, male; Pain; Abdominal pain; Other: Distention; Prior surgery; Surgery date: 6+ months; Surgery type: Rt inguinal hernia; Additional info: Abd distension and pain and hyperactive bs TECHNIQUE: Axial computed tomography images of the abdomen and pelvis with intravenous contrast. All CT scans at this facility use one or more dose reduction techniques, viz.: automated exposure control; ma/kV adjustment per patient size (including targeted exams where dose is matched to indication; i.e. head); or iterative reconstruction technique. Coronal and sagittal reformatted images were created and reviewed. CONTRAST: 90 mL of [id number] administered intravenously. COMPARISON: 09/11/2016, 11/30/2015 FINDINGS: Lung bases: Minimal atelectasis/scarring. Mediastinum: Small hiatal hernia. ABDOMEN: Liver: Lobulated contour. Fatty infiltration. Gallbladder and bile ducts: No calcified stones. No ductal dilation. Pancreas: Mild heterogeneity of pancreas. No ductal dilation. Spleen: No splenomegaly. Adrenals: No mass. Kidneys and ureters: Too small to characterize lesion within LEFT kidney. No hydronephrosis. Stomach and bowel: Few scattered diverticula within colon. Segmental areas of mild mural thickening vs underdistention of large bowel. No obstruction. PELVIS: Appendix: No definite findings to suggest acute appendicitis. Bladder: Unremarkable. Reproductive: Unremarkable as visualized. ABDOMEN and PELVIS: Intraperitoneal space: Large amount of free fluid within abdomen and pelvis. No free air. Bones/joints: Degenerative changes of spine. No acute fracture. Soft tissues: Tiny umbilical hernia containing fat and fluid. Tiny RIGHT inguinal hernia containing fluid. Small LEFT inguinal hernia containing fluid. Vasculature: Partial thrombosis of main portal vein/portal confluence. Mild atherosclerotic disease. No aneurysm. Paraesophageal/upper abdominal/retroperitoneal varices. Lymph nodes: No pathologically enlarged lymph nodes. IMPRESSION: 1. Cirrhosis with portal hypertension and large ascites. 2. Partial thrombosis of portal vein. 3. Possible pancreatitis. Correlate with amylase/lipase levels. 4. Mild colitis vs underdistention versus portal colopathy. Clinical correlation is needed. 5. Incidental/non-acute findings are described above.
--- NOTE | 2017-08-27 22:18 | CP.PCM.HP ---
History of Present Illness - History of Present Illness History of Present Illness: 57 yo M w/ PMhx/o chronic gastritis, liver cirrhosis, gastric and esophageal varices, chronic EtOH abuse, tobacco abuse, and depression was recently discharged on 18s/p 5 band ligation - Patient states he has not had any drinks since 08/16/17. Since his discharge he has been taking his medication daily. However states he did not take any of his medication today because he was having abdominal pain and felt constipated. He took medication for the constipation, for which he cannot recall the name and has been having small soft bowl movements ( non bloody). Denies any episodes of vomiting however has been feeling nausious. On the last visit patient had been discharged with Cipro and Flagyl and has been taking the antibiotics regularly except for today. - Denies any chest pain, SOB, palpatations. - CIWA score 2 PMD: [facility] Allergies: N.K.D.A PMHx: Chronic gastritis w/ multiple admissions for UGIB, Liver cirrhosis, gastric and esophageal varices, Chronic ETOH abuse, Tobacco abuse, Depression PSHx: Left lower ext ankle surgery; Right inguinal hernia repair 2014. EGD s/p 5 band ligations Fam: Father had hx of Colon cancer, EtOH abuse, mother had hx of stomach cancer ; both in their 60-70s; brother also had hx of EtOH abuse, and of SOC: EtOH abuse, Denies alcohol use since 08/16/16; smokes 8-10 cigarettes a day x 30+ pack years, current smoker; denies illicit drug abuse Present on Admission - Present on Admission Any Indicators Present on Admission: No Review of Systems - Review of Systems All systems: reviewed and no additional remarkable complaints except Past Patient History - Infectious Disease Hx of Infectious Diseases: None - Tetanus Immunizations Tetanus Immunization: Unknown - Past Medical History & Family History Past Medical History?: Yes - Past Social History Smoking Status: Light Smoker < 10 Cigarettes Daily - CARDIAC Hx Cardiac Disorders: Yes - PULMONARY Hx Respiratory Disorders: No - NEUROLOGICAL Hx Neurological Disorder: No - HEENT Hx HEENT Problems: No - RENAL Hx Chronic Kidney Disease: No - ENDOCRINE/METABOLIC Hx Endocrine Disorders: No - HEMATOLOGICAL/ONCOLOGICAL Hx Blood Disorders: Yes - INTEGUMENTARY Hx Dermatological Problems: No - MUSCULOSKELETAL/RHEUMATOLOGICAL Hx Fractures: Yes (L ankle sx) - GASTROINTESTINAL Hx Gastritis: Yes - GENITOURINARY/GYNECOLOGICAL Hx Genitourinary Disorders: No - PSYCHIATRIC Hx Anxiety: Yes Hx Depression: Yes - SURGICAL HISTORY Hx Orthopedic Surgery: Yes (left ankle fx surgery) - ANESTHESIA Hx Anesthesia: Yes Hx Anesthesia Reactions: No Hx Malignant Hyperthermia: No Meds Allergies/Adverse Reactions: Allergies Allergy/AdvReac Type Severity Reaction Status Date / Time No Known Allergies Allergy Verified 08/27/17 17:47 Physical Exam - Constitutional Appears: No Acute Distress - Head Exam Head Exam: NORMAL INSPECTION - Eye Exam Eye Exam: EOMI, PERRL, Scleral icterus Pupil Exam: NORMAL ACCOMODATION, PERRL - ENT Exam ENT Exam: Mucous Membranes Moist - Respiratory Exam Respiratory Exam: Clear to Auscultation Bilateral, NORMAL BREATHING PATTERN. absent: Rhonchi, Wheezes - Cardiovascular Exam Cardiovascular Exam: REGULAR RHYTHM, +S1, +S2 - GI/Abdominal Exam GI & Abdominal Exam: Distended, Normal Bowel Sounds, Soft, Tenderness ( epigastric tenderness). absent: Guarding Additional comments: tympanic to percussion - Extremities Exam Extremities exam: Positive for: normal inspection. Negative for: calf tenderness - Neurological Exam Neurological exam: Alert, CN II-XII Intact, Normal Gait, Oriented x3 - Skin Skin Exam: Warm Additional comments: Multiple circular pruitic lesions over lower extremities : Anterior surface or left lower extremity, posterior side of right lower extremity Results - Vital Signs Recent Vital Signs: Last Vital Signs Temp 98.8 F 08/27/17 22:14 Pulse 73 08/27/17 22:14 Resp 18 08/27/17 22:14 BP 109/69 08/27/17 22:14 Pulse Ox 98 08/27/17 22:14 - Labs Result Diagrams: 08/27/17 19:11 08/27/17 19:11 Labs: Laboratory Results - last 24 hr 08/27/17 08/27/17 08/27/17 19:11 19:11 19:11 WBC 4.6 L RBC 3.48 L Hgb 9.1 L Hct 29.4 L MCV 84.6 MCH 26.2 L MCHC 31.0 L RDW 22.2 H Plt Count 203 D MPV 8.6 Neut % (Auto) 61.0 Lymph % (Auto) 9.6 L [place] % (Auto) 24.0 H Eos % (Auto) 4.1 H Baso % (Auto) 1.3 Neut # (Auto) 2.8 Lymph # (Auto) 0.4 L [place] # (Auto) 1.1 H Eos # (Auto) 0.2 Baso # (Auto) 0.1 Neutrophils % (Manual) 73 Band Neutrophils % 1 Lymphocytes % (Manual) 1 L Reactive Lymphs % 2 H Monocytes % (Manual) 11 H Eosinophils % (Manual) 3 Basophils % (Manual) 3 H Metamyelocytes % 4 H Blast Cells % 2 H Smudge Cells Present Platelet Estimate Normal Polychromasia Slight Hypochromasia (manual) Slight Poikilocytosis (manual Slight Anisocytosis (manual) Slight Target Cells Slight Tear Drop Cells Slight Ovalocytes Slight Stomatocytes Slight Acanthocytes (Spur) Slight PT INR APTT Sodium 138 Potassium 3.3 L Chloride 104 Carbon Dioxide 19 L Anion Gap 18 BUN 4 L Creatinine 0.6 L Est GFR ( Amer) > 60 Est GFR (Non-Af Amer) > 60 Random Glucose 102 Lactic Acid Calcium 8.3 L Phosphorus 3.0 Magnesium 1.7 Total Bilirubin 2.6 H AST 69 H D ALT 43 Alkaline Phosphatase 128 H D Ammonia < 9 L Total Protein 7.7 Albumin 3.0 L D Globulin 4.7 H Albumin/Globulin Ratio 0.6 L Lipase 206 Stool Occult Blood Alcohol, Quantitative < 10 08/27/17 08/27/17 08/27/17 19:11 19:11 19:11 WBC RBC Hgb Hct MCV MCH MCHC RDW Plt Count MPV Neut % (Auto) Lymph % (Auto) [place] % (Auto) Eos % (Auto) Baso % (Auto) Neut # (Auto) Lymph # (Auto) [place] # (Auto) Eos # (Auto) Baso # (Auto) Neutrophils % (Manual) Band Neutrophils % Lymphocytes % (Manual) Reactive Lymphs % Monocytes % (Manual) Eosinophils % (Manual) Basophils % (Manual) Metamyelocytes % Blast Cells % Smudge Cells Platelet Estimate Polychromasia Hypochromasia (manual) Poikilocytosis (manual Anisocytosis (manual) Target Cells Tear Drop Cells Ovalocytes Stomatocytes Acanthocytes (Spur) PT 19.6 H INR 1.8 H APTT 38.4 H Sodium Potassium Chloride Carbon Dioxide Anion Gap BUN Creatinine Est GFR ( Amer) Est GFR (Non-Af Amer) Random Glucose Lactic Acid 1.5 Calcium Phosphorus Magnesium Total Bilirubin AST ALT Alkaline Phosphatase Ammonia Total Protein Albumin Globulin Albumin/Globulin Ratio Lipase Stool Occult Blood Negative Alcohol, Quantitative Assessment & Plan - Assessment and Plan (Free Text) Assessment: 56 yo ,m, PMhx/o chronic gastritis, liver cirrhosis, esophageal varices, chronic EtOH abuse, tobacco abuse, and depression admitted abdominal pain and ascites Assessment/Plan 1) Abdominal pain most likely secondary to ascitis vs Colitis -NPO - Paracentesis/ IR consult - CT abdomen: IMPRESSION: a. Cirrhosis with portal hypertension and large ascites. b. Partial thrombosis of portal vein. c. Possible pancreatitis. Correlate with amylase/lipase levels. ( However Lipase WNL) d. Mild colitis vs underdistention versus portal colopathy. (Afebrile no white count) - IV Cipro and Flagyl dose given. Patient is unsure how many days of antibiotics he has remaining from home meds. 2) Partial Thrombosis of Portal cinthia? - CT shows possible thrombosis of portal vein - INR 1.8 - F/U with FOBT, patient has history of GI bleeds. - Consider pros and cons for anticoagulation - Consider GI consult 3) Liver cirrhosis -secondary to ETOH abuse -T bili 2.6 , albumin 3.0 - Hep A, B, C negative - MELD score: 17: 6% 3 month mortality 4) Hypotension - baseline Low BP - Gentle hydration - Will restart spironolactone in the AM 5) ETOH abuse -Has not drank since 08/16/17 - CIWA score of 2 - Banana bag ordered/ gentle hydration - Ativan PRN for withdrawl 6) Hypokalemia - K+ : 3.3 - 20 KCL PO x 1 given 7) Tinia ( Skin rash on lower extremity) - Clotrimazole BID over effected area 8) DVT Prophylaxis -SCD
[2017-08-27] MEDS ORDERED: Potassium Chloride 20 mEq/15 ml LIQ UD PO STA (22:43)
[2017-08-27] MEDS ORDERED: Multivitamin (MVI) 10 ML, Folic Acid 1 MG, Thiamine 100 MG in Dextrose 5%/0.45% NS 1,00... IV ONE (22:48)
[2017-08-27] MEDS ORDERED: metroNIDAZOLE 500mg/100ml NS 100 ML IVPB SCH (23:45)
[2017-08-28 06:29] LABS: ALB/GLOB RATIO 0.6 (1.0-2.1); ALBUMIN 2.6 g/dL (3.5-5.0); ALT/SGPT 38 U/L (21-72); AST/SGOT 42 U/L (17-59); BLOOD UREA NITROGEN 4 mg/dl (9-20); CALCIUM 7.9 mg/dL (8.4-10.2); GFR AFRICAN-AMERICAN > 60; GFR NON-AFRICAN AMERICAN > 60
--- NOTE | 2017-08-28 07:38 | RAD ---
PROCEDURE: Radiographs of the chest and abdomen (obstructive series) HISTORY: abd pain distension COMPARISON: No prior. TECHNIQUE: AP radiograph of the chest, with upright and supine radiographs of the abdomen. FINDINGS: CHEST: Lungs: Clear. Cardiovascular: Normal size heart. No pulmonary vascular congestion. Pleura: No pleural fluid. No pneumothorax. Other findings: None. ABDOMEN AND PELVIS: There is a nonspecific bowel gas pattern with gas seen mildly distending several central small bowel loops but gas is seen scattered throughout various large-bowel loops mildly including the rectum. No free intraperitoneal gas or abnormal intra-abdominal calcifications are appreciate. Vascular calcifications in the inferior pelvis soft tissues. CT is available for follow-up if clinically warranted. IMPRESSION: Nonspecific bowel gas pattern. Follow-up CT is available if clinically warranted. No free intraperitoneal gas. Nonacute chest radiograph.
[2017-08-28] MEDS: Multivitamin With Minerals Tab PO SCH (08:01)
[2017-08-28] MEDS: Pantoprazole 40 mg EC Tab PO SCH (08:02)
--- NOTE | 2017-08-28 08:23 | CP.PCM.PN ---
Subjective - Date & Time of Evaluation Date of Evaluation: 08/28/17 Time of Evaluation: 09:40 - Subjective Subjective: Pt seen and examined at bedside this morning. Pt reports he continues to experience abdominal pain. Denies nausea, vomiting, constipation, diarrhea, melena, bleeding, fever, or chills. Denies chest pain, dyspnea, headache, dizziness or blurry vision. Objective - Vital Signs/Intake and Output Vital Signs (last 24 hours): Temp Pulse Resp BP Pulse Ox 98.1 F 77 18 103/68 97 08/28/17 07:52 08/28/17 07:52 08/28/17 07:52 08/28/17 07:52 08/28/17 07:52 - Medications Medications: Current Medications Carvedilol (Coreg) 3.125 mg PO Q12 [facility] Last Admin: 08/28/17 08:01 Dose: 3.125 mg Clotrimazole (Lotrimin 1% Cream) 1 applic TOP BID [facility] Last Admin: 08/28/17 08:02 Dose: 1 applic Ferrous Sulfate (Feosol) 325 mg PO DAILY [facility] Last Admin: 08/28/17 08:01 Dose: 325 mg Fluoxetine HCl (Prozac) 10 mg PO DAILY [facility] Last Admin: 08/28/17 08:01 Dose: 10 mg Folic Acid (Folic Acid) 1 mg PO DAILY [facility] Last Admin: 08/28/17 08:01 Dose: 1 mg Multivitamins/Vitamin C 10 ml/Folic Acid 1 mg/ Thiamine HCl 100 mg/ Dextrose/ Sodium Chloride 1,011.2 mls @ 75 mls/hr IV .[id number] ONE Stop: 08/28/17 12:16 Last Admin: 08/28/17 01:14 Dose: 75 mls/hr Metronidazole (Flagyl 500mg/100ml Ns) 100 mls @ 100 mls/hr IVPB ONCE [facility] PRN Reason: Protocol Ciprofloxacin (Cipro 400mg/200ml Dsw) 400 mg in 200 mls @ 200 mls/hr IVPB ONCE ONE PRN Reason: Protocol Stop: 08/29/17 00:38 Lorazepam (Ativan) 1 mg IVP Q4H PRN PRN Reason: Symptoms of alcohol withdrawl Multivitamins/Minerals (Therapeutic-M Tab) 1 tab PO DAILY [facility] Last Admin: 08/28/17 08:01 Dose: 1 tab Pantoprazole Sodium (Protonix Ec Tab) 40 mg PO DAILY [facility] Last Admin: 08/28/17 08:02 Dose: 40 mg Spironolactone (Aldactone) 25 mg PO DAILY [facility] Last Admin: 08/28/17 08:00 Dose: 25 mg Thiamine HCl (Vitamin B1 Tab) 100 mg PO DAILY [facility] Last Admin: 08/28/17 08:01 Dose: 100 mg - Labs Labs: 08/27/17 19:11 08/28/17 06:00 PT 19.6 Seconds (9.8-13.1) H 08/27/17 19:11 INR 1.8 (0.9-1.2) H 08/27/17 19:11 APTT 38.4 Seconds (25.6-37.1) H 08/27/17 19:11 - Additional Findings Additional findings: - Constitutional Appears: No Acute Distress - Head Exam Head Exam: NORMAL INSPECTION - Eye Exam Eye Exam: EOMI, PERRL, Scleral icterus Pupil Exam: NORMAL ACCOMODATION, PERRL - ENT Exam ENT Exam: Mucous Membranes Moist - Respiratory Exam Respiratory Exam: Clear to Auscultation Bilateral, NORMAL BREATHING PATTERN. absent: Rhonchi, Wheezes - Cardiovascular Exam Cardiovascular Exam: REGULAR RHYTHM, +S1, +S2 - GI/Abdominal Exam GI & Abdominal Exam: Distended, Normal Bowel Sounds, Soft, Diffuse Tenderness with palpation absent: Guarding Additional comments: tympanic to percussion - Extremities Exam Extremities exam: Positive for: normal inspection. Negative for: calf tenderness - Neurological Exam Neurological exam: Alert, CN II-XII Intact, Normal Gait, Oriented x3 - Skin Skin Exam: Warm Additional comments: Multiple circular pruitic lesions over lower extremities : Anterior surface or left lower extremity, posterior side of right lower extremity Assessment and Plan - Assessment and Plan (Free Text) Assessment: Assessment: 56 yo male pmhx chronic gastritis, liver cirrhosis, esophageal varices, chronic EtOH abuse, tobacco abuse, and depression admitted abdominal pain and ascites Plan: 1) Abdominal pain most likely secondary to ascites - Paracentesis/ IR consult: 4.2 liters of straw colored fluid drained this afternoon. - CT abdomen on 08/27/17 IMPRESSION: a. Cirrhosis with portal hypertension and large ascites. b. Partial thrombosis of portal vein. c. Possible pancreatitis. Correlate with amylase/lipase levels. ( However Lipase WNL) d. Mild colitis vs underdistention versus portal colopathy. (Afebrile no white count) - IV Cipro and Flagyl dose given. Patient is unsure how many days of antibiotics he has remaining from home meds. 2) Partial Thrombosis of Portal cinthia? - CT shows possible thrombosis of portal vein - INR 1.8 - F/U with FOBT, patient has history of GI bleeds. - Consider pros and cons for anticoagulation - Consider GI consult 3) Liver cirrhosis -secondary to ETOH abuse -T bili 2.6 , albumin 3.0 - Hep A, B, C negative - MELD score: 17: 6% 3 month mortality 4) Hypotension - baseline Low BP -Continue with current home medications 5) ETOH abuse -Has not drank since 08/16/17 -CIWA score of 2 -s/p Banana bag ordered/ gentle hydration -Ativan PRN for withdrawal 6) Hypokalemia - K+ : 3.4 - 20 KCL PO x 1 given -BMP in AM 7) Tinea ( Skin rash on lower extremity) - Clotrimazole BID over effected area 8) DVT Prophylaxis -SCDs 9) Diet -GI/Hepatic low Na diet
[2017-08-28 11:27] LABS: INR 1.7 (0.9-1.2); PARTIAL THROMBOPLASTIN TIME 39.5 Seconds (25.6-37.1); PROTHROMBIN TIME 18.6 Seconds (9.8-13.1)
[2017-08-28] MEDS ORDERED: LIDOCAINE 2% 10ML 20 MG/ML VIAL IJ ONE (13:34)
[2017-08-28 14:57] LABS: AMYLASE,BODY FLUID 37 mg/dL (NONE ESTABLISHED); GLUCOSE,BODY FLUID 107 mg/dL (NONE ESTABLISHED)
[2017-08-28 14:59] LABS: TOTAL PROTEIN,BODY FLUID < 2.0 g/dL (NONE ESTABLISHED)
--- NOTE | 2017-08-28 15:13 | PCM.SURG1 ---
Surgeon's Initial Post Op Note - Surgeon's Notes Surgeon: Fernando Argueta MD Packaging Clerk: None Type of Anesthesia: Local Pre-Operative Diagnosis: ascites Operative Findings: large volume ascites Post-Operative Diagnosis: same Operation Performed: us guided paracentesis Specimen/Specimens Removed: 4.2 liters straw colored fluid. sample submitted as requested Estimated Blood Loss: EBL {In ML}: 0 Date of Surgery/Procedure: 08/28/17 Time of Surgery/Procedure: 14:00
--- NOTE | 2017-08-28 15:24 | US ---
PROCEDURE: ULTRASOUND-GUIDED PARACENTESIS CLINICAL HISTORY: 57-year-old male with cirrhosis and symptomatic ascites is referred to Interventional Radiology for ultrasound-guided paracentesis. COMPARISON: CT scan of the abdomen and pelvis dated 08/27/2017 PROCEDURE: 1. Ultrasound-guided paracentesis. PRE-PROCEDURE FINDINGS: 1. Large volume ascites. POST-PROCEDURE FINDINGS: 1. No evidence of post-procedural complication. INTERVENTIONAL RADIOLOGIST: Fernando Argueta M.D. (the attending was present for the entire procedure) ANESTHESIA: None. MEDICATION: Lidocaine 1% for local subcutaneous analgesia. COMPLICATIONS: None. PROCEDURE DESCRIPTION AND FINDINGS: The risks, benefits, alternatives and possible complications of the procedure were fully discussed; all questions were answered and informed consent was obtained. The patient was brought into the interventional suite and a pre-procedure 'time-out' was performed. The patient was placed on the fluoroscopy table in the supine position. Preliminary ultrasound images of the right lower quadrant demonstrate a large amount of ascites. The right lower quadrant was prepped and draped in the usual sterile fashion. Maximum sterile barrier precautions were maintained throughout the entire procedure. Following subcutaneous infiltration of lidocaine 1% for local analgesia, under real-time ultrasound guidance, a 5 Telugu centesis catheter was advanced into the right lower quadrant with real-time visualization of needle entry. The ultrasound images were permanently recorded and submitted to the PACS. The inner stylet was removed and the catheter was attached to gentle vacuum suction. A total of 4.2 liters of straw-colored fluid were aspirated. A sample was submitted to the laboratory for analysis. The drainage catheter was then removed. A sterile adhesive bandage was placed over the puncture site. The patient tolerated the procedure well without immediate post-procedure complications and was transferred back to the floor in stable condition. IMPRESSION: SUCCESSFUL ULTRASOUND-GUIDED DIAGNOSTIC AND THERAPEUTIC PARACENTESIS.
[2017-08-28 18:26] LABS: BODY FLUID TYPE PERITONEAL/ASCITES
[2017-08-28 19:06] LABS: BF GROSS APPEARANCE CLEAR (CLEAR)
[2017-08-28 20:02] LABS: BODY FLUID MONO/MACROPHAGE 41 % (0-0); BODY FLUID TOTAL COUNT 100 (0-0)
[2017-08-28] MEDS ORDERED: Ciprofloxacin 400mg/200ml D5W 400 MG/200 ML BAG IVPB ONE (23:39)
--- NOTE | 2017-08-29 06:33 | CP.PCM.CON ---
<Matt Calvin - Last Filed: 08/29/17 14:07> History of Present Illness - History of Present Illness History of Present Illness: PGY5 GI Fellow Consult Note Patient is a 57yo male with PMHx significant for decompensated EtOH cirrhosis c/ b esophageal varices with prior hemorrhage, ascites, tobacco abuse, depression who presented to the ED with abdominal pain. He was recently admitted and discharged on 08/21/17, only days prior to this admission, for hematemesis where he underwent EGD with EVL of large esophageal varices. States that during his last admission and upon returning home he became constipated and noted worsening abdominal distention/girth. Abdomen became diffusely painful and he returned to the ED for evaluation. A CT performed in the ED revealed large volume ascites and he subsequently had paracentesis with 4.2L straw colored fluid removed from the abdomen. He is seen s/p paracentesis and states he is feeling much better. Denies any other complaints at the moment. Of note, patient was on prophylaxis with Cipro/Flagyl following recent episode of hematemesis. 12 system ROS performed and negative except where stated PMHx: See HPI PSHx: Left lower ext ankle surgery; Right inguinal hernia repair FHx: Father - hx of Colon cancer, EtOH abuse; Mother - hx of stomach cancer; Brother - hx of EtOH abuse, from EtOH related complications Social: EtOH abuse; smokes 8-10 cigarettes a day x 30+ pack years, denies illicit drug abuse Endo: EGD - 08/18/17 - Large varices s/p EVL with 5 bands EGD - 04/2017 - Grade I varices EGD - 02/2017 - Grade 2 varices with red whale sign s/p EVL with 4 bands EGD - 08/08 - Grade 1 esophageal varices, Chronic gastritis Past Patient History - Infectious Disease Hx of Infectious Diseases: None - Tetanus Immunizations Tetanus Immunization: Unknown - Past Medical History & Family History Past Medical History?: Yes - Past Social History Smoking Status: Light Smoker < 10 Cigarettes Daily - CARDIAC Hx Hypercholesterolemia: No Hx Hypertension: Yes - PULMONARY Hx Respiratory Disorders: No - NEUROLOGICAL Hx Neurological Disorder: No - HEENT Hx HEENT Problems: No - RENAL Hx Chronic Kidney Disease: No - ENDOCRINE/METABOLIC Hx Endocrine Disorders: No - HEMATOLOGICAL/ONCOLOGICAL Hx Anemia: Yes Hx Human Immunodeficiency Virus (HIV): No - INTEGUMENTARY Hx Dermatological Problems: No - MUSCULOSKELETAL/RHEUMATOLOGICAL Hx Fractures: Yes (L ankle sx) - GASTROINTESTINAL Hx Gastritis: Yes - GENITOURINARY/GYNECOLOGICAL Hx Genitourinary Disorders: No - PSYCHIATRIC Hx Anxiety: Yes Hx Depression: Yes - SURGICAL HISTORY Hx Orthopedic Surgery: Yes (left ankle fx surgery) - ANESTHESIA Hx Anesthesia: Yes Hx Anesthesia Reactions: No Hx Malignant Hyperthermia: No Meds Allergies/Adverse Reactions: Allergies Allergy/AdvReac Type Severity Reaction Status Date / Time No Known Allergies Allergy Verified 08/27/17 17:47 - Medications Medications: Current Medications Carvedilol (Coreg) 3.125 mg PO Q12 [facility] Last Admin: 08/28/17 21:39 Dose: Not Given Clotrimazole (Lotrimin 1% Cream) 1 applic TOP BID [facility] Last Admin: 08/28/17 16:13 Dose: 1 applic Ferrous Sulfate (Feosol) 325 mg PO DAILY [facility] Last Admin: 08/28/17 08:01 Dose: 325 mg Fluoxetine HCl (Prozac) 10 mg PO DAILY [facility] Last Admin: 08/28/17 08:01 Dose: 10 mg Folic Acid (Folic Acid) 1 mg PO DAILY [facility] Last Admin: 08/28/17 08:01 Dose: 1 mg Metronidazole (Flagyl 500mg/100ml Ns) 100 mls @ 100 mls/hr IVPB ONCE [facility] PRN Reason: Protocol Lorazepam (Ativan) 1 mg IVP Q4H PRN PRN Reason: Symptoms of alcohol withdrawl Multivitamins/Minerals (Therapeutic-M Tab) 1 tab PO DAILY [facility] Last Admin: 08/28/17 08:01 Dose: 1 tab Pantoprazole Sodium (Protonix Ec Tab) 40 mg PO DAILY [facility] Last Admin: 08/28/17 08:02 Dose: 40 mg Spironolactone (Aldactone) 25 mg PO DAILY [facility] Last Admin: 08/28/17 08:00 Dose: 25 mg Thiamine HCl (Vitamin B1 Tab) 100 mg PO DAILY [facility] Last Admin: 08/28/17 08:01 Dose: 100 mg Physical Exam - Constitutional Appears: No Acute Distress, Chronically Ill - Eye Exam Eye Exam: EOMI, PERRL - ENT Exam ENT Exam: Mucous Membranes Moist - Respiratory Exam Respiratory Exam: Clear to Auscultation Bilateral. absent: Rales, Rhonchi, Wheezes - Cardiovascular Exam Cardiovascular Exam: RRR, +S1, +S2 - GI/Abdominal Exam GI & Abdominal Exam: Normal Bowel Sounds, Soft. absent: Distended, Firm, Guarding, Organomegaly, Rigid, Tenderness - Extremities Exam Extremities exam: Positive for: normal inspection. Negative for: pedal edema - Neurological Exam Neurological exam: Alert, Oriented x3 - Psychiatric Exam Psychiatric exam: Normal Affect, Normal Mood - Skin Skin Exam: Dry, Warm Results - Vital Signs Recent Vital Signs: Last Vital Signs Temp 98.5 F 08/29/17 00:01 Pulse 82 08/29/17 00:01 Resp 20 08/29/17 00:01 BP 93/60 L 08/29/17 00:01 Pulse Ox 97 08/29/17 00:01 - Labs Result Diagrams: 08/29/17 06:00 08/29/17 06:00 Labs: Laboratory Results - last 24 hr 08/28/17 08/28/17 08/28/17 10:30 14:15 14:15 PT 18.6 H INR 1.7 H APTT 39.5 H Fluid Source Fluid Appearance Fluid WBC Fluid RBC Fluid Tot Cell Count Fluid Neutrophils Fluid Lymphocytes Fld Monocyte/Macrophag Fluid Glucose 107 Fluid Total Protein < 2.0 Fluid LDH 137 Fluid Amylase 37 Fluid Triglycerides 22 Fluid Comment 08/28/17 18:00 PT INR APTT Fluid Source Peritoneal/ascites Fluid Appearance Clear Fluid WBC 21.0 Fluid RBC 98.0 H Fluid Tot Cell Count 100 H Fluid Neutrophils 20.0 H Fluid Lymphocytes 39.0 H Fld Monocyte/Macrophag 41 H Fluid Glucose Fluid Total Protein Fluid LDH Fluid Amylase Fluid Triglycerides Fluid Comment Lt. yellow Assessment & Plan - Assessment and Plan (Free Text) Assessment: Patient is a 57yo male with PMHx significant for decompensated EtOH cirrhosis c/ b esophageal varices with prior hemorrhage, ascites, tobacco abuse, depression who presented to the ED with abdominal pain. -Ascites -Decompensated EtOH cirrhosis -Recent variceal hemorrhage s/p EVL Plan: -S/P 4.2L paracentesis, does not require albumin replacement from procedure -Cell count is not consistent with SBP -Ascites total protein level <2 - patients with total protein <1.5 require prophylaxis for SBP -Cr stable on this AM bloodwork -Will require Lasix/Aldactone 40mg/100mg PO QD as tolerated to prevent re- accumulation of ascitic fluid -Continue coreg 3.125mg PO BID as tolerated -Lactulose if patient remains constipated -EtOH cessation and rehabilitation - last use 08/16/17 -2g Na diet -Outpatient follow up for EVL and chronic liver disease management *MELD-Na: 19 - Date & Time Date: 08/29/17 Time: 06:30 <Jeevan Desouza - Last Filed: 08/29/17 19:42> Results - Vital Signs Recent Vital Signs: Last Vital Signs Temp 98.2 F 08/29/17 09:00 Pulse 73 08/29/17 09:08 Resp 19 08/29/17 09:00 BP 110/68 08/29/17 09:08 Pulse Ox 98 08/29/17 09:00 - Labs Result Diagrams: 08/29/17 06:00 08/29/17 06:00 Labs: Laboratory Results - last 24 hr 08/28/17 08/29/17 08/29/17 18:00 06:00 06:00 WBC 3.9 L RBC 3.21 L Hgb 8.6 L Hct 26.9 L MCV 83.8 MCH 26.7 L MCHC 31.9 L RDW 22.1 H Plt Count 178 PT INR Sodium 134 Potassium 3.8 Chloride 103 Carbon Dioxide 21 L Anion Gap 14 BUN 5 L Creatinine 0.6 L Est GFR ( Amer) > 60 Est GFR (Non-Af Amer) > 60 Random Glucose 101 Calcium 8.1 L Total Bilirubin 2.1 H AST 66 H D ALT 35 Alkaline Phosphatase 103 Total Protein 6.8 Albumin 2.6 L Globulin 4.2 H Albumin/Globulin Ratio 0.6 L Fluid Tot Cell Count 100 H Fluid Neutrophils 20.0 H Fluid Lymphocytes 39.0 H Fld Monocyte/Macrophag 41 H 08/29/17 06:00 WBC RBC Hgb Hct MCV MCH MCHC RDW Plt Count PT 19.2 H INR 1.7 H Sodium Potassium Chloride Carbon Dioxide Anion Gap BUN Creatinine Est GFR ( Amer) Est GFR (Non-Af Amer) Random Glucose Calcium Total Bilirubin AST ALT Alkaline Phosphatase Total Protein Albumin Globulin Albumin/Globulin Ratio Fluid Tot Cell Count Fluid Neutrophils Fluid Lymphocytes Fld Monocyte/Macrophag Attending/Attestation - Attestation I have personally seen and examined this patient.: Yes I have fully participated in the care of the patient.: Yes I have reviewed all pertinent clinical information: Yes Notes (Text): 08/29/17 19:41 I have seen and reviewed the patient chart on rounds and agree with above assessment and plan as discussed on rounds.
[2017-08-29 06:34] LABS: HEMOGLOBIN 8.6 g/dL (12.0-18.0); MEAN CELL VOLUME 83.8 fl (80.0-94.0); MEAN CORPUSCULAR HEMOGLOBIN 26.7 pg (27.0-31.0); MEAN CORPUSCULAR HGB CONC 31.9 g/dL (33.0-37.0); RBC 3.21 Mil/uL (4.40-5.90); RED CELL DISTRIBUTION WIDTH 22.1 % (11.5-14.5); WHITE BLOOD COUNT 3.9 K/uL (4.8-10.8)
[2017-08-29 06:53] LABS: ALB/GLOB RATIO 0.6 (1.0-2.1); ALBUMIN 2.6 g/dL (3.5-5.0); ALT/SGPT 35 U/L (21-72); AST/SGOT 66 U/L (17-59); BLOOD UREA NITROGEN 5 mg/dl (9-20); CALCIUM 8.1 mg/dL (8.4-10.2); GFR AFRICAN-AMERICAN > 60; GFR NON-AFRICAN AMERICAN > 60
[2017-08-29 06:57] LABS: INR 1.7 (0.9-1.2); PROTHROMBIN TIME 19.2 Seconds (9.8-13.1)
[2017-08-29 07:56] VITALS: BP 110/68; PULSE 73; RESP 19; TEMP 98.2; O2SAT 98
--- NOTE | 2017-08-29 08:12 | CP.PCM.PN ---
Subjective - Date & Time of Evaluation Date of Evaluation: 08/29/17 Time of Evaluation: 08:00 Objective - Vital Signs/Intake and Output Vital Signs (last 24 hours): Temp Pulse Resp BP Pulse Ox 98.2 F 73 19 110/68 98 08/29/17 07:56 08/29/17 07:56 08/29/17 07:56 08/29/17 07:56 08/29/17 07:56 - Medications Medications: Current Medications Carvedilol (Coreg) 3.125 mg PO Q12 [facility] Last Admin: 08/28/17 21:39 Dose: Not Given Clotrimazole (Lotrimin 1% Cream) 1 applic TOP BID [facility] Last Admin: 08/28/17 16:13 Dose: 1 applic Ferrous Sulfate (Feosol) 325 mg PO DAILY [facility] Last Admin: 08/28/17 08:01 Dose: 325 mg Fluoxetine HCl (Prozac) 10 mg PO DAILY [facility] Last Admin: 08/28/17 08:01 Dose: 10 mg Folic Acid (Folic Acid) 1 mg PO DAILY [facility] Last Admin: 08/28/17 08:01 Dose: 1 mg Metronidazole (Flagyl 500mg/100ml Ns) 100 mls @ 100 mls/hr IVPB ONCE [facility] PRN Reason: Protocol Lorazepam (Ativan) 1 mg IVP Q4H PRN PRN Reason: Symptoms of alcohol withdrawl Multivitamins/Minerals (Therapeutic-M Tab) 1 tab PO DAILY [facility] Last Admin: 08/28/17 08:01 Dose: 1 tab Pantoprazole Sodium (Protonix Ec Tab) 40 mg PO DAILY [facility] Last Admin: 08/28/17 08:02 Dose: 40 mg Spironolactone (Aldactone) 25 mg PO DAILY [facility] Last Admin: 08/28/17 08:00 Dose: 25 mg Thiamine HCl (Vitamin B1 Tab) 100 mg PO DAILY [facility] Last Admin: 08/28/17 08:01 Dose: 100 mg - Labs Labs: 08/29/17 06:00 08/29/17 06:00 PT 19.2 Seconds (9.8-13.1) H 08/29/17 06:00 INR 1.7 (0.9-1.2) H 08/29/17 06:00 APTT 39.5 Seconds (25.6-37.1) H 08/28/17 10:30
[2017-08-29] MEDS: Pantoprazole 40 mg EC Tab PO SCH (09:07)
[2017-08-29] MEDS: Multivitamin With Minerals Tab PO SCH (09:08)
--- NOTE | 2017-08-29 12:30 | CP.PCM.DIS ---
Provider - Provider Date of Admission: 08/27/17 21:31 Attending physician: Tiffanie Worrell MD Time Spent in preparation of Discharge (in minutes): 30 Diagnosis - Discharge Diagnosis (1) Abdominal pain Status: Resolved (2) Alcoholic gastritis Status: Chronic (3) Ascites Status: Resolved Hospital Course - Lab Results Lab Results: Micro Results 08/28/17 14:15 Body Fluid - Abdominal Cavity Body Fluid Culture - Preliminary NO GROWTH AFTER 24 HOURS 08/28/17 06:50 Urine,Clean Catch Urine Culture - Final No Growth (<1,000 CFU/ML) Most Recent Lab Values WBC 3.9 K/uL (4.8-10.8) L 08/29/17 06:00 RBC 3.21 Mil/uL (4.40-5.90) L 08/29/17 06:00 Hgb 8.6 g/dL (12.0-18.0) L 08/29/17 06:00 Hct 26.9 % (35.0-51.0) L 08/29/17 06:00 MCV 83.8 fl (80.0-94.0) 08/29/17 06:00 MCH 26.7 pg (27.0-31.0) L 08/29/17 06:00 MCHC 31.9 g/dL (33.0-37.0) L 08/29/17 06:00 RDW 22.1 % (11.5-14.5) H 08/29/17 06:00 Plt Count 178 K/uL (130-400) 08/29/17 06:00 MPV 8.6 fl (7.2-11.7) 08/27/17 19:11 Neut % (Auto) 61.0 % (50.0-75.0) 08/27/17 19:11 Lymph % (Auto) 9.6 % (20.0-40.0) L 08/27/17 19:11 [place] % (Auto) 24.0 % (0.0-10.0) H 08/27/17 19:11 Eos % (Auto) 4.1 % (0.0-4.0) H 08/27/17 19:11 Baso % (Auto) 1.3 % (0.0-2.0) 08/27/17 19:11 Neut # (Auto) 2.8 K/uL (1.8-7.0) 08/27/17 19:11 Lymph # (Auto) 0.4 K/uL (1.0-4.3) L 08/27/17 19:11 Labette # (Auto) 1.1 K/uL (0.0-0.8) H 08/27/17 19:11 Eos # (Auto) 0.2 K/uL (0.0-0.7) 08/27/17 19:11 Baso # (Auto) 0.1 K/uL (0.0-0.2) 08/27/17 19:11 Neutrophils % (Manual) 73 % (42-75) 08/27/17 19:11 Band Neutrophils % 1 % (0-2) 08/27/17 19:11 Lymphocytes % (Manual) 1 % (20-50) L 08/27/17 19:11 Reactive Lymphs % 2 % (0-0) H 08/27/17 19:11 Monocytes % (Manual) 11 % (0-10) H 08/27/17 19:11 Eosinophils % (Manual) 3 % (0-7) 08/27/17 19:11 Basophils % (Manual) 3 % (0-2) H 08/27/17 19:11 Metamyelocytes % 4 % (0-0) H 08/27/17 19:11 Blast Cells % 2 % (0-0) H 08/27/17 19:11 Smudge Cells Present 08/27/17 19:11 Platelet Estimate Normal (NORMAL) 08/27/17 19:11 Polychromasia Slight 08/27/17 19:11 Hypochromasia (manual) Slight 08/27/17 19:11 Poikilocytosis (manual Slight 08/27/17 19:11 Anisocytosis (manual) Slight 08/27/17 19:11 Target Cells Slight 08/27/17 19:11 Tear Drop Cells Slight 08/27/17 19:11 Ovalocytes Slight 08/27/17 19:11 Stomatocytes Slight 08/27/17 19:11 Acanthocytes (Spur) Slight 08/27/17 19:11 PT 19.2 Seconds (9.8-13.1) H 08/29/17 06:00 INR 1.7 (0.9-1.2) H 08/29/17 06:00 APTT 39.5 Seconds (25.6-37.1) H 08/28/17 10:30 Sodium 134 mmol/l (132-148) 08/29/17 06:00 Potassium 3.8 MMOL/L (3.6-5.0) 08/29/17 06:00 Chloride 103 mmol/L (98-107) 08/29/17 06:00 Carbon Dioxide 21 mmol/L (22-30) L 08/29/17 06:00 Anion Gap 14 (10-20) 08/29/17 06:00 BUN 5 mg/dl (9-20) L 08/29/17 06:00 Creatinine 0.6 mg/dl (0.8-1.5) L 08/29/17 06:00 Est GFR ( Amer) > 60 08/29/17 06:00 Est GFR (Non-Af Amer) > 60 08/29/17 06:00 Random Glucose 101 mg/dL (75-110) 08/29/17 06:00 Lactic Acid 1.5 MMOL/L (0.7-2.1) 08/27/17 19:11 Calcium 8.1 mg/dL (8.4-10.2) L 08/29/17 06:00 Phosphorus 3.0 mg/dl (2.5-4.5) 08/27/17 19:11 Magnesium 1.7 MG/DL (1.6-2.3) 08/27/17 19:11 Total Bilirubin 2.1 mg/dl (0.2-1.3) H 08/29/17 06:00 AST 66 U/L (17-59) H D 08/29/17 06:00 ALT 35 U/L (21-72) 08/29/17 06:00 Alkaline Phosphatase 103 U/L (38-126) 08/29/17 06:00 Ammonia < 9 umo/L (16-60) L 08/27/17 19:11 Total Protein 6.8 G/DL (6.3-8.2) 08/29/17 06:00 Albumin 2.6 g/dL (3.5-5.0) L 08/29/17 06:00 Globulin 4.2 gm/dL (2.2-3.9) H 08/29/17 06:00 Albumin/Globulin Ratio 0.6 (1.0-2.1) L 08/29/17 06:00 Lipase 206 U/L (23-300) 08/27/17 19:11 Fluid Source Peritoneal/ascites 08/28/17 18:00 Fluid Appearance Clear (CLEAR) 08/28/17 18:00 Fluid WBC 21.0 /mm3 (0.0-300.0) 08/28/17 18:00 Fluid RBC 98.0 /mm3 (0.0-0.0) H 08/28/17 18:00 Fluid Tot Cell Count 100 (0-0) H 08/28/17 18:00 Fluid Neutrophils 20.0 % (0-0) H 08/28/17 18:00 Fluid Lymphocytes 39.0 % (0-0) H 08/28/17 18:00 Fld Monocyte/Macrophag 41 % (0-0) H 08/28/17 18:00 Fluid Glucose 107 mg/dL (NONE ESTABLISHED) 08/28/17 14:15 Fluid Total Protein < 2.0 g/dL (NONE ESTABLISHED) 08/28/17 14:15 Fluid LDH 137 IU (NONE ESTABLISHED) 08/28/17 14:15 Fluid Amylase 37 mg/dL (NONE ESTABLISHED) 08/28/17 14:15 Fluid Triglycerides 22 mg/dL (NONE ESTABLISHED) 08/28/17 14:15 Fluid Comment Lt. yellow 08/28/17 18:00 Stool Occult Blood Negative (NEGATIVE) 08/27/17 19:11 Alcohol, Quantitative < 10 mg/dl (0-10) 08/27/17 19:11 - Hospital Course Hospital Course: 57 yo M w/ PMhx/o chronic gastritis, liver cirrhosis, gastric and esophageal varices, chronic EtOH abuse, tobacco abuse, and depression was recently discharged on 08/21/17 s/p 5 band ligation, admitted on 08/27/17 for abdominal pain. Abdomen and pelvis CT showed large ascites. Pt had paracentesis on in which 4.2 liters of straw colored fluid was removed. Fluid analysis did not indicate SBP. Pt felt better after paracentesis and was able to tolerate PO. Pt was advised to make an appointment for f/u with Dr. Desouza and f/u with outpatient PMD in 2-3 days. Pt is discharged home with instruction to continue with the following medications ( no new rx given) Carvedilol [Coreg] 3.125 mg PO Q12 Ferrous Sulfate [Feosol] 325 mg PO DAILY FLUoxetine [Prozac] 10 mg PO DAILY Thiamine HCl [B-1] 100 mg PO DAILY Omeprazole 40 mg po daily Folic acid 1 mg tab po daily Spironolactone 25 mg po daily Multivitamin 1 tab po daily Discharge Exam - Head Exam Head Exam: ATRAUMATIC, NORMAL INSPECTION, NORMOCEPHALIC - Eye Exam Eye Exam: Normal appearance. absent: Scleral icterus - ENT Exam ENT Exam: Mucous Membranes Moist - Respiratory Exam Respiratory Exam: Clear to PA & Lateral, NORMAL BREATHING PATTERN. absent: Rales, Rhonchi, Wheezes - Cardiovascular Exam Cardiovascular Exam: REGULAR RHYTHM, RRR, +S1, +S2 - GI/Abdominal Exam GI & Abdominal Exam: Normal Bowel Sounds, Soft. absent: Distended, Guarding, Rebound, Tenderness - Extremities Exam Extremities exam: normal inspection - Neurological Exam Neurological exam: Alert, Oriented x3 - Psychiatric Exam Psychiatric exam: Normal Affect, Normal Mood - Additional Findings Additional findings: thin appearing Discharge Plan - Follow Up Plan Condition: FAIR Disposition: HOME/ ROUTINE Instructions: Cirrhosis (DC), Abdominal Paracentesis (DC) Additional Instructions: follow up with primary MD 7-10 days Please make an appointment to follow up with Dr. Desouza Referrals: at [facility] [Outside] Jeevan Desouza MD [Medical Doctor] -
== END 2017-08-29 13:46 | disposition home or self-care (01) ==
LOC: H.ER 17:42 → H.ERHOLD 21:31 → H.MEDSURG1 22:25
PROVIDERS: ADMIT Family Medicine Geriatric Medicine; ATTEND Family Medicine Geriatric Medicine
DX: K70.31 Alcoholic cirrhosis of liver with ascites (principal); K76.6 Portal hypertension; K29.20 Alcoholic gastritis without bleeding; K29.50 Unspecified chronic gastritis without bleeding; I81 Portal vein thrombosis; E87.6 Hypokalemia; F10.20 Alcohol dependence, uncomplicated; F17.210 Nicotine dependence, cigarettes, uncomplicated; D64.9 Anemia, unspecified; I85.00 Esophageal varices without bleeding; I10 Essential (primary) hypertension; I86.4 Gastric varices; K59.00 Constipation, unspecified; F32.9 Major depressive disorder, single episode, unspecified; F41.9 Anxiety disorder, unspecified; I95.9 Hypotension, unspecified
CPT/HCPCS: 36415; 49083; 74022; 74177; 80053; 80320; 82140; 82945; 83605; 83615; 83690; 83735; 84100; 85025; 85027; 85610; 85730; 87070; 87086; 89051; 99284; C1729; G0328; G0378; J0744; J3411; J7042; Q9967

== ENCOUNTER 2017-10-29 23:55 | Emergency (ER) | payer OTHER ==
[2017-10-29 23:56] VITALS: BMI 19.1
--- NOTE | 2017-10-30 01:36 | ED PDOC ---
HPI: General Adult Time Seen by Provider: 10/30/17 00:00 Chief Complaint (Nursing): Medical Clearance Chief Complaint (Provider): Medical Clearance History Per: Patient History/Exam Limitations: no limitations Additional Complaint(s): 57 years old male with history of depression, anemia and liver cirrohsis due to alcohol abuse brought to the ED by Kaitlin CARL for medical clearance. Patient states he wants to end his life. He offers no medical complaints. PMD: non provided Past Medical History Reviewed: Historical Data, Nursing Documentation, Vital Signs Vital Signs: Last Vital Signs Temp 98.4 F 10/30/17 05:33 Pulse 84 10/30/17 05:33 Resp 18 10/30/17 05:33 BP 108/73 10/30/17 05:33 Pulse Ox 97 10/30/17 05:33 - Medical History PMH: Anemia, Anxiety, Depression, Fractures (L ankle sx), Gastritis, HTN Denies: HIV, Hypercholesterolemia, Chronic Kidney Disease - Surgical History Surgical History: Endoscopy - Family History Family History: States: Unknown Family Hx - Social History Current smoker - smoking cessation education provided: Yes Alcohol: Social Drugs: Denies - Home Medications Home Medications: Ambulatory Orders Medication Instructions Recorded Spironolactone [Aldactone] 25 mg PO DAILY 08/16/17 Carvedilol [Coreg] 3.125 mg PO Q12 #60 tab 08/21/17 FLUoxetine [Prozac] 10 mg PO DAILY #30 cap 08/21/17 Ferrous Sulfate [Feosol] 325 mg PO DAILY #30 tab 08/21/17 Mv-Min/Folic/Vit K/Lycop/Coq10 1 cap PO DAILY #30 capsule 08/21/17 [Daily Multivitamin Capsule] Thiamine HCl [B-1] 100 mg PO DAILY #30 tablet 08/21/17 Esomeprazole Magnesium [Nexium] 40 mg PO DAILY 08/27/17 Folic Acid 1 mg PO DAILY 08/27/17 - Allergies Allergies/Adverse Reactions: Allergies Allergy/AdvReac Type Severity Reaction Status Date / Time No Known Allergies Allergy Verified 10/16/17 21:41 Review of Systems ROS Statement: Except As Marked, All Systems Reviewed And Found Negative Psych: Positive for: Suicidal ideation Physical Exam - Reviewed Nursing Documentation Reviewed: Yes Vital Signs Reviewed: Yes - Physical Exam Appears: Positive for: No Acute Distress Head Exam: Positive for: ATRAUMATIC, NORMOCEPHALIC Skin: Positive for: Normal Color, Warm, Dry Cardiovascular/Chest: Positive for: Regular Rate, Rhythm. Negative for: Murmur Respiratory: Positive for: Normal Breath Sounds. Negative for: Respiratory Distress Gastrointestinal/Abdominal: Positive for: Normal Exam, Soft Extremity: Positive for: Normal ROM Neurologic/Psych: Positive for: Alert, Oriented - Laboratory Results Result Diagrams: 10/30/17 00:30 10/30/17 00:30 - ECG O2 Sat by Pulse Oximetry: 100 (RA) Pulse Ox Interpretation: Normal Medical Decision Making Medical Decision Making: Time: 7 Initial Plan: medical clearance --CMP --Alcohol Serum --Urine Drug Screen --CBC --Glucose, POC --Urine C&S --Urinalysis --Crisis evaluation 0125 Patient is cleared by Dr. Sarkar from alcohol abuse. Patient is not longer under the custody of police. pt medically cleared for dc. pt aware of thrombocytopenia and anemia and needs outp follow up for that. Scribe Attestation: Documented by Lorena Foster, acting as a scribe for Eliel Manning MD. Provider Scribe Attestation: All medical record entries made by the Scribe were at my direction and personally dictated by me. I have reviewed the chart and agree that the record accurately reflects my personal performance of the history, physical exam, medical decision making, and the department course for this patient. I have also personally directed, reviewed, and agree with the discharge instructions and disposition. Disposition - Clinical Impression Clinical Impression: Alcohol abuse, Chronic anemia - Patient ED Disposition Is Patient to be Admitted: No Counseled Patient/Family Regarding: Studies Performed, Diagnosis, Need For Followup (for thrombocyotpenia and anemia) - Disposition Disposition: Routine/Home Disposition Time: 05:30 Condition: IMPROVED Additional Instructions: follow up with your primary doctor in 1-2 days return to the ED with any worsening or concerning symptoms Instructions: Alcohol Abuse and Alcoholism (DC) Forms: [facility] (Tajik)
[2017-10-30 02:58] LABS: BASO # 0.1 K/uL (0.0-0.2); BASO % 3.2 % (0.0-2.0); EOS # 0.1 K/uL (0.0-0.7); EOS % 5.1 % (0.0-4.0); HEMOGLOBIN 10.8 g/dL (12.0-18.0); LYMPH # 0.3 K/uL (1.0-4.3); LYMPH % 15.6 % (20.0-40.0); MEAN CELL VOLUME 88.7 fl (80.0-94.0); MEAN CORPUSCULAR HEMOGLOBIN 28.8 pg (27.0-31.0); MEAN CORPUSCULAR HGB CONC 32.5 g/dL (33.0-37.0); MEAN PLATELET VOLUME 8.3 fl (7.2-11.7); MONO # 0.5 K/uL (0.0-0.8); NEUT # 1.2 K/uL (1.8-7.0); NEUT % 52.1 % (50.0-75.0); NRBC % 0.1 % (0.0-0.0); PLATELET COUNT 79 K/uL (130-400); RBC 3.75 Mil/uL (4.40-5.90); WHITE BLOOD COUNT 2.2 K/uL (4.8-10.8)
[2017-10-30 03:09] LABS: ALB/GLOB RATIO 0.7 (1.0-2.1); ALBUMIN 3.5 g/dL (3.5-5.0); ALT/SGPT 25 U/L (21-72); AST/SGOT 85 U/L (17-59); BLOOD UREA NITROGEN 7 mg/dl (9-20); CALCIUM 8.8 mg/dL (8.4-10.2); GFR AFRICAN-AMERICAN > 60; GFR NON-AFRICAN AMERICAN > 60
[2017-10-30 04:34] LABS: BANDS 1 % (0-2); BASOPHIL 3 % (0-2); EOSINOPHIL 4 % (0-7); LYMPHOCYTE 12 % (20-50); MONOCYTE 14 % (0-10); NEUTROPHIL 66 % (42-75); PLATELET ESTIMATE MARKEDLY DECREASED (NORMAL); TOTAL CELLS COUNTED 100
[2017-10-30 04:35] LABS: ANISOCYTOSIS SLIGHT; TEARDROP CELLS SLIGHT
[2017-10-30 05:34] VITALS: BP 108/73; PULSE 84; RESP 18; TEMP 98.4
[2017-10-31 22:24] VITALS: O2SAT 100
== END 2017-10-30 05:43 | disposition home or self-care (01) ==
LOC: H.ER 23:55
DX: F10.10 Alcohol abuse, uncomplicated (principal); D64.9 Anemia, unspecified; F17.200 Nicotine dependence, unspecified, uncomplicated; F32.9 Major depressive disorder, single episode, unspecified; F41.9 Anxiety disorder, unspecified; I10 Essential (primary) hypertension

== ENCOUNTER 2018-03-09 23:05 | Emergency (ER) | payer OTHER ==
[2018-03-09 23:05] VITALS: BMI 19.1
--- NOTE | 2018-03-10 00:17 | ED PDOC ---
HPI: Psych/Substance Abuse Time Seen by Provider: 03/09/18 23:15 Chief Complaint (Nursing): Alcohol Ingestion Chief Complaint (Provider): Alcohol Ingestion ED Caveat: Intoxicated History Per: EMS History/Exam Limitations: intoxication Current Symptoms Are (Timing): Still Present Modifying Factor(s): Alcohol Additional Complaint(s): 57 year old male arrives to ED via EMS for an evaluation of alcohol intoxication with head injury from a fall prior to arrival. Unable to obtain further medical history secondary to patient's current clinical condition. PCP: none provided Past Medical History Reviewed: Historical Data, Nursing Documentation, Vital Signs Vital Signs: Last Vital Signs Temp 98.0 F 03/09/18 23:10 Pulse 60 03/09/18 23:10 Resp 18 03/09/18 23:10 BP 115/76 03/09/18 23:10 Pulse Ox 99 03/09/18 23:10 - Medical History PMH: Anemia, Anxiety, Depression, Fractures (L ankle sx), Gastritis, HTN Denies: Diabetes, Hepatitis, HIV, Hypercholesterolemia, Chronic Kidney Disease, Seizures, Sexually Transmitted Disease - Surgical History Surgical History: Endoscopy - Family History Family History: States: Unknown Family Hx - Home Medications Home Medications: Ambulatory Orders Medication Instructions Recorded Spironolactone [Aldactone] 25 mg PO DAILY 08/16/17 Carvedilol [Coreg] 3.125 mg PO Q12 #60 tab 08/21/17 FLUoxetine [Prozac] 10 mg PO DAILY #30 cap 08/21/17 Ferrous Sulfate [Feosol] 325 mg PO DAILY #30 tab 08/21/17 Mv-Min/Folic/Vit K/Lycop/Coq10 1 cap PO DAILY #30 capsule 08/21/17 [Daily Multivitamin Capsule] Thiamine HCl [B-1] 100 mg PO DAILY #30 tablet 08/21/17 Esomeprazole Magnesium [Nexium] 40 mg PO DAILY 08/27/17 Folic Acid 1 mg PO DAILY 08/27/17 - Allergies Allergies/Adverse Reactions: Allergies Allergy/AdvReac Type Severity Reaction Status Date / Time No Known Allergies Allergy Verified 10/16/17 21:41 Review of Systems Review Of Systems: ROS cannot be obtained secondary to pt's inabilty to answer questions. Physical Exam - Reviewed Nursing Documentation Reviewed: Yes Vital Signs Reviewed: Yes - Physical Exam Appears: Positive for: No Acute Distress Head Exam: Positive for: ATRAUMATIC, NORMAL INSPECTION, NORMOCEPHALIC Skin: Positive for: Normal Color Eye Exam: Positive for: Normal appearance ENT: Positive for: Normal ENT Inspection Neck: Positive for: Normal Cardiovascular/Chest: Positive for: Regular Rate, Rhythm Respiratory: Positive for: Normal Breath Sounds. Negative for: Respiratory Distress Gastrointestinal/Abdominal: Positive for: Normal Exam, Soft Extremity: Positive for: Normal ROM (upper/lower) Neurologic/Psych: Positive for: Alert (x2), Gait (unsteady), Other (slurred speech) - Laboratory Results Result Diagrams: 03/10/18 00:20 03/10/18 00:20 - ECG O2 Sat by Pulse Oximetry: 99 (RA) Pulse Ox Interpretation: Normal Medical Decision Making Medical Decision Making: Initial Impression: 57 year old male with alcohol intoxication. Initial Plan: * CT head without contrast * Labs * Accucheck * Clinical sobriety Time: 0020 --Alcohol quantitative: 294mg/dL Time: 011 --CT head Findings: Normal size of the ventricles and extra-axial spaces for the patient's age. Normal white matter tracts of the supratentorial brain. Normal basal ganglia and thalami. Normal brainstem. Normal cerebellum. There is no demonstrated extra-axial, intraparenchymal, or intraventricular hemorrhage. There are no findings of an acute ischemic infarction. Normal calvarium. There is no demonstrated fracture. Normal soft tissue structures. Normal visualized paranasal sinuses. IMPRESSION: Normal unenhanced CT scan of the brain. Time: 0440 --Labs reviewed: no significant clinical abnormality. Upon provider reevaluation, patient is medically stable, clinically sober and requires no further treatment in the ED at this time. Patient will be discharged home. Counseling was provided and all questions were answered regarding diagnosis. There is agreement to discharge plan. Return if symptoms persist or worsen. Clinical Impression: Alcohol Abuse Scribe Attestation: Documented by Penny Lange, acting as a scribe for Pancho Oh MD. Provider Scribe Attestation: All medical record entries made by the Scribe were at my direction and personally dictated by me. I have reviewed the chart and agree that the record accurately reflects my personal performance of the history, physical exam, medical decision making, and the department course for this patient. I have also personally directed, reviewed, and agree with the discharge instructions and disposition. Disposition - Clinical Impression Clinical Impression: Alcohol abuse - Patient ED Disposition Is Patient to be Admitted: No Counseled Patient/Family Regarding: Studies Performed, Diagnosis - Disposition Disposition: Routine/Home Disposition Time: 04:40 Condition: IMPROVED Instructions: Alcohol Abuse and Alcoholism (DC) Forms: [facility] (Georgian)
[2018-03-10 00:31] LABS: BASO # 0.1 K/uL (0.0-0.2); BASO % 2.7 % (0.0-2.0); EOS # 0.5 K/uL (0.0-0.7); EOS % 16.3 % (0.0-4.0); HEMOGLOBIN 12.2 g/dL (12.0-18.0); LYMPH # 0.5 K/uL (1.0-4.3); LYMPH % 16.8 % (20.0-40.0); MEAN CELL VOLUME 92.4 fl (80.0-94.0); MEAN CORPUSCULAR HEMOGLOBIN 30.4 pg (27.0-31.0); MEAN CORPUSCULAR HGB CONC 32.9 g/dL (33.0-37.0); MEAN PLATELET VOLUME 8.1 fl (7.2-11.7); MONO # 0.5 K/uL (0.0-0.8); MONO % 16.4 % (0.0-10.0); NEUT # 1.5 K/uL (1.8-7.0); NEUT % 47.8 % (50.0-75.0); NRBC % 0.1 % (0.0-0.0); RBC 4.03 Mil/uL (4.40-5.90); RED CELL DISTRIBUTION WIDTH 18.6 % (11.5-14.5); WHITE BLOOD COUNT 3.1 K/uL (4.8-10.8)
[2018-03-10 00:34] LABS: INR 1.5; PROTHROMBIN TIME 17.3 Seconds (9.8-13.1)
[2018-03-10 00:36] LABS: PARTIAL THROMBOPLASTIN TIME 38.4 Seconds (25.6-37.1)
[2018-03-10 00:46] LABS: ALB/GLOB RATIO 0.6 (1.0-2.1); ALBUMIN 3.1 g/dL (3.5-5.0); ALT/SGPT 32 U/L (21-72); AST/SGOT 79 U/L (17-59); BLOOD UREA NITROGEN 4 mg/dl (9-20); CALCIUM 8.3 mg/dL (8.4-10.2); GFR NON-AFRICAN AMERICAN > 60
[2018-03-10 04:54] VITALS: BP 102/70; PULSE 78; RESP 16; TEMP 97.7; O2SAT 97
--- NOTE | 2018-03-10 13:02 | CT ---
Date of service: 03/10/2018 PROCEDURE: CT HEAD WITHOUT CONTRAST. HISTORY: fall COMPARISON: Noncontrast head CT 10/16/2017. TECHNIQUE: Axial computed tomography images were obtained through the head/brain without intravenous contrast. Radiation dose: Total exam DLP = 816.83 mGy-cm. This CT exam was performed using one or more of the following dose reduction techniques: Automated exposure control, adjustment of the mA and/or kV according to patient size, and/or use of iterative reconstruction technique. FINDINGS: HEMORRHAGE: No intracranial hemorrhage. BRAIN: Good corticomedullary differentiation is seen. Reiterated limited diffuse cerebral atrophy and chronic microangiopathy. No suspicious extra-axial fluid collection is identified and the midline brain anatomy appears grossly nonfocal as imaged. No mass effect identified. VENTRICLES: Unremarkable. No hydrocephalus. CALVARIUM: No destructive bony lesion or displaced fracture identified including through the skullbase. PARANASAL SINUSES: Unremarkable as visualized. No significant inflammatory changes. MASTOID AIR CELLS: Unremarkable as visualized. No inflammatory changes. OTHER FINDINGS: None. IMPRESSION: Stable limited age-related neuro degenerative changes without acute intracranial findings at this time. No fracture identified. Concordant preliminary report from [facility], 03/10/2018.
== END 2018-03-10 05:11 | disposition home or self-care (01) ==
LOC: H.ER 23:05
DX: F10.129 Alcohol abuse with intoxication, unspecified (principal); Y90.8 Blood alcohol level of 240 mg/100 ml or more; Z86.59 Personal history of other mental and behavioral disorders; I10 Essential (primary) hypertension

== ENCOUNTER 2018-06-07 04:52 | Observation (INO) | payer OTHER ==
[2018-06-07 04:52] VITALS: BMI 19.1
--- NOTE | 2018-06-07 05:20 | ED PDOC ---
HPI: Abdomen Time Seen by Provider: 06/07/18 05:07 Chief Complaint (Nursing): Abdominal Pain Chief Complaint (Provider): Abdominal Pain History Per: Patient History/Exam Limitations: no limitations Additional Complaint(s): 57 y/o male with history of alcohol abuse, liver cirrhosis, and recurrent ascites presents with abdominal pain and distension for x2 days. Patient's last paracentesis was 4 months ago. Patient reports worsening abdominal pain. Denies fever, nausea, or vomiting. Patient admits to alcohol use today. Past Medical History Vital Signs: Last Vital Signs Temp 98.6 F 06/07/18 05:02 Pulse 111 H 06/07/18 05:02 Resp 16 06/07/18 05:02 BP 122/88 06/07/18 05:02 Pulse Ox 98 06/07/18 05:02 - Medical History PMH: Anemia, Anxiety, Depression, Fractures (L ankle sx), Gastritis, HTN Denies: Diabetes, Hepatitis, HIV, Hypercholesterolemia, Chronic Kidney Disease, Seizures, Sexually Transmitted Disease - Surgical History Surgical History: Endoscopy - Family History Family History: States: Unknown Family Hx - Social History Current smoker - smoking cessation education provided: No Alcohol: > 2 Drinks/Day Drugs: Denies - Home Medications Home Medications: Ambulatory Orders Medication Instructions Recorded RX: Spironolactone [Aldactone] 25 mg PO BID 08/16/17 RX: Carvedilol [Coreg] 3.125 mg PO Q12 #60 tab 08/21/17 RX: FLUoxetine [Prozac] 10 mg PO DAILY #30 cap 08/21/17 RX: Ferrous Sulfate [Feosol] 325 mg PO DAILY #30 tab 08/21/17 RX: Mv-Min/Folic/Vit K/Lycop/Coq10 1 cap PO DAILY #30 capsule 08/21/17 [Daily Multivitamin Capsule] RX: Thiamine HCl [B-1] 100 mg PO DAILY #30 tablet 08/21/17 RX: Esomeprazole Magnesium [Nexium] 40 mg PO DAILY 08/27/17 RX: Folic Acid 1 mg PO DAILY 08/27/17 - Allergies Allergies/Adverse Reactions: Allergies Allergy/AdvReac Type Severity Reaction Status Date / Time No Known Allergies Allergy Verified 10/16/17 21:41 Review of Systems ROS Statement: Except As Marked, All Systems Reviewed And Found Negative Constitutional: Negative for: Fever Gastrointestinal: Positive for: Abdominal Pain. Negative for: Nausea, Vomiting, Diarrhea Physical Exam - Reviewed Nursing Documentation Reviewed: Yes Vital Signs Reviewed: Yes - Physical Exam Appears: Positive for: Well, Non-toxic, No Acute Distress Head Exam: Positive for: ATRAUMATIC, NORMAL INSPECTION, NORMOCEPHALIC Skin: Positive for: Normal Color, Warm, DRY Eye Exam: Positive for: EOMI, Normal appearance, PERRL ENT: Positive for: Normal ENT Inspection Neck: Positive for: Normal, Painless ROM Cardiovascular/Chest: Positive for: Regular Rate, Rhythm, Tachycardia. Negative for: Murmur Respiratory: Positive for: Normal Breath Sounds. Negative for: Respiratory Distress Gastrointestinal/Abdominal: Positive for: Distended (positive fluid wave), Hernia (umbilical ) Back: Positive for: Normal Inspection Extremity: Positive for: Normal ROM. Negative for: Pedal Edema, Deformity Neurologic/Psych: Positive for: Alert, Oriented. Negative for: Motor/Sensory Deficits - Laboratory Results Result Diagrams: 06/07/18 05:14 06/07/18 05:14 - ECG O2 Sat by Pulse Oximetry: 98 (RA) Pulse Ox Interpretation: Normal Medical Decision Making Medical Decision Making: Time: 05:10 Initial Impression: 57 y/o with ascites and abdominal pain in setting of liver cirrhosis Initial Plan: * Labs 05:35 CT Abdomen pelvis ordered. 07:00 Patient care endorsed to Dr. Portillo pending CT and reevaluation. Scribe Attestation: Documented by Alejandro Bojorquez acting as a scribe for Pancho Oh MD. Provider Scribe Attestation: All medical record entries made by the Scribe were at my direction and personally dictated by me. I have reviewed the chart and agree that the record accurately reflects my personal performance of the history, physical exam, medical decision making, and the department course for this patient. I have also personally directed, reviewed, and agree with the discharge instructions and disposition. Disposition - Clinical Impression Clinical Impression: Abdominal pain - Patient ED Disposition Is Patient to be Admitted: Transfer of Care - Disposition Disposition: Transfer of Care Disposition Time: 07:00 Condition: FAIR Forms: [facility] (Kazakh) Patient Signed Over To: Concha Portillo
[2018-06-07 05:45] LABS: BASO # 0.1 K/uL (0.0-0.2); BASO % 3.5 % (0.0-2.0); EOS # 0.2 K/uL (0.0-0.7); EOS % 5.8 % (0.0-4.0); HEMOGLOBIN 13.1 g/dL (12.0-18.0); LYMPH # 0.3 K/uL (1.0-4.3); LYMPH % 11.8 % (20.0-40.0); MEAN CELL VOLUME 94.5 fl (80.0-94.0); MEAN CORPUSCULAR HGB CONC 32.8 g/dL (33.0-37.0); MEAN PLATELET VOLUME 8.9 fl (7.2-11.7); MONO # 0.6 K/uL (0.0-0.8); MONO % 22.2 % (0.0-10.0); NEUT # 1.6 K/uL (1.8-7.0); NEUT % 56.7 % (50.0-75.0); NRBC % 0.1 % (0.0-0.0); PLATELET COUNT 76 K/uL (130-400); RBC 4.21 Mil/uL (4.40-5.90); RED CELL DISTRIBUTION WIDTH 17.6 % (11.5-14.5); WHITE BLOOD COUNT 2.9 K/uL (4.8-10.8)
[2018-06-07 05:52] LABS: INR 1.5; PROTHROMBIN TIME 17.3 Seconds (9.8-13.1)
[2018-06-07 05:53] LABS: ALB/GLOB RATIO 0.6 (1.0-2.1); ALBUMIN 3.2 g/dL (3.5-5.0); ALT/SGPT 27 U/L (21-72); AST/SGOT 96 U/L (17-59); BLOOD UREA NITROGEN 5 mg/dl (9-20); CALCIUM 8.3 mg/dL (8.4-10.2); GFR NON-AFRICAN AMERICAN > 60
[2018-06-07] MEDS ORDERED: Iohexol 300 100 ML IJ ONE (06:03)
[2018-06-07] MEDS ORDERED: Sodium Chloride 0.9% 50 ML IV ONE (06:03)
[2018-06-07 07:44] LABS: LIPASE 194 U/L (23-300)
--- NOTE | 2018-06-07 08:41 | CP.PCM.HP ---
<Sultan Edgardo - Last Filed: 06/07/18 12:38> History of Present Illness - History of Present Illness History of Present Illness: CC: Abdominal pain HPI:57 year old male with PMHx of liver cirrhosis, gastric and esophageal varices, chronic gastritis, chronic EtOH use disorder and tobacco use disorder presents to [facility] ED with complaints of diffuse abdominal pain and distension for 2 days. States he started drinking more for last 2 months and stopped taking medications about 2 weeks ago. States yesterday he drank 6 beers. Patient reports he had nausea but no nausea or vomiting now. Denies any fever, chills or dizziness. Patient is admitted for abdominal pain and ascites. ROS: All 12 systems reviewed and negative except as mentioned above PMD: [facility] PMHx: Liver cirrhosis, Chronic gastritis w/ multiple admissions for UGIB, gastric and esophageal varices, Chronic ETOH use disorder, Tobacco use disorder. PSHx: Left lower ext ankle surgery; Right inguinal hernia repair 2014. EGD s/p 5 band ligations Family: Father had hx of Colon cancer, EtOH abuse, mother had hx of stomach c ancer; both in their 60-70s SOC: EtOH abuse, drinks 6 beers/day; smokes 10 cigarettes a day x 30+ pack years, current smoker; denies illicit drug use. Allergies: N.K.D.A Medications: reviewed ED Course: Vitals BP 122/88, HR 111, RR 16, Pulse ox 98, temp 98.[address] abdomen/pelvis cbc: 2.9>13.1/39.8<76 cmp: INR: 1.5 EtoH 87 Present on Admission - Present on Admission Any Indicators Present on Admission: No Review of Systems - Review of Systems Review of Systems: All 12 systems reviewed and negative except as mentioned in HPI Past Patient History - Infectious Disease Hx of Infectious Diseases: None - Tetanus Immunizations Tetanus Immunization: Unknown - Past Medical History & Family History Past Medical History?: Yes - Past Social History Alcohol: > 2 Drinks/Day Drugs: Denies - CARDIAC Hx Hypercholesterolemia: No Hx Hypertension: Yes - PULMONARY Hx Tuberculosis: No - NEUROLOGICAL Hx Seizures: No - HEENT Hx HEENT Problems: No - RENAL Hx Chronic Kidney Disease: No - ENDOCRINE/METABOLIC Hx Endocrine Disorders: No - HEMATOLOGICAL/ONCOLOGICAL Hx Anemia: Yes Hx Human Immunodeficiency Virus (HIV): No - INTEGUMENTARY Hx Dermatological Problems: No - MUSCULOSKELETAL/RHEUMATOLOGICAL Hx Fractures: Yes (L ankle sx) - GASTROINTESTINAL Hx Gastritis: Yes - GENITOURINARY/GYNECOLOGICAL Hx Sexually Transmitted Disorders: No - PSYCHIATRIC Hx Anxiety: Yes Hx Depression: Yes - SURGICAL HISTORY Hx Orthopedic Surgery: Yes (left ankle fx surgery) - ANESTHESIA Hx Anesthesia: Yes Hx Anesthesia Reactions: No Hx Malignant Hyperthermia: No Meds Allergies/Adverse Reactions: Allergies Allergy/AdvReac Type Severity Reaction Status Date / Time No Known Allergies Allergy Verified 10/16/17 21:41 Physical Exam - Constitutional Appears: No Acute Distress - Head Exam Head Exam: NORMAL INSPECTION - Eye Exam Eye Exam: Normal appearance. absent: Scleral icterus - ENT Exam ENT Exam: Mucous Membranes Moist, Normal Oropharynx - Neck Exam Neck exam: Positive for: Normal Inspection. Negative for: Meningismus - Respiratory Exam Respiratory Exam: Clear to Auscultation Bilateral, NORMAL BREATHING PATTERN. absent: Rhonchi, Wheezes, Respiratory Distress - Cardiovascular Exam Cardiovascular Exam: REGULAR RHYTHM, +S1, +S2 - GI/Abdominal Exam GI & Abdominal Exam: Distended (dulll, +fluid waves), Hernia (umbilical), Normal Bowel Sounds, Soft Additional comments: mild RLQ tenderness - Extremities Exam Extremities exam: Positive for: normal inspection. Negative for: calf tenderness - Back Exam Back exam: absent: CVA tenderness (L), CVA tenderness (R) - Neurological Exam Neurological exam: Alert, Oriented x3 - Psychiatric Exam Psychiatric exam: Normal Affect, Normal Mood - Skin Skin Exam: Rash (erythmatous circular rash on B/L lower extremities and upper back) Results - Vital Signs Recent Vital Signs: Last Vital Signs Temp 98.6 F 06/07/18 05:02 Pulse 111 H 06/07/18 05:02 Resp 16 06/07/18 05:02 BP 122/88 06/07/18 05:02 Pulse Ox 98 06/07/18 06:27 - Labs Result Diagrams: 06/07/18 05:14 06/07/18 05:14 Labs: Laboratory Results - last 24 hr 06/07/18 06/07/18 06/07/18 05:14 05:14 05:14 WBC 2.9 L RBC 4.21 L Hgb 13.1 Hct 39.8 MCV 94.5 H D MCH 31.0 MCHC 32.8 L RDW 17.6 H Plt Count 76 L D MPV 8.9 Neut % (Auto) 56.7 Lymph % (Auto) 11.8 L [place] % (Auto) 22.2 H Eos % (Auto) 5.8 H Baso % (Auto) 3.5 H Neut # (Auto) 1.6 L Lymph # (Auto) 0.3 L [place] # (Auto) 0.6 Eos # (Auto) 0.2 Baso # (Auto) 0.1 PT 17.3 H INR 1.5 APTT 38.0 H Sodium 139 Potassium 4.0 Chloride 104 Carbon Dioxide 20 L Anion Gap 19 BUN 5 L Creatinine 0.5 L Est GFR ( Amer) > 60 Est GFR (Non-Af Amer) > 60 Random Glucose 98 Lactic Acid Calcium 8.3 L Total Bilirubin 3.5 H AST 96 H D ALT 27 Alkaline Phosphatase 160 H Total Protein 8.2 Albumin 3.2 L Globulin 5.0 H Albumin/Globulin Ratio 0.6 L Lipase 194 Alcohol, Quantitative 87 H 06/07/18 05:14 WBC RBC Hgb Hct MCV MCH MCHC RDW Plt Count MPV Neut % (Auto) Lymph % (Auto) [place] % (Auto) Eos % (Auto) Baso % (Auto) Neut # (Auto) Lymph # (Auto) [place] # (Auto) Eos # (Auto) Baso # (Auto) PT INR APTT Sodium Potassium Chloride Carbon Dioxide Anion Gap BUN Creatinine Est GFR ( Amer) Est GFR (Non-Af Amer) Random Glucose Lactic Acid 2.1 Calcium Total Bilirubin AST ALT Alkaline Phosphatase Total Protein Albumin Globulin Albumin/Globulin Ratio Lipase Alcohol, Quantitative Assessment & Plan - Assessment and Plan (Free Text) Assessment: 57 year old male with PMHx of liver cirrhosis, gastric and esophageal varices, chronic gastritis, chronic EtOH use disorder and tobacco use disorder admitted for abdominal pain and Ascites. Plan: Abdominal pain most likely secondary to ascitis -NPO -Paracentesis/ IR consult -CT abdomen/pelvis IMPRESSION: Hepatic cirrhosis. Extensive ascites. Suspected omental metastasis. Nonspecific colitis involving the ascending and transverse colon. Possible infectious or inflammatory etiology. Further evaluation advised. Minimal splenomegaly. Esophageal varices. Perigastric varices. -Hold Spironolactone and Labetalol for now due to concern for hypotension after paracentesis -Start Lasix 20 mg IVP -start ceftriaxone 1 gm -f/u fluids cell count, cell cx, and gram stain Liver cirrhosis -secondary to ETOH abuse - MELD score: 16 6% estimated 3 month mortality ETOH use disorder - CIWA score of 0 - Librium 10 mg po q8 Tinea vs. psoriasis -Clotrimazole BID over effected area -Hydrocortisone cream bid Diet: NPO for IR DVT Prophylaxis -SCD, platelet 76 <Tahira Barnhart - Last Filed: 06/07/18 14:41> Results - Vital Signs Recent Vital Signs: Last Vital Signs Temp 98 F 06/07/18 11:15 Pulse 86 06/07/18 11:15 Resp 20 06/07/18 11:15 BP 118/75 06/07/18 11:27 Pulse Ox 97 06/07/18 11:15 - Labs Result Diagrams: 06/07/18 05:14 06/07/18 05:14 Labs: Laboratory Results - last 24 hr 06/07/18 06/07/18 06/07/18 05:14 05:14 05:14 WBC 2.9 L RBC 4.21 L Hgb 13.1 Hct 39.8 MCV 94.5 H D MCH 31.0 MCHC 32.8 L RDW 17.6 H Plt Count 76 L D MPV 8.9 Neut % (Auto) 56.7 Lymph % (Auto) 11.8 L [place] % (Auto) 22.2 H Eos % (Auto) 5.8 H Baso % (Auto) 3.5 H Neut # (Auto) 1.6 L Lymph # (Auto) 0.3 L [place] # (Auto) 0.6 Eos # (Auto) 0.2 Baso # (Auto) 0.1 Neutrophils % (Manual) 63 Lymphocytes % (Manual) 8 L Monocytes % (Manual) 26 H Eosinophils % (Manual) 1 Basophils % (Manual) 2 Platelet Estimate Decreased L Anisocytosis (manual) Slight Target Cells Slight PT 17.3 H INR 1.5 APTT 38.0 H Sodium 139 Potassium 4.0 Chloride 104 Carbon Dioxide 20 L Anion Gap 19 BUN 5 L Creatinine 0.5 L Est GFR ( Amer) > 60 Est GFR (Non-Af Amer) > 60 Random Glucose 98 Lactic Acid Calcium 8.3 L Total Bilirubin 3.5 H AST 96 H D ALT 27 Alkaline Phosphatase 160 H Total Protein 8.2 Albumin 3.2 L Globulin 5.0 H Albumin/Globulin Ratio 0.6 L Lipase 194 Fluid Source Fluid Appearance Fluid WBC Fluid RBC Fluid Tot Cell Count Fluid Neutrophils Fluid Lymphocytes Fld Monocyte/Macrophag Fluid Comment Alcohol, Quantitative 87 H 06/07/18 06/07/18 05:14 11:15 WBC RBC Hgb Hct MCV MCH MCHC RDW Plt Count MPV Neut % (Auto) Lymph % (Auto) [place] % (Auto) Eos % (Auto) Baso % (Auto) Neut # (Auto) Lymph # (Auto) [place] # (Auto) Eos # (Auto) Baso # (Auto) Neutrophils % (Manual) Lymphocytes % (Manual) Monocytes % (Manual) Eosinophils % (Manual) Basophils % (Manual) Platelet Estimate Anisocytosis (manual) Target Cells PT INR APTT Sodium Potassium Chloride Carbon Dioxide Anion Gap BUN Creatinine Est GFR ( Amer) Est GFR (Non-Af Amer) Random Glucose Lactic Acid 2.1 Calcium Total Bilirubin AST ALT Alkaline Phosphatase Total Protein Albumin Globulin Albumin/Globulin Ratio Lipase Fluid Source Peritoneal/ascites Fluid Appearance Clear Fluid WBC 50.0 Fluid RBC 297.0 H Fluid Tot Cell Count 100 H Fluid Neutrophils 9.0 H Fluid Lymphocytes 21.0 H Fld Monocyte/Macrophag 70 H Fluid Comment Light yellow Alcohol, Quantitative Attending/Attestation - Attestation I have personally seen and examined this patient.: Yes I have fully participated in the care of the patient.: Yes I have reviewed all pertinent clinical information: Yes Notes (Text): Abd Pain prob due to [place] Ascites , and poss Alcohol Gastritis r/o SBP Alcohol Abuse Cirrhosis with ascites, coagulopathy , thrombocytopenia ? Omental Metastasis seen on CT CT of the abdomen Hepatic cirrhosis. Extensive ascites. Suspected omental metastasis. Nonspecific colitis involving the ascending and transverse colon. Possible infectious or inflammatory etiology. Further evaluation advised. Minimal splenomegaly. Esophageal varices. Perigastric varices. - Paracentesis with ascitic fluid analysis - empirically start IV ceftriaxone for poss SBP - PPI - start Lasix, Aldactone , Propranolol - Check for AFP, consult Dr Sparrow - watch for ETOH Withdrawal sxs - start Librium, Thiamine, FA
[2018-06-07] MEDS ORDERED: Multivitamin With Minerals Tab PO SCH (09:00)
[2018-06-07] MEDS ORDERED: Pantoprazole 40 mg EC Tab PO SCH (09:00)
[2018-06-07] MEDS ORDERED: Albumin Human 25% (12.5 gm/50 ml) IV ONE (10:19)
[2018-06-07] MEDS ORDERED: Lidocaine 2% MPF (5 ml) Inj ONE (10:24)
[2018-06-07 10:32] LABS: BASOPHIL 2 % (0-2); EOSINOPHIL 1 % (0-7); LYMPHOCYTE 8 % (20-50); MONOCYTE 26 % (0-10); NEUTROPHIL 63 % (42-75); PLATELET ESTIMATE DECREASED (NORMAL); TOTAL CELLS COUNTED 100
--- NOTE | 2018-06-07 10:57 | PCM.SURG1 ---
Surgeon's Initial Post Op Note - Surgeon's Notes Surgeon: Kana Ambriz MD Public Services Assistant: NONE Type of Anesthesia: Local Pre-Operative Diagnosis: Ascites, cirrhosis Operative Findings: US showed a small amount of ascites Post-Operative Diagnosis: Ascites, cirrhosis Operation Performed: US guided paracentesis Specimen/Specimens Removed: 1.2 liters of straw colored fluid Estimated Blood Loss: EBL {In ML}: 0 Blood Products Given: N/A Drains Used: No Drains Post-Op Condition: Fair Date of Surgery/Procedure: 06/07/18 Time of Surgery/Procedure: 10:50
[2018-06-07 10:58] LABS: ANISOCYTOSIS SLIGHT; TARGET CELLS SLIGHT
[2018-06-07 11:23] LABS: BODY FLUID TYPE PERITONEAL/ASCITES
[2018-06-07 11:57] LABS: BF GROSS APPEARANCE CLEAR (CLEAR)
--- NOTE | 2018-06-07 12:08 | CT ---
Date of service: 06/07/2018 PROCEDURE: CT Abdomen and Pelvis with contrast HISTORY: abd pain COMPARISON: 08/27/2017 TECHNIQUE: Contrast dose: 90 mL Omnipaque 300 Radiation dose: Total exam DLP = 358.91 mGy-cm. This CT exam was performed using one or more of the following dose reduction techniques: Automated exposure control, adjustment of the mA and/or kV according to patient size, and/or use of iterative reconstruction technique. FINDINGS: LOWER THORAX: No infiltrate/effusion. There is a small amount of fluid in the dependent aspect of the distal thoracic esophagus. Periesophageal varices are noted about the distal esophagus. LIVER: Nodular contour consistent with hepatic cirrhosis. 8 mm nonspecific low-attenuation rounded lesion in the inferior right hepatic lobe. No other mass. No biliary ductal dilatation. GALLBLADDER AND BILE DUCTS: Partially contracted. Mild mural thickening common nonspecific. PANCREAS: Unremarkable. No gross lesion or ductal dilatation. SPLEEN: Minimal splenomegaly. No mass. ADRENALS: Unremarkable. No mass. KIDNEYS AND URETERS: Unremarkable. No hydronephrosis. No solid mass. VASCULATURE: No evidence of abdominal aortic aneurysm. No evidence of portal venous thrombosis or splenic venous thrombosis. There is atherosclerotic calcification of the abdominal aorta. There are esophageal varices about the distal thoracic esophagus. There are mild perigastric varices. BOWEL: Evaluation of the bowel is limited by the absence of oral contrast opacification. There is marked thickening of the wall of the entire ascending and transverse colon consistent with a nonspecific colitis. No evidence of bowel obstruction. There is nonspecific mild circumferential mural thickening of multiple loops of jejunum, possibly due to hepatic cellular disease. APPENDIX: Normal appendix. PERITONEUM: Extensive ascites. Mesenteric edema. Suspected omental metastasis. No definite serosal implants identified. Primary neoplasm unknown at this time. Very small umbilical hernia containing only mesenteric fat and a small amount of ascites fluid. LYMPH NODES: Unremarkable. No enlarged lymph nodes. BLADDER: Unremarkable. REPRODUCTIVE: Normal prostate. BONES: No acute fracture. OTHER FINDINGS: None. IMPRESSION: Hepatic cirrhosis. Extensive ascites. Suspected omental metastasis. Nonspecific colitis involving the ascending and transverse colon. Possible infectious or inflammatory etiology. Further evaluation advised. Minimal splenomegaly. Esophageal varices. Perigastric varices. Additional minor findings as above. The preliminary findings for this examination were reported by [facility] at 6:39 a.m. on 06/07/2018. There is discordance of this report with the preliminary findings. The presence of suspected omental metastasis was not described in the preliminary report of this examination. The presence of esophageal varices was not described in the preliminary report of this examination.
[2018-06-07 12:39] VITALS: RESP 20
[2018-06-07] MEDS ORDERED: Sucralfate 1 gm/10 ml Oral Susp UD PO SCH (13:00)
[2018-06-07 14:17] LABS: BODY FLUID MONO/MACROPHAGE 70 % (0-0); BODY FLUID TOTAL COUNT 100 (0-0)
--- NOTE | 2018-06-07 15:11 | CP.PCM.CON ---
History of Present Illness - History of Present Illness History of Present Illness: 57 year male admitted for ascites, secondary to cirrhosis from chronic use of alcohol. HCV and HBV serology negative. Post paracentesis during this admission. No obvious DT's. History GI bleed, but no encephalopathy. Routine CT abdomen shows cirrhosis, patent portal vein, a questionable mass? Patient on low low diuretics. He admits to not taking medications. His last upper EGD was 08/09 with mod-large varices. The is no record of him bleeding since. Review of Systems - EENT Eyes: As Per HPI Ears: As Per HPI Past Patient History - Infectious Disease Hx of Infectious Diseases: None - Tetanus Immunizations Tetanus Immunization: Unknown - Past Medical History & Family History Past Medical History?: Yes - Past Social History Alcohol: > 2 Drinks/Day Drugs: Denies - CARDIAC Hx Hypercholesterolemia: No Hx Hypertension: Yes - PULMONARY Hx Tuberculosis: No - NEUROLOGICAL Hx Seizures: No - HEENT Hx HEENT Problems: No - RENAL Hx Chronic Kidney Disease: No - ENDOCRINE/METABOLIC Hx Endocrine Disorders: No - HEMATOLOGICAL/ONCOLOGICAL Hx Anemia: Yes Hx Human Immunodeficiency Virus (HIV): No - INTEGUMENTARY Hx Dermatological Problems: No - MUSCULOSKELETAL/RHEUMATOLOGICAL Hx Fractures: Yes (L ankle sx) - GASTROINTESTINAL Hx Gastritis: Yes - GENITOURINARY/GYNECOLOGICAL Hx Sexually Transmitted Disorders: No - PSYCHIATRIC Hx Anxiety: Yes Hx Depression: Yes - SURGICAL HISTORY Hx Orthopedic Surgery: Yes (left ankle fx surgery) - ANESTHESIA Hx Anesthesia: Yes Hx Anesthesia Reactions: No Hx Malignant Hyperthermia: No Meds Allergies/Adverse Reactions: Allergies Allergy/AdvReac Type Severity Reaction Status Date / Time No Known Allergies Allergy Verified 10/16/17 21:41 - Medications Medications: Current Medications Chlordiazepoxide (Librium) 10 mg PO Q8 LEROY Last Admin: 06/07/18 11:54 Dose: 10 mg Clotrimazole (Lotrimin 1% Cream) 1 applic TOP BID LEROY Last Admin: 06/07/18 11:24 Dose: 1 appl Folic Acid (Folic Acid) 1 mg PO DAILY LEROY Last Admin: 06/07/18 11:24 Dose: 1 mg Hydrocortisone (Hydrocortisone Lotion 2.5%) 1 applic TP BID LEROY Ceftriaxone Sodium 1 gm/ (Sodium Chloride) 100 mls @ 100 mls/hr IVPB DAILY LEROY; Protocol Multivitamins/Minerals (Therapeutic-M Tab) 1 tab PO DAILY LEROY Last Admin: 06/07/18 11:28 Dose: 1 tab Ondansetron HCl (Zofran Inj) 4 mg IVP Q6 PRN PRN Reason: Nausea/Vomiting Pantoprazole Sodium (Protonix Ec Tab) 40 mg PO DAILY [facility] Last Admin: 06/07/18 11:27 Dose: 40 mg Propranolol HCl (Inderal) 10 mg PO Q12 [facility] Spironolactone (Aldactone) 25 mg PO BID [facility] Sucralfate (Carafate Oral Susp) 0.5 gm PO TIDAC [facility] Thiamine HCl (Vitamin B1 Tab) 100 mg PO DAILY [facility] Last Admin: 06/07/18 11:29 Dose: 100 mg Physical Exam - Constitutional Appears: Cachectic, Chronically Ill - Head Exam Head Exam: ATRAUMATIC, NORMAL INSPECTION Additional comments: termporal wasting - Eye Exam Eye Exam: Scleral icterus Pupil Exam: PERRL - ENT Exam ENT Exam: Mucous Membranes Dry Additional comments: poor dentition - Respiratory Exam Respiratory Exam: Clear to Auscultation Bilateral, NORMAL BREATHING PATTERN - Cardiovascular Exam Cardiovascular Exam: REGULAR RHYTHM - GI/Abdominal Exam GI & Abdominal Exam: Normal Bowel Sounds, Soft Additional comments: mild ascites - Rectal Exam Rectal Exam: Deferred - Exam External exam: NORMAL EXTERNAL EXAM - Extremities Exam Extremities exam: Positive for: normal inspection - Neurological Exam Neurological exam: Oriented x3 - Psychiatric Exam Psychiatric exam: Flat Affect - Skin Skin Exam: Petechiae Results - Vital Signs Recent Vital Signs: Last Vital Signs Temp 98 F 06/07/18 11:15 Pulse 86 06/07/18 11:15 Resp 20 06/07/18 11:15 BP 118/75 06/07/18 11:27 Pulse Ox 97 06/07/18 11:15 - Labs Result Diagrams: 06/07/18 05:14 06/07/18 05:14 Labs: Laboratory Results - last 24 hr 06/07/18 06/07/18 06/07/18 05:14 05:14 05:14 WBC 2.9 L RBC 4.21 L Hgb 13.1 Hct 39.8 MCV 94.5 H D MCH 31.0 MCHC 32.8 L RDW 17.6 H Plt Count 76 L D MPV 8.9 Neut % (Auto) 56.7 Lymph % (Auto) 11.8 L [place] % (Auto) 22.2 H Eos % (Auto) 5.8 H Baso % (Auto) 3.5 H Neut # (Auto) 1.6 L Lymph # (Auto) 0.3 L [place] # (Auto) 0.6 Eos # (Auto) 0.2 Baso # (Auto) 0.1 Neutrophils % (Manual) 63 Lymphocytes % (Manual) 8 L Monocytes % (Manual) 26 H Eosinophils % (Manual) 1 Basophils % (Manual) 2 Platelet Estimate Decreased L Anisocytosis (manual) Slight Target Cells Slight PT 17.3 H INR 1.5 APTT 38.0 H Sodium 139 Potassium 4.0 Chloride 104 Carbon Dioxide 20 L Anion Gap 19 BUN 5 L Creatinine 0.5 L Est GFR ( Amer) > 60 Est GFR (Non-Af Amer) > 60 Random Glucose 98 Lactic Acid Calcium 8.3 L Total Bilirubin 3.5 H AST 96 H D ALT 27 Alkaline Phosphatase 160 H Total Protein 8.2 Albumin 3.2 L Globulin 5.0 H Albumin/Globulin Ratio 0.6 L Lipase 194 Fluid Source Fluid Appearance Fluid WBC Fluid RBC Fluid Tot Cell Count Fluid Neutrophils Fluid Lymphocytes Fld Monocyte/Macrophag Fluid Comment Alcohol, Quantitative 87 H 06/07/18 06/07/18 05:14 11:15 WBC RBC Hgb Hct MCV MCH MCHC RDW Plt Count MPV Neut % (Auto) Lymph % (Auto) [place] % (Auto) Eos % (Auto) Baso % (Auto) Neut # (Auto) Lymph # (Auto) [place] # (Auto) Eos # (Auto) Baso # (Auto) Neutrophils % (Manual) Lymphocytes % (Manual) Monocytes % (Manual) Eosinophils % (Manual) Basophils % (Manual) Platelet Estimate Anisocytosis (manual) Target Cells PT INR APTT Sodium Potassium Chloride Carbon Dioxide Anion Gap BUN Creatinine Est GFR ( Amer) Est GFR (Non-Af Amer) Random Glucose Lactic Acid 2.1 Calcium Total Bilirubin AST ALT Alkaline Phosphatase Total Protein Albumin Globulin Albumin/Globulin Ratio Lipase Fluid Source Peritoneal/ascites Fluid Appearance Clear Fluid WBC 50.0 Fluid RBC 297.0 H Fluid Tot Cell Count 100 H Fluid Neutrophils 9.0 H Fluid Lymphocytes 21.0 H Fld Monocyte/Macrophag 70 H Fluid Comment Light yellow Alcohol, Quantitative - Imaging and Cardiology CT scan - abdomen Status: Image reviewed by me Additional comment: cirrhosis, ascites, patent portal vein, possible 2-3 cm mass segment 5? Assessment & Plan - Assessment and Plan (Free Text) Assessment: 57 year old man Lannec's cirrhosis with decompensation manifest by ascites, jaundice, H/O GI bleed. Discussed with him need to quit alcohol use. He is on low dose diuretics. Kidney function acceptable. Will increase spironolactone and furosemide. Continue propranolol and vitamins. I gave him my card, and ask that he call my office. He may need a triple phase CAT scan. However, given his T Bili of 3.5, he is not a treatment candidate. His only chance of survival is to remain abstinent. Plan: Patient needs to remain abstinent Spironolactone 50 mg qd Furosemide 40 mg qd Propranolol 10 mg bid Will see in office Monday Will need outpatient triple pase CT scan abdomen and liver - Date & Time Date: 06/07/18 Time: 15:11
[2018-06-07 15:58] VITALS: BP 108/71; PULSE 96; TEMP 98.3; O2SAT 95
--- NOTE | 2018-06-08 15:07 | US ---
Date of Procedure: 06/07/2018 PROCEDURE: Ultrasound-guided paracentesis, CPT 73926 Medications: 7 cc 1% Lidocaine HISTORY: Ascites, abdominal pain, cirrhosis TECHNIQUE: Following informed consent , the patient was placed supine on the stretcher and the site was marked. A limited abdominal ultrasound was performed that showed a small amount of intra-abdominal fluid. Procedural time out was called and the Pt's abdomen was marked and prepped and draped in the usual sterile fashion. Ultrasound-guided large volume paracentesis performed. A total of 1400 cc of straw colored fluid was removed without complication. Fluid specimen was sent for culture, sensitivity, cytology and chemistries. IMPRESSION: Ultrasound-guided paracentesis.
== END 2018-06-07 18:00 | disposition home or self-care (01) ==
LOC: H.ER 04:52 → H.ERHOLD 06:50 → INTOOBSV 06:50 → H.MEDSURG1 08:45
PROVIDERS: ADMIT Internal Medicine; ATTEND Internal Medicine
DX: K70.31 Alcoholic cirrhosis of liver with ascites (principal); F10.129 Alcohol abuse with intoxication, unspecified; Y90.4 Blood alcohol level of 80-99 mg/100 ml; I10 Essential (primary) hypertension; K29.50 Unspecified chronic gastritis without bleeding; D64.9 Anemia, unspecified; F41.9 Anxiety disorder, unspecified; F17.210 Nicotine dependence, cigarettes, uncomplicated
CPT/HCPCS: 36415; 49083; 74177; 80053; 80320; 82105; 83605; 83690; 85025; 85610; 85730; 87040; 87070; 87075; 87101; 88104; 88305; 89051; 96365; 96367; 96375; 99284; C1729; G0378; J0696; J1940; P9047; Q9967

== ENCOUNTER 2018-06-28 23:55 | Emergency (ER) | payer OTHER ==
[2018-06-28 23:55] VITALS: BMI 19.1
--- NOTE | 2018-06-29 01:42 | ED PDOC ---
HPI: Abdomen Time Seen by Provider: 06/29/18 00:09 Chief Complaint (Nursing): Abdominal Pain Chief Complaint (Provider): Abdominal Pain History Per: Patient History/Exam Limitations: no limitations Onset/Duration Of Symptoms: Days (today) Current Symptoms Are (Timing): Still Present Quality Of Discomfort: "Pain" Past Medical History Reviewed: Historical Data, Nursing Documentation, Vital Signs Vital Signs: Last Vital Signs Temp 98.1 F 06/28/18 23:59 Pulse 89 06/28/18 23:59 Resp 18 06/28/18 23:59 BP 100/65 06/28/18 23:59 Pulse Ox 99 06/28/18 23:59 - Medical History PMH: Anemia, Anxiety, Depression, Fractures (L ankle sx), Gastritis, HTN Denies: Diabetes, Hepatitis, HIV, Hypercholesterolemia, Chronic Kidney Disease, Seizures, Sexually Transmitted Disease - Surgical History Surgical History: Endoscopy - Family History Family History: States: Unknown Family Hx - Home Medications Home Medications: Ambulatory Orders Medication Instructions Recorded Clotrimazole/Betamethasone 30 ml TOP Q12 #1 bottle 06/07/18 [Lotrisone] Esomeprazole Magnesium [Nexium] 40 mg PO DAILY #30 capsule. 06/07/18 Ferrous Sulfate [Feosol] 325 mg PO DAILY #30 tab 06/07/18 Folic Acid 1 mg PO DAILY #30 tab 06/07/18 Furosemide [Lasix] 20 mg PO DAILY #30 tab 06/07/18 Mv-Min/Folic/Vit K/Lycop/Coq10 1 cap PO DAILY #30 capsule 06/07/18 [Daily Multivitamin Capsule] Propranolol [Inderal] 10 mg PO Q12 #60 tab 06/07/18 Spironolactone [Aldactone] 25 mg PO DAILY #30 tablet 06/07/18 Thiamine HCl [B-1] 100 mg PO DAILY #30 tablet 06/07/18 chlordiazePOXIDE [Librium] 10 mg PO Q8 #11 cap 06/07/18 - Allergies Allergies/Adverse Reactions: Allergies Allergy/AdvReac Type Severity Reaction Status Date / Time No Known Allergies Allergy Verified 06/28/18 23:59 Review of Systems ROS Statement: Except As Marked, All Systems Reviewed And Found Negative Gastrointestinal: Positive for: Abdominal Pain Genitourinary Male: Positive for: Other (bilateral testicle swelling) Physical Exam - Reviewed Nursing Documentation Reviewed: Yes Vital Signs Reviewed: Yes - Physical Exam Appears: Positive for: No Acute Distress (cachectic ) Head Exam: Positive for: ATRAUMATIC, NORMOCEPHALIC Skin: Positive for: Normal Color, Warm, Dry Eye Exam: Positive for: Normal appearance, EOMI, PERRL ENT: Positive for: Normal ENT Inspection Neck: Positive for: Normal Cardiovascular/Chest: Positive for: Regular Rate, Rhythm Respiratory: Positive for: Normal Breath Sounds. Negative for: Respiratory Distress Gastrointestinal/Abdominal: Positive for: Soft. Negative for: Tenderness, Asicites Male Genital Exam: Positive for: other (bilateral testicular swelling) Extremity: Positive for: Normal ROM (upper and lower). Negative for: Deformity Neurological/Psych: Positive for: Awake, Alert, Oriented (x3) - Laboratory Results Result Diagrams: 06/29/18 01:57 06/29/18 01:57 - ECG O2 Sat by Pulse Oximetry: 99 (RA) Pulse Ox Interpretation: Normal Medical Decision Making Medical Decision Making: Time: 133 Plan: acute on chronic swelling --Alcohol serum --CMP --Lipase --CBC testicular recommendation made for elevation for swelling K repleted. pt sleeping throughout ER stay. appears very comfortabe. instructed pt norma to follow up in [facility] and be compliant w his home meds. pt comfortable. in no distress. Time: 528 --Patient medically stable for discharge home, diagnosis liver cirrhosis. ------ Scribe Attestation: Documented by Karen Figueroa, acting as a scribe for Eliel Whelan MD. Provider Scribe Attestation: All medical record entries made by the Scribe were at my direction and personally dictated by me. I have reviewed the chart and agree that the record accurately reflects my personal performance of the history, physical exam, medical decision making, and the department course for this patient. I have also personally directed, reviewed, and agree with the discharge instructions and disposition. Disposition - Clinical Impression Clinical Impression: Liver cirrhosis, alcoholic - Patient ED Disposition Is Patient to be Admitted: No Counseled Patient/Family Regarding: Studies Performed, Diagnosis, Need For Followup - Disposition Disposition: Routine/Home Disposition Time: 05:29 Condition: IMPROVED Additional Instructions: follow up with your primary doctor tomorrow return to the ED with any worsening or concerning symptoms Instructions: Alcohol Abuse and Alcoholism (DC) Forms: [employer] (German)
[2018-06-29 02:01] LABS: BASO % 0.3 % (0.0-2.0); EOS # 0.3 K/uL (0.0-0.7); EOS % 10.6 % (0.0-4.0); HEMOGLOBIN 11.6 g/dL (12.0-18.0); LYMPH # 0.2 K/uL (1.0-4.3); LYMPH % 7.4 % (20.0-40.0); MEAN CELL VOLUME 95.6 fl (80.0-94.0); MEAN CORPUSCULAR HGB CONC 33.5 g/dL (33.0-37.0); MEAN PLATELET VOLUME 8.4 fl (7.2-11.7); MONO # 0.6 K/uL (0.0-0.8); MONO % 17.6 % (0.0-10.0); NEUT # 2.1 K/uL (1.8-7.0); NEUT % 64.1 % (50.0-75.0); NRBC % 0.2 % (0.0-0.0); PLATELET COUNT 114 K/uL (130-400); RBC 3.64 Mil/uL (4.40-5.90); WHITE BLOOD COUNT 3.2 K/uL (4.8-10.8)
[2018-06-29 02:11] LABS: ALB/GLOB RATIO 0.6 (1.0-2.1); ALBUMIN 2.8 g/dL (3.5-5.0); ALT/SGPT 27 U/L (21-72); AST/SGOT 59 U/L (17-59); BLOOD UREA NITROGEN 4 mg/dl (9-20); CALCIUM 8.1 mg/dL (8.4-10.2); GFR NON-AFRICAN AMERICAN > 60; LIPASE 199 U/L (23-300)
[2018-06-29] MEDS ORDERED: Potassium Chloride 20 mEq ER Tab PO ONE ×2 (03:31→04:06)
[2018-06-29 03:36] LABS: BANDS 3 % (0-2); EOSINOPHIL 10 % (0-7); LYMPHOCYTE 8 % (20-50); MONOCYTE 17 % (0-10); NEUTROPHIL 62 % (42-75); PLATELET ESTIMATE SLIGHTLY DECREASED (NORMAL); TOTAL CELLS COUNTED 100
[2018-06-29 05:51] VITALS: BP 105/57; PULSE 100; RESP 16; TEMP 98.2
[2018-06-29 06:39] VITALS: O2SAT 99
== END 2018-06-29 05:45 | disposition home or self-care (01) ==
LOC: H.ER 23:55
DX: K70.30 Alcoholic cirrhosis of liver without ascites (principal); I10 Essential (primary) hypertension
CPT/HCPCS: 80053; 80320; 83690; 85025; 96374; 99283; J1940

== ENCOUNTER 2018-06-29 21:30 | Emergency (ER) | payer OTHER ==
[2018-06-29 21:32] VITALS: BMI 19.1
[2018-06-29 21:34] VITALS: BP 113/74; PULSE 76; RESP 16; TEMP 98.4; O2SAT 98
== END 2018-06-29 23:45 | disposition left against medical advice (07) ==
LOC: H.ER 21:30
DX: Z02.89 Encounter for other administrative examinations (principal)